=== PATIENT | female | born 1960 | race Caucasian/White ===

== ENCOUNTER 2017-08-18 11:56 | Emergency (ER) | payer SELFPAY ==
[2017-08-18] VITALS (7 sets, daily range): BP systolic 138–151; BP diastolic 72–95; PULSE 80–95; RESP 14–20; TEMP 36; O2SAT 85–95; BMI 22.7
--- NOTE | 2017-08-18 12:27 | RAD_ITS ---
STUDY: X-RAY CHEST REASON FOR EXAM: Female, 57 years old. Shortness of breath, cough. TECHNIQUE: PA and lateral views of the chest. COMPARISON: PA and lateral chest x-ray November 17, 2015. FINDINGS: There is hyperinflation of the lungs consistent with chronic obstructive lung disease (COPD). Focal transverse density in the left base on the frontal view consistent with scarring. No new consolidation There is no demonstrated pleural abnormality. Normal size heart. Normal mediastinum and gretel. Normal visualized pulmonary arteries. Normal visualized aortic arch and descending thoracic aorta. There are stable degenerative changes of the visualized thoracic spine. Normal visualized ribs, clavicles, and shoulders. There is no demonstrated abnormality of the visualized soft tissue structures of the upper abdomen. RAD/Chest PA and Lateral IMPRESSION: Hyperexpanded, consistent with COPD. There is a focus of scarring in the left base, but no acute infiltrate or CHF. Electronically Signed: Gonzalo Calixto MD at 13:08 EST , Service support ,
--- NOTE | 2017-08-18 12:27 | EKG12_ITS ---
Test Reason : COUGH Blood Pressure : / mmHG Vent. Rate : 078 BPM Atrial Rate : 078 BPM P-R Int : 150 ms QRS Dur : 092 ms QT Int : 374 ms P-R-T Axes : 082 064 069 degrees QTc Int : 426 ms Normal sinus rhythm Right atrial enlargement Nonspecific ST abnormality Abnormal ECG Confirmed by CHRISTI ROBIN, ERNESTINE ([id number]), photo editor LEODAN REGALADO ([id number]) on 08/21/2017 3:54:50 PM Referred By: DANIEL Confirmed By:ERNESTINE BARRAZA MD
[2017-08-18] MEDS: Ipratropium/Albuterol Sulfate 3 ML AMPUL.NEB INHALATION (12:35)
--- NOTE | 2017-08-18 13:12 | ED.DCSUM_ITS ---
- ER Visit Summary Date of Service: 08/18/17 Chief Complaint: Cough History of Present Illness: The patient is a 57 F who presents for a cough for at least 1 week. Patient is unsure of exact onset but states she has been having a nagging cough that is nonproductive. She tried cough medications without relief. She denies fever, chest pain or acute shortness of breath. She states she has a chronic shortness of breath due to smoking. Patient is a heavy smoker but states it has been difficult to smoke given her cough recently. She denies any history of COPD, asthma and provides history of sinus disease, stroke and hypertension. Patient states she has not seen a doctor for primary care in several years. Physical Examination: Vital signs: afebrile, hemodynamically stable, no hypoxia on room air General: well nourished, well developed, in no distress Skin: warm, dry, no rash, no pallor HEENT: normocephalic and atraumatic; PERRL, EOMI, moist mucous membranes, edentulous Cardiovascular: regular rate and rhythm without murmurs, no peripheral edema, 2 + pulses all distal extremities Respiratory: No increased work of breathing, lungs are clear but diffusely diminished bilaterally, no rales, rhonchi or wheezing Abdominal: Abdomen is soft, nontender with normoactive bowel sounds, no guarding or rebound, no masses MSK: Moves all extremities, no deformities, normal strength Neuro: Awake and alert, oriented ?4. No facial droop, sensation and motor function intact and symmetric Test Results: Abnormal Lab Results 08/18/17 08/18/17 12:45 12:45 WBC 14.7 H RBC 4.77 Hgb 15.0 Hct 44.2 MCV 92.7 MCH 31.4 MCHC 33.9 RDW 13.2 RDW Differential 44.4 H Plt Count 275 MPV 10.9 Immature Gran % (Auto) 0.400 Neut % (Auto) 70.3 H Lymph % (Auto) 20.0 [place] % (Auto) 8.9 Eos % (Auto) 0.1 Baso % (Auto) 0.3 Absolute Neuts (auto) 10.3 H Absolute Lymphs (auto) 2.94 Total Counted Not Reportable Sodium 133 L Potassium 3.3 L Chloride 93 L Carbon Dioxide 32.0 Anion Gap 8 BUN 7 Creatinine 0.66 Estim Creat Clear Calc 71.57 Est GFR (MDRD) Af Amer 118 Est GFR (MDRD) Non-Af 98 BUN/Creatinine Ratio 10.6 Glucose 115 H Calcium 9.7 Troponin I < 0.02 Emergency Department Course and Treatment: Patient examination and history is concerning for COPD exacerbation, although patient does not carry this diagnosis. She has not been evaluated by a physician in several years and likely has undiagnosed COPD. Her chest x-ray was consistent with COPD. EKG showed a sinus rhythm without ischemia or ectopy. Troponin negative. Labs unremarkable except for leukocytosis of 14.7. Patient was given an albuterol and DuoNeb treatments as well as oral dose of prednisone. On reevaluation she felt better and was able to ambulate maintaining an oxygen saturation no lower than 89%. Patient was instructed to follow-up with her doctor as soon as possible for further evaluation of her lung function, with concern for chronic lung disease. She was discharged with azithromycin, prednisone burst and albuterol inhaler. She will return if any concerning new symptoms or worsening of her condition. Treatment Plan: [] Disposition: [] Impression: COPD exacerbation This note was generated with [employer] dictation software. It may contain incorrect words, spelling, and punctuation that were not noted in review of the chart prior to signing ED Disposition - Plan for ED Patient: Disposition: Home or Assisted Living Chief Complaint: Cough Instructions: ED COPD Flare Prescriptions: Albuterol Inhaler [Ventolin Hfa] 1 - 2 puff INHALATION Q4H PRN PRN #1 inhaler PRN Reason: Wheezing Azithromycin [Zithromax Z-Nicholas] 250 mg PO UD #1 box Prednisone 40 mg PO DAILY #8 tab Referrals: NOT,DEFINED [NON-STAFF] - Doctor,Your [STAFF PHYSICIAN] - As soon as possible Additional Instructions: Your workup today was consistent with COPD, which is a lung disease likely related to your long-term smoking. Please follow-up with your doctor as soon as possible for further evaluation of your lungs. Please use the albuterol inhaler as needed for wheezing. Take the steroid daily for 4 additional days, starting tomorrow. If you have any worsening of your condition or any new concerning symptoms, please return immediately for another evaluation.
[2017-08-18 13:24] LABS: Absolute Lymphocyte Count 2.94 X10^3/ul (0.83-4.51); Absolute Neutrophil Count 10.3 X10^3/uL (2.0-7.7); Basophil# 0.04 X10^3/uL; Basophil% 0.3 % (0-1); Eosinophil# 0.01 X10^3/uL; Eosinophils% 0.1 % (0-5); Hematocrit 44.2 % (37-47); Lymphocyte # 2.94 X10^3/ul (4.0); Mean Corp Hgb Conc 33.9 g/gl (32-36); Mean Corpuscular Hgb 31.4 pg (27.0-32.0); Mean Corpuscular Volume 92.7 fL (81-99); Mean Platelet Vol. 10.9 fl (6.2-12.0); Monocyte% 8.9 % (0-10); Neutrophil # 10.33 X10^3/uL (2.7-7.7); Neutrophil % 70.3 % (47-70); Platelet Count 275 K/mm3 (150-450); RBC Distribution Width CV 13.2 % (11.6-14.6); RBC Distribution Width SD 44.4 fl (35.1-43.9); Red Blood Count 4.77 M/mm3 (4.2-5.4); White Blood Count 14.7 K/mm3 (4.4-11.0)
[2017-08-18 13:25] LABS: POSITIVE COUNT NO; POSITIVE DIFFERENTIAL NO; POSITIVE MORPHOLOGY NO
[2017-08-18 13:42] LABS: Anion Gap 8 (5-15); BUN 7 mg/dL (7-18); BUN/Creat Ratio 10.6 RATIO (10-20); Calcium,Total 9.7 mg/dL (8.5-10.1); Chloride 93 mmol/L (98-107); Creatinine, Serum 0.66 mg/dL (0.55-1.02); EST Glomerular Filtration Rate 98 mL/min (>60); Est Glom Filt Rate - Afr Amer 118 mL/min (>60); Estimated Creatinine Clearance 71.57 ml/min; Glucose 115 mg/dL (74-106); Potassium 3.3 mmol/L (3.5-5.1); Sodium Level 133 mmol/L (136-145)
[2017-08-18] MEDS: Albuterol 2.5 MG/3 ML VIAL.NEB. INHALATION (14:22)
--- NOTE | 2017-08-18 15:06 | ED.DEP ---
ED Disposition - Plan for ED Patient: Disposition: Home or Assisted Living Chief Complaint: Cough Instructions: ED COPD Flare Prescriptions: Albuterol Inhaler [Ventolin Hfa] 1 - 2 puff INHALATION Q4H PRN PRN #1 inhaler PRN Reason: Wheezing Azithromycin [Zithromax Z-Nicholas] 250 mg PO UD #1 box Prednisone 40 mg PO DAILY #8 tab Referrals: NOT,DEFINED [NON-STAFF] - Doctor,Your [STAFF PHYSICIAN] - As soon as possible Additional Instructions: Your workup today was consistent with COPD, which is a lung disease likely related to your long-term smoking. Please follow-up with your doctor as soon as possible for further evaluation of your lungs. Please use the albuterol inhaler as needed for wheezing. Take the steroid daily for 4 additional days, starting tomorrow. If you have any worsening of your condition or any new concerning symptoms, please return immediately for another evaluation.
--- NOTE | 2017-08-18 15:14 | ED.RN ---
REVIEWED D/C INSTRUCTIONS, FOLLOW UP CARE, PRESCRIPTIONS, AND S/S THAT WOULD WARRANT A RETURN TO THE ED WITH PT. PT VERBALIZED AN UNDERSTANDING AND DENIES FURTHER QUESTIONS FOR THIS RN. PT SKIN P/W/D, RESP EVEN AND UNLABORED, PT A&O X 3, NO DISTRESS NOTED. PT AMBULATED OUT OF ED, GAIT STEADY.
== END 2017-08-18 15:16 | disposition home or self-care (01) ==
PROVIDERS: Emergency Provider Emergency Medicine
DX: J44.1 Chronic obstructive pulmonary disease with (acute) exacerbation (principal); D72.829 Elevated white blood cell count, unspecified; I10 Essential (primary) hypertension; Z86.73 Personal history of transient ischemic attack (TIA), and cerebral infarction without residual deficits; F17.200 Nicotine dependence, unspecified, uncomplicated
CPT/HCPCS: 71046; 80048; 84484; 85025; 93005; 94640; 99285; A4216

== ENCOUNTER → 2017-12-17 11:33 | Outpatient (CLI) | payer MEDICARE, SELFPAY ==
--- NOTE | 2017-12-17 11:38 | RAD_ITS ---
STUDY: X-RAY - LEFT HAND REASON FOR EXAM: Fall, pain in thumb area. TECHNIQUE: 3 view(s) of the hand. COMPARISON: None. FINDINGS: Normal radiocarpal articulation. Normal distal radioulnar joint. There is a small ossicle at the ulnar styloid process. Normal visualized carpal bones. Normal carpal articulations Normal carpometacarpal articulation of the thumb. Normal second through fifth carpometacarpal joints. Normal metacarpi. There is radial subluxation of the metacarpophalangeal joint of the thumb, suggestive of ulnar collateral ligament injury. Normal interphalangeal joint of the thumb. Normal proximal and distal phalanges of the thumb. Normal metacarpophalangeal joints of the second through fifth fingers. Normal proximal and distal interphalangeal joints of the second through fifth fingers. Normal phalanges of the second through fifth fingers. The soft tissue structures are unremarkable. RAD/Hand Min 3 Views IMPRESSION: Radial subluxation of the first metacarpophalangeal joint. Electronically Signed: Aditya Huerta MD at 12:18 EDT Tel , Service support ,
== END ==
PROVIDERS: Family Provider Family Medicine; PCP Family Medicine; Visit Provider Family Medicine
DX: S69.92XA Unspecified injury of left wrist, hand and finger(s), initial encounter (principal); W19.XXXA Unspecified fall, initial encounter
CPT/HCPCS: 73130

== ENCOUNTER → 2018-04-18 15:33 | Outpatient (CLI) | payer MEDICARE, SELFPAY ==
[2018-04-18 17:44] LABS: Anion Gap 8 (5-15); BUN 11 mg/dL (7-18); BUN/Creat Ratio 15.6 RATIO (10-20); Calcium,Total 10.2 mg/dL (8.5-10.1); Chloride 101 mmol/L (98-107); Cholesterol 240 mg/dL (200); Creatinine, Serum 0.71 mg/dL (0.55-1.02); EST Glomerular Filtration Rate 90 mL/min (>60); Est Glom Filt Rate - Afr Amer 109 mL/min (>60); Glucose 89 mg/dL (74-106); High Density Lipoprotein 82 mg/dL; Potassium 4.5 mmol/L (3.5-5.1); Sodium Level 140 mmol/L (136-145); Triglycerides 103 mg/dL; Very Low Density Lipoprotein 21 mg/dL (5-40)
== END ==
PROVIDERS: Family Provider Family Medicine; PCP Family Medicine; Visit Provider Family Medicine
DX: I10 Essential (primary) hypertension (principal)
CPT/HCPCS: 36415; 80048; 80061

== ENCOUNTER 2020-11-04 12:30 | Outpatient (RCR) | payer MEDICARE, SELFPAY ==
--- NOTE | 2020-10-07 13:37 | HP.PTEVAL ---
Patient's Visit Information SHAHLA VARELA is a 60 year old F referred to Physical Therapy by Dr. Marc Rosales MD with a diagnosis of poor balance. Date of Evaluation: 09/06/20 Physical Therapist: Britney Nguyen DPT - Visit Plan Frequency: 2x /Week Duration: 4 Weeks Plan: increase balance, improve gait mechanics - Subjective Pt reports that her balance has been off for a couple years after she broke her elbow after a fall outside. Pt has only fallen once since over dog. Pain: denies pain , denies numbness and tingling. Pt reports her PCP sent her here. Can stand and sit. unable to squat. walking is a problem ,pt reports she is now unable to stand on her tiptoes. occupation: does not work outside of home. pt reports that she smokes weed. Pt is a drinker. homesetup: lives with and son, steps to get into house. Pt lives in a trailer, everything is on one floor. Pt does not have a cane or walker. Pt would like to work towards [employer] for exercise. 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 - Objective Posture: FH, RS. Gait: forward flexion, reaching for objects, wide ADA with posterior pelvic tilt. ROM: hip/knee/ankle: WFL. Strength: hip: R 4-/5 L 4/5 all planes, knee: R 4-/5, L 4/5, ankle: L 4-/5 r 4/5. HR/TR:able with BUE support. SLS: 5 second bilateral with BUE support. TU.05. 30 second sit to stand: 7 - Goals Goal 1:: Pt will be I with HEP and prorgession Goal Time Frame: 4-6 Weeks Goal 2:: Pt will perform TUG >10 seconds to decrease fall risk Goal 3:: Pt will perform 15 sit to stands to promote I functional mobility Goal Time Frame: 4-6 Weeks - Rehabilitation Potential Physical Therapy Diagnosis: Pt presents with poor balance secondary to hx of stroke impacting ability to perform I functional mobility. Rehabilitation Potential: Good - Anticipated Interventions Patient/Client Instruction: Educate patient on: Plan of Care For the Purpose of:: To improve muscle performance and motor function Therapeutic Exercise to Include: Strength training, Power training, Endurance training, Balance training, Coordination, Agility training, Body mechanics, Postural training, Flexibilty training, Gait and locomotor training For the Purpose of:: To improve muscle performance and motor function, To increase tolerance to activity/condition/position Thank you for the opportunity to evaluate your patient. For Medicare and Medicare HMO plans, please review the plan of care and approve it. It will need to be FAXED BACK to us at [phone] for Medicare purposes. For Medicare only, by signing this I certify the plan of care. Please let me know if there are questions or concerns regarding this plan of care. Physician Signature: Date:
--- NOTE | 2020-10-07 14:07 | HP.PTREVAL_ITS ---
Dr. Marc Rosales MD, It has been my pleasure to treat SHAHLA VARELA over the last 9 visits for poor balance. Please see the progress note below for an update on the physical therapy plan of care! Subjective: Patient reports that she does not feel that she is getting any better. Still has a significant fear of falling. No falls recently. Does not use an AD. She wants to be able to walk around better. She would like to continue therapy. Objective/Function: Posture: FH, RS - can correct with verbal cues but does not maintain. Gait: forward flexion, reaching for objects, wide ADA with posterior pelvic tilt. ROM: hip/knee/ankle: WFL. Strength: hip: R 4/5 L 4/5 all planes, knee: R 4/5, L 4/5, ankle: L 4-/5 r 4/5. HR/TR:able with BUE support. SLS: 8 second bilateral with BUE support. TU.15. 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 Functional mobility. increase balance, improve gait mechanics Goals Goal 1:: Pt will be I with HEP and prorgession Goal Time Frame: 4-6 Weeks Goal 2:: Pt will perform TUG >10 seconds to decrease fall risk Goal 3:: Pt will perform 15 sit to stands to promote I functional mobility Goal Time Frame: 4-6 Weeks Anticipated Interventions Patient/Client Instruction: Educate patient on: Plan of Care For the Purpose of:: To improve muscle performance and motor function Therapeutic Exercise to Include: Strength training, Power training, Endurance training, Balance training, Coordination, Agility training, Body mechanics, Postural training, Flexibilty training, Gait and locomotor training For the Purpose of:: To improve muscle performance and motor function, To increase tolerance to activity/condition/position Please do not hesitate to contact me at [phone] by phone or if you have questions or concerns regarding this new plan of care! Sincerely, Britney Nguyen DPT
--- NOTE | 2020-11-04 12:49 | HP.PTDCSUM ---
It has been my pleasure to treat SHAHLA VARELA referred by Dr. Marc Rosales MD, with the diagnosis of poor balance for a total of 16 visit(s). Discharge Date: Please see the following information for a summary of their discharge status. Subjective: Patient reports that she is now more stable and is able to get off the floor. There is nothing she can't do. % Improvement: 100 Objective/Function: Posture: FH, RS - can correct and maintain with verbal cues. Gait: slow spencer but no deviation noted. ROM: hip/knee/ankle: WFL. Strength: hip: R 4+/5 L 4+/5 all planes, knee:5/5, ankle: 4/5. HR/TR:able with BUE support. SLS: 20 second bilateral with BUE support. TU.5. 30 second sit to stand:15 Goal 1:: Pt will be I with HEP and prorgession Goal Progress: Goal Met Goal 2:: Pt will perform TUG >10 seconds to decrease fall risk Goal Progress: Progressing Goal 3:: Pt will perform 15 sit to stands to promote I functional mobility Goal Progress: Goal Met Plan: 11/04/2020: Discharge to I HEP. 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 Functional mobility. increase balance, improve gait mechanics If there are questions or concerns regarding this patient's physical therapy, please feel free to call me at [phone]. Thank you for the referral of this patient. Sincerely, Britney Nguyen DPT
== END 2020-11-04 19:00 | disposition home or self-care (01) ==
LOC: PT 12:30
PROVIDERS: PCP Family Medicine; Referring Provider Family Medicine; Visit Provider Family Medicine
DX: R26.89 Other abnormalities of gait and mobility (principal)
CPT/HCPCS: 97110; 97162; 97164; 97530

== ENCOUNTER 2022-03-30 10:39 | Inpatient (IN) | payer MEDICARE, SELFPAY ==
[2022-03-30] VITALS (12 sets, daily range): BP systolic 102–131; BP diastolic 56–92; PULSE 74–126; RESP 8–30; TEMP 35.5–37; O2SAT 80–100; BMI 28.3; BMI 32.7; BMI 32.1
--- NOTE | 2022-03-30 12:10 | EKG12_ITS ---
Test Reason : SOB Blood Pressure : / mmHG Vent. Rate : 087 BPM Atrial Rate : 087 BPM P-R Int : 154 ms QRS Dur : 096 ms QT Int : 378 ms P-R-T Axes : 079 100 -25 degrees QTc Int : 454 ms Sinus rhythm with occasional Premature ventricular complexes Rightward axis Incomplete right bundle branch block Septal infarct , age undetermined T wave abnormality, consider inferior ischemia Abnormal ECG Confirmed by MAHESH ROBIN, HENRY ([id number]), state editor ELIZABETH MENDOSA ([id number]) on 04/03/2022 9:47:13 A M Referred By: GRABIEL Confirmed By:JAX ARAGON MD
[2022-03-30] MEDS: Furosemide 40 MG/4 ML Vial IV ×2 (12:16→17:56)
[2022-03-30] MEDS: Morphine 4 MG/ML Syringe IV (12:16)
--- NOTE | 2022-03-30 12:27 | RAD_ITS ---
STUDY: X-RAY CHEST REASON FOR EXAM: Female, 61 years old. Shortness of breath and diffuse edema. TECHNIQUE: AP and lateral views of the chest. COMPARISON: Comparison is made with prior study dated 08/18/2017. FINDINGS: EKG electrodes are seen. There is evidence of mild degree of CHF with small effusions. Right basilar atelectasis. There is no demonstrated pleural abnormality. Normal size heart. Normal mediastinum and gertel. Normal visualized pulmonary arteries. Normal visualized aortic arch and descending thoracic aorta. Normal visualized thoracic spine. Normal visualized ribs, clavicles, and shoulders. There is no demonstrated abnormality of the visualized soft tissue structures of the upper abdomen. RAD/Chest PA and Lateral IMPRESSION: CHF with small bilateral effusions and right basilar atelectasis. Electronically Signed: Vince Olivia MD at 12:47 EDT ,
[2022-03-30 12:32] LABS: Absolute Neutrophil Count 7.2 X10^3/uL (2.0-7.7); Basophil# 0.03 X10^3/uL; Basophil% 0.3 % (0-1); Eosinophil# 0.02 X10^3/uL; Eosinophils% 0.2 % (0-5); Hemoglobin 18.2 g/dL (12.0-15.0); Lymphocyte % 7.8 % (19-41); Mean Corp Hgb Conc 31.6 g/dL (32-36); Mean Platelet Vol. 11.1 fl (6.2-12.0); Monocyte# 1.05 X10^3/uL; Monocyte% 11.6 % (0-10); NRBC Flagged by Analyzer 0 % (0-5); Neutrophil % 79.8 % (47-70); Platelet Count 141 K/mm3 (150-450); RBC Distribution Width CV 17.5 % (11.6-14.6); RBC Distribution Width SD 59.7 fl (35.1-43.9); Red Blood Count 5.88 M/mm3 (4.2-5.4)
[2022-03-30 12:49] LABS: BUN 33 mg/dL (7-18); Creatinine, Serum 1.45 mg/dL (0.55-1.02); EST Glomerular Filtration Rate 39 mL/min (>60); Estimated Creatinine Clearance 46.12 ml/min; Glucose 112 mg/dL (74-106); Hematocrit 57.6 % (37-47)
[2022-03-30 12:50] LABS: ALB/GLOB Ratio 0.9 RATIO (0.9-2.4); AST(SGOT) 25 U/L (15-37); Alanine Aminotransfer ALT/SGPT 40 U/L (13-56); Alkaline Phosphatase 84 U/L (45-117); Anion Gap 8 (5-15); BUN/Creat Ratio 22.8 RATIO (10-20); Calcium,Total 9.3 mg/dL (8.5-10.1); Chloride 94 mmol/L (98-107); Est Glom Filt Rate - Afr Amer 47 mL/min (>60); Globulin 3.5 g/dL (2.2-4.2); Potassium 3.6 mmol/L (3.5-5.1); Protein, Total 6.5 g/dL (6.4-8.2); Sodium Level 135 mmol/L (136-145); Troponin-I HS 47 pg/mL (3.0-54.0)
[2022-03-30 12:51] LABS: Pathologist Review May foll
--- NOTE | 2022-03-30 13:15 | EDS_ITS ---
HPI History of Present Illness Chief Complaint: Shortness of Breath Informant: patient and family Onset/Context/Timing Onset: Weeks Context: gradual Timing: Continuous Quality: Positive for Dyspnea on exertion and Orthopnea Worsened by: Exertion and Lying flat Relieved by: Oxygen Associated Symptoms Negative for cough, rhinorrhea, post nasal drip, fever, sore throat, chills or sweats Chest Pain: Positive for None Narrative Narrative: Patient presents with shortness of breath that has been getting progressively worse over the past week. Family states the patient has had a 40 pound weight gain in the past month. Family noted some increased swelling of her upper and lower extremities. Patient states her breathing is worse with any exertion and with laying flat. Patient states she is unable to walk a couple steps secondary to her breathing. Patient states that when she was put on oxygen she is starting to feel better. Patient denies any chest pain. Patient denies any fevers or chills. Patient does admit to some urinary incontinence. Patient states she feels weak all over. [facility] Medical History CVA (cerebral vascular accident) Elbow fracture Home Medications NK 03/30/22 [History Last Taken Unknown] Allergy/AdvReac Type Severity Reaction Status Date / Time acetaminophen [From Vicodin] AdvReac Vomiting Verified 03/30/22 10:43 codeine AdvReac Vomiting Verified 03/30/22 10:43 hydrocodone bitartrate AdvReac Vomiting Verified 03/30/22 10:43 [From Vicodin] oxycodone HCl [From Percocet] AdvReac Vomiting Verified 03/30/22 10:43 Social History Smoking Status: Current every day smoker tobacco type: cigarettes ROS ROS ED Constitutional Constitutional ED: Denies chills or fever(s) Eyes Eyes: Denies blurry vision or change in vision ENT ENT ED: Denies rhinorrhea or sore throat Cardiovascular Cardiovascular: Denies chest pain or palpitations Respiratory/Chest Respiratory/Chest: Reports dyspnea; Denies cough Gastrointestinal Gastrointestinal: Denies nausea or vomiting Genitourinary Genitourinary ED: Denies dysuria or hematuria Musculoskeletal Musculoskeletal: Denies back pain or neck pain Integumentary Denies abscess or rash Neurologic Neurologic: Denies headache(s) or weakness Allergic/Immunologic Allergic/Immunologic ED: Denies mouth swelling or urticaria EXAM Physical Exam Const Vital Signs: 03/30/22 10:44 03/30/22 10:54 03/30/22 10:55 Temperature 97 F L Temperature Source Temporal Pulse Rate 126 H 88 Respiratory Rate 30 H Respiratory Effort Blood Pressure 119/70 Blood Pressure Mean 86 Pulse Ox 80 100 100 Oxygen Delivery Method Room Air Nasal Cannula Nasal Cannula Oxygen Flow Rate (L/min) 4 3 03/30/22 11:01 03/30/22 12:01 03/30/22 12:15 Temperature Temperature Source Pulse Rate 86 Respiratory Rate Respiratory Effort Short of Breath Blood Pressure Blood Pressure Mean Pulse Ox 97 Oxygen Delivery Method Nasal Cannula Nasal Cannula Oxygen Flow Rate (L/min) 2 2 03/30/22 12:20 Temperature Temperature Source Pulse Rate 79 Respiratory Rate 12 Respiratory Effort Blood Pressure 102/56 L Blood Pressure Mean 71 Pulse Ox 99 Oxygen Delivery Method Nasal Cannula Oxygen Flow Rate (L/min) 2 Positive well nourished and well developed General Appearance ED: well developed and NAD Neck supple Resp normal respiratory effort Auscultation: rales bilateral 2/[address] up Cardio regular rate and regular rhythm GI non-tender and non-distended Palpation: soft Extremity General Extremety ED: Yes edema; Negative for tenderness General Extremity: edema Neuro oriented x3, CN's II-XII intact bilaterally and no sensory deficits noted Sensorium / Orientation: alert Motor Exam: strength 5/5 throughout Psych mental status grossly normal MDM MDM MDM Narrative Medical decision making narrative: EKG was obtained. On my interpretation, shows a sinus rhythm with a rate of 87 with occasional PVCs. SC interval was within normal limits. QRS interval was normal. QTc interval was essentially within normal limits. There is borderline right axis deviation at 100. There are nonspecific ST-T wave changes noted. There are no acute changes compared to previous EKG. PA and lateral chest x-ray was obtained. There are 2 views. On my interpretation, lung nevarez show congestive heart failure bilateral pleural effusions. There is normal cardiac silhouette. Bony thorax is normal. There is no acute process noted. Radiologist also interpreted the x-ray and agrees. CBC shows a hemoglobin of 18.2 and hematocrit of 57.6. Platelets were 141. Comprehensive metabolic profile showed a BUN of 33 and a creatinine of 1.45. These were slightly increased from previous results. Total bilirubin was slightly elevated at 1.4. High-sensitivity troponin was normal at 47. BNP was elevated at 1776. Patient was given a dose of Lasix here. Patient was given a dose of morphine. Case was discussed with the hospitalist. He will admit the patient to his service. Patient and family understood and were agreeable with the plan. All questions were answered. Lab Data Attestation: I reviewed the patient's lab results. Labs: Laboratory Results - last 24 hr 03/30/22 03/30/22 03/30/22 12:20 12:20 12:20 WBC 9.0 RBC 5.88 H Hgb 18.2 H* Hct 57.6 H MCV 98.0 MCH 31.0 MCHC 31.6 L RDW Std Deviation 59.7 H RDW Coeff of Dae 17.5 H Plt Count 141 L MPV 11.1 Immature Gran % (Auto) 0.300 Neut % (Auto) 79.8 H Lymph % (Auto) 7.8 L [place] % (Auto) 11.6 H Eos % (Auto) 0.2 Baso % (Auto) 0.3 Absolute Neuts (auto) 7.2 Absolute Lymphs (auto) 0.70 L Nucleated RBC % 0 Diff Path Review May foll PT Cancelled INR Cancelled APTT Cancelled Sodium 135 L Potassium 3.6 Chloride 94 L Carbon Dioxide 33.0 H Anion Gap 8 BUN 33 H Creatinine 1.45 H Estim Creat Clear Calc 46.12 Est GFR (MDRD) Af Amer 47 L Est GFR (MDRD) Non-Af 39 L BUN/Creatinine Ratio 22.8 H Glucose 112 H Calcium 9.3 Total Bilirubin 1.40 H AST 25 ALT 40 Alkaline Phosphatase 84 Troponin I High Sens 47 B-Natriuretic Peptide Total Protein 6.5 Albumin 3.0 L Globulin 3.5 Albumin/Globulin Ratio 0.9 03/30/22 03/30/22 12:20 13:10 WBC RBC Hgb Hct MCV MCH MCHC RDW Std Deviation RDW Coeff of Dae Plt Count MPV Immature Gran % (Auto) Neut % (Auto) Lymph % (Auto) [place] % (Auto) Eos % (Auto) Baso % (Auto) Absolute Neuts (auto) Absolute Lymphs (auto) Nucleated RBC % Diff Path Review PT 15.2 H INR 1.2 APTT 26.6 Sodium Potassium Chloride Carbon Dioxide Anion Gap BUN Creatinine Estim Creat Clear Calc Est GFR (MDRD) Af Amer Est GFR (MDRD) Non-Af BUN/Creatinine Ratio Glucose Calcium Total Bilirubin AST ALT Alkaline Phosphatase Troponin I High Sens B-Natriuretic Peptide 1776.0 H Total Protein Albumin Globulin Albumin/Globulin Ratio Radiography Diagnostic Testing: Clinical Impression(s) from Imaging Studies Chest X-Ray 03/30/22 12:27 IMPRESSION: CHF with small bilateral effusions and right basilar atelectasis. Electronically Signed: Vince Olivia MD at 12:47 EDT , EKG Initial EKG: Attestation: I personally reviewed and interpreted this EKG as follows: Interpretation: Sinus Rhythm (87), RBBB (Incomplete) and Non-Specific ST Changes Prior EKG tracings: available for review Prior: Unchanged (08/18/2017) Discharge Plan Triage Chief Complaint: Shortness of Breath ED Provider: Angel Gaitan Dx/Rx/DC Orders Clinical Impression: Congestive heart failure (CHF), HTN (hypertension), Anasarca Prescriptions: No Action NK Primary Care Provider: Marc Rosales Referrals: Marc Rosales MD [Primary Care Provider] - Disposition Disposition: Acute Care [facility]
[2022-03-30 13:35] LABS: International Normalized Ratio 1.2; Prothrombin Time (Protime)PT. 15.2 SECONDS (11.7-14.9)
[2022-03-30 13:36] LABS: Partial Thromboplast Time 26.6 Seconds (24.1-36.2)
--- NOTE | 2022-03-30 15:11 | HP.PCM.HOS_ITS ---
[facility] - General General Date of Admission: 03/30/22 Date of Service: 03/30/22 Chief Complaint: Weakness and shortness of breath HPI Narrative SHAHLA VARELA, is a 61 F who presents with progressive weakness, shortness of breath and debility. Patient had just received morphine and is a poor historian so much of history is obtained through the emergency room physician as well as her family who is at bedside. Over the past 4 weeks, patient has had increasing edema diffusely including her arms, she is weak and unable to adequately care for herself. At some point, patient was able to ambulate on her own but noticed to unsteady. Patient is not active in managing follow-up with physicians though was referred to a Dr. Kruger for vascular surgery which she was to see next week for lower extremities. Patient does have a history of stroke about 18 years ago but was functional afterwards but there is been concerned that the patient may be demented and but that has not been fully worked up. [facility] Medical History (Updated 03/30/22 @ 15:[address] Angel Hanson DO) Alcohol abuse Congestive heart failure (CHF) CVA (cerebral vascular accident) Elbow fracture HTN (hypertension) Mild dementia Peripheral arterial disease Polycythemia Tobacco abuse Home Medications NK 03/30/22 [History Last Taken Unknown] Allergy/AdvReac Type Severity Reaction Status Date / Time acetaminophen [From Vicodin] AdvReac Vomiting Verified 03/30/22 10:43 codeine AdvReac Vomiting Verified 03/30/22 10:43 hydrocodone bitartrate AdvReac Vomiting Verified 03/30/22 10:43 [From Vicodin] oxycodone HCl [From Percocet] AdvReac Vomiting Verified 03/30/22 10:43 unable to obtain (Patient is confused) Social History (Updated 03/30/22 @ 15:[address] Angel Hanson DO) Smoking Status: Heavy Smoker (>10/day) alcohol intake: current substance use type: does not use ROS ROS Narrative Trouble swallowing particularly large pills. ROS unable to be adequately obtained from the patient as she is groggy. Did receive morphine shortly before I saw the patient. Review of Systems ROS Unobtainable: due to encephalopathy Vital Signs Vital Signs Vital Signs: 03/30/22 10:44 03/30/22 10:54 03/30/22 10:55 Temperature 36.1 C L Temperature Source Temporal Pulse Rate 126 H 88 Respiratory Rate 30 H Respiratory Effort Blood Pressure 119/70 Blood Pressure Mean 86 Pulse Ox 80 100 100 Oxygen Delivery Method Room Air Nasal Cannula Nasal Cannula Oxygen Flow Rate (L/min) 4 3 03/30/22 11:01 03/30/22 12:01 03/30/22 12:15 Temperature Temperature Source Pulse Rate 86 Respiratory Rate Respiratory Effort Short of Breath Blood Pressure Blood Pressure Mean Pulse Ox 97 Oxygen Delivery Method Nasal Cannula Nasal Cannula Oxygen Flow Rate (L/min) 2 2 03/30/22 12:20 03/30/22 14:28 Temperature 37.0 C Temperature Source Temporal Pulse Rate 79 84 Respiratory Rate 12 16 Respiratory Effort Blood Pressure 102/56 L 131/82 H Blood Pressure Mean 71 98 Pulse Ox 99 95 Oxygen Delivery Method Nasal Cannula Nasal Cannula Oxygen Flow Rate (L/min) 2 2 Weight Weight: 73.573 kg Body Mass Index (BMI) 32.7 Physical Exam Const Constitutional Narrative: Awake, but groggy. Dozes off during encounter. Does not answer questions properly nor follow commands appropriately. Orientation / Consciousness: confused HEENT normocephalic Eyes Eyes Narrative: No icterus Neck Neck Narrative: Positive JVD. No thyromegaly. Resp Resp Narrative: Poor respiratory effort. Otherwise clear. Cardio regular rate, regular rhythm, S1 normal heart sound and S2 normal heart sound GI normal to inspection, nondistended, normoactive bowel sounds, soft to palpation, non-tender and non-distended Extremity Extremity Narrative: Bilateral Todt upper and lower extremity edema. Abdominal wall edema. Skin Skin Narrative: Cyanosis of the toes more prominent right than on the left. Diminished dorsalis pedal pulses bilaterally. Neuro moves all extremities and no focal motor deficits Results Lab / Micro Data Attestation: I reviewed the patient's lab results. Result Diagrams: 03/30/22 12:20 03/30/22 12:20 Labs: Laboratory Results - last 24 hr 03/30/22 12:20: WBC 9.0, RBC 5.88 H, Hgb 18.2 H*, Hct 57.6 H, MCV 98.0, MCH 31.0, MCHC 31.6 L, RDW Std Deviation 59.7 H, RDW Coeff of Dae 17.5 H, Plt Count 141 L, MPV 11.1, Immature Gran % (Auto) 0.300, Neut % (Auto) 79.8 H, Lymph % (Auto) 7.8 L, [place] % (Auto) 11.6 H, Eos % (Auto) 0.2, Baso % (Auto) 0.3, Absolute Neuts (auto) 7.2, Absolute Lymphs (auto) 0.70 L, Nucleated RBC % 0, Diff Path Review October03/30/22 12:20: PT Cancelled, INR Cancelled, APTT Cancelled 03/30/22 12:20: Sodium 135 L, Potassium 3.6, Chloride 94 L, Carbon Dioxide 33.0 H, Anion Gap 8, BUN 33 H, Creatinine 1.45 H, Estim Creat Clear Calc 46.12, Est GFR (MDRD) Af Amer 47 L, Est GFR (MDRD) Non-Af 39 L, BUN/Creatinine Ratio 22.8 H , Glucose 112 H, Calcium 9.3, Total Bilirubin 1.40 H, AST 25, ALT 40, Alkaline Phosphatase 84, Troponin I High Sens 47, Total Protein 6.5, Albumin 3.0 L, Globulin 3.5, Albumin/Globulin Ratio 0.9 03/30/22 12:20: B-Natriuretic Peptide 1776.0 H 03/30/22 13:10: PT 15.2 H, INR 1.2, APTT 26.6 Micro: Microbiology 03/30/22 12:21 Nasal Secretion SARS-CoV-2 & FLU Antigen (Rapid) - Final EKG Initial EKG: Attestation: I personally reviewed and interpreted this EKG as follows: Prior EKG tracings: available for review EKG Rhythm Intrepretation: Sinus Rhythm (PVC) Radiology Impression Chest X-Ray 03/30/22 12:27 IMPRESSION: CHF with small bilateral effusions and right basilar atelectasis. Electronically Signed: Vince Olivia MD at 12:47 EDT , Assessment & Plan Assessment/Plan (1) Congestive heart failure (CHF): PLAN: Unclear type. Concerned about the patient have pulmonary hypertension which may be due to untreated sleep apnea. Plan: * Continue with diuresis with furosemide 40 mg twice daily * Fluid restrict 1.5 L/day * Strict I's and O's * Check echocardiogram * Recommend outpatient follow-up for polysomnogram (2) Mild dementia: PLAN: Not been fully diagnosed Plan * Follow-up with geriatrics for formal assessment * Avoid potentiating medications, such as morphine * Check for reversible causes with TSH, B12 and folate (3) Acute respiratory failure with hypoxia: PLAN: Secondary to CHF Wean oxygen as able (4) Peripheral arterial disease: PLAN: Suspected Patient has cyanosis of her toes as well as weak peripheral pulses Plan: Check ankle-brachial indices (5) Polycythemia: PLAN: Likely due to smoking Plan: Monitor for now. Low suspicion for polycythemia vera. (6) Alcohol abuse: PLAN: Patient does not drink that much according to family currently about 1-2 beers of [place] per day. Had been a little bit heavier before but was not excessively heavy according to the family. Cannot rule out Warnicke's encephalopathy Check B12 and folate Start thiamine and folate I suspect patient is low risk for going through acute alcohol withdrawal (7) Tobacco abuse: PLAN: Patient will need to stop smoking as a concern patient does have PAD Hold off on nicotine patch for now PLAN: Plan VTE prophylaxis with low migraine heparin CODE STATUS: Addressed with family. They are unsure with the patient would want as she is sent mixed signals before. Therefore, at this time, she will remain full code. Disposition: To be determined. Anticipate the patient will require at least 2-3 more days of hospitalization. I am very concerned the patient may require s [facility] nursing facility did address this with the family. Ultimately that her situation may be a [place]'s box of medical diagnoses or potential medical diagnoses that would warrant further follow-up with other medical providers upon discharge. Charges/Coding Visit Charges Inpatient E&M: 69706 Init Hosp L3
--- NOTE | 2022-03-30 16:11 | ART_ITS ---
Reason For Study: Cyanosis of Toes Procedure A bilateral lower extremity continuous wave Doppler with analog waveform analysis and ankle brachial indexes. Left Segmental Pressures Left posterior tibial artery = 60mmHg. Unable to obtain DP. The left posterior tibial artery waveforms are monophasic. Right Segmental Pressures Right brachial= 131mmHg. Right posterior tibial artery = 78mmHg. Unable to obtain DP. The right posterior tibial artery waveforms are monophasic. Indices The right ankle brachial index by the posterior tibial artery is 0.60. The left ankle brachial index by the posterior tibial artery is 0.46. VL/Ankle Brachial Index Interpretation Summary Right FERNANDO 0.6, severe arterial insufficiency. Doppler/PVR waveforms severely di minished Left FERNANDO 0.46, severe arterial insufficiency. Doppler/PVR waveforms severely di minished Ordering Physician: Angel Hanson Referring Physician: Marc Rosales Performed By: VANESSA LEMUS [facility]
--- NOTE | 2022-03-30 16:11 | ECHOD_ITS ---
Reason For Study: CHF Procedure This was a 2D Doppler, Color Flow transthoracic echocardiogram. Exam performed portable in patient room. Left Ventricle Normal LV size. The estimated ejection fraction is 70 %. No evidence for diastolic dysfunction. No regional wall motion abnormalities noted. Right Ventricle Severely dilated right ventricle. Mild global right ventricular systolic dysfunction. Atria Normal left atrium. The right atrium is severely enlarged. No doppler evidence for ASD. Mitral Valve There is mild mitral annular calcification. There is no mitral valve stenosis. No mitral valve insufficiency. Tricuspid Valve There is no tricuspid stenosis. Mild tricuspid valve insufficiency. Unable to estimate RV systolic pressure due to insufficient tricuspid regurgitant envelope. Aortic Valve Aortic sclerosis, no stenosis. Trisinus/trileaflet aortic valve. There is no aortic stenosis. Mild (1+) aortic valve insufficiency. Pulmonic Valve There is no pulmonic valvular stenosis. No pulmonic valve insufficiency. Great Vessels Normal aortic root. Pericardium/Pleural No pericardial effusion. MMode/2D Measurements & Calculations LVIDd: 3.9 cm IVSd: 0.98 cm Ao root diam: 3.0 cm LVIDs: 2.1 cm LVPWd: 1.0 cm LA dimension: 3.0 cm RVDd: 4.3 cm FS: 47.0 % LAV(MOD-bp): 28.9 ml LA A4 area: 12.2 cm2 RA A4 area: 21.0 cm2 LAV(MOD-bp) Indexed: 17.3 ml/m2 LAV(MOD-sp2): 31.3 ml LAV(MOD-sp4): 24.9 ml Time Measurements MV dec time: 0.23 sec Doppler Measurements & Calculations MV E max jerod: 60.9 cm/sec Lat Peak E' Jerod: 10.2 cm/sec Med Peak E' Jerod: 7.0 cm/sec MV A max jerod: 90.9 cm/sec E/E' lat: 6.0 E/E' med: 8.7 MV E/A: 0.67 MV V2 max: 104.4 cm/sec MV P1/2t max jerod: 72.3 cm/sec Ao V2 max: 172.9 cm/sec MV max P.4 mmHg MV P1/2t: 72.2 msec Ao max P.0 mmHg MV V2 mean: 64.1 cm/sec MV dec slope: 293.3 cm/sec2 MV mean P.9 mmHg MVA(P1/2t): 3.0 cm2 MV V2 VTI: 24.9 cm LV V1 max: 89.0 cm/sec PA V2 max: 103.3 cm/sec TR max jerod: 227.8 cm/sec LV V1 max P.2 mmHg TR max P.1 mmHg ECHO/Echo Complete Interpretation Summary The estimated ejection fraction is 70 %. No evidence for diastolic dysfunction. Severely dilated right ventricle. Mild global right ventricular systolic dysfunction. The right atrium is severely enlarged. Mild (1+) aortic valve insufficiency. Ordering Physician: Angel Hanson Referring Physician: Marc Rosales Performed By: Manny Chaudhry RCS
[2022-03-30] MEDS: 0.9% Saline Lock 10 ML Syringe IV (17:56)
[2022-03-30 17:57] LABS: Troponin-I HS 14 pg/mL (3.0-54.0)
--- NOTE | 2022-03-30 18:32 | NURSING ---
Charting reviewed with Leslie Haley RN
[2022-03-30 19:54] LABS: Troponin-I HS 49 pg/mL (3.0-54.0)
[2022-03-31] VITALS (11 sets, daily range): BP systolic 110–136; BP diastolic 44–78; PULSE 68–94; RESP 10–20; TEMP 36.2–37.1; O2SAT 93–100
[2022-03-31 08:08] LABS: ALB/GLOB Ratio 0.9 RATIO (0.9-2.4); AST(SGOT) 23 U/L (15-37); Alanine Aminotransfer ALT/SGPT 37 U/L (13-56); Albumin, Serum 3.1 g/dL (3.2-5.0); Alkaline Phosphatase 76 U/L (45-117); Anion Gap 7 (5-15); BUN 31 mg/dL (7-18); BUN/Creat Ratio 23.8 RATIO (10-20); Calcium,Total 9.2 mg/dL (8.5-10.1); Chloride 95 mmol/L (98-107); Cholesterol 124 mg/dL (200); EST Glomerular Filtration Rate 44 mL/min (>60); Est Glom Filt Rate - Afr Amer 53 mL/min (>60); Estimated Creatinine Clearance 49.86 ml/min; Globulin 3.4 g/dL (2.2-4.2); Glucose 90 mg/dL (74-106); High Density Lipoprotein 35 mg/dL; Potassium 3.6 mmol/L (3.5-5.1); Protein, Total 6.5 g/dL (6.4-8.2); Sodium Level 135 mmol/L (136-145); Thyroid Stim Hormone (TSH) 2.91 uIU/mL (0.358-3.74); Triglycerides 102 mg/dL; Very Low Density Lipoprotein 20 mg/dL (5-40)
[2022-03-31] MEDS: Enoxaparin 40 MG/0.4 ML Syringe SC (09:26)
[2022-03-31] MEDS: 0.9% Saline Lock 10 ML Syringe IV (09:26)
[2022-03-31] MEDS: Furosemide 40 MG/4 ML Vial IV ×3 (09:26→21:27)
[2022-03-31 09:34] LABS: Vitamin B12 799 pg/mL (211-911)
[2022-03-31 10:26] LABS: Absolute Neutrophil Count 6.3 X10^3/uL (2.0-7.7); Basophil# 0.04 X10^3/uL; Basophil% 0.5 % (0-1); Eosinophils% 1.2 % (0-5); Lymphocyte % 11.6 % (19-41); Mean Corpuscular Hgb 30.8 pg (27.0-32.0); Mean Corpuscular Volume 99.3 fL (81-99); Mean Platelet Vol. 11.3 fl (6.2-12.0); Monocyte# 1.19 X10^3/uL; Monocyte% 13.8 % (0-10); NRBC Flagged by Analyzer 0 % (0-5); Neutrophil # 6.27 X10^3/uL (2.7-7.7); Neutrophil % 72.6 % (47-70); Platelet Count 118 K/mm3 (150-450); RBC Distribution Width CV 17.2 % (11.6-14.6); RBC Distribution Width SD 59.4 fl (35.1-43.9); Red Blood Count 5.85 M/mm3 (4.2-5.4); White Blood Count 8.6 K/mm3 (4.4-11.0)
[2022-03-31 10:27] LABS: Hematocrit 58.1 % (37-47)
[2022-03-31 10:28] LABS: Differential Indicated SCAN CRITERIA MET
--- NOTE | 2022-03-31 12:17 | PCM.PN.HOSP ---
Subjective Subjective Follow-up on acute CHF exacerbation/acute on chronic debility: Patient was seen and examined. She appears confused. She is on 4 L of oxygen. Unable to carry on meaningful discussion with her on account of her cognitive status. Objective Data Objective Data Vital Signs: Vital Signs Temp Pulse Resp BP Pulse Ox O2 Del Method O2 Flow Rate 97.3 F L 82 10 L 110/64 100 Nasal Cannula 4 03/31/22 09:30 03/31/22 09:30 03/31/22 09:30 03/31/22 09:30 03/31/22 09:30 03/31/22 09:54 03/31/22 09:54 Oxygen Flow Rate (L/min) 4 Oxygen Delivery Method Nasal Cannula Weight: 71.3 kg Body Mass Index (BMI) 32.1 Intake & Output: Intake and Output for Last 24 Hours 03/29/22 03/30/22 03/31/22 23:59 23:59 23:59 Intake Total 0 / 0 0 / 0 Balance 0 / 0 0 / 0 Lab / Micro Data Result Diagrams: 03/31/22 07:06 03/31/22 07:06 Labs: Laboratory Results - last 24 hr 03/30/22 12:20: WBC 9.0, RBC 5.88 H, Hgb 18.2 H*, Hct 57.6 H, MCV 98.0, MCH 31.0, MCHC 31.6 L, RDW Std Deviation 59.7 H, RDW Coeff of Dae 17.5 H, Plt Count 141 L, MPV 11.1, Immature Gran % (Auto) 0.300, Neut % (Auto) 79.8 H, Lymph % (Auto) 7.8 L, Stephenson % (Auto) 11.6 H, Eos % (Auto) 0.2, Baso % (Auto) 0.3, Absolute Neuts (auto) 7.2, Absolute Lymphs (auto) 0.70 L, Nucleated RBC % 0, Diff Path Review October03/30/22 12:20: PT Cancelled, INR Cancelled, APTT Cancelled 03/30/22 12:20: Sodium 135 L, Potassium 3.6, Chloride 94 L, Carbon Dioxide 33.0 H, Anion Gap 8, BUN 33 H, Creatinine 1.45 H, Estim Creat Clear Calc 46.12, Est GFR (MDRD) Af Amer 47 L, Est GFR (MDRD) Non-Af 39 L, BUN/Creatinine Ratio 22.8 H, Glucose 112 H, Calcium 9.3, Total Bilirubin 1.40 H, AST 25, ALT 40, Alkaline Phosphatase 84, Troponin I High Sens 47, Total Protein 6.5, Albumin 3.0 L, Globulin 3.5, Albumin/Globulin Ratio 0.9 03/30/22 12:20: B-Natriuretic Peptide 1776.0 H 03/30/22 13:10: PT 15.2 H, INR 1.2, APTT 26.6 03/30/22 16:55: Troponin I High Sens 14 03/30/22 18:35: Troponin I High Sens 49 03/31/22 06:10: Vitamin B12 Cancelled 03/31/22 06:10: Sodium Cancelled, Potassium Cancelled, Chloride Cancelled, Carbon Dioxide Cancelled, Anion Gap Cancelled, BUN Cancelled, Creatinine Cancelled, Estim Creat Clear Calc Cancelled, Est GFR (MDRD) Af Amer Cancelled, Est GFR (MDRD) Non-Af Cancelled, BUN/Creatinine Ratio Cancelled, Glucose Cancelled, Calcium Cancelled, Total Bilirubin Cancelled, AST Cancelled, ALT Cancelled, Alkaline Phosphatase Cancelled, Total Protein Cancelled, Albumin Cancelled, Globulin Cancelled, Albumin/Globulin Ratio Cancelled, Triglycerides Cancelled, Cholesterol Cancelled, LDL Cholesterol Cancelled, VLDL Cholesterol Cancelled, HDL Cholesterol Cancelled, Folate Cancelled, TSH Cancelled 03/31/22 06:10: WBC Cancelled, Corrected WBC Cancelled, RBC Cancelled, Hgb Cancelled, Hct Cancelled, MCV Cancelled, MCH Cancelled, MCHC Cancelled, RDW Std Deviation Cancelled, RDW Coeff of Dae Cancelled, Plt Count Cancelled, MPV Cancelled, Immature Gran % (Auto) Cancelled, Neut % (Auto) Cancelled, Lymph % (Auto) Cancelled, Stephenson % (Auto) Cancelled, Eos % (Auto) Cancelled, Baso % (Auto) Cancelled, Absolute Neuts (auto) Cancelled, Absolute Lymphs (auto) Cancelled, Total Counted Cancelled, Neutrophils % (Manual) Cancelled, Band Neutrophils % Cancelled, Lymphocytes % (Manual) Cancelled, Monocytes % (Manual) Cancelled, Eosinophils % (Manual) Cancelled, Basophils % (Manual) Cancelled, Metamyelocytes % Cancelled, Myelocytes % Cancelled, Promyelocytes % Cancelled, Blast Cells % Cancelled, Plasma Cell % (Manual) Cancelled, Other Cells % Cancelled, Nucleated RBC % Cancelled, Nucleated RBCs/100 WBC Cancelled, Differential Comment Cancelled, Diff Path Review Cancelled, Hypersegmented Neuts Cancelled, Atypical Lymphocytes Cancelled, Reactive Lymphocytes Cancelled, Smudge Cells Cancelled, Toxic Granulation Cancelled, Toxic Vacuolation Cancelled, Dohle Bodies Cancelled, Kimberly Rods Cancelled, Platelet Estimate Cancelled, Plt Morphology Comment Cancelled, RBC Morphology Cancelled, Polychromasia Cancelled, Hypochromasia Cancelled, Poikilocytosis Cancelled, Basophilic Stippling Cancelled, Anisocytosis Cancelled, Microcytosis Cancelled, Macrocytosis Cancelled, Spherocytes Cancelled, Sickle Cells Cancelled, Target Cells Cancelled, Tear Drop Cells Cancelled, Ovalocytes Cancelled, Stomatocytes Cancelled, Zimmerman[place] Bodies Cancelled, Clutier Cells Cancelled, Bite Cells Cancelled, Crenated Cell Cancelled, Acanthocytes (Spur) Cancelled, Rouleaux Cancelled, Schistocytes Cancelled 03/31/22 07:06: WBC 8.6, RBC 5.85 H, Hgb 18.0 H*, Hct 58.1 H, MCV 99.3 H, MCH 30.8, MCHC 31.0 L, RDW Std Deviation 59.4 H, RDW Coeff of Dae 17.2 H, Plt Count 118 L, MPV 11.3, Immature Gran % (Auto) 0.300, Neut % (Auto) 72.6 H, Lymph % (Auto) 11.6 L, Stephenson % (Auto) 13.8 H, Eos % (Auto) 1.2, Baso % (Auto) 0.5, Absolute Neuts (auto) 6.3, Absolute Lymphs (auto) 1.00, Nucleated RBC % 0, Differential Comment COMMENT, Diff Path Review October03/31/22 07:06: Sodium 135 L, Potassium 3.6, Chloride 95 L, Carbon Dioxide 33.0 H, Anion Gap 7, BUN 31 H, Creatinine 1.30 H, Estim Creat Clear Calc 49.86, Est GFR (MDRD) Af Amer 53 L, Est GFR (MDRD) Non-Af 44 L, BUN/Creatinine Ratio 23.8 H, Glucose 90, Calcium 9.2, Total Bilirubin 1.50 H, AST 23, ALT 37, Alkaline Phosphatase 76, Total Protein 6.5, Albumin 3.1 L, Globulin 3.4, Albumin/Globulin Ratio 0.9, Triglycerides 102, Cholesterol 124, LDL Cholesterol 69, VLDL Cholesterol 20, HDL Cholesterol 35 L, Folate 9.40, TSH 2.91 03/31/22 07:06: Vitamin B12 799 Micro: Microbiology 03/30/22 12:21 Nasal Secretion SARS-CoV-2 & FLU Antigen (Rapid) - Final Radiography Diagnostic Testing: Radiology Impression Chest X-Ray 03/30/22 12:27 IMPRESSION: CHF with small bilateral effusions and right basilar atelectasis. Electronically Signed: Vince Olivia MD at 12:47 EDT Reading Location ID and State: [facility] / [place] , Service support , Physical Exam Narrative Physical exam: General: Alert, oriented to self, confused,cooperative, morbid obesity, HEENT: Atraumatic Oral: Moist Mucosa Neck: Supple Lungs: Diminished to auscultation, crackles at the lung bases ++ Cardiovascular: HS I+II, regular, no murmurs Abdomen: Bowel Sounds Present, Soft, Non Tender Extremities: Bilateral leg edema +3?4 Skin: No rashes, No breakdown Neurological: Grossly intact Psych/Mental Status: Appropriate Assessment & Plan Assessment/Plan (1) Polycythemia: (2) Anasarca: (3) Congestive heart failure (CHF): PLAN: Plan 1. Acute hypoxic respiratory failure secondary to acute on chronic diastolic CHF Patient is on 4 L of oxygen, Continue to wean off for SPO2 more than 92% 2. Acute exacerbation of heart failure preserved EF, EF 70%, not much improvement Admitting BNP Was 1776 2D echo shows severely dilated right ventricle with mild global right ventricular systolic dysfunction Discussed with cardiology, that is concerning for possible severe pulmonary hypertension or PE CTA of the chest is pending Patient appears to have anasarca Will check UA, urine protein to creatinine ratio 3. Severe right ventricular dysfunction, concerning for possible PE CTA of the chest is pending Continue on therapeutic Lovenox 4. Cognitive impairment, unclear of patient's previous baseline Patient has a remote history of CVA Vitamin B12 is 799, TSH is 2.91, folate is 9.40 We will continue to monitor We will have a low threshold to get CT of the brain Continue with oral thiamine 5. Polycythemia, unclear etiology, will need to follow-up with oncology in the outpatient Patient is a chronic smoker Repeat blood work in a.m. 6. CKD stage IIIa, creatinine slightly improved, currently 1.30 from 1.45 We will continue to trend 7. Hyponatremia, hypovolemic secondary to CHF We will continue to trend with CHF treatment 8. PAD, ankle-brachial index on the right is 0.60, left 0.46 Patient will follow-up in the outpatient with vascular surgery 9. Dysphagia, severe oropharyngeal phase, kept n.p.o. Further work-up pending by speech therapy 10. DVT prophylaxis?on therapeutic Lovenox Charges/Coding Visit Charges Inpatient E&M: 70526 Subs Hosp L3
[2022-03-31 12:55] LABS: Pathologist Review Reviewed
--- NOTE | 2022-03-31 13:32 | CT_ITS ---
There is a large amount of the subcutaneous edema which may represent anasarca. Electronically Signed: Salvatore Shrestha MD at 17:15 EDT , CT/CTA Chest W/WO Contrast IMPRESSION: undefined
--- NOTE | 2022-03-31 14:53 | CASEMGMT ---
SW was going to complete an assessment with patient, however physician indicated patient is not alert and oriented. SW called patient's , Caesar. Introduced self and role at [facility]. Caesar seemed willing to answer questions, however he sounded a bit irritated with all of the questions. SW did confirm they live in a trailer with entry steps. Caesar is not sure if patient's PCP is Bobby as the last time she went to the doctor she went to [facility]. Patient does not have any specialists. Patient uses [facility] in [place] as her pharmacy. Patient does have a walker and cane. Per Caesar she does not use them. Caesar helps patient with bathing. Caesar and their son do all of the desk assistant. Patient has done outpatient therapy before. SW asked Caesar if he thinks patient will need to go to a senior care facility short term for rehab. Caesar said he thinks she might. SW let him know patient will be here through the weekend so SW can follow up with him on Sunday. Plan: Undetermined. However, at this time it looks like patient will need SNF placement. SW to follow up Sunday. Makenzie Mendoza CREDIT ASSESSMENT ANALYST NIC
[2022-03-31] MEDS: Menthol/Lanolin/Calamine/Znox 113 GM Tube 1 APPLIC TOPICAL ×2 (16:09→21:27)
[2022-03-31 18:25] LABS: Mucous, Urine 0 SEEN /hpf (<or=2+); Red Blood Cells-Urine 0 SEEN /hpf (0-5); White Blood Cells 0 SEEN /hpf (0-5)
[2022-03-31 18:29] LABS: Color, Urine Straw (Yellow); Glucose, Dipstick Normal (Normal); Ketone-Dipstick Negative (Negative); Leukocyte Esterase-Dipstick Negative /ul (Negative); Nitrite-Dipstick Negative (Negative); Occult Blood-Urine Negative /ul (Negative); Protein-Dipstick Negative (Negative); Urine Bilirubin Dipstick Negative (Negative); Urine Clarity Clear (Clear); Urine Urobilinogen Normal (Normal)
--- NOTE | 2022-03-31 18:34 | NURSING ---
Charting reviewed with Leslie Haley RN
[2022-03-31 18:49] LABS: Bacteria RARE /hpf (None Seen); Squamous Epithelial Cells - UA 0-5 SEEN /hpf (5-10)
[2022-03-31] MEDS: Enoxaparin 80 MG/0.8 ML Syringe 70 MG SC (21:26)
[2022-04-01] VITALS (10 sets, daily range): BP systolic 118–146; BP diastolic 57–99; PULSE 77–85; RESP 16–20; TEMP 36.1–36.6; O2SAT 94–100
[2022-04-01] MEDS: Menthol/Lanolin/Calamine/Znox 113 GM Tube 1 APPLIC TOPICAL ×3 (06:26→21:01)
[2022-04-01] MEDS: 0.9% Saline Lock 10 ML Syringe IV ×2 (06:27→20:56)
[2022-04-01] MEDS: Furosemide 40 MG/4 ML Vial IV ×3 (06:29→20:56)
[2022-04-01 09:16] LABS: Absolute Lymphocyte Count 0.91 X10^3/uL (0.83-4.51); Absolute Neutrophil Count 5.8 X10^3/uL (2.0-7.7); Basophil# 0.04 X10^3/uL; Basophil% 0.5 % (0-1); Eosinophil# 0.06 X10^3/uL; Eosinophils% 0.8 % (0-5); Lymphocyte # 0.91 X10^3/ul (0.83-4.51); Lymphocyte % 11.5 % (19-41); Mean Corp Hgb Conc 30.7 g/dL (32-36); Mean Corpuscular Hgb 30.8 pg (27.0-32.0); Mean Corpuscular Volume 100.3 fL (81-99); Mean Platelet Vol. 10.7 fl (6.2-12.0); Monocyte% 13.9 % (0-10); NRBC Flagged by Analyzer 0 % (0-5); Neutrophil # 5.79 X10^3/uL (2.7-7.7); Neutrophil % 72.9 % (47-70); Platelet Count 110 K/mm3 (150-450); RBC Distribution Width CV 16.7 % (11.6-14.6); RBC Distribution Width SD 59.2 fl (35.1-43.9); Red Blood Count 5.88 M/mm3 (4.2-5.4); White Blood Count 7.9 K/mm3 (4.4-11.0)
[2022-04-01 09:19] LABS: Hemoglobin 18.1 g/dL (12.0-15.0)
[2022-04-01 09:22] LABS: ALB/GLOB Ratio 0.8 RATIO (0.9-2.4); AST(SGOT) 22 U/L (15-37); Alanine Aminotransfer ALT/SGPT 32 U/L (13-56); Alkaline Phosphatase 72 U/L (45-117); Anion Gap 6 (5-15); BUN 26 mg/dL (7-18); BUN/Creat Ratio 24.3 RATIO (10-20); Calcium,Total 9.3 mg/dL (8.5-10.1); Chloride 92 mmol/L (98-107); Creatinine, Serum 1.07 mg/dL (0.55-1.02); EST Glomerular Filtration Rate 55 mL/min (>60); Est Glom Filt Rate - Afr Amer 67 mL/min (>60); Estimated Creatinine Clearance 60.49 ml/min; Globulin 3.6 g/dL (2.2-4.2); Glucose 80 mg/dL (74-106); Potassium 3.5 mmol/L (3.5-5.1); Protein, Total 6.6 g/dL (6.4-8.2); Sodium Level 140 mmol/L (136-145)
[2022-04-01] MEDS: Enoxaparin 80 MG/0.8 ML Syringe 70 MG SC ×2 (10:48→21:00)
--- NOTE | 2022-04-01 11:31 | PCM.PN.HOSP ---
Subjective Subjective Follow-up on acute CHF exacerbation/acute on chronic debility: Patient was seen and examined.? She still appears confused. She is more alert today. On 3 L of oxygen. Objective Data Objective Data Vital Signs: Vital Signs Temp Pulse Resp BP Pulse Ox O2 Del Method O2 Flow Rate 97.0 F L 82 16 138/77 H 98 Nasal Cannula 3 04/01/22 10:30 04/01/22 10:30 04/01/22 10:30 04/01/22 10:30 04/01/22 10:30 04/01/22 10:55 04/01/22 10:55 Oxygen Flow Rate (L/min) 3 Oxygen Delivery Method Nasal Cannula Weight: 67.2 kg Body Mass Index (BMI) 32.1 Intake & Output: Intake and Output for Last 24 Hours 03/30/22 03/31/22 04/01/22 23:59 23:59 23:59 Intake Total 0 / 0 0 / 0 0 / 0 Output Total 1750 / 1750 900 / 900 Balance 0 / 0 -1750 / -1750 -900 / -900 Lab / Micro Data Result Diagrams: 04/01/22 08:35 04/01/22 08:35 Labs: Laboratory Results - last 24 hr 03/31/22 07:06: Diff Path Review Reviewed 03/31/22 18:18: Urine Color Straw, Urine Clarity Clear, Urine pH 6.0, Ur Specific [place] 1.010, Urine Protein Negative, Urine Glucose (UA) Normal, Urine Ketones Negative, Urine Occult Blood Negative, Urine Nitrite Negative, Urine Bilirubin Negative, Urine Urobilinogen Normal, Ur Leukocyte Esterase Negative, Urine RBC 0 SEEN, Urine WBC 0 SEEN, Ur Squamous Epith Cells 0-5 SEEN, Urine Bacteria RARE, Urine Mucus 0 SEEN 04/01/22 08:35: WBC 7.9, RBC 5.88 H, Hgb 18.1 H*, Hct 59.0 H, MCV 100.3 H, MCH 30.8, MCHC 30.7 L, RDW Std Deviation 59.2 H, RDW Coeff of Dae 16.7 H, Plt Count 110 L, MPV 10.7, Immature Gran % (Auto) 0.400, Neut % (Auto) 72.9 H, Lymph % (Auto) 11.5 L, [place] % (Auto) 13.9 H, Eos % (Auto) 0.8, Baso % (Auto) 0.5, Absolute Neuts (auto) 5.8, Absolute Lymphs (auto) 0.91, Nucleated RBC % 0, Diff Path Review October04/01/22 08:35: Sodium 140, Potassium 3.5, Chloride 92 L, Carbon Dioxide 42.0 H, Anion Gap 6, BUN 26 H, Creatinine 1.07 H, Estim Creat Clear Calc 60.49, Est GFR (MDRD) Af Amer 67, Est GFR (MDRD) Non-Af 55 L, BUN/Creatinine Ratio 24.3 H, Glucose 80, Calcium 9.3, Total Bilirubin 1.80 H, AST 22, ALT 32, Alkaline Phosphatase 72, Total Protein 6.6, Albumin 3.0 L, Globulin 3.6, Albumin/Globulin Ratio 0.8 L Micro: Microbiology 03/30/22 12:21 Nasal Secretion SARS-CoV-2 & FLU Antigen (Rapid) - Final Radiography Diagnostic Testing: Radiology Impression Echocardiogram 03/30/22 16:11 Interpretation Summary The estimated ejection fraction is 70 %. No evidence for diastolic dysfunction. Severely dilated right ventricle. Mild global right ventricular systolic dysfunction. The right atrium is severely enlarged. Mild (1+) aortic valve insufficiency. Ordering Physician: Angel Hanson Referring Physician: Marc Rosales Performed By: Manny Chaudhry RCS Chest CTA 03/31/22 13:32 IMPRESSION: undefined Physical Exam Narrative Physical exam: General: Alert, oriented to self, confused,cooperative, morbid obesity, on 3 L of oxygen HEENT: Atraumatic Oral: Moist Mucosa Neck: Supple Lungs: Diminished to auscultation Cardiovascular: HS I+II, regular, no murmurs Abdomen: Bowel Sounds Present, Soft, Non Tender Extremities: Bilateral leg edema +2, improving Skin: No rashes, No breakdown Neurological: Grossly intact Psych/Mental Status: Appropriate Assessment & Plan Assessment/Plan (1) Polycythemia: (2) Anasarca: (3) Congestive heart failure (CHF): PLAN: Plan 1. Acute hypoxic respiratory failure secondary to acute on chronic diastolic CHF Patient is on 3 L of oxygen, Continue to wean off for SPO2 more than 92% 2. Acute exacerbation of heart failure preserved EF, EF 70%, not much improvement Admitting BNP Was 1776 2D echo shows severely dilated right ventricle with mild global right ventricular systolic dysfunction Discussed with cardiology, that is concerning for possible severe pulmonary hypertension or PE CTA of the chest is pending Patient appears to have anasarca; UA does not show proteinuria 3. Severe right ventricular dysfunction, concerning for possible PE CTA of the chest showed anasarca Continue on therapeutic Lovenox 4. Cognitive impairment, unclear of patient's previous baseline Patient has a remote history of CVA Vitamin B12 is 799, TSH is 2.91, folate is 9.[address] of the brain today Continue with oral thiamine 5. Polycythemia, unclear etiology, will need to follow-up with oncology in the outpatient Patient is a chronic smoker Repeat blood work in a.m. 6. CKD stage IIIa, creatinine slightly improved, currently 1.30 from 1.45 We will continue to trend 7. Hyponatremia, hypovolemic secondary to CHF We will continue to trend with CHF treatment 8. PAD, ankle-brachial index on the right is 0.60, left 0.46 Patient will follow-up in the outpatient with vascular surgery 9. Dysphagia, severe oropharyngeal phase, kept n.p.o. Speech therapy following 10. DVT prophylaxis?on therapeutic Lovenox Charges/Coding Visit Charges Inpatient E&M: 65494 Subs Hosp L2
--- NOTE | 2022-04-01 11:44 | CT_ITS ---
STUDY: CT BRAIN WITHOUT CONTRAST REASON FOR EXAM: Female, 61 years old. Altered mental status TECHNIQUE: Transaxial CT imaging of the brain was performed without administration of intravenous contrast material. Individualized dose optimization techniques were used for this CT. COMPARISON: 11/05/2015 FINDINGS: There is a craniotomy/craniectomy. Normal soft tissues. There is an old infarct of the bilateral frontoparietal lobes. There is moderate cerebral atrophy with widening of the extra-axial spaces and ventricular dilatation. There are areas of decreased attenuation within the white matter tracts of the supratentorial brain, consistent with microvascular disease changes. Normal basal ganglia and thalami. Normal brainstem. Normal cerebellum. There is no intracranial hemorrhage. There are no findings of an acute ischemic infarction. Normal visualized paranasal sinuses. ASPECTS 10 CT/Brain/Head without Contrast IMPRESSION: There are no acute intracranial findings. Electronically Signed: Rayshawn Peters MD at 17:19 EDT ,
--- NOTE | 2022-04-01 18:36 | NURSING ---
Reviewed charting with Lexy Rico RN
[2022-04-02] VITALS (13 sets, daily range): BP systolic 119–138; BP diastolic 56–75; PULSE 87–97; RESP 12–18; TEMP 36.2–36.5; O2SAT 82–99
[2022-04-02 05:27] LABS: Absolute Lymphocyte Count 0.81 X10^3/uL (0.83-4.51); Basophil# 0.02 X10^3/uL; Basophil% 0.3 % (0-1); Eosinophil# 0.07 X10^3/uL; Eosinophils% 0.9 % (0-5); Lymphocyte # 0.81 X10^3/ul (0.83-4.51); Lymphocyte % 10.3 % (19-41); Mean Corp Hgb Conc 32.1 g/dL (32-36); Mean Corpuscular Hgb 31.5 pg (27.0-32.0); Mean Corpuscular Volume 98.1 fL (81-99); Mean Platelet Vol. 10.9 fl (6.2-12.0); Monocyte# 0.89 X10^3/uL; Monocyte% 11.4 % (0-10); NRBC Flagged by Analyzer 0 % (0-5); Neutrophil # 6.02 X10^3/uL (2.7-7.7); Neutrophil % 76.7 % (47-70); Platelet Count 117 K/mm3 (150-450); RBC Distribution Width CV 16.5 % (11.6-14.6); RBC Distribution Width SD 58.3 fl (35.1-43.9); Red Blood Count 5.94 M/mm3 (4.2-5.4); White Blood Count 7.8 K/mm3 (4.4-11.0)
[2022-04-02 05:50] LABS: Hematocrit 58.3 % (37-47)
[2022-04-02 05:51] LABS: Differential Indicated SCAN CRITERIA MET; Hemoglobin 18.7 g/dL (12.0-15.0)
[2022-04-02] MEDS: 0.9% Saline Lock 10 ML Syringe IV (06:00)
[2022-04-02] MEDS: Furosemide 40 MG/4 ML Vial IV (06:00)
[2022-04-02] MEDS: Menthol/Lanolin/Calamine/Znox 113 GM Tube 1 APPLIC TOPICAL ×3 (06:01→21:22)
[2022-04-02 06:15] LABS: ALB/GLOB Ratio 0.8 RATIO (0.9-2.4); AST(SGOT) 18 U/L (15-37); Alanine Aminotransfer ALT/SGPT 26 U/L (13-56); Albumin, Serum 2.8 g/dL (3.2-5.0); Alkaline Phosphatase 66 U/L (45-117); BUN 19 mg/dL (7-18); BUN/Creat Ratio 26.9 RATIO (10-20); Calcium,Total 8.8 mg/dL (8.5-10.1); Carbon Dioxide > 45.0 mmol/L (21.0-32.0); Chloride 86 mmol/L (98-107); Creatinine, Serum 0.71 mg/dL (0.55-1.02); EST Glomerular Filtration Rate 89 mL/min (>60); Est Glom Filt Rate - Afr Amer 107 mL/min (>60); Estimated Creatinine Clearance 86.04 ml/min; Globulin 3.5 g/dL (2.2-4.2); Glucose 83 mg/dL (74-106); Protein, Total 6.3 g/dL (6.4-8.2); Sodium Level 139 mmol/L (136-145)
[2022-04-02] MEDS: Enoxaparin 80 MG/0.8 ML Syringe 70 MG SC (10:31)
--- NOTE | 2022-04-02 11:12 | PCM.PN.HOSP ---
Subjective Subjective Follow-up on acute CHF exacerbation/acute on chronic debility: Patient was seen and examined. Patient is much more awake. She is oriented to self. On 3 L of oxygen. No acute events overnight. She is -7 L from I's and O's in this hospital stay. Objective Data Objective Data Vital Signs: Vital Signs Temp Pulse Resp BP Pulse Ox O2 Del Method O2 Flow Rate 97.5 F L 96 12 119/61 95 Nasal Cannula 4 04/02/22 08:26 04/02/22 08:26 04/02/22 08:26 04/02/22 08:26 04/02/22 09:56 04/02/22 08:26 04/02/22 09:56 Oxygen Flow Rate (L/min) 4 Oxygen Delivery Method Nasal Cannula Weight: 64.552 kg Body Mass Index (BMI) 32.1 Intake & Output: Intake and Output for Last 24 Hours 03/31/22 04/01/22 04/02/22 23:59 23:59 23:59 Intake Total 0 / 0 0 / 0 Output Total 1750 / 1750 4500 / 4500 800 / 800 Balance -1750 / -1750 -4500 / -4500 -800 / -800 Lab / Micro Data Result Diagrams: 04/02/22 05:00 04/02/22 05:00 Labs: Laboratory Results - last 24 hr 04/02/22 05:00: WBC 7.8, RBC 5.94 H, Hgb 18.7 H*, Hct 58.3 H, MCV 98.1, MCH 31.5, MCHC 32.1, RDW Std Deviation 58.3 H, RDW Coeff of Dae 16.5 H, Plt Count 117 L, MPV 10.9, Immature Gran % (Auto) 0.400, Neut % (Auto) 76.7 H, Lymph % (Auto) 10.3 L, [place] % (Auto) 11.4 H, Eos % (Auto) 0.9, Baso % (Auto) 0.3, Absolute Neuts (auto) 6.0, Absolute Lymphs (auto) 0.81 L, Nucleated RBC % 0 04/02/22 05:00: Sodium 139, Potassium 3.0 L, Chloride 86 L, Carbon Dioxide > 45.0 H*, Anion Gap TNP, BUN 19 H, Creatinine 0.71, Estim Creat Clear Calc 86.04, Est GFR (MDRD) Af Amer 107, Est GFR (MDRD) Non-Af 89, BUN/Creatinine Ratio 26.9 H, Glucose 83, Calcium 8.8, Total Bilirubin 2.00 H, AST 18, ALT 26, Alkaline Phosphatase 66, Total Protein 6.3 L, Albumin 2.8 L, Globulin 3.5, Albumin/Globulin Ratio 0.8 L Micro: Microbiology 03/30/22 12:21 Nasal Secretion SARS-CoV-2 & FLU Antigen (Rapid) - Final Radiography Diagnostic Testing: Radiology Impression Brain CT 04/01/22 11:44 IMPRESSION: There are no acute intracranial findings. Electronically Signed: Rayshawn Peters MD at 17:19 EDT , Physical Exam Narrative Physical exam: General: Alert, oriented to self, confused,cooperative, morbid obesity, on 3 L of oxygen HEENT: Atraumatic Oral: Moist Mucosa Neck: Supple Lungs: Diminished to auscultation Cardiovascular: HS I+II, regular, no murmurs Abdomen: Bowel Sounds Present, Soft, Non Tender Extremities: Bilateral leg edema +2, improving Skin: No rashes, No breakdown Neurological: Grossly intact Psych/Mental Status: Appropriate Assessment & Plan Assessment/Plan (1) Polycythemia: (2) Anasarca: (3) Congestive heart failure (CHF): PLAN: Plan 1. Acute hypoxic respiratory failure secondary to acute on chronic diastolic CHF Remains on 3 L of oxygen, Continue to wean off for SPO2 more than 92% 2. Acute exacerbation of heart failure preserved EF, EF 70%, slowly improving Admitting BNP Was 1776 2D echo shows severely dilated right ventricle with mild global right ventricular systolic dysfunction Discussed with cardiology, that is concerning for possible severe pulmonary hypertension or PE CTA of the chest was positive for anasarca. Patient appears to have anasarca; UA does not show proteinuria 3. Severe right ventricular dysfunction, concerning for possible PE CTA of the chest showed anasarca Continue on therapeutic Lovenox 4. Hypokalemia, potassium 3.0, replace, recheck in a.m. 5. Cognitive impairment, unclear of patient's previous baseline Patient has a remote history of CVA Vitamin B12 is 799, TSH is 2.91, folate is 9.40 CT of the brain was unremarkable Continue with oral thiamine 6. Polycythemia, unclear etiology, probably from secondary polycythemia Consult hematology Patient is a chronic smoker Repeat blood work in a.m. 7. Acute metabolic alkalosis, likely contraction alkalosis from diuresis Bicarb is more than 45, will decrease Lasix to 40 mg p.o. twice daily Repeat blood work in a.m. 8. CKD stage IIIa, creatinine slightly improved, currently 1.30 from 1.45 We will continue to trend 9. Hyponatremia, hypovolemic secondary to CHF We will continue to trend with CHF treatment 10. PAD, ankle-brachial index on the right is 0.60, left 0.46 Patient will follow-up in the outpatient with vascular surgery 11. Dysphagia, severe oropharyngeal phase, started on nectar thick, pur?ed textures Speech therapy following, 12. DVT prophylaxis?on therapeutic Lovenox Charges/Coding Visit Charges Inpatient E&M: 96831 Subs Hosp L2
[2022-04-02 15:14] LABS: Differential Comment SCANNED
[2022-04-02] MEDS: Furosemide 20 MG/2 ML VIAL IV (17:00)
[2022-04-02] MEDS: Potassium Chloride 10mEq/100mL 10 MEQ/100 ML IV.SOLN. 100 MEQ IV BOLUS ×4 (17:00→21:19)
--- NOTE | 2022-04-02 19:06 | NURSING ---
Charting reviewed with Leslie Haley RN
[2022-04-03] VITALS (14 sets, daily range): BP systolic 112–142; BP diastolic 61–88; PULSE 80–109; RESP 12–18; TEMP 36.3–36.9; O2SAT 91–100
[2022-04-03 05:04] LABS: Absolute Lymphocyte Count 0.91 X10^3/uL (0.83-4.51); Absolute Neutrophil Count 7.2 X10^3/uL (2.0-7.7); Basophil# 0.01 X10^3/uL; Basophil% 0.1 % (0-1); Eosinophil# 0.09 X10^3/uL; Hemoglobin 17.3 g/dL (12.0-15.0); Lymphocyte # 0.91 X10^3/ul (0.83-4.51); Lymphocyte % 9.7 % (19-41); Mean Corp Hgb Conc 31.5 g/dL (32-36); Mean Corpuscular Volume 98.6 fL (81-99); Monocyte# 1.16 X10^3/uL; Monocyte% 12.4 % (0-10); NRBC Flagged by Analyzer 0 % (0-5); Neutrophil # 7.16 X10^3/uL (2.7-7.7); Neutrophil % 76.3 % (47-70); Platelet Count 125 K/mm3 (150-450); RBC Distribution Width CV 16.3 % (11.6-14.6); RBC Distribution Width SD 58.5 fl (35.1-43.9); Red Blood Count 5.58 M/mm3 (4.2-5.4); White Blood Count 9.4 K/mm3 (4.4-11.0)
[2022-04-03 05:43] LABS: Phosphorus 1.4 mg/dL (2.5-4.9)
[2022-04-03] MEDS: Menthol/Lanolin/Calamine/Znox 113 GM Tube 1 APPLIC TOPICAL ×3 (06:08→21:50)
[2022-04-03 06:15] LABS: ALB/GLOB Ratio 0.9 RATIO (0.9-2.4); AST(SGOT) 19 U/L (15-37); Alanine Aminotransfer ALT/SGPT 22 U/L (13-56); Albumin, Serum 2.6 g/dL (3.2-5.0); Alkaline Phosphatase 54 U/L (45-117); BUN 13 mg/dL (7-18); BUN/Creat Ratio 21.4 RATIO (10-20); Calcium,Total 8.2 mg/dL (8.5-10.1); Carbon Dioxide > 45.0 mmol/L (21.0-32.0); Chloride 82 mmol/L (98-107); Creatinine, Serum 0.61 mg/dL (0.55-1.02); EST Glomerular Filtration Rate 105 mL/min (>60); Est Glom Filt Rate - Afr Amer 128 mL/min (>60); Estimated Creatinine Clearance 92.99 ml/min; Glucose 123 mg/dL (74-106); Magnesium 0.7 mg/dL (1.6-2.6); Potassium 2.8 mmol/L (3.5-5.1); Protein, Total 5.6 g/dL (6.4-8.2); Sodium Level 139 mmol/L (136-145)
[2022-04-03] MEDS: Potassium Chloride Oral Tablet 20 MEQ 40 MEQ PO (06:39)
[2022-04-03] MEDS: Magnesium Sulfate 4gm/100mL 4 GM/100 ML IV.SOLN. IV (06:46)
--- NOTE | 2022-04-03 08:02 | PN.HOSP_ITS ---
Subjective Subjective Patient is a 61-year-old lady who presented with progressive shortness of breath with generalized edema Objective Data Objective Data Vital Signs: Vital Signs Temp Pulse Resp BP Pulse Ox O2 Del Method O2 Flow Rate 98.4 F 109 H 18 141/88 H 92 Nasal Cannula 3 04/03/22 05:39 04/03/22 07:00 04/03/22 05:39 04/03/22 05:39 04/03/22 05:39 04/03/22 05:39 04/03/22 05:39 Oxygen Flow Rate (L/min) 3 Oxygen Delivery Method Nasal Cannula Weight: 62.4 kg Body Mass Index (BMI) 32.1 Intake & Output: Intake and Output for Last 24 Hours 04/01/22 04/02/22 04/03/22 23:59 23:59 23:59 Intake Total 0 / 0 980 / 980 Output Total 4500 / 4500 1300 / 1300 Balance -4500 / -4500 -320 / -320 Lab / Micro Data Result Diagrams: 04/03/22 04:29 04/03/22 04:29 Labs: Laboratory Results - last 24 hr 04/02/22 05:00: Differential Comment SCANNED, Diff Path Review October04/03/22 04:29: Sodium 139, Potassium 2.8 L, Chloride 82 L, Carbon Dioxide > 45.0 H*, Anion Gap TNP, BUN 13, Creatinine 0.61, Estim Creat Clear Calc 92.99, Est GFR (MDRD) Af Amer 128, Est GFR (MDRD) Non-Af 105, BUN/Creatinine Ratio 21.4 H, Glucose 123 H, Calcium 8.2 L, Magnesium 0.7 L*, Total Bilirubin 2.20 H, AST 19, ALT 22, Alkaline Phosphatase 54, Total Protein 5.6 L, Albumin 2.6 L, Globulin 3.0, Albumin/Globulin Ratio 0.9 04/03/22 04:29: WBC 9.4, RBC 5.58 H, Hgb 17.3 H, Hct 55.0 H, MCV 98.6, MCH 31.0, MCHC 31.5 L, RDW Std Deviation 58.5 H, RDW Coeff of Dae 16.3 H, Plt Count 125 L, MPV 11.0, Immature Gran % (Auto) 0.500, Neut % (Auto) 76.3 H, Lymph % (Auto) 9.7 L, [place] % (Auto) 12.4 H, Eos % (Auto) 1.0, Baso % (Auto) 0.1, Absolute Neuts (auto) 7.2, Absolute Lymphs (auto) 0.91, Nucleated RBC % 0 04/03/22 04:29: Phosphorus 1.4 L Micro: Microbiology 03/30/22 12:21 Nasal Secretion SARS-CoV-2 & FLU Antigen (Rapid) - Final Radiography Diagnostic Testing: Radiology Impression Chest CTA 03/31/22 13:32 IMPRESSION: undefined ADDENDUM: 04/02/22 1609 IMPRESSION: undefined Physical Exam Narrative GENERAL: Patient in no apparent distress HEENT: Atraumatic; normocephalic EYES; Anicteric, Normal Conjunctiva NECK; supple, normal thyroid, RESPIRATORY: Diminished to auscultation CARDIOVASCULAR: Regular S1 S2, GI: soft, normoactive bowel sounds, : No Renal angle tenderness; EXTREMITIES: Bipedal edema with cyanosis of the digits MUSCULOSKELETAL: no muscle wasting NEURO: Awake; no lateralizing signs. SKIN: No Rash PSYCH; Flat affect Const Constitutional Narrative: Awake, but groggy. Dozes off during encounter. Does not answer questions properly nor follow commands appropriately. Orientation / Consciousness: confused HEENT normocephalic Eyes Eyes Narrative: No icterus Neck Neck Narrative: Positive JVD. No thyromegaly. Resp Resp Narrative: Poor respiratory effort. Otherwise clear. Cardio regular rate, regular rhythm, S1 normal heart sound and S2 normal heart sound GI normal to inspection, nondistended, normoactive bowel sounds, soft to palpation, non-tender and non-distended Extremity Extremity Narrative: Bilateral [place] upper and lower extremity edema. Abdominal wall edema. Skin Skin Narrative: Cyanosis of the toes more prominent right than on the left. Diminished dorsalis pedal pulses bilaterally. Neuro moves all extremities and no focal motor deficits Assessment & Plan Assessment/Plan (1) Polycythemia: (2) Anasarca: (3) Congestive heart failure (CHF): PLAN: Plan Patient is a 61-year-old lady who presented with progressive shortness of breath with generalized edema 1. Acute on chronic diastolic congestive heart failure ? Admitted to a monitored bed placed on strict input and output, daily weight, IV Lasix. Echo demonstrated EF of 70% 2. Severe right ventricular dysfunction ? Concerning for PE CT of the chest demonstrated anasarca patient is currently on therapeutic Lovenox 3. Hypokalemia ? Corrected for protocol repeat labs ordered for monitoring 5. Cognitive impairment ? Supportive care 6. Polycythemia ? Suspected to be secondary to chronic hypoxia thought consult was placed to oncology. Case discussed with Dr Carvalho ordered carboxyhemoglobin as well as EPO levels 7. CKD stage IIIa ? Monitoring with daily electrolyte 8. Hyponatremia ? Secondary to hypervolemic state from CHF 9. PAD - ankle-brachial index on the right is 0.60, left 0.46. Patient will follow-up in the outpatient with vascular surgery 11. Dysphagia, severe oropharyngeal phase, -started on nectar thick, pur?ed textures Speech therapy following, plan is for patient to undergo modified barium swallow 12. DVT prophylaxis?on therapeutic Lovenox Charges/Coding Visit Charges Inpatient E&M: 79979 Subs Hosp L2
[2022-04-03] MEDS: Furosemide 20 MG/2 ML VIAL IV ×2 (08:59→17:35)
[2022-04-03] MEDS: Folic Acid 1 MG Tablet PO (08:59)
[2022-04-03] MEDS: Thiamine Hydrochloride 100 MG Tablet PO (08:59)
[2022-04-03] MEDS: Enoxaparin 40 MG/0.4 ML Syringe SC (08:59)
--- NOTE | 2022-04-03 09:54 | CASEMGMT ---
During d/c planning rounds physician indicated patient is ready for discharge. Patient is confused so SW will contact patient's . KENDY called patient's Caesar. KENDY asked Caesar about which SNF and he was not sure. Caesar would like a list of SNF's. Caesar will be at [facility] between 1 and 2p today. KENDY told Caesar SW will provide him with a list of SNF's. Plan: SNF pending patient choice and acceptance. Makenzie LUCERO
[2022-04-03 11:16] LABS: Pathologist Review Reviewed
[2022-04-03 11:18] LABS: Pathologist Review Reviewed
[2022-04-03 11:26] LABS: Carboxyhemoglobin Frac (CO) 4.8 % (0.0-1.5)
--- NOTE | 2022-04-03 12:59 | CASEMGMT ---
Patient does not have a Healthcare Power of Coat Operator or Healthcare Living Will. Patient is not interested in documents. Makenzie LUCERO
--- NOTE | 2022-04-03 13:14 | CON.PCM.ON_ITS ---
Assessment & Plan Assessment/Plan (1) Polycythemia: Status: Acute Code(s): D75.1 - Secondary polycythemia Plan: To manage as Respiratory failure. Obtain Carboxyhemoglobin and Erythropoietin level. Will not follow further on this admission. Call if new problems arise HPI Consult Data Date of Service:: 04/03/22 PCP / Referring Provider: Dr. Marc Rosales MD Attending: Dr. Cristhian Dent MD Chief Complaint Chief Complaint: Asked to see Pt for Polycythemia History of Present Illness History of Present Illness: 61y.o.woman with Chronic CHF was admitted with SOB and general weakness. Found to have Polycythemia and hence the consultation. Advanced Directives Power of Reactor Kettle Operator: No Living Will: No [facility] Medical History (Updated 03/30/22 @ 15:[address] Angel Hanson DO) Alcohol abuse Congestive heart failure (CHF) CVA (cerebral vascular accident) Elbow fracture HTN (hypertension) Mild dementia Peripheral arterial disease Polycythemia Tobacco abuse Home Medications NK 03/30/22 [History Last Taken Unknown] Allergy/AdvReac Type Severity Reaction Status Date / Time acetaminophen [From Vicodin] AdvReac Vomiting Verified 03/30/22 10:43 codeine AdvReac Vomiting Verified 03/30/22 10:43 hydrocodone bitartrate AdvReac Vomiting Verified 03/30/22 10:43 [From Vicodin] oxycodone HCl [From Percocet] AdvReac Vomiting Verified 03/30/22 10:43 Family History unable to obtain Social History (Updated 03/30/22 @ 15:[address] Angel Hanson DO) Smoking Status: Heavy Smoker (>10/day) alcohol intake: current substance use type: does not use ROS Constitutional Constitutional: Reports fatigue ENT HEENT: Denies dysphagia Cardiovascular Cardiovascular: Denies chest pain or clubbing Respiratory/Chest Respiratory/Chest: Reports dyspnea on exertion Gastrointestinal Gastrointestinal: Denies abdominal pain Genitourinary Genitourinary: Reports change in urinary stream Integumentary Integumentary: Reports nail changes Neurologic Neurologic: Reports behavior changes Physical Exam Narrative Elderly woman, Const General Appearance: lethargic HEENT normocephalic Neck no lymphadenopathy Lymph Lymphatic: no lymphadenopathy noted Resp Resp Narrative: diminished BS bilateral Cardio S1 normal heart sound and S2 normal heart sound Vital Signs Temperature 98.4 F 04/03/22 08:45 Temperature Source Temporal 04/03/22 08:45 Pulse Rate 98 04/03/22 08:45 Pulse Strength Normal (2+) 04/03/22 10:00 Respiratory Rate 12 04/03/22 08:45 Respiratory Effort Non-Labored 04/03/22 08:00 Respiratory Depth Normal 04/03/22 08:00 Respiratory Pattern Normal 04/03/22 08:00 Blood Pressure 112/61 04/03/22 08:45 Blood Pressure Mean 78 04/03/22 08:45 Blood Pressure Source Monitor 04/03/22 08:45 Blood Pressure Position Sitting 04/03/22 08:45 Blood Pressure Location Left Arm 04/03/22 08:45 Pulse Ox 95 04/03/22 08:45 Oxygen Delivery Method Nasal Cannula 04/03/22 08:45 Oxygen Flow Rate (L/min) 3 04/03/22 08:45 Laboratory Results - last 24 hr 04/01/22 08:35: Diff Path Review Reviewed 04/02/22 05:00: Differential Comment SCANNED, Diff Path Review Reviewed 04/03/22 04:29: Sodium 139, Potassium 2.8 L, Chloride 82 L, Carbon Dioxide > 45.0 H*, Anion Gap TNP, BUN 13, Creatinine 0.61, Estim Creat Clear Calc 92.99, Est GFR (MDRD) Af Amer 128, Est GFR (MDRD) Non-Af 105, BUN/Creatinine Ratio 21.4 H, Glucose 123 H, Calcium 8.2 L, Magnesium 0.7 L*, Total Bilirubin 2.20 H, AST 19, ALT 22, Alkaline Phosphatase 54, Total Protein 5.6 L, Albumin 2.6 L, Globul in 3.0, Albumin/Globulin Ratio 0.9 04/03/22 04:29: WBC 9.4, RBC 5.58 H, Hgb 17.3 H, Hct 55.0 H, MCV 98.6, MCH 31.0, MCHC 31.5 L, RDW Std Deviation 58.5 H, RDW Coeff of Dae 16.3 H, Plt Count 125 L, MPV 11.0, Immature Gran % (Auto) 0.500, Neut % (Auto) 76.3 H, Lymph % (Auto) 9.7 L, [place] % (Auto) 12.4 H, Eos % (Auto) 1.0, Baso % (Auto) 0.1, Absolute Neuts (auto) 7.2, Absolute Lymphs (auto) 0.91, Nucleated RBC % 0 04/03/22 04:29: Phosphorus 1.4 L Diagnostic Data Chest X-Ray 03/30/22 12:27 IMPRESSION: CHF with small bilateral effusions and right basilar atelectasis. Electronically Signed: Vince Olivia MD at 12:47 EDT , Echocardiogram 03/30/22 16:11 Interpretation Summary The estimated ejection fraction is 70 %. No evidence for diastolic dysfunction. Severely dilated right ventricle. Mild global right ventricular systolic dysfunction. The right atrium is severely enlarged. Mild (1+) aortic valve insufficiency. Ordering Physician: Angel Hanson Referring Physician: Marc Rosales Performed By: Manny Chaudhry RCS Chest CTA 03/31/22 13:32 IMPRESSION: undefined ADDENDUM: 04/02/22 1609 IMPRESSION: undefined Brain CT 04/01/22 11:44 IMPRESSION: There are no acute intracranial findings. Electronically Signed: Rayshawn Peters MD at 17:19 EDT , Charges/Coding Visit Charges Office Visits / Consults: [id number] IP Consult L3
--- NOTE | 2022-04-03 13:18 | CASEMGMT ---
SW met with patient, her , and son. SW introduced self and role at [facility]. SW had a list of SNF providers including quality and resource use data and consistent with patient?s preferred geographic region, medical needs, and insurance network were provided from the [employer] Guide. However, patient's said they are going to try taking her home. SW let them know patient is a max-dependent assist of 2 people to move. Patient's said, I know. We've been doing it. Patient's did ask about home health. SW provided them with a list of Home Health providers including quality and resource use data and consistent with patient?s preferred geographic region, medical needs, and insurance network were provided from the [employer] Guide. SW explained they will just need to pick 3 or so options and SW janitor supervisor CM will check with the agencies. SW let them know SW janitor supervisor CM will stop back by in a little bit to see their choices. Plan: Patient's and son now want to take patient home with home health. Therapy is working with patient right now. Both patient's and son are present. Makenzie Mendoza TELEGRAPH REPEATER TECHNICIAN NIC
--- NOTE | 2022-04-03 13:38 | ST.MBS ---
Modified Barium Swallow - Patient Information Study Date: 04/03/22 Study Time: 13:30 Direct Billable Minutes: 180 Total Minutes procedure & reportin Diagnosis: D75.1, I50.9 Referring Physician: Cristhian Dent Reason for Referral: Objectively assess swallow function, risk for aspiration, and determine recommendations for least restrictive diet textures and compensatory strategies to improve safety of swallow. Medical History: Fadia Boothe is a 61-year-old female with PMH including alcohol abuse, CHF, CVA (~18 years ago), elbow fracture, HTN, mild dementia, PAD, Polycythemia, and tobacco abuse who presented to [facility] ED 03/30/2022 with progressive weakness, shortness of breath, and debility. Pt was a poor historian in ED, but family was at bedside. They reported over the past 4 weeks, the patient has had increasing edema diffusely, increased weakness, and inability to adequately care for herself. She was admitted for management of CHF exacerbation amongst other comorbidities. She was made NPO and recommended for ST consult prior to diet advancement due to concerns for swallowing difficulty. Current Diet Ordered: PUREE TEXTURES / NTL Dentition: Missing Teeth Mental Status: Impaired Respiratory Status: Oxygenating on 3L/M nasal cannula - Penetration-Aspiration Scale Penetration-Aspiration Scale: OBJECTIVE ASSESSMENT OF SWALLOW FUNCTION (QUANTITATIVE ? PER TRIAL): PENETRATION / ASPIRATION SCALE (SPENCER): 1 = does not enter airway 2 = enters airway/above vocal folds/ejected 3 = enters airway/above vocal folds/not ejected 4 = enters airway/contacts vocal folds/ejected 5 = enters airway/contacts vocal folds/not ejected 6 = enters airway/below vocal folds/ejected 7 = enters airway/below vocal folds/not ejected despite effort 8 = enters airway/below vocal folds/no effort VIDEOFLOROSCOPIC SCALE SCORE (SPENCER): Grade I = aspiration of material that has penetrated into the laryngeal vestibule, intact cough reflex Grade II = aspiration < 10 % of the bolus, intact cough reflex Grade III = aspiration of < 10 % of the bolus, reduced cough reflex or aspiration of > 10 % of the bolus, intact cough reflex Grade IV = aspiration of > 10 % of the bolus, reduced cough reflex - Penetration-Aspiration Scale Score Thin Liquid via teaspoon Result: 1= does not enter airway Thin Liquid via teaspoon Trial 2 Result: 1= does not enter airway Thin Liquid via single sip from straw Result: 2= enter airway/above vocal folds/ejected Thin Liquid via small single sip from cup Result: 1= does not enter airway [place] Thick Liquid via small single sip from cup Result: 1= does not enter airway Honey Thick Liquid via small single sip from cup Result: 1= does not enter airway Pudding Result: 1= does not enter airway Cookie Result: 1= does not enter airway - Oral Phase Labial Seal: Interlabial escape, no progression to anterior lip Tongue Control During Bolus Hold: Posterior escape of greater than half of bolus Bolus Preparation/Mastication: Disorganized chewing/mashing with solid pieces of bolus unchewed Bolus Transport/Lingual Motion: Delayed initiation of tongue motion Oral Residue: Residue collection on oral structures - Pharyngeal Phase Initiation of Pharyngeal Swallow: Bolus head in pyriforms Soft Palate Elevation: No bolus between soft palate and pharyngeal wall Laryngeal Elevation: Partial superior movement thyroid cart/partial apprx aryt-epig petiole Anterior Hyoid Excursion: Partial anterior movement Epiglottic Movement: Complete inversion Laryngeal Vestibule Closure at Height of Swallow: Complete; no air/contrast in laryngeal vestibule Pharyngeal Stripping Wave: Present - complete Pharyngoesophageal Segment Opening: Complete distension and complete duration; no obstruction of flow Tongue Base Retraction: No contrast between tongue base and posterior pharyngeal wall Pharyngeal Residue: Trace residue within or on pharyngeal structures - Esophageal Phase Esophageal Clearance: Esophageal retention - Diagnosis/Impression Diagnosis: mild oropharyngeal dysphagia R13.11 Impression: Oral phase primarily marked by... - impaired labial seal w/ noted anterior spillage during thin liquid via tsp in 2/2 trials - moderate mastication insufficiency w/ piecemeal deglutition observed - swallow onset delay resulting in premature bolus loss to the pyriforms Pharyngeal phase primarily marked by... - no aspiration appreciated throughout consistencies trialed w/ slight penetration observed during thin liquid via straw with results within normal limitations - prominent cricopharyngeal bar located at C-4 level w/ no effect on pharyngoesophageal motility Esophageal phase primarily marked by... - minimal retention observed in the upper esophagus - Recommendations Diet: Puree Textures, Thin Liquids Comment: Patient appropriate to trial minced and moist textures w/ ST at bedside to assess appropriateness for texture advancement Compensatory Strategies: Small Bites, Small Sips, No Straws, Slow Rate, Feed only when alert, Alternate bites/solids and sips/liquids, Sitting upright, Remain sitting upright for 30 minutes after PO intake, Minimize/decrease distractions, Assist with verbal cues to use recommended strategies Supervision: 1:1 Close Supervision Recommend Repeat Modified Barium Swallow: TBD Need for Skilled Speech Therapy Services: Yes Comment: Will recommend the patient for dysphagia therapy to address deficits in oropharyngeal swallow function. Would consider the patient for oropharyngeal strengthening exercise program. The patient would benefit from thorough education regarding diet recommendations and recommended compensatory strategies to improve swallow function and decrease risk of aspiration w/ PO intake at current and next level of care. Education Completed: 1. Described result of evaluation., 2. Pt understands evaluation & agrees with goals and treatment plan. - Status Active ST Patient: Active - Contact Information [facility] Speech Therapy:: Angelica Milner M.A. CCC-FELT FINISHER Speech-Language Pathologist [facility] [address] [place] [address] [email or web address] [phone] 04/03/22 15:11
--- NOTE | 2022-04-03 14:53 | CASEMGMT ---
SW went back to patient's room. SW gave them a private duty list. Patient's said that physician told him that patient won't be ready for another 2-3 days. SW expressed understanding, but SW has to plan ahead as it takes time to find home health or SNFs. They verbalized understanding and will discuss a plan. SW did give them Medicare benefits for SNF and home health. Plan: undetermined at this time Makenzie LUCERO
--- NOTE | 2022-04-03 14:55 | CHAPLAIN ---
Type of Pastoral Visit _x__ Initial Visit ___ Follow-up Visit ___ On-call Visit ___ General Patient Visit ___ Spiritual Assessment ___ Family Conference ___ Bereavement ___ Rapid Response ___ Code Blue ___ Other (describe below) Pastoral Care Referral From ___ Patient _x__ Family ___ Nurse ___ Physician ___ Printing Bindery Assistant ___ Engraver Seals ___ Other (describe below) Sacrament/Intervention _x__ Active listening ___ Anointing ___ Yarsanism ___ Bereavement ___ Communion ___ Sharmin exploration ___ ___ Life review _x__ Prayer ___ Reconciliation ___ Sacrament of Sick _x__ Supportive presence ___ Wedding ___ Other (describe below) Pastoral Comments intitially the patient was out of the room and conversation took place with spouse and son; they offered that pt might benefit from visit of shell coremaker; pt returned to room and was asked about her situation, coping, support, and desire for spiritual care and prayer; pt is very slow to answer questions and does not use full sentences; pt speech is incomplete at times or limited to one word answer; pt does say it is okay to say a prayer; pt indicates that she needs a lot but gives no specifics; offer of ongoing support as desired; spouse says that pt was raised a Taoism but does not go to gnosticist at all and not now for a very long time
[2022-04-03 15:53] LABS: Magnesium 1.6 mg/dL (1.6-2.6)
[2022-04-03] MEDS: Potassium Chloride Oral Tablet 20 MEQ PO (17:35)
--- NOTE | 2022-04-03 19:54 | NURSING ---
Charting reviewed with Leslie Haley RN
[2022-04-03] MEDS: Magnesium Chloride 64 MG Delay Rel.Tablet 128 MG PO (21:48)
[2022-04-04] VITALS (14 sets, daily range): BP systolic 118–144; BP diastolic 67–79; PULSE 74–90; RESP 16–20; TEMP 36.5–37.1; O2SAT 85–100
[2022-04-04 05:31] LABS: Absolute Lymphocyte Count 1.05 X10^3/uL (0.83-4.51); Absolute Neutrophil Count 6.1 X10^3/uL (2.0-7.7); Basophil# 0.03 X10^3/uL; Basophil% 0.4 % (0-1); Eosinophil# 0.24 X10^3/uL; Eosinophils% 2.8 % (0-5); Hemoglobin 17.9 g/dL (12.0-15.0); Lymphocyte # 1.05 X10^3/ul (0.83-4.51); Lymphocyte % 12.4 % (19-41); Mean Corp Hgb Conc 31.6 g/dL (32-36); Mean Corpuscular Hgb 30.9 pg (27.0-32.0); Mean Corpuscular Volume 97.8 fL (81-99); Mean Platelet Vol. 10.9 fl (6.2-12.0); Monocyte# 1.09 X10^3/uL; Monocyte% 12.8 % (0-10); NRBC Flagged by Analyzer 0 % (0-5); Neutrophil # 6.05 X10^3/uL (2.7-7.7); Neutrophil % 71.1 % (47-70); Platelet Count 119 K/mm3 (150-450); RBC Distribution Width CV 16.9 % (11.6-14.6); RBC Distribution Width SD 58.3 fl (35.1-43.9); Red Blood Count 5.79 M/mm3 (4.2-5.4); White Blood Count 8.5 K/mm3 (4.4-11.0)
[2022-04-04 05:40] LABS: Hematocrit 56.6 % (37-47)
[2022-04-04 05:52] LABS: BUN 12 mg/dL (7-18); BUN/Creat Ratio 21.1 RATIO (10-20); Calcium,Total 7.7 mg/dL (8.5-10.1); Chloride 81 mmol/L (98-107); Creatinine, Serum 0.57 mg/dL (0.55-1.02); EST Glomerular Filtration Rate 114 mL/min (>60); Est Glom Filt Rate - Afr Amer 138 mL/min (>60); Estimated Creatinine Clearance 99.83 ml/min; Glucose 115 mg/dL (74-106); Potassium 2.9 mmol/L (3.5-5.1); Sodium Level 137 mmol/L (136-145)
[2022-04-04 05:54] LABS: Carbon Dioxide > 45.0 mmol/L (21.0-32.0)
--- NOTE | 2022-04-04 06:32 | NURSING ---
patient weaned to 1L of oxygen, current pulse ox is 94%
[2022-04-04] MEDS: Menthol/Lanolin/Calamine/Znox 113 GM Tube 1 APPLIC TOPICAL ×3 (06:33→21:55)
[2022-04-04] MEDS: Potassium Chloride Oral Tablet 20 MEQ 40 MEQ PO (06:53)
--- NOTE | 2022-04-04 07:23 | EX.PCM.CONCC ---
Assessment & Plan Assessment/Plan (1) Polycythemia: (2) Congestive heart failure (CHF): PLAN: Plan RECOMMENDATIONS: 1. Continue to wean supplemental oxygen as tolerated. 2. Continue diuresis as tolerated by hemodynamics and renal function. 3. Encourage incentive spirometer use and mobilize patient as tolerated. 4. Recommend outpatient pulmonary follow-up within 2 weeks of discharge. 5. Recommend outpatient PFTs and sleep apnea work-up. IMPRESSIONS: 1. RV dysfunction with associated hypoxia The patient presented in a state of decompensated heart failure with what appears to be longstanding polycythemia, likely secondary to chronic hypoxemia related to presumptive obstructive lung disease. The patient has an extensive tobacco abuse history. She has been volume optimized and is stable from a respiratory perspective on minimal supplemental O2. At this time, I would recommend that the patient follow-up in the pulmonary medicine clinic after discharge. She will require baseline pulmonary function studies along with a sleep apnea evaluation. I strongly suspect that she has underlying pulmonary hypertension as well. Therefore, a secondary work-up for PH would be reasonable as well. In the interim, the plan is to continue diuretic therapy as tolerated by hemodynamics and renal function. Continue to wean supplemental oxygen as tolerated. Perform walking oximetry study prior to consideration for discharge home. 2. Acute decompensated heart failure Continue current medical management including diuresis as tolerated by hemodynamics and renal function. 3. Polycythemia I do suspect that this is likely secondary to chronic, prolonged hypoxemia in the setting of suspected obstructive lung disease. As noted above, recommend outpatient pulmonary follow-up and PFTs. 4. Baseline cognitive impairment/chronic kidney disease/peripheral artery disease/chronic tobacco dependency Complicates care, management, recovery and prognosis. Continue home medications as indicated. I personally spent 3 minutes discussing the deleterious effects of continued tobacco use with the patient, including modalities which could be utilized to achieve a smoke-free lifestyle. Continue nicotine replacement therapy while admitted to the hospital. The patient would be a candidate for yearly low-dose CT, which can be completed on an outpatient basis. This note was generated with [employer] software. It may contain incorrect words, spelling, and punctuation that were not noted in checking the note before signing. HPI Consult Data Date of Consult: 04/04/22 HPI Narrative Reason for Consultation: RV dysfunction HPI Narrative: The patient is a 61-year-old female, with a history as outlined below, who presented to the emergency department on March 30 with progressive dyspnea. The patient has been admitted to the hospital since that time with medical management addressed at acute decompensated heart failure with IV diuretic therapy and supplemental oxygen. The patient's respiratory status has improved. The patient was also noted to be polycythemic with a hemoglobin of 18.2 g/dL on presentation. The patient has an extensive tobacco abuse history, but has never been formally evaluated by a store grocery merchandiser, nor has she ever completed pulmonary function studies. She denies having utilize supplemental oxygen at her baseline. She denies a history of venous thromboembolic disease. Surface echocardiogram from March 31 demonstrated normal LV size with an ejection fraction of 70% along with a severely dilated RV and mild global RV systolic dysfunction. Pulmonary artery systolic pressure was unable to be estimated. The patient remained stable from a respiratory perspective on 1 L/min of supplemental oxygen. She denies any resting dyspnea. [facility] Medical History (Updated 03/30/22 @ 15:[address] Angel Hanson DO) Alcohol abuse Congestive heart failure (CHF) CVA (cerebral vascular accident) Elbow fracture HTN (hypertension) Mild dementia Peripheral arterial disease Polycythemia Tobacco abuse Home Medications NK 03/30/22 [History Last Taken Unknown] Allergy/AdvReac Type Severity Reaction Status Date / Time acetaminophen [From Vicodin] AdvReac Vomiting Verified 03/30/22 10:43 codeine AdvReac Vomiting Verified 03/30/22 10:43 hydrocodone bitartrate AdvReac Vomiting Verified 03/30/22 10:43 [From Vicodin] oxycodone HCl [From Percocet] AdvReac Vomiting Verified 03/30/22 10:43 Family History unable to obtain Social History (Updated 03/30/22 @ 15:[address] Angel Hanson DO) Smoking Status: Heavy Smoker (>10/day) alcohol intake: current substance use type: does not use ROS ROS Narrative 10 systems were reviewed with pertinent positives as noted in the HPI above. Physical Exam Const alert and no apparent distress Constitutional Narrative: Appears to have baseline neurocognitive impairment. HEENT normocephalic and head/scalp atraumatic Eyes PERRL and EOMs intact bilaterally Neck supple General: trachea midline Chest inspection of chest normal Resp normal respiratory effort Auscultation: diminished lung sounds Cardio regular rate and regular rhythm GI normal to inspection, nondistended, normoactive bowel sounds Extremity General Extremity: edema Skin no rashes or lesions noted Neuro no focal motor deficits Psych Mood & Affect: flat affect Lab / Micro Data Result Diagrams: 04/04/22 04:58 04/04/22 04:58 Labs: Laboratory Results - last 24 hr 04/01/22 08:35: Diff Path Review Reviewed 04/02/22 05:00: Diff Path Review Reviewed 04/03/22 15:08: Magnesium 1.6 04/04/22 04:58: WBC 8.5, RBC 5.79 H, Hgb 17.9 H, Hct 56.6 H, MCV 97.8, MCH 30.9, MCHC 31.6 L, RDW Std Deviation 58.3 H, RDW Coeff of Dae 16.9 H, Plt Count 119 L, MPV 10.9, Immature Gran % (Auto) 0.500, Neut % (Auto) 71.1 H, Lymph % (Auto) 12.4 L, [place] % (Auto) 12.8 H, Eos % (Auto) 2.8, Baso % (Auto) 0.4, Absolute Neuts (auto) 6.1, Absolute Lymphs (auto) 1.05, Nucleated RBC % 0 04/04/22 04:58: Sodium 137, Potassium 2.9 L, Chloride 81 L, Carbon Dioxide > 45.0 H*, Anion Gap TNP, BUN 12, Creatinine 0.57, Estim Creat Clear Calc 99.83, Est GFR (MDRD) Af Amer 138, Est GFR (MDRD) Non-Af 114, BUN/Creatinine Ratio 21.1 H, Glucose 115 H, Calcium 7.7 L ABG Data ABG results: ABG 04/03/22 11:00 VBG Carboxyhemoglobin 4.8 H Radiology Impression Ankle Brachial Index 03/30/22 16:11 Interpretation Summary Right FERNANDO 0.6, severe arterial insufficiency. Doppler/PVR waveforms severely diminished Left FERNANDO 0.46, severe arterial insufficiency. Doppler/PVR waveforms severely diminished Ordering Physician: Angel Hanson Referring Physician: Marc Rosales Performed By: VANESSA LEMUS RVT Charges/Coding Visit Charges Inpatient E&M: 91403 Init Hosp L3 Behavior Interventions Behavior Intervention: 19640 Smoking Cessation 3-10 min
--- NOTE | 2022-04-04 08:00 | PN.HOSP_ITS ---
Subjective Subjective Patient seen still remains encephalopathic Objective Data Objective Data Vital Signs: Vital Signs Temp Pulse Resp BP Pulse Ox O2 Del Method O2 Flow Rate 97.9 F 88 18 129/70 H 93 Nasal Cannula 1 04/04/22 06:00 04/04/22 07:34 04/04/22 06:00 04/04/22 06:00 04/04/22 06:31 04/04/22 06:31 04/04/22 06:31 Oxygen Flow Rate (L/min) 1 Oxygen Delivery Method Nasal Cannula Weight: 62.6 kg Body Mass Index (BMI) 32.1 Intake & Output: Intake and Output for Last 24 Hours 04/02/22 04/03/22 04/04/22 23:59 23:59 23:59 Intake Total 980 / 980 700 / 700 Output Total 1300 / 1300 0 / 0 400 / 400 Balance -320 / -320 700 / 700 -400 / -400 Lab / Micro Data Result Diagrams: 04/04/22 04:58 04/04/22 04:58 Labs: Laboratory Results - last 24 hr 04/01/22 08:35: Diff Path Review Reviewed 04/02/22 05:00: Diff Path Review Reviewed 04/03/22 15:08: Magnesium 1.6 04/04/22 04:58: WBC 8.5, RBC 5.79 H, Hgb 17.9 H, Hct 56.6 H, MCV 97.8, MCH 30.9, MCHC 31.6 L, RDW Std Deviation 58.3 H, RDW Coeff of Dae 16.9 H, Plt Count 119 L, MPV 10.9, Immature Gran % (Auto) 0.500, Neut % (Auto) 71.1 H, Lymph % (Auto) 12.4 L, [place] % (Auto) 12.8 H, Eos % (Auto) 2.8, Baso % (Auto) 0.4, Absolute Neuts (auto) 6.1, Absolute Lymphs (auto) 1.05, Nucleated RBC % 0 04/04/22 04:58: Sodium 137, Potassium 2.9 L, Chloride 81 L, Carbon Dioxide > 45.0 H*, Anion Gap TNP, BUN 12, Creatinine 0.57, Estim Creat Clear Calc 99.83, Est GFR (MDRD) Af Amer 138, Est GFR (MDRD) Non-Af 114, BUN/Creatinine Ratio 21.1 H, Glucose 115 H, Calcium 7.7 L Micro: Microbiology 03/30/22 12:21 Nasal Secretion SARS-CoV-2 & FLU Antigen (Rapid) - Final ABG Data ABG results: ABG 04/03/22 11:00 VBG Carboxyhemoglobin 4.8 H Radiography Diagnostic Testing: Radiology Impression Ankle Brachial Index 03/30/22 16:11 Interpretation Summary Right FERNANDO 0.6, severe arterial insufficiency. Doppler/PVR waveforms severely diminished Left FERNANDO 0.46, severe arterial insufficiency. Doppler/PVR waveforms severely diminished Ordering Physician: Angel Hanson Referring Physician: Marc Rosales Performed By: VANESSA LEMUS [facility] [place] Physical Exam Narrative GENERAL: Patient in no apparent distress HEENT: Atraumatic; normocephalic EYES; Anicteric, Normal Conjunctiva NECK; supple, normal thyroid, RESPIRATORY: Diminished to auscultation CARDIOVASCULAR: Regular S1 S2, GI: soft, normoactive bowel sounds, : No Renal angle tenderness; EXTREMITIES: Bipedal edema with cyanosis of the digits MUSCULOSKELETAL: no muscle wasting NEURO: Awake; no lateralizing signs. SKIN: No Rash PSYCH; Flat affect Assessment & Plan Assessment/Plan (1) Polycythemia: (2) Anasarca: (3) Congestive heart failure (CHF): PLAN: Plan Patient is a 61-year-old lady who presented with progressive shortness of breath with generalized edema 1. Acute on chronic diastolic congestive heart failure ? Admitted to a monitored bed placed on strict input and output, daily weight, IV Lasix. Echo demonstrated EF of 70% ? 04/04/2022 patient negative fluid balance 2. Severe right ventricular dysfunction ? Concerning for PE CT of the chest demonstrated anasarca patient is currently on therapeutic Lovenox ? 04/04/2022 7 do suspect this to be secondary to patient chronic lung disease consult was placed to Dr. Almonte with pulmonary medicine 3. Hypokalemia ? Corrected for protocol repeat labs ordered for monitoring 5. Cognitive impairment ? Supportive care 6. Polycythemia ? Suspected to be secondary to chronic hypoxia thought consult was placed to oncology. Case discussed with Dr Carvalho ordered carboxyhemoglobin as well as EPO levels ? 04/04/2022; hemoglobin remains elevated 7. CKD stage IIIa ? Monitoring with daily electrolyte 8. Hyponatremia ? Secondary to hypervolemic state from CHF 9. PAD - ankle-brachial index on the right is 0.60, left 0.46. Patient will follow-up in the outpatient with vascular surgery 11. Dysphagia, severe oropharyngeal phase, -started on nectar thick, pur?ed textures Speech therapy following, plan is for patient to undergo modified barium swallow 12. DVT prophylaxis?on therapeutic Lovenox 13. Acute kidney injury ? Resolved. Creatinine currently at 0.57 was as high as 1.45 on on 03/30/2022 Charges/Coding Visit Charges Inpatient E&M: 50190 Subs Hosp L2
[2022-04-04] MEDS: Magnesium Chloride 64 MG Delay Rel.Tablet 128 MG PO ×2 (09:05→21:56)
[2022-04-04] MEDS: Thiamine Hydrochloride 100 MG Tablet PO (09:06)
[2022-04-04] MEDS: Folic Acid 1 MG Tablet PO (09:06)
[2022-04-04] MEDS: Enoxaparin 40 MG/0.4 ML Syringe SC (09:06)
[2022-04-04] MEDS: Furosemide 20 MG/2 ML VIAL IV ×2 (09:06→16:08)
[2022-04-04] MEDS: Potassium Chloride Oral Tablet 20 MEQ PO ×2 (09:06→16:15)
--- NOTE | 2022-04-04 13:30 | CASEMGMT ---
KENDY called patient's , Caesar. KENDY did not get an answer so KENDY left a message requesting a return call about d/c plan. Makenzie LUCERO
--- NOTE | 2022-04-04 14:00 | CASEMGMT ---
SW met with patient, patient's and son. They have decided they will take patient home with home health. SW asked if they chose a home health agency and they have not. SW asked them to please look at the list and choose at least 3 agencies they would like. Plan: Home with home health. Makenzie LUCERO
[2022-04-04] MEDS: Acetaminophen 325 MG Tablet 650 MG PO (16:06)
[2022-04-05] VITALS (7 sets, daily range): BP systolic 124–135; BP diastolic 67–76; PULSE 83–96; RESP 18; TEMP 36.6–36.7; O2SAT 83–98
[2022-04-05] MEDS: Menthol/Lanolin/Calamine/Znox 113 GM Tube 1 APPLIC TOPICAL (06:25)
[2022-04-05 06:58] LABS: Absolute Lymphocyte Count 1.41 X10^3/uL (0.83-4.51); Absolute Neutrophil Count 4.9 X10^3/uL (2.0-7.7); Basophil# 0.02 X10^3/uL; Basophil% 0.3 % (0-1); Eosinophil# 0.36 X10^3/uL; Eosinophils% 4.7 % (0-5); Hemoglobin 17.9 g/dL (12.0-15.0); Lymphocyte # 1.41 X10^3/ul (0.83-4.51); Lymphocyte % 18.3 % (19-41); Mean Corp Hgb Conc 32.1 g/dL (32-36); Mean Corpuscular Hgb 30.9 pg (27.0-32.0); Mean Corpuscular Volume 96.2 fL (81-99); Mean Platelet Vol. 11.2 fl (6.2-12.0); Monocyte# 0.96 X10^3/uL; Monocyte% 12.5 % (0-10); NRBC Flagged by Analyzer 0 % (0-5); Neutrophil # 4.91 X10^3/uL (2.7-7.7); Neutrophil % 63.7 % (47-70); Platelet Count 112 K/mm3 (150-450); RBC Distribution Width CV 16.3 % (11.6-14.6); RBC Distribution Width SD 56.7 fl (35.1-43.9); Red Blood Count 5.79 M/mm3 (4.2-5.4); White Blood Count 7.7 K/mm3 (4.4-11.0)
[2022-04-05 07:00] LABS: Hematocrit 55.7 % (37-47)
[2022-04-05 07:37] LABS: BUN 14 mg/dL (7-18); BUN/Creat Ratio 23.4 RATIO (10-20); Calcium,Total 7.6 mg/dL (8.5-10.1); Carbon Dioxide > 45.0 mmol/L (21.0-32.0); Chloride 84 mmol/L (98-107); EST Glomerular Filtration Rate 107 mL/min (>60); Est Glom Filt Rate - Afr Amer 130 mL/min (>60); Estimated Creatinine Clearance 88.18 ml/min; Glucose 89 mg/dL (74-106); Potassium 3.6 mmol/L (3.5-5.1); Sodium Level 134 mmol/L (136-145)
[2022-04-05] MEDS: Folic Acid 1 MG Tablet PO (08:31)
[2022-04-05] MEDS: Potassium Chloride Oral Tablet 20 MEQ PO (08:32)
[2022-04-05] MEDS: Enoxaparin 40 MG/0.4 ML Syringe SC (08:32)
[2022-04-05] MEDS: Magnesium Chloride 64 MG Delay Rel.Tablet 128 MG PO (08:32)
[2022-04-05] MEDS: Thiamine Hydrochloride 100 MG Tablet PO (08:32)
[2022-04-05] MEDS: 0.9% Saline Lock 10 ML Syringe IV (08:33)
[2022-04-05] MEDS: Furosemide 20 MG/2 ML VIAL IV (08:33)
--- NOTE | 2022-04-05 08:52 | PN.CC_ITS ---
Assessment & Plan Assessment/Plan (1) Polycythemia: (2) Congestive heart failure (CHF): PLAN: Plan RECOMMENDATIONS: 1. Continue to wean supplemental oxygen as tolerated. 2. Continue diuresis as tolerated by hemodynamics and renal function. 3. Encourage incentive spirometer use and mobilize patient as tolerated. 4. Recommend outpatient pulmonary follow-up within 2 weeks of discharge. 5. Recommend outpatient PFTs and sleep apnea work-up. IMPRESSIONS: 1. RV dysfunction with associated hypoxia The patient presented in a state of decompensated heart failure with what appears to be longstanding polycythemia, likely secondary to chronic hypoxemia related to presumptive obstructive lung disease. The patient has an extensive tobacco abuse history. She has been volume optimized and is stable from a respiratory perspective on minimal supplemental O2. At this time, I would recommend that the patient follow-up in the pulmonary medicine clinic after discharge. She will require baseline pulmonary function studies along with a sleep apnea evaluation. I strongly suspect that she has underlying pulmonary hypertension as well. Therefore, a secondary work-up for PH would be reasonable as well. In the interim, the plan is to continue diuretic therapy as tolerated by hemodynamics and renal function. Continue to wean supplemental oxygen as tolerated. Perform walking oximetry study prior to consideration for discharge home. 2. Acute decompensated heart failure Continue current medical management including diuresis as tolerated by hemodynamics and renal function. 3. Polycythemia I do suspect that this is likely secondary to chronic, prolonged hypoxemia in t he setting of suspected obstructive lung disease. As noted above, recommend outpatient pulmonary follow-up and PFTs. 4. Baseline cognitive impairment/chronic kidney disease/peripheral artery disease/chronic tobacco dependency Complicates care, management, recovery and prognosis. Continue home medications as indicated. Tobacco cessation counseling was provided. Continue nicotine replacement therapy while admitted to the hospital. The patient would be a candidate for yearly low-dose CT, which can be completed on an outpatient basis. This note was generated with [employer] dictation software. It may contain incorrect words, spelling, and punctuation that were not noted in checking the note before signing. Subjective Subjective The patient was seen and examined at the bedside this morning. Events from the last 24 hours have been reviewed. The patient is currently afebrile, hemodynami demar stable and maintaining appropriate oxygen saturations on 2 L/min via nasal cannula. Objective Data Objective Data The patient's most recent lab work, culture data and imaging studies have all been personally reviewed. Surface echocardiogram demonstrated an ejection fraction of 70% with a severely dilated RV with mild global RV systolic dysfunction. Vital Signs: Vital Signs Temp Pulse Resp BP Pulse Ox O2 Del Method O2 Flow Rate 97.8 F 83 18 135/76 H 94 Nasal Cannula 2 04/05/22 06:00 04/05/22 06:49 04/05/22 06:00 04/05/22 06:00 04/05/22 07:42 04/05/22 07:42 04/05/22 07:42 Oxygen Flow Rate (L/min) 2 Oxygen Delivery Method Nasal Cannula Weight: 128 lb 4.944 oz Body Mass Index (BMI) 32.1 Intake & Output: Intake and Output for Last 24 Hours 04/03/22 04/04/22 04/05/22 23:59 23:59 23:59 Intake Total 700 / 700 Output Total 0 / 0 400 / 400 Balance 700 / 700 -400 / -400 Lab / Micro Data Attestation: I reviewed the patient's lab results. Result Diagrams: 04/05/22 05:45 04/05/22 05:45 Labs: Laboratory Results - last 24 hr 04/05/22 05:45: WBC 7.7, RBC 5.79 H, Hgb 17.9 H, Hct 55.7 H, MCV 96.2, MCH 30.9, MCHC 32.1, RDW Std Deviation 56.7 H, RDW Coeff of Dae 16.3 H, Plt Count 112 L, MPV 11.2, Immature Gran % (Auto) 0.500, Neut % (Auto) 63.7, Lymph % (Auto) 18.3 L, [place] % (Auto) 12.5 H, Eos % (Auto) 4.7, Baso % (Auto) 0.3, Absolute Neuts (auto) 4.9, Absolute Lymphs (auto) 1.41, Nucleated RBC % 0 04/05/22 05:45: Sodium 134 L, Potassium 3.6, Chloride 84 L, Carbon Dioxide > 45.0 H*, Anion Gap TNP, BUN 14, Creatinine 0.60, Estim Creat Clear Calc 88.18, Est GFR (MDRD) Af Amer 130, Est GFR (MDRD) Non-Af 107, BUN/Creatinine Ratio 23.4 H, Glucose 89, Calcium 7.6 L Micro: Microbiology 03/30/22 12:21 Nasal Secretion SARS-CoV-2 & FLU Antigen (Rapid) - Final Physical Exam Const alert and no apparent distress Constitutional Narrative: Appears to have baseline neurocognitive impairment. HEENT normocephalic and head/scalp atraumatic Eyes PERRL and EOMs intact bilaterally Neck supple General: trachea midline Chest inspection of chest normal Resp normal respiratory effort Auscultation: diminished lung sounds Cardio regular rate and regular rhythm GI normal to inspection, nondistended, normoactive bowel sounds Extremity General Extremity: edema Skin no rashes or lesions noted Neuro no focal motor deficits Psych Mood & Affect: flat affect Charges/Coding Visit Charges Inpatient E&M: 10602 Subs Hosp L2
[2022-04-05 09:05] LABS: Erythropoietin 8.4 mIU/mL (2.6-18.5)
--- NOTE | 2022-04-05 10:05 | CASEMGMT ---
Addendum entered by Makenzie Mendoza 04/05/22 10:33: Catherine left a message for SW and they can take patient. They will see patient on Sunday. SW will notify patient's when he comes to [facility]. Makenzie LUCERO Original Note: SW went to patient's room to see if patient's family had chosen a home health agency. The list was in the room with no markings. KENDY then called patient's Caesar. SW let him know patient may be discharged today and did he have a home health choice. Caesar said likely [facility]. SW let him know SW will make the referral and get back to him if there are any problems. KENDY called Catherine at [facility] and made referral. Await response. Makenzie LUCERO
--- NOTE | 2022-04-05 11:00 | CASEMGMT ---
Patient's PCP is not Bobby. Patient's said it is a doctor at [facility]. SW called [facility] and patient sees Dr Huston. She had an appt with the Nurse Practitioner Astrid Older january. Patient has an appt May 05. KENDY notified Catherine at [facility]. Makenzie Mendoza BILLING MACHINE OPERATORJun LUCERO
--- NOTE | 2022-04-05 11:34 | CASEMGMT ---
Per Lilian IBRAHIM, pt qualifies for home oxygen 2L continuous. Call to pt's to see what DME company he would like to use to for home oxygen. Per pt's , he has concentrator and portable tank for pt at home that was her sister's who a month ago. states pt is normally home bound. This RN CM advised that we normally set up thru DME company to make sure pt has all the equipment that they need. declines order to be sent to DME at this time and states 'We will just use what we have as it works just fine.' is aware that home oxygen would be covered by insurance but still declines. states pt has pulse ox at home and this RN CM advised him that pt needs to wear 2 liters nc continuously to keep oxygen level 89% or greater, voices understanding and is aware that this will be on d/c instructions. aware to bring portable tank for d/c and declines any further questions/concerns/needs. Lilian IBRAHIM updated on all, voices understanding. Papa IBRAHIM CM
--- NOTE | 2022-04-05 11:37 | CASEMGMT ---
Plan: discharge home with [facility], PT, OT, and aide. Makenzie Mendoza MORTGAGE PROTECTION SPECIALIST NIC
--- NOTE | 2022-04-05 11:40 | DS.PCM_ITS ---
Providers Date of Admission: 03/30/22 Date of Discharge: 04/05/22 Primary Care Physician: Dr. Marc Rosales MD Consultations 04/02/22 15:26 Consult: Oncology/Hematology Routine Consulting Provider: Barron Carvalho Reason for Consult: Polycythemia EMERGENT Consult: Yes MD Notified: Yes Date Notified: 04/02/22 Time Notified: 15:27 Method of Notification: Verbal 04/03/22 13:21 Consult: Bellman Driver / Pulmonary Medicine Routine Consulting Provider: [facility] Reason for Consult: Chronic lung disease EMERGENT Consult: No MD Notified: Yes Date Notified: 04/03/22 Time Notified: 13:21 Method of Notification: Text Reason For Visit: CHF, HYPOXIA Diagnosis Discharge Diagnosis (1) Polycythemia: Status: Acute Code(s): D75.1 - Secondary polycythemia (2) Congestive heart failure (CHF): Status: Acute Code(s): I50.9 - Heart failure, unspecified Medications at Discharge Home Medications furosemide 20 mg tablet (Lasix) 20 mg PO DAILY #60 tabs 04/05/22 potassium chloride 20 mEq tablet,extended release 20 meq PO DAILY #30 tabs 04/05/22 Hospital Course Operations None Procedures 2-D Echocardiogram and - (Modified barium swallow/CTA of the chest/ABIs) Summary of Care Provided Minutes Spent on Discharge: 39 Hospital Course: Mrs. Doll is a 61-year-old white female who presented to the emergency department at [facility] on 03/30/2022 with weakness and shortness of breath. It was reported that she had progressively worsening weakness and shortness of breath with debility. Evidently, for 4 weeks prior to presentation she had increasing edema diffusely in her arms and was so weak she was unable to adequately care for herself. She had been able to ambulate on her own previously but was very unsteady. She does have a history of stroke about 18 years ago but was functional following that but family was concerned that there may be some dementia present as well. On presentation the emergency department she was afebrile with a temperature of 36.1 ?C, heart rate was 126, respiratory rate was 30, blood pressure is 119/70 and pulse ox was 80% on room air. She was placed on 4 L nasal cannula at which time her oxygen saturation proved to 100%. Her CBC showed a markedly elevated hemoglobin at 18.2 and mild thrombocytopenia with a count of 141,000. Her BMP showed elevated bicarbonate level at 33.1 and serum creatinine 1.45 which was up from her baseline. Initial troponin was 47 and her BNP was 1776. She was admitted to the PCU for acute hypoxic respiratory failure secondary to acute congestive heart failure with type unclear at that time. An echocardiogram was ordered and she was placed on diuretics as well as fluid restricted and daily I's and O's were assessed. Her echocardiogram showed an EF of 70% and no diastolic dysfunction but did show severely dilated RV with global RV dysfunction and a severely enlarged right atrium. Patient is a chronic smoker. Given her erythrocytosis oncology was consulted and was felt that this was secondary polycythemia related to her respiratory disease at baseline. A carboxyhemoglobin was obtained which of course was elevated giving her tobacco history and erythropoietin level was orde red and pending on discharge. Patient does not need outpatient follow-up with oncology and outpatient pulmonary follow-up with recommended. She was maintained on IV diuresis at 20 mg IV push twice daily and had concomitant hypokalemia related to her ongoing diuresis. Her potassium was replaced. She was evaluated by pulmonary medicine. We suspect that her longstanding polycythemia is real likely related to chronic hypoxia. She has presumptive obstructive pulmonary disease and will need outpatient pulmonary function test after discharge. Home O2 evaluation was done on the day of discharge and she was found to need 2 L with rest and exertion. She was seen by physical and Occupational Therapy during her hospital course it was recommended she go to skilled facility for ongoing physical and occupational rehab however family wanted to take her home with home health care instead. Home health care was arranged and she was discharged in stable condition on 04/05/2022. There is high anticipation that she will have recurrent hospitalizations related to debility and that placement will need to be pursued in the future. It was thought the patient had CKD however renal function had normalized with a estimated GFR of 107 on the day of discharge and therefore she does not meet criteria for CKD. She was discharged home on Lasix 20 mg p.o. twice daily as well as potassium supplementation 20 mill equivalents daily. I have advised her to get a basic metabolic profile ordered by her primary care physician within the next week to follow-up on her renal function and potassium with ongoing diuresis and potassium supplementation. Prescriptions for 1 month supply were sent but she will need to follow-up for further scripts. Patient is to follow- up with her primary care provider within 1 week and pulmonology within the next month. She is also to follow-up with vascular surgery as previously recommended. Discharge diagnoses: Chronic hypoxic and hypercapnic respiratory failure Severe RV dysfunction Suspected COPD Chronic polycythemia Hypokalemia-resolved Cognitive impairment PAD Dysphagia MATILDA-resolved Hyponatremia-resolved Tobacco abuse Physical Exam Const alert and no apparent distress Constitutional Narrative: Upper middle-aged white female sitting up in bed, watching television, appears much older than stated age, nursing at bedside, patient with some confusion but per reports this is baseline General Appearance: comfortable and well developed Orientation / Consciousness: awake Exam Limitations: other limitations HEENT normocephalic, head/scalp atraumatic, hearing grossly normal bilaterally and moist oral mucous membranes HEENT Narrative: Dentition is fair, Mallampati is 2, no thrush Eyes PERRL, EOMs intact bilaterally and conjunctivae normal Eyes Narrative: No scleral icterus Neck no lymphadenopathy, supple and no JVD Neck Narrative: Trachea midline, no thyroid enlargement Resp normal respiratory effort, no retractions and no use of accessory muscles Resp Narrative: Diffusely diminished but clear, currently on 2 L nasal cannula Auscultation: Negative for crackles, rales, rhonchi or wheezes Cardio regular rate, regular rhythm, S1 normal heart sound, S2 normal heart sound, no murmurs, no rub, no gallops and no clicks GI normal to inspection, nondistended, normoactive bowel sounds, soft to palpation and non-tender Extremity Extremity Narrative: Trace to 1+ bilateral lower extremity pitting edema, no cyanosis, clubbing present Skin no rashes or lesions noted, no wounds, skin turgor normal and no jaundice Skin Narrative: Mild erythema bilateral lower extremities consistent with venous stasis, no signs of infection Neuro CN's II-XII intact bilaterally, moves all extremities and no focal motor d eficits Speech: speech normal Psych Psych Narrative: Affect is mildly flat Weight / BMI Weight Weight: 58.2 kg Body Mass Index (BMI) 32.1 ABG / Lab / Microbiology Data Result Diagrams: 04/05/22 05:45 04/05/22 05:45 Laboratory: Laboratory Results - last 24 hr 04/03/22 11:00: Erythropoietin 8.4 04/05/22 05:45: WBC 7.7, RBC 5.79 H, Hgb 17.9 H, Hct 55.7 H, MCV 96.2, MCH 30.9, MCHC 32.1, RDW Std Deviation 56.7 H, RDW Coeff of Dae 16.3 H, Plt Count 112 L, MPV 11.2, Immature Gran % (Auto) 0.500, Neut % (Auto) 63.7, Lymph % (Auto) 18.3 L, [place] % (Auto) 12.5 H, Eos % (Auto) 4.7, Baso % (Auto) 0.3, Absolute Neuts (auto) 4.9, Absolute Lymphs (auto) 1.41, Nucleated RBC % 0 04/05/22 05:45: Sodium 134 L, Potassium 3.6, Chloride 84 L, Carbon Dioxide > 45.0 H*, Anion Gap TNP, BUN 14, Creatinine 0.60, Estim Creat Clear Calc 88.18, Est GFR (MDRD) Af Amer 130, Est GFR (MDRD) Non-Af 107, BUN/Creatinine Ratio 23.4 H, Glucose 89, Calcium 7.6 L Microbiology: Microbiology 03/30/22 12:21 Nasal Secretion SARS-CoV-2 & FLU Antigen (Rapid) - Final D/C Instructions Discharge Diet: Low fat / Low cholesterol (Minced and moist food consistency with thin liquids), 8 Cup Fluid Restriction and 4000 mg Sodium Diet Discharge Activity: Return to Normal Activity Meaningful Use Info Meaningful Use Diagnoses (Choose all that apply): None applicable Discharge Plan Admission Admit Date/Time: 03/30/22 15:05 Primary Reason for Your Visit: Weakness/shortness of breath Attending Provider: Rosa Maria Sherwood Primary Care Provider: Marc Rosales Consulting Providers: Angel Hanson ; Barron Carvalho ; Maira Kent ; Humberto Harris ; Alonso Almonte ; Presley Purdy ; Yonathan Ledbetter ; Tegan Lim NP ; Cristhian Dent Instructions Additional Instructions / Restrictions: Please call primary care physician to obtain an order for a basic metabolic profile to be drawn within the next week Please call for appointment for soon as possible to get scheduled for pulmonary medicine and your primary care physician No straws with fluid consumption Patient will need one-on-one assist for all meals after discharge Please use 2 L of oxygen at all times both at rest and with exertion -Do not smoke while utilizing supplemental oxygen Discharge Orders/Prescriptions Prescriptions: New furosemide [Lasix] 20 mg tablet 20 mg PO DAILY Qty: 60 0RF potassium chloride 20 mEq tablet extended release 20 meq PO DAILY Qty: 30 0RF Referrals / Follow Up: Marc Rosales MD [Primary Care Provider] - 04/12/22 11:40 am Tegan Lim NP, [employer] [Med Staff - Adv Practice Prof] - 04/27/22 8:45 am Disposition Disposition (needs filled in before D/C Order can be placed): Home Health Service
== END 2022-04-05 13:44 | disposition home health service (06) | DRG 291 ==
LOC: ED 14:29 → PCU 14:57
PROVIDERS: Family Medicine; Internal Medicine; Emergency Provider Emergency Medicine; PCP Family Medicine; Visit Provider Internal Medicine
DX: I13.0 Hypertensive heart and chronic kidney disease with heart failure and stage 1 through stage 4 chronic kidney disease, or unspecified chronic kidney disease (principal); J96.21 Acute and chronic respiratory failure with hypoxia; J96.22 Acute and chronic respiratory failure with hypercapnia; I50.33 Acute on chronic diastolic (congestive) heart failure; E87.3 Alkalosis; N17.9 Acute kidney failure, unspecified; E87.1 Hypo-osmolality and hyponatremia; I27.20 Pulmonary hypertension, unspecified; I73.9 Peripheral vascular disease, unspecified; N18.31 Chronic kidney disease, stage 3a; J44.9 Chronic obstructive pulmonary disease, unspecified; F10.10 Alcohol abuse, uncomplicated; F17.210 Nicotine dependence, cigarettes, uncomplicated; D75.1 Secondary polycythemia; E87.6 Hypokalemia; R13.12 Dysphagia, oropharyngeal phase; F03.A0 Unspecified dementia, mild, without behavioral disturbance, psychotic disturbance, mood disturbance, and anxiety; R53.81 Other malaise; Z71.6 Tobacco abuse counseling; Z20.822 Contact with and (suspected) exposure to COVID-19; Z86.73 Personal history of transient ischemic attack (TIA), and cerebral infarction without residual deficits
CPT/HCPCS: 36415; 70450; 71046; 71275; 74230; 80048; 80053; 80061; 81001; 82375; 82607; 82668; 82746; 83735; 83880; 84100; 84443; 84484; 85025; 85610; 85730; 87428; 87493; 92507; 92526; 92610; 92611; 93005; 93306; 93922; 97110; 97116; 97163; 97166; 97530; 97535; 97803; 99285; Q9957; Q9967; A4216; J1940

== ENCOUNTER 2022-04-07 23:48 | Inpatient (IN) | payer MEDICARE, SELFPAY ==
[2022-04-07 23:50] VITALS: BP 163/98; PULSE 112; RESP 20; TEMP 36.4; O2SAT 92; BMI 27.1
[2022-04-08] VITALS (56 sets, daily range): BP systolic 67–162; BP diastolic 50–102; PULSE 60–97; RESP 9–20; TEMP 36.2–37.8; O2SAT 58–100; BMI 27.0
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
--- NOTE | 2022-04-08 00:33 | EKG12_ITS ---
Test Reason : SOB Blood Pressure : / mmHG Vent. Rate : 109 BPM Atrial Rate : 109 BPM P-R Int : 140 ms QRS Dur : 092 ms QT Int : 350 ms P-R-T Axes : 086 099 009 degrees QTc Int : 471 ms Sinus tachycardia with occasional Premature ventricular complexes Right atrial enlargement Rightward axis Possible Pulmonary disease pattern Incomplete right bundle branch block Nonspecific ST and T wave abnormality Abnormal ECG Confirmed by ROBSON ROBIN, ALBERTO ([id number]), editor dictionary ELIZABETH MENDOSA ([id number]) on 04/11/2022 9:43:24 AM Referred By: NIDA Confirmed By:ALBERTO CHANCE MD
--- NOTE | 2022-04-08 00:33 | RAD_ITS ---
INDICATION: Cough EXAMINATION/TECHNIQUE: X-RAY - XR Chest 2 Views COMPARISON: Chest x-ray from 03/30/2022 FINDINGS: LINES/DEVICES: None. LUNGS: Hyperexpanded lungs noted. No overt pulmonary edema or focal airspace consolidation. Slightly crowded basilar lung markings. Small residual right pleural effusion. No pneumothorax detected. MEDIASTINUM AND CARDIOVASCULAR STRUCTURES: Slightly enlarged heart again noted. Mediastinal contours unremarkable. BONES AND SOFT TISSUES: No acute findings. RAD/Chest PA and Lateral IMPRESSION: Mild COPD and basilar atelectatic changes with small right pleural effusion. Mild cardiomegaly. Electronically Signed: Raul Calixto MD at 2:00 EDT ,
[2022-04-08] MEDS: Ondansetron 4 MG/2 ML Vial IV (00:55)
[2022-04-08] MEDS: Morphine 4 MG/ML Syringe IV (00:56)
[2022-04-08 01:08] LABS: Absolute Lymphocyte Count 1.57 X10^3/uL (0.83-4.51); Absolute Neutrophil Count 11.2 X10^3/uL (2.0-7.7); Basophil# 0.05 X10^3/uL; Basophil% 0.4 % (0-1); Eosinophil# 0.16 X10^3/uL; Eosinophils% 1.1 % (0-5); Lymphocyte # 1.57 X10^3/ul (0.83-4.51); Lymphocyte % 11.1 % (19-41); Mean Corp Hgb Conc 31.1 g/dL (32-36); Mean Corpuscular Hgb 30.9 pg (27.0-32.0); Mean Corpuscular Volume 99.3 fL (81-99); Mean Platelet Vol. 11.7 fl (6.2-12.0); Monocyte# 1.15 X10^3/uL; Monocyte% 8.1 % (0-10); NRBC Flagged by Analyzer 0 % (0-5); Neutrophil # 11.17 X10^3/uL (2.7-7.7); Neutrophil % 78.7 % (47-70); Platelet Count 160 K/mm3 (150-450); RBC Distribution Width CV 17.4 % (11.6-14.6); RBC Distribution Width SD 60.8 fl (35.1-43.9); Red Blood Count 5.99 M/mm3 (4.2-5.4); White Blood Count 14.2 K/mm3 (4.4-11.0)
[2022-04-08 01:11] LABS: Hematocrit 59.5 % (37-47)
[2022-04-08 01:12] LABS: Differential Indicated SCAN CRITERIA MET; Hemoglobin 18.5 g/dL (12.0-15.0)
[2022-04-08 01:43] LABS: ALB/GLOB Ratio 0.9 RATIO (0.9-2.4); AST(SGOT) 46 U/L (15-37); Alanine Aminotransfer ALT/SGPT 49 U/L (13-56); Albumin, Serum 3.6 g/dL (3.2-5.0); Alkaline Phosphatase 84 U/L (45-117); Anion Gap 10 (5-15); BUN 16 mg/dL (7-18); BUN/Creat Ratio 19.1 RATIO (10-20); Calcium,Total 8.5 mg/dL (8.5-10.1); Chloride 84 mmol/L (98-107); Creatinine, Serum 0.84 mg/dL (0.55-1.02); EST Glomerular Filtration Rate 73 mL/min (>60); Est Glom Filt Rate - Afr Amer 88 mL/min (>60); Globulin 4.2 g/dL (2.2-4.2); Glucose 167 mg/dL (74-106); Potassium 3.6 mmol/L (3.5-5.1); Protein, Total 7.8 g/dL (6.4-8.2); Sodium Level 130 mmol/L (136-145)
[2022-04-08] MEDS: Diphth,Pertuss(Acell),Tet Vac 0.5 ML Vial IM (02:26)
[2022-04-08 06:06] LABS: Allen Test Positive; Base Excess 17 mmol/L (-2 to +2); Bicarbonate 45.2 mmol/L (22-26); Blood Gas Specimen Type ART; O2 Delivery Device Cannula; PO2 70 mmHG (75-100); SITE R Radial; SO2 88 % (95-99); Total Carbon Dioxide 49 mmol/L; pCO2 111.2 mmHg (35-45); pH 7.22 (7.35-7.45)
--- NOTE | 2022-04-08 06:37 | RAD_ITS ---
INDICATION: Dyspnea EXAMINATION/TECHNIQUE: X-RAY - XR Chest 1 View COMPARISON: 2 view chest x-ray from 5 hours prior FINDINGS: LINES/DEVICES: None. LUNGS: Hyperexpanded lungs with mild right basilar atelectatic changes. No pulmonary edema. No sizable pleural effusion. No pneumothorax detected. MEDIASTINUM AND CARDIOVASCULAR STRUCTURES: Slightly enlarged heart again noted. Mediastinal contours unremarkable. BONES AND SOFT TISSUES: No acute findings. RAD/Chest 1 View (Portable) IMPRESSION: COPD and mild cardiomegaly with right basilar atelectatic changes. Electronically Signed: Raul Calixto MD at 7:41 EDT ,
--- NOTE | 2022-04-08 06:38 | CPS ---
Added non-stick gauze between bipap mask and patient
[2022-04-08 07:10] LABS: BNP,B-Type NATRIURETIC PEPTIDE 1350.2 pg/mL (0-100)
[2022-04-08 07:11] LABS: Lactic Acid 0.7 mmol/L (0.4-1.9)
--- NOTE | 2022-04-08 07:34 | ED.RN ---
PT MOVED TO ROOM TWO, PREPPED FOR RSI. FAMILY MOVED TO WAITING ROOM.
--- NOTE | 2022-04-08 07:38 | ED.RN ---
DR. VILLAREAL AT HEAD OF BED. RESPIRATORY PREPPED TUBS AND GLIDESCOPE FOR RSI. ETOMIDATE 18MG GIVEN BY Chrystal LAZO THROUGH RIGHT AC IV AT 0740, AND ROCURONUIM 36MG GIVEN PER BY Chrystal LAZO IVP THROUGH RIGHT AC AT 0740. PT REMOVED FROM BIPAP, AND INTUBATED AT 0741, POSITIVE COLOR CHANGE WITH CO2 DETECTOR. EQUAL BREATHS SOUNDS. 7.5 TUBE MEASURING 21CM AT THE LIP.
[2022-04-08] MEDS: Rocuronium Bromide 50 MG/5 ML Vial 36 MG IV (07:40)
[2022-04-08] MEDS: Etomidate 20 MG/10 ML Vial 18 MG IV (07:40)
--- NOTE | 2022-04-08 07:53 | NURSING ---
DR LACHO VILLAREAL
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
--- NOTE | 2022-04-08 08:08 | NURSING ---
ICU 4
--- NOTE | 2022-04-08 08:13 | RAD_ITS ---
STUDY: X-RAY CHEST REASON FOR EXAM: Female, 61 years old. Respiratory failure TECHNIQUE: Single AP portable view of the chest. COMPARISON: Earlier today FINDINGS: Since the previous study, patient has been intubated, tip of the ET tube is 4 cm above the anthony, NG tube is in the proximal stomach and could be advanced. EKG leads overlie the chest The lungs are mildly hyperexpanded with chronic interstitial changes, no significant interval change since the previous study. There is no demonstrated pleural abnormality. Normal size heart. Normal mediastinum and gretel. Normal visualized pulmonary arteries. Normal visualized aortic arch and descending thoracic aorta. There are diffuse degenerative changes of the visualized thoracic spine. Normal visualized ribs, clavicles, and shoulders. There is no demonstrated abnormality of the visualized soft tissue structures of the upper abdomen. RAD/Chest 1 View (Portable) IMPRESSION: ET tube tip is 4 cm above the anthony, NG tube tip in the proximal stomach, and could be advanced Lung nevarez show no interval change since the previous study Electronically Signed: Gonzalo Renteria MD at 8:31 EDT ,
--- NOTE | 2022-04-08 08:14 | ED.RN ---
PT MOVING ARMS WHEN STIMULATED. PLACED IN SOFT BILATERAL WRIST RESTRAINTS FOR TUBE PROTECTION. SEDATION ORDERED.
[2022-04-08] MEDS: Propofol 10MG/Ml 1,000 MG/100 ML Bottle 3.6 MG CONT INF (08:18)
[2022-04-08] MEDS: Midazolam 2 MG/2 ML Syringe IV (08:32)
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
[2022-04-08 09:51] LABS: Allen Test Positive; Base Excess 11 mmol/L (-2 to +2); Bicarbonate 34.1 mmol/L (22-26); Blood Gas Specimen Type ART; FI02 40; Mode AC; O2 Delivery Device Adult Vent; PEEP 5; PO2 93 mmHG (75-100); RR 18; SITE R Radial; SO2 98 % (95-99); Total Carbon Dioxide 35 mmol/L; Vt 450; pCO2 42.3 mmHg (35-45); pH 7.51 (7.35-7.45)
[2022-04-08] MEDS: Ipratropium/Albuterol Sulfate 3 ML AMPUL.NEB INHALATION ×4 (10:00→23:05)
[2022-04-08] MEDS: Enoxaparin 40 MG/0.4 ML Syringe SC (11:24)
[2022-04-08] MEDS: Chlorhexidine 15 ML PO ×2 (11:24→22:22)
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
[2022-04-08] MEDS: BACITRACIN 15 GM Tube 1 APPLIC TOPICAL ×2 (13:59→22:19)
[2022-04-08] MEDS: Dexmedetomidine 1,000 mcg in 0.9% NS 240 mL 22.8 MCG CONT INF (13:59)
[2022-04-08] MEDS: 0.9% Saline Lock 10 ML Syringe IV (22:20)
[2022-04-09] VITALS (42 sets, daily range): BP systolic 89–147; BP diastolic 45–70; PULSE 65–99; RESP 9–17; TEMP 36–37; O2SAT 16–99
[2022-04-09] MEDS: Dexmedetomidine 1,000 mcg in 0.9% NS 240 mL 22.8 MCG CONT INF (01:00)
[2022-04-09] MEDS: Ipratropium/Albuterol Sulfate 3 ML AMPUL.NEB INHALATION ×6 (02:14→22:35)
[2022-04-09 05:05] LABS: Absolute Lymphocyte Count 0.59 X10^3/uL (0.83-4.51); Basophil# 0.04 X10^3/uL; Basophil% 0.3 % (0-1); Eosinophil# 0.85 X10^3/uL; Eosinophils% 6.9 % (0-5); Hemoglobin 17.3 g/dL (12.0-15.0); Lymphocyte # 0.59 X10^3/ul (0.83-4.51); Lymphocyte % 4.8 % (19-41); Mean Corpuscular Hgb 30.2 pg (27.0-32.0); Mean Corpuscular Volume 94.4 fL (81-99); Mean Platelet Vol. 11.4 fl (6.2-12.0); Monocyte# 0.63 X10^3/uL; Monocyte% 5.1 % (0-10); NRBC Flagged by Analyzer 0 % (0-5); Neutrophil # 10.04 X10^3/uL (2.7-7.7); Neutrophil % 82.2 % (47-70); POSITIVE DIFFERENTIAL YES; POSITIVE MORPHOLOGY YES; Platelet Count 172 K/mm3 (150-450); RBC Distribution Width SD 55.5 fl (35.1-43.9); Red Blood Count 5.72 M/mm3 (4.2-5.4); White Blood Count 12.2 K/mm3 (4.4-11.0)
[2022-04-09 05:07] LABS: Differential Indicated SCAN CRITERIA MET
[2022-04-09 05:17] LABS: Anisocytosis 1+
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
[2022-04-09 05:56] LABS: ALB/GLOB Ratio 0.7 RATIO (0.9-2.4); AST(SGOT) 15 U/L (15-37); Alanine Aminotransfer ALT/SGPT 29 U/L (13-56); Albumin, Serum 2.4 g/dL (3.2-5.0); Alkaline Phosphatase 63 U/L (45-117); Anion Gap 9 (5-15); BUN 19 mg/dL (7-18); BUN/Creat Ratio 21.4 RATIO (10-20); Chloride 89 mmol/L (98-107); Creatinine, Serum 0.89 mg/dL (0.55-1.02); EST Glomerular Filtration Rate 68 mL/min (>60); Est Glom Filt Rate - Afr Amer 83 mL/min (>60); Globulin 3.4 g/dL (2.2-4.2); Glucose 192 mg/dL (74-106); Magnesium 0.8 mg/dL (1.6-2.6); Phosphorus 2.3 mg/dL (2.5-4.9); Potassium 3.2 mmol/L (3.5-5.1); Protein, Total 5.8 g/dL (6.4-8.2); Sodium Level 133 mmol/L (136-145)
--- NOTE | 2022-04-09 06:29 | RAD_ITS ---
STUDY: X-RAY CHEST REASON FOR EXAM: Female, 61 years old. Follow-up respiratory failure. TECHNIQUE: AP COMPARISON: 04/08/2022 at 8:13 AM FINDINGS: LINES AND TUBES: Interval placement right PICC, tip distal SVC. Endotracheal and partially visible enteric tubes remain in place. LUNGS: No evidence of pneumonia, pulmonary edema, pneumothorax or pleural effusion. MEDIASTINUM, YAZAN: Cardiac silhouette, hilar and mediastinal contours with no acute findings. Heart size normal. Atherosclerosis of the thoracic aorta. BONES: Degenerative osseous changes with no acute osseous abnormality. UPPER ABDOMEN: Not well evaluated on this view. RAD/Chest 1 View (Portable) IMPRESSION: Interval placement right PICC, tip distal SVC. Electronically Signed: Artur Damon MD at 7:05 EDT Reading Location ID and State: [facility] / [place] Tel , Service support ,
[2022-04-09] MEDS: 0.9% Saline Lock 10 ML Syringe IV ×2 (06:33→17:56)
[2022-04-09 07:01] LABS: Allen Test Positive; Base Excess 10 mmol/L (-2 to +2); Bicarbonate 33.9 mmol/L (22-26); Blood Gas Specimen Type ART; FI02 45; Mode AC; O2 Delivery Device Adult Vent; PEEP 5; PO2 57 mmHG (75-100); RR 16; SITE L Radial; SO2 90 % (95-99); Total Carbon Dioxide 35 mmol/L; Vt 400; pH 7.45 (7.35-7.45)
[2022-04-09] MEDS: Magnesium Sulfate 4gm/100mL 4 GM/100 ML IV.SOLN. IV (08:31)
[2022-04-09] MEDS: Potassium Chloride 10mEq/100mL 10 MEQ/100 ML IV.SOLN. 100 MEQ IV BOLUS ×4 (08:31→12:31)
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
[2022-04-09] MEDS: BACITRACIN 15 GM Tube 1 APPLIC TOPICAL ×2 (11:35→21:29)
[2022-04-09] MEDS: Vital AF 1.2 Cal Liquid 1,000 ML 20 ML GT (11:36)
[2022-04-09] MEDS: Chlorhexidine 15 ML PO ×2 (11:40→22:41)
[2022-04-09] MEDS: Enoxaparin 40 MG/0.4 ML Syringe SC (11:40)
[2022-04-09] MEDS: CHLORHEXIDINE GLUC 2% CLOTH 1 EACH TOWELETTE TOPICAL (11:44)
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
[2022-04-09] MEDS: Furosemide 40 MG/4 ML Vial IV ×2 (13:41→17:56)
[2022-04-09] MEDS: Dexmedetomidine 1,000 mcg in 0.9% NS 240 mL 15.2 MCG CONT INF (17:00)
[2022-04-09] MEDS: Insulin Lispro 100 UNIT/ML INSULN.PEN SC (17:56)
[2022-04-09 18:20] LABS: Bedside Glucose 181 mg/dL (74-106)
[2022-04-10] VITALS (36 sets, daily range): BP systolic 90–149; BP diastolic 51–86; PULSE 77–102; RESP 13–18; TEMP 36.6–37.1; O2SAT 87–99
[2022-04-10] MEDS: Insulin Lispro 100 UNIT/ML INSULN.PEN SC ×2 (00:02→05:59)
[2022-04-10 02:01] LABS: Hematocrit 50.5 % (37-47); Mean Corp Hgb Conc 33.7 g/dL (32-36); Mean Corpuscular Hgb 30.6 pg (27.0-32.0); Mean Platelet Vol. 11.5 fl (6.2-12.0); POSITIVE DIFFERENTIAL YES; POSITIVE MORPHOLOGY YES; Platelet Count 207 K/mm3 (150-450); RBC Distribution Width CV 15.8 % (11.6-14.6); RBC Distribution Width SD 51.6 fl (35.1-43.9); Red Blood Count 5.55 M/mm3 (4.2-5.4)
[2022-04-10 02:15] LABS: Anion Gap 8 (5-15); BUN 21 mg/dL (7-18); BUN/Creat Ratio 32.7 RATIO (10-20); Calcium,Total 8.4 mg/dL (8.5-10.1); Chloride 91 mmol/L (98-107); Creatinine, Serum 0.64 mg/dL (0.55-1.02); EST Glomerular Filtration Rate 99 mL/min (>60); Est Glom Filt Rate - Afr Amer 120 mL/min (>60); Estimated Creatinine Clearance 86.64 ml/min; Glucose 166 mg/dL (74-106); Magnesium 1.6 mg/dL (1.6-2.6); Phosphorus 2.8 mg/dL (2.5-4.9); Potassium 3.3 mmol/L (3.5-5.1); Sodium Level 133 mmol/L (136-145)
[2022-04-10] MEDS: CHLORHEXIDINE GLUC 2% CLOTH 1 EACH TOWELETTE TOPICAL (02:20)
[2022-04-10 02:46] LABS: Bedside Glucose 181 mg/dL (74-106)
[2022-04-10 02:53] LABS: Differential Indicated MANUAL DIFF
[2022-04-10 02:58] LABS: Lymphocyte 4 % (19-41); Metamyelocyte 1 % (0-1); Monocyte 6 % (0-10); Neutrophil-Band 4 % (0-5); Neutrophil-Segmented 85 % (47-70); Total Cells Counted 100 (MANUAL DIFF)
[2022-04-10 02:59] LABS: Platelet Estimate ADEQUATE (ADEQ); Red Cell Morphology NORM C+C NORMAL (NORM C&C)
[2022-04-10 03:02] LABS: Absolute Lymphocyte Count 0.52 X10^3/uL (0.83-4.51); Absolute Neutrophil Count 11.7 X10^3/uL (2.0-7.7); Lymphocyte # 0.52 X10^3/ul (0.83-4.51); Neutrophil # 11.73 X10^3/uL (2.7-7.7)
[2022-04-10] MEDS: Ipratropium/Albuterol Sulfate 3 ML AMPUL.NEB INHALATION ×6 (03:08→23:13)
[2022-04-10] MEDS: 0.9% Saline Lock 10 ML Syringe IV (05:56)
[2022-04-10 06:26] LABS: Bedside Glucose 190 mg/dL (74-106)
[2022-04-10] MEDS: Potassium Chloride Oral Soln 20 MEQ/15 ML UDC 40 MEQ PO (06:56)
[2022-04-10] MEDS: Furosemide 40 MG/4 ML Vial IV ×2 (08:12→17:12)
[2022-04-10] MEDS: BACITRACIN 15 GM Tube 1 APPLIC TOPICAL ×2 (08:12→22:21)
[2022-04-10] MEDS: Enoxaparin 40 MG/0.4 ML Syringe SC (08:13)
[2022-04-10 08:50] LABS: Hemoglobin A1c 6.1 % (3.8-5.6)
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
--- NOTE | 2022-04-10 11:24 | VDUE_ITS ---
Reason For Study: SWELLING Right Proximal Left Proximal Right jugular vein is spontaneous, widely Left jugular vein is spontaneous, widely patent, phasic, with no intraluminal patent, phasic, with no intraluminal echogenicity noted. echogenicity noted. Right subclavian vein is spontaneous, widely Left subclavian vein is spontaneous, widely patent, phasic, with no intraluminal patent, phasic, with no intraluminal echogenicity noted. echogenicity noted. IV line noted. Left Arm Right Lower Arm Left axillary vein is spontaneous, patent, Right radial vein is compressible. phasic, competent, compressible and Right ulnar vein is compressible. demonstrates augmentation. Right Arm Left brachial vein is compressible. Right axillary vein is spontaneous, patent, Left cephalic vein is compressible. phasic, competent, compressible and Left basilic vein is compressible. demonstrates augmentation. Left Lower Arm IV line noted. Left radial vein is compressible. Right brachial vein is compressible. Left ulnar vein is compressible. Right cephalic vein is compressible. Right basilic vein is compressible. IV line noted. VL/Venous Duplex US - Dax Extrem Interpretation Summary Deep veins of the bilateral upper extremities are patent and compressible segme ntally. There is no evidence of deep vein thrombosis. Superficial veins of the bilateral upper extremities are patent and compressibl e segmentally. There is no evidence of superficial vein thrombosis. Ordering Physician: Rosa Maria Sherwood Referring Physician: Marc Rosales Performed By: Gilles Suggs, RVShlomo ???
[2022-04-10 11:44] LABS: Pathologist Review Reviewed
[2022-04-10 12:17] LABS: Pathologist Review Reviewed
--- NOTE | 2022-04-10 13:23 | WOUNDNOTE ---
wound photo: face
--- NOTE | 2022-04-10 13:24 | WOUNDNOTE ---
wound photo: right lateral heel
[2022-04-10 13:50] LABS: Bedside Glucose 125 mg/dL (74-106)
[2022-04-10 17:35] LABS: Bedside Glucose 115 mg/dL (74-106)
--- NOTE | 2022-04-10 22:19 | NURSING ---
While administering HS meds, discussed w/pt smoking cessation and safe oxygen use at home; her reply was I'm probably not going to use it anymore. Clarified if the pt was referring to not using nicotine and marijuana, or not using the oxygen; pt replied, Not using the oxygen. Educated pt on benefits of quitting nicotine and her body's requirement of oxygen for heart and brain health, pt replies Do you know how much nicotine patches are? Pt reminded of the dangers of smoking with her oxygen on and restated that she really doesn't want to quit. Pt then asked if this RN could Call Caesar and ask him to bring my watch, glasses and cellphone. Contact number called for Caesar and message left for requested items to be brought in.
[2022-04-11] VITALS (23 sets, daily range): BP systolic 118–133; BP diastolic 54–96; PULSE 80–142; RESP 15–20; TEMP 36.5–37.2; O2SAT 88–99
[2022-04-11 00:40] LABS: Bedside Glucose 116 mg/dL (74-106)
[2022-04-11] MEDS: Ipratropium/Albuterol Sulfate 3 ML AMPUL.NEB INHALATION ×5 (03:30→23:31)
[2022-04-11 03:34] LABS: Absolute Lymphocyte Count 0.62 X10^3/uL (0.83-4.51); Absolute Neutrophil Count 11.9 X10^3/uL (2.0-7.7); Basophil# 0.02 X10^3/uL; Basophil% 0.1 % (0-1); Hematocrit 48.2 % (37-47); Lymphocyte # 0.62 X10^3/ul (0.83-4.51); Lymphocyte % 4.6 % (19-41); Mean Corp Hgb Conc 33.2 g/dL (32-36); Mean Corpuscular Hgb 30.7 pg (27.0-32.0); Mean Corpuscular Volume 92.3 fL (81-99); Mean Platelet Vol. 10.9 fl (6.2-12.0); Monocyte# 0.92 X10^3/uL; Monocyte% 6.8 % (0-10); NRBC Flagged by Analyzer 0 % (0-5); Neutrophil # 11.92 X10^3/uL (2.7-7.7); Neutrophil % 88.2 % (47-70); Platelet Count 240 K/mm3 (150-450); RBC Distribution Width CV 15.8 % (11.6-14.6); RBC Distribution Width SD 52.9 fl (35.1-43.9); Red Blood Count 5.22 M/mm3 (4.2-5.4); White Blood Count 13.5 K/mm3 (4.4-11.0)
[2022-04-11 03:52] LABS: Anion Gap 6 (5-15); BUN 20 mg/dL (7-18); Calcium,Total 8.8 mg/dL (8.5-10.1); Chloride 91 mmol/L (98-107); Creatinine, Serum 0.61 mg/dL (0.55-1.02); EST Glomerular Filtration Rate 106 mL/min (>60); Est Glom Filt Rate - Afr Amer 128 mL/min (>60); Estimated Creatinine Clearance 90.75 ml/min; Glucose 115 mg/dL (74-106); Magnesium 1.1 mg/dL (1.6-2.6); Potassium 3.5 mmol/L (3.5-5.1); Sodium Level 135 mmol/L (136-145)
[2022-04-11] MEDS: 0.9% Saline Lock 10 ML Syringe IV ×3 (05:33→21:55)
[2022-04-11] MEDS: Magnesium Sulfate 4gm/100mL 4 GM/100 ML IV.SOLN. IV (06:18)
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
[2022-04-11] MEDS: Potassium Chloride 20mEq/100mL 20 MEQ/100 ML IV.SOLN. 100 MEQ IV BOLUS ×2 (08:14→11:00)
[2022-04-11] MEDS: Enoxaparin 40 MG/0.4 ML Syringe SC (10:21)
[2022-04-11] MEDS: BACITRACIN 15 GM Tube 1 APPLIC TOPICAL ×2 (10:21→21:55)
[2022-04-11] MEDS: Furosemide 40 MG/4 ML Vial IV ×2 (10:21→17:54)
[2022-04-11 12:25] LABS: Bedside Glucose 94 mg/dL (74-106)
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
--- NOTE | 2022-04-11 14:32 | CASEMGMT ---
SW met with patient's and son. SW is familiar with them from patient's recent visit. SW asked if they would like a care home list for patient. Both said they have the list from before. Patient's and son said patient is stubborn just like her 2 sisters were. They felt like things were going fine until this happened. SW asked them if the plan is care home or home with home health. They said home with home health. SW notified physician. Plan: d/c home with resumption of [facility]. Makenzie Mendoza BIOLOG[employer] FACULTY MEMBERJun LUCERO
--- NOTE | 2022-04-11 14:46 | CASEMGMT ---
Per Nawaf LARRY, plan is for pt to go home with [facility]. [facility] order placed and [facility] aware. CM to follow. Papa IBRAHIM CM
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
[2022-04-11] MEDS: Juven (unflavored) Packet 1 PACKET PO (17:54)
[2022-04-11] MEDS: Insulin Lispro 100 UNIT/ML INSULN.PEN SC (17:54)
[2022-04-11 18:21] LABS: Bedside Glucose 161 mg/dL (74-106)
[2022-04-11] MEDS: Magnesium Chloride 64 MG Delay Rel.Tablet 128 MG PO (21:54)
[2022-04-11] MEDS: Ibuprofen 400 MG Tablet PO (22:21)
[2022-04-11 23:15] LABS: Bedside Glucose 132 mg/dL (74-106)
[2022-04-12] VITALS (8 sets, daily range): BP systolic 122–132; BP diastolic 57–65; PULSE 73–89; RESP 16–18; TEMP 36.8–37; O2SAT 95–99
[2022-04-12 06:50] LABS: Bedside Glucose 90 mg/dL (74-106)
[2022-04-12 07:02] LABS: Absolute Lymphocyte Count 1.42 X10^3/uL (0.83-4.51); Absolute Neutrophil Count 10.4 X10^3/uL (2.0-7.7); Basophil# 0.02 X10^3/uL; Basophil% 0.2 % (0-1); Eosinophil# 0.01 X10^3/uL; Eosinophils% 0.1 % (0-5); Hematocrit 49.8 % (37-47); Hemoglobin 16.3 g/dL (12.0-15.0); Lymphocyte # 1.42 X10^3/ul (0.83-4.51); Lymphocyte % 10.7 % (19-41); Mean Corp Hgb Conc 32.7 g/dL (32-36); Mean Corpuscular Hgb 30.5 pg (27.0-32.0); Mean Corpuscular Volume 93.3 fL (81-99); Mean Platelet Vol. 10.8 fl (6.2-12.0); Monocyte# 1.27 X10^3/uL; Monocyte% 9.6 % (0-10); NRBC Flagged by Analyzer 0 % (0-5); Neutrophil # 10.42 X10^3/uL (2.7-7.7); Neutrophil % 78.8 % (47-70); Platelet Count 254 K/mm3 (150-450); RBC Distribution Width CV 15.9 % (11.6-14.6); Red Blood Count 5.34 M/mm3 (4.2-5.4); White Blood Count 13.2 K/mm3 (4.4-11.0)
[2022-04-12] MEDS: Ipratropium/Albuterol Sulfate 3 ML AMPUL.NEB INHALATION (07:17)
[2022-04-12 07:21] LABS: Anion Gap 5 (5-15); BUN 21 mg/dL (7-18); BUN/Creat Ratio 36.1 RATIO (10-20); Calcium,Total 9.3 mg/dL (8.5-10.1); Chloride 94 mmol/L (98-107); Creatinine, Serum 0.58 mg/dL (0.55-1.02); EST Glomerular Filtration Rate 111 mL/min (>60); Est Glom Filt Rate - Afr Amer 134 mL/min (>60); Estimated Creatinine Clearance 94.04 ml/min; Glucose 93 mg/dL (74-106); Potassium 3.2 mmol/L (3.5-5.1); Sodium Level 137 mmol/L (136-145)
[2022-04-12] MEDS: predniSONE 20 MG Tablet 40 MG PO (08:18)
[2022-04-12] MEDS: Juven (unflavored) Packet 1 PACKET PO (08:18)
[2022-04-12] MEDS: BACITRACIN 15 GM Tube 1 APPLIC TOPICAL (08:18)
[2022-04-12] MEDS: Potassium Chloride Oral Soln 20 MEQ/15 ML UDC 40 MEQ PO (08:18)
[2022-04-12] MEDS: Magnesium Chloride 64 MG Delay Rel.Tablet 128 MG PO (08:19)
[2022-04-12] MEDS: Enoxaparin 40 MG/0.4 ML Syringe SC (08:19)
[2022-04-12] MEDS: Furosemide 40 MG/4 ML Vial IV (08:19)
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
--- NOTE | 2022-04-12 10:55 | CASEMGMT ---
Physician let SW know patient agreed to consider going to a penitentiary. SW met with patient. Introduced self and role at [facility]. Patient confirmed she would consider a penitentiary. SW provided patient with A list of?providers including quality and resource use data and consistent with patient?s preferred geographic region, medical needs, and insurance network were provided from the [employer] Guide. SW went over the nursing homes that allow smoking with patient. Patient's preference was [facility] as that is the closest facility. Patient said SW could see if they would take her, but she may not go. SW told patient SW will work on referral and go from there. SW asked Lucina d/c production planning manager to please make a referral to [facility]. Makenzie LUCERO
--- NOTE | 2022-04-12 11:07 | CASEMGMT ---
Discharge Navigation Teacher This marketing writer sent a referral to [facility]. Will follow up. Ranulfo CHEATHAM Assembler Trim
--- NOTE | 2022-04-12 11:26 | CASEMGMT ---
Discharge Steel Plate Caulker [facility] reached out. Patient has been accepted at [facility]. Patient can go to [facility] when medically ready. KENDY Banegas notified. Ranulfo CHEATHAM Group Care Worker
--- NOTE | 2022-04-12 11:48 | CASEMGMT ---
SW spoke with patient and let her know that [facility] is able to accept her. SW asked patient if she would like SW to call her to discuss this and patient said yes. Patient asked that SW have her call her. SW called patient's , Caesar. KENDY let Caesar know that physician spoke with patient about going to a [facility] and she agreed to think about. SW let Caesar know that patient agreed to [facility] and [facility] can accept patient. Caesar was in agreement if this is what patient wants. Caesar said he and his son will be at [facility] in the next hour or so. SW let patient know about this conversation. SW will check back when family arrives. Plan: d/c to [facility] as long as patient's family and patient continue to agree. Makenzie LUCERO
--- NOTE | 2022-04-12 11:59 | WOUNDNOTE ---
Reyna to face remain stable. no sign of infection noted. recommend continuing with Bacitracin.
[2022-04-12 12:06] LABS: Bedside Glucose 147 mg/dL (74-106)
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
--- NOTE | 2022-04-12 13:30 | CASEMGMT ---
SW spoke with patient, patient's , and son. They all agree on trying [facility] senior care for rehab. They asked if SW will arrange transport. KENDY told them SW will set this up and let them know a time. KENDY sent orders via [facility]. KENDY completed 7000 on HENS. Plan: d/c to [facility] under skilled level of care on a 7000. Makenzie LUCERO
--- NOTE | 2022-04-12 14:24 | CASEMGMT ---
Discharge Biological Photographer This underwriter solicitation director called and set up transportation with [facility] via wheel chair. aviation support equipment repairer time is 4:00pm and nursing staff made aware. Ranul[facility]
--- NOTE | 2022-04-12 14:35 | CHAPLAIN ---
Type of Pastoral Visit _x__ Initial Visit ___ Follow-up Visit ___ On-call Visit ___ General Patient Visit ___ Spiritual Assessment ___ Family Conference ___ Bereavement ___ Rapid Response ___ Code Blue ___ Other (describe below) Pastoral Care Referral From ___ Patient _x__ Family ___ Nurse ___ Physician ___ Training Specialist ___ Cracking Unit Operator ___ Other (describe below) Sacrament/Intervention ___ Active listening ___ Anointing ___ Gnosticism ___ Bereavement ___ Communion ___ Sharmin exploration ___ ___ Life review ___ Prayer ___ Reconciliation ___ Sacrament of Sick _x__ Supportive presence ___ Wedding ___ Other (describe below) Pastoral Comments patient was seen recently in a previous admission; several conversations have been had over previous and this admission with family members; pt herself does not interact with this emergency medical services coordinator but to answer a couple questions with one word answers; pt rather continues to look through the newspaper and ignore conversation with family; pt states she does not need anything when asked directly; family members say we'll just see and she's stubborn
[2022-04-12] MEDS: Ibuprofen 400 MG Tablet PO (14:37)
--- NOTE | 2022-04-12 14:46 | CASEMGMT ---
Addendum entered by Makenzie Mendoza 04/12/22 15:06: KENDY notified patient, her son, and of pickling solution maker time. Makenzie LUCERO Original Note: Lucina d/c logistics planning engineer set up transport for 4p. KENDY notified [facility] via [facility]. Plan: d/c to [facility] under skilled level of care on a 7000. [facility] transported via wc van. Makenzie LUCERO
--- NOTE | 2022-04-12 15:22 | NURSING ---
Report given to Zhanna at [facility].
--- NOTE | 2022-04-12 15:55 | NURSING ---
report given to EMS.
--- NOTE | 2022-04-14 14:05 | CASEMGMT ---
KENDY received a voice mail from patient's , Caesar yesterday. KENDY called Caesar back and he said they took patient out of the [facility] already. They were not doing anything for her. KENDY let him know if they want home health Dr Huston from [facility] is the one that okayed it last time. Caesar said patient is going to see Dr Rosales on Sunday. KENDY let him know Dr Rosales can order HH if they would like it again. Patient is doing well and starting to walk better. She has not been smoking while wearing her oxygen. Makenzie Mendoza RAW STOCK MACHINE FEEDER NIC
--- NOTE | 2022-04-17 13:13 | ED.RN ---
THIS RN SPOKE WITH NARCOTICS AGENT STATE SIM MATOS REGARDING THE PATIENT AND SUSPICIOUS GALLOWAY. HE STATES HE ATTEMPTED TO REACH OUT TO PATIENT TO CHECK ON HER HEALTH AND WELFARE AND PATIENTS SAID HE COULD NOT SPEAK TO HER. OUT OF CONCERN FOR HER WELFARE HE ASKED IF ANYONE FROM OUR FACILITY HAD REACHED OUT TO HER. THIS RN SPOKE WITH SOFIA FROM KENDY. SHE WENT THROUGH PATIENTS CHART AND READ THROUGH A NOTE PLACED BY KENDY ON 04/14 OF PATIENT CONDITION SHOWING IMPROVEMENT
== END 2022-04-12 15:58 | disposition skilled nursing facility (03) | DRG 208 ==
LOC: ED 04-08 08:02 → ICU 04-08 08:30 → PCU 04-11 09:38
PROVIDERS: Internal Medicine Critical Care Medicine; Admitting Provider Internal Medicine; Emergency Provider Emergency Medicine; PCP Family Medicine; Visit Provider Internal Medicine
DX: J96.21 Acute and chronic respiratory failure with hypoxia (principal); J15.8 Pneumonia due to other specified bacteria; J44.0 Chronic obstructive pulmonary disease with (acute) lower respiratory infection; E87.1 Hypo-osmolality and hyponatremia; E83.39 Other disorders of phosphorus metabolism; I50.813 Acute on chronic right heart failure; I11.0 Hypertensive heart disease with heart failure; E11.51 Type 2 diabetes mellitus with diabetic peripheral angiopathy without gangrene; I50.9 Heart failure, unspecified; J44.9 Chronic obstructive pulmonary disease, unspecified; J96.22 Acute and chronic respiratory failure with hypercapnia; I73.9 Peripheral vascular disease, unspecified; Z79.4 Long term (current) use of insulin; E11.65 Type 2 diabetes mellitus with hyperglycemia; T20.27XA Burn of second degree of neck, initial encounter; D75.1 Secondary polycythemia; T20.16XA Burn of first degree of forehead and cheek, initial encounter; I45.10 Unspecified right bundle-branch block; F17.210 Nicotine dependence, cigarettes, uncomplicated; E83.42 Hypomagnesemia; E87.6 Hypokalemia; F12.90 Cannabis use, unspecified, uncomplicated; G31.84 Mild cognitive impairment of uncertain or unknown etiology; I49.3 Ventricular premature depolarization; R13.10 Dysphagia, unspecified
CPT/HCPCS: 31500; 31720; 36569; 36600; 51702; 71045; 71046; 74230; 80048; 80053; 82803; 82962; 83036; 83605; 83735; 83880; 84100; 85025; 87070; 87077; 87205; 87426; 90715; 92526; 92610; 92611; 93005; 93970; 94002; 94003; 94640; 94660; 97110; 97116; 97162; 97166; 97530; 97535; 97802; 97803; 99251; 99284; J7030; J7040; J7050; A4216; G0463; J0295; J1940; J2405; J3010

== ENCOUNTER → 2022-04-17 | Outpatient (CLI) | payer MEDICARE, SELFPAY ==
[2022-04-17 19:17] LABS: Anion Gap 5 (5-15); BUN 8 mg/dL (7-18); BUN/Creat Ratio 14.4 RATIO (10-20); Calcium,Total 8.7 mg/dL (8.5-10.1); Chloride 96 mmol/L (98-107); Creatinine, Serum 0.56 mg/dL (0.55-1.02); EST Glomerular Filtration Rate 117 mL/min (>60); Est Glom Filt Rate - Afr Amer 142 mL/min (>60); Glucose 80 mg/dL (74-106); Sodium Level 135 mmol/L (136-145)
[2022-04-17 19:28] LABS: BNP,B-Type NATRIURETIC PEPTIDE 1134.1 pg/mL (0-100)
== END | disposition home or self-care (01) ==
LOC: MFPLAB 15:18
PROVIDERS: PCP Family Medicine; Visit Provider Family Medicine
DX: I50.9 Heart failure, unspecified (principal)
CPT/HCPCS: 36415; 80048; 83880

== ENCOUNTER 2022-05-02 12:37 | Emergency (ER) | payer MEDICARE, SELFPAY ==
[2022-05-02] VITALS (9 sets, daily range): BP systolic 121–140; BP diastolic 58–90; PULSE 71–91; RESP 15–21; TEMP 36.6–36.8; O2SAT 94–99; BMI 27.1
--- NOTE | 2022-05-02 13:21 | EKG12_ITS ---
Test Reason : SOB Blood Pressure : / mmHG Vent. Rate : 084 BPM Atrial Rate : 084 BPM P-R Int : 158 ms QRS Dur : 096 ms QT Int : 374 ms P-R-T Axes : 083 093 -06 degrees QTc Int : 441 ms Sinus rhythm with occasional Premature ventricular complexes Right atrial enlargement Pulmonary disease pattern Right ventricular hypertrophy Septal infarct , age undetermined Abnormal ECG Confirmed by ERNESTINE BARRAZA MD ([id number]), associate entertainment editor MOSES LUNA ([id number]) on 05/03/2022 2:39:31 PM Referred By: JEFF Confirmed By:ERNESTINE BARRAZA MD
--- NOTE | 2022-05-02 13:23 | RAD_ITS ---
STUDY: X-RAY CHEST REASON FOR EXAM: Female, 61 years old. Dyspnea. TECHNIQUE: Single AP portable view of the chest. COMPARISON: Comparison is made with prior study dated 04/09/2022. FINDINGS: EKG electrodes are seen. Mild degree of increased markings in the posterior medial segment of the right lower lobe. This may represent an early infiltrate. There is no demonstrated pleural abnormality. Normal size heart. Normal mediastinum and gretel. Normal visualized pulmonary arteries. Normal visualized aortic arch and descending thoracic aorta. Normal visualized thoracic spine. Normal visualized ribs, clavicles, and shoulders. There is no demonstrated abnormality of the visualized soft tissue structures of the upper abdomen. RAD/Chest 1 View (Portable) IMPRESSION: Increased markings are seen in the posterior medial segment of the right lower lobe. Early infiltrate should be ruled out. Electronically Signed: Vince Olivia MD at 14:28 EST ,
[2022-05-02] MEDS: Ipratropium/Albuterol Sulfate 3 ML AMPUL.NEB INHALATION (13:40)
[2022-05-02 13:43] LABS: Absolute Lymphocyte Count 1.65 X10^3/uL (0.83-4.51); Absolute Neutrophil Count 6.4 X10^3/uL (2.0-7.7); Basophil# 0.03 X10^3/uL; Basophil% 0.3 % (0-1); Eosinophil# 0.06 X10^3/uL; Eosinophils% 0.7 % (0-5); Lymphocyte # 1.65 X10^3/ul (0.83-4.51); Lymphocyte % 18.2 % (19-41); Mean Corp Hgb Conc 31.5 g/dL (32-36); Mean Corpuscular Hgb 30.6 pg (27.0-32.0); Mean Corpuscular Volume 97.2 fL (81-99); Monocyte# 0.93 X10^3/uL; Monocyte% 10.2 % (0-10); NRBC Flagged by Analyzer 0 % (0-5); Neutrophil # 6.38 X10^3/uL (2.7-7.7); Neutrophil % 70.2 % (47-70); Platelet Count 203 K/mm3 (150-450); RBC Distribution Width CV 16.2 % (11.6-14.6); RBC Distribution Width SD 55.7 fl (35.1-43.9); Red Blood Count 6.04 M/mm3 (4.2-5.4); White Blood Count 9.1 K/mm3 (4.4-11.0)
[2022-05-02] MEDS: MethylPREDNISolone 125 MG/2 ML Vial IV (13:55)
[2022-05-02 13:57] LABS: Hematocrit 58.7 % (37-47)
[2022-05-02 13:59] LABS: Differential Indicated SCAN CRITERIA MET; Hemoglobin 18.5 g/dL (12.0-15.0)
[2022-05-02 14:02] LABS: Anion Gap 5 (5-15); BUN 12 mg/dL (7-18); BUN/Creat Ratio 14.5 RATIO (10-20); Calcium,Total 10.2 mg/dL (8.5-10.1); Chloride 90 mmol/L (98-107); Creatinine, Serum 0.83 mg/dL (0.55-1.02); EST Glomerular Filtration Rate 74 mL/min (>60); Est Glom Filt Rate - Afr Amer 89 mL/min (>60); Estimated Creatinine Clearance 64.58 ml/min; Glucose 177 mg/dL (74-106); Sodium Level 137 mmol/L (136-145); Troponin-I HS 64 pg/mL (3.0-54.0)
--- NOTE | 2022-05-02 15:24 | EDS_ITS ---
HPI History of Present Illness Chief Complaint: Shortness of Breath Informant: patient and family Narrative Narrative: 61-year-old female with a history of COPD and chronic respiratory failure presenting to the emergency department with low oxygen saturations. Reportedly her oxygen levels were in the 80s at home. However when she got here her oxygen levels were fine. Family wonders if there is a problem with the concentrator or hosing at home. Patient currently has no complaints. She denies any change in her cough. No fevers. PFSH [facility] Medical History Alcohol abuse Congestive heart failure (CHF) CVA (cerebral vascular accident) Elbow fracture HTN (hypertension) Mild dementia Peripheral arterial disease Polycythemia Tobacco abuse Home Medications potassium chloride 20 mEq tablet,extended release 20 meq PO DAILY #30 tabs 04/05/22 [Rx Last Taken Unknown] albuterol sulfate 2.5 mg/3 mL (0.083 %) solution for nebulization 2.5 mg (3 mL) inhalation Q2H PRN PRN SOB/Wheezing #0 mL 04/12/22 [Rx Last Taken Unknown] amoxicillin 875 mg-potassium clavulanate 125 mg tablet 1 tab PO BID #10 tabs 04/12/22 [Rx Last Taken Unknown] arginine 7 gram-glutam 7 gram-CaHMB 1.5 [id number] oral pwd pkt (Jv (with collagen)) 1 packet PO BIDCM #0 ea 04/12/22 [Rx Last Taken Unknown] bacitracin zinc 500 unit/gram topical ointment 1 applic topical BID #0 grams 04/12/22 [Rx Last Taken Unknown] enoxaparin 40 mg/0.4 mL subcutaneous syringe 40 mg (0.4 mL) subcut DAILY #0 mL 04/12/22 [Rx Last Taken Unknown] furosemide 40 mg tablet (Lasix) 40 mg PO DAILY #30 tabs 04/12/22 [Rx Last Taken Unknown] ibuprofen 400 mg tablet 400 mg PO Q6H PRN PRN Pain 1-10 Or Fever #0 tabs 04/12/22 [Rx Last Taken Unknown] ipratropium 0.5 mg-albuterol 3 mg (2.5 mg base)/3 mL nebulization soln 3 ml inhalation Q4H.RT #0 mL 04/12/22 [Rx Last Taken Unknown] magnesium chloride 64 mg (magnesium chloride) tablet,delayed release (Mag 64) 128 mg PO BID #0 tabs 04/12/22 [Rx Last Taken Unknown] prednisone 20 mg tablet 40 mg PO BREAKFAST #0 tabs 04/12/22 [Rx Last Taken Unknown] sennosides 8.6 mg-docusate sodium 50 mg tablet (Stool Softener-Stimulant Laxative) 2 tab PO BID PRN PRN Constipation #0 tabs 04/12/22 [Rx Last Taken Unknown] sodium chloride 0.65 % nasal spray aerosol (Deep Sea Nasal) 2 spray NASAL TID PRN PRN NASAL DRYNESS #0 mL 04/12/22 [Rx Last Taken Unknown] Allergy/AdvReac Type Severity Reaction Status Date / Time acetaminophen [From Vicodin] AdvReac Vomiting Verified 04/07/22 23:54 codeine AdvReac Vomiting Verified 04/07/22 23:54 hydrocodone bitartrate AdvReac Vomiting Verified 04/07/22 23:54 [From Vicodin] oxycodone HCl [From Percocet] AdvReac Vomiting Verified 04/07/22 23:54 Social History household members: spouse housing: house Smoking Status: Heavy Smoker (>10/day) alcohol intake: current alcohol intake frequency: a few times a week substance use type: marijuana ROS ROS ED Constitutional Constitutional ED: Denies chills or weight loss Eyes Eyes: Denies change in vision or diplopia ENT ENT ED: Denies ear pain, rhinorrhea or sore throat Cardiovascular Cardiovascular: Denies chest pain, orthopnea, palpitations or racing heartbeat Respiratory/Chest Respiratory/Chest: Denies cough, dyspnea or orthopnea Gastrointestinal Gastrointestinal: Denies abdominal pain, diarrhea, nausea or vomiting Genitourinary Genitourinary ED: Denies dysuria, hematuria or urinary frequency Musculoskeletal Musculoskeletal: Denies arthralgias or myalgias Integumentary Denies abscess or rash Neurologic Neurologic: Denies headache(s) or weakness Psychiatric Psychiatric: Denies anxiety, depression, suicidal ideation or suicidal thoughts Endocrine Endocrinology: Denies polydipsia, polyphagia or polyuria Allergic/Immunologic Allergic/Immunologic ED: Denies mouth swelling, tongue swelling or urticaria EXAM Physical Exam Const Vital Signs: 05/02/22 12:39 05/02/22 12:52 05/02/22 12:53 Temperature 97.8 F Temperature Source Temporal Pulse Rate 91 83 Respiratory Rate 15 21 H Respiratory Effort Short of Breath Labored Respiratory Depth Normal Respiratory Pattern Normal Blood Pressure 138/90 H 139/70 H Blood Pressure Mean 106 93 Pulse Ox 95 95 Oxygen Delivery Method Nasal Cannula Nasal Cannula Nasal Cannula Oxygen Flow Rate (L/min) 3 3 05/02/22 12:41 05/02/22 13:41 05/02/22 13:41 Temperature 97.8 F Temperature Source Temporal Pulse Rate 83 79 Respiratory Rate 21 H 21 H Respiratory Effort Respiratory Depth Respiratory Pattern Blood Pressure 139/70 H Blood Pressure Mean 93 Pulse Ox 95 99 Oxygen Delivery Method Nasal Cannula Nasal Cannula Oxygen Flow Rate (L/min) 3 2.5 05/02/22 13:41 05/02/22 14:53 05/02/22 15:02 Temperature 98.2 F Temperature Source Temporal Pulse Rate 79 71 74 Respiratory Rate 20 H 21 H 16 Respiratory Effort Respiratory Depth Respiratory Pattern Blood Pressure 121/70 H 121/63 H 121/63 H Blood Pressure Mean 87 82 82 Pulse Ox 99 98 98 Oxygen Delivery Method Nasal Cannula Nasal Cannula Nasal Cannula Oxygen Flow Rate (L/min) 4 3 3 Positive well nourished and well developed General Appearance ED: well developed HEENT Reports normocephalic, head/scalp atraumatic and moist mucous membranes Eyes PERRL and EOMs intact bilaterally Neck no lymphadenopathy, supple and no JVD Resp normal respiratory effort and clear to auscultation bilaterally Cardio regular rate, regular rhythm and no murmurs GI normal to inspection, nondistended, normoactive bowel sounds and non-tender Palpation: soft Back/Spine no CVA tenderness and normal ROM Extremity normal to inspection General Extremety ED: Negative for edema General Extremity: Negative for edema Neuro oriented x3 and CN's II-XII intact bilaterally Sensorium / Orientation: alert Motor Exam: strength 5/5 throughout Psych mental status grossly normal Mood & Affect: Negative for depressed or tearful Skin no rashes or lesions noted and no wounds MDM MDM MDM Narrative Medical decision making narrative: Basic blood work was obtained. Her troponin is 64's most likely related to her hypoxemia. She is not having any chest pain. My interpretation of the chest x- ray is no acute process. Patient received Solu-Medrol and a DuoNeb. She has been resting comfortably. I have asked family to go check the concentrator at home to make sure that it is working and if it is then the patient can be discharged home. Lab Data Attestation: I reviewed the patient's lab results. Labs: Laboratory Results - last 24 hr 05/02/22 05/02/22 12:55 12:55 WBC 9.1 RBC 6.04 H Hgb 18.5 H* Hct 58.7 H MCV 97.2 MCH 30.6 MCHC 31.5 L RDW Std Deviation 55.7 H RDW Coeff of Dae 16.2 H Plt Count 203 MPV 11.0 Immature Gran % (Auto) 0.400 Neut % (Auto) 70.2 H Lymph % (Auto) 18.2 L [place] % (Auto) 10.2 H Eos % (Auto) 0.7 Baso % (Auto) 0.3 Absolute Neuts (auto) 6.4 Absolute Lymphs (auto) 1.65 Nucleated RBC % 0 Differential Comment COMMENT Diff Path Review May foll Sodium 137 Potassium 4.0 Chloride 90 L Carbon Dioxide 42.0 H Anion Gap 5 BUN 12 Creatinine 0.83 Estim Creat Clear Calc 64.58 Est GFR (MDRD) Af Amer 89 Est GFR (MDRD) Non-Af 74 BUN/Creatinine Ratio 14.5 Glucose 177 H Calcium 10.2 H Troponin I High Sens 64 H Radiography Diagnostic Testing: Clinical Impression(s) from Imaging Studies Chest X-Ray 05/02/22 13:23 IMPRESSION: Increased markings are seen in the posterior medial segment of the right lower lobe. Early infiltrate should be ruled out. Electronically Signed: Vince Olivia MD at 14:28 EST , Discharge Plan Triage Chief Complaint: Shortness of Breath ED Provider: Kolton Urrutia Dx/Rx/DC Orders Clinical Impression: COPD (chronic obstructive pulmonary disease), Acute on chronic respiratory failure with hypoxia and hypercapnia Instructions: Discharge Instructions: COPD Prescriptions: No Action potassium chloride 20 mEq tablet extended release 20 meq PO DAILY Qty: 30 0RF ipratropium-albuterol 0.5 mg-3 mg(2.5 mg base)/3 mL Solution For Nebulization 3 ml inhalation Q4H.RT Qty: 0 0RF albuterol sulfate 2.5 mg /3 mL (0.083 %) Solution For Nebulization 2.5 mg inhalation Q2H PRN PRN (Reason: SOB/Wheezing) Qty: 0 0RF prednisone 20 mg Tablet 40 mg PO BREAKFAST Qty: 0 0RF Rx Instructions: 5-day burst of 40 mg then stop sennosides-docusate sodium [Stool Softener-Stimulant Laxat] 8.6-50 mg Tablet 2 tab PO BID PRN PRN (Reason: Constipation) Qty: 0 0RF bacitracin zinc 500 unit/gram Ointment 1 applic topical BID Qty: 0 0RF Protocol: *Topical Application Instructions APPLICATION INSTRUCTIONS: Apply to burn areas as above ibuprofen 400 mg Tablet 400 mg PO Q6H PRN PRN (Reason: Pain 1-10 Or Fever) Qty: 0 0RF enoxaparin 40 mg/0.4 mL Syringe 40 mg subcut DAILY Qty: 0 0RF Deep Sea Nasal 0.65 % Aerosol,[place] 2 spray NASAL TID PRN PRN (Reason: NASAL DRYNESS) Qty: 0 0RF Mag 64 64 mg Tablet,Delayed Release (Dr/Ec) 128 mg PO BID Qty: 0 0RF Jv (with collagen) 7-7-1.5 gram Powder In Packet 1 packet PO BIDCM Qty: 0 0RF furosemide [Lasix] 40 mg tablet 40 mg PO DAILY Qty: 30 0RF amoxicillin-pot clavulanate 875-125 mg tablet 1 tab PO BID Qty: 10 0RF Rx Instructions: 5 more days Primary Care Provider: Marc Rosales Referrals: Marc Rosales MD [Primary Care Provider] - As Needed Disposition Disposition: Home, Self Care
[2022-05-03 11:13] LABS: Pathologist Review Reviewed
== END 2022-05-02 17:14 | disposition home or self-care (01) ==
PROVIDERS: Emergency Provider Emergency Medicine; PCP Family Medicine; Visit Provider Emergency Medicine
DX: J96.22 Acute and chronic respiratory failure with hypercapnia (principal); J44.9 Chronic obstructive pulmonary disease, unspecified; I50.9 Heart failure, unspecified; I11.0 Hypertensive heart disease with heart failure; J96.21 Acute and chronic respiratory failure with hypoxia; F17.200 Nicotine dependence, unspecified, uncomplicated
CPT/HCPCS: 71045; 80048; 84484; 85025; 93005; 94640; 96374; 99284; A4216

== ENCOUNTER 2022-06-15 11:30 | Outpatient (RCR) | payer MEDICARE, SELFPAY ==
[2022-05-18 10:42] VITALS: BP 105/67; PULSE 73; RESP 22; TEMP 36.1; O2SAT 89
--- NOTE | 2022-05-18 13:29 | PCM.WC.HP ---
History of Present Illness Date of Service: 05/18/22 Chief Complaint: Bilateral heel wounds History of Wound: Patient is a 61-year-old female with history of severe COPD and respiratory distress on 3 L O2, stroke, uncontrolled hypertension, tobacco and marijuana use, CHF, and alcoholism. Patient also has history of facial samson secondary to smoking with her oxygen nasal canula in place. Her son states that she developed bilateral heel ulcerations on the outside of her foot. Son states that she sits in a recliner with the heels resting on the foot rest rolled outward. He states his mother will not quit smoking. Son states the wounds that she had developed have been present for the last month and have not improved. He states that his mother had seen her family physician Dr. Rosales who was concerned with ulcerations and reddened?purple discoloration of her toes and sent her to the wound care center. [facility] Medical History (Updated 05/18/22 @ 23:[address] Saeed Carroll, DPMarcelo) Alcohol abuse Congestive heart failure (CHF) CVA (cerebral vascular accident) Elbow fracture HTN (hypertension) Mild dementia Peripheral arterial disease Polycythemia Tobacco abuse Home Medications potassium chloride 20 mEq tablet,extended release 20 meq PO DAILY #30 tabs 04/05/22 [Rx Last Taken Unknown] albuterol sulfate 2.5 mg/3 mL (0.083 %) solution for nebulization 2.5 mg (3 mL) inhalation Q2H PRN PRN SOB/Wheezing #0 mL 04/12/22 [Rx Last Taken Unknown] amoxicillin 875 mg-potassium clavulanate 125 mg tablet 1 tab PO BID #10 tabs 04/12/22 [Rx Last Taken Unknown] arginine 7 gram-glutam 7 gram-CaHMB 1.5 xvoh-qohyn-ne-min oral pwd pkt (Jv (with collagen)) 1 packet PO BIDCM #0 ea 04/12/22 [Rx Last Taken Unknown] bacitracin zinc 500 unit/gram topical ointment 1 applic topical BID #0 grams 04/12/22 [Rx Last Taken Unknown] enoxaparin 40 mg/0.4 mL subcutaneous syringe 40 mg (0.4 mL) subcut DAILY #0 mL 04/12/22 [Rx Last Taken Unknown] furosemide 40 mg tablet (Lasix) 40 mg PO DAILY #30 tabs 04/12/22 [Rx Last Taken Unknown] ibuprofen 400 mg tablet 400 mg PO Q6H PRN PRN Pain 1-10 Or Fever #0 tabs 04/12/22 [Rx Last Taken Unknown] ipratropium 0.5 mg-albuterol 3 mg (2.5 mg base)/3 mL nebulization soln 3 ml inhalation Q4H.RT #0 mL 04/12/22 [Rx Last Taken Unknown] magnesium chloride 64 mg (magnesium chloride) tablet,delayed release (Mag 64) 128 mg PO BID #0 tabs 04/12/22 [Rx Last Taken Unknown] prednisone 20 mg tablet 40 mg PO BREAKFAST #0 tabs 04/12/22 [Rx Last Taken Unknown] sennosides 8.6 mg-docusate sodium 50 mg tablet (Stool Softener-Stimulant Laxative) 2 tab PO BID PRN PRN Constipation #0 tabs 04/12/22 [Rx Last Taken Unknown] sodium chloride 0.65 % nasal spray aerosol (Deep Sea Nasal) 2 spray NASAL TID PRN PRN NASAL DRYNESS #0 mL 04/12/22 [Rx Last Taken Unknown] Allergy/AdvReac Type Severity Reaction Status Date / Time acetaminophen [From Vicodin] AdvReac Vomiting Verified 04/07/22 23:54 codeine AdvReac Vomiting Verified 04/07/22 23:54 hydrocodone bitartrate AdvReac Vomiting Verified 04/07/22 23:54 [From Vicodin] oxycodone HCl [From Percocet] AdvReac Vomiting Verified 04/07/22 23:54 Social History household members: spouse housing: house Smoking Status: Heavy Smoker (>10/day) alcohol intake: current alcohol intake frequency: a few times a week substance use type: marijuana ROS Constitutional Constitutional: Denies chills, fever(s) or night sweats Eyes Eyes: Denies change in vision or dry eyes ENT HEENT: Denies dysphagia, nasal congestion or sore throat Cardiovascular Cardiovascular: Denies claudication or dyspnea Respiratory/Chest Respiratory/Chest: Denies cough, productive cough or wheezing Gastrointestinal Gastrointestinal: Denies abdominal pain, constipation, diarrhea, nausea or vomiting Genitourinary Genitourinary: Denies dysuria, urinary frequency, urinary hesitancy, urinary incontinence or urinary urgency Musculoskeletal Musculoskeletal: Denies extremity pain, joint pain, joint stiffness or joint swelling Integumentary Integumentary: Denies jaundice, pruritus or rash Neurologic Neurologic: Denies dizziness, numbness or seizures Endocrine Endocrinology: Denies cold intolerance or heat intolerance Vital Signs Vital Signs Vital Signs: 05/18/22 10:42 Temperature 97 F L Temperature Source Temporal Pulse Rate 73 Respiratory Rate 22 H Blood Pressure 105/67 Blood Pressure Mean 79 Blood Pressure Source Monitor Blood Pressure Position Semi-Fowlers Blood Pressure Location Left Arm Pulse Ox 89 Oxygen Delivery Method Nasal Cannula Oxygen Flow Rate (L/min) 3 Physical Exam Const alert, oriented x3 and no apparent distress General Appearance: cooperative HEENT normocephalic Eyes General Eye: normal appearance of both eyes Neck General: normal visual inspection Lymph Lymphatic: no lymphadenopathy noted and no lymphedema noted Resp Resp Narrative: Normal respiratory effort on 4 L O2 Cardio regular rate and regular rhythm Extremity no joint enlargement and no calf tenderness Extremity Narrative: Vascular: DP and PT pulses nonpalpable bilateral. Capillary fill time is delayed to the digits of the foot bilateral. There is a red and purplish discoloration of the digits of the right foot. Dermatologic: Skin is mildly xerotic bilateral. Skin no rashes or lesions noted, skin turgor normal and no jaundice Wound Narrative: Left lower extremity: Lateral calcaneal ulceration inferior to the lateral malleolus and just posterior to it. Ulceration demonstrates thickened, yellow fibrotic tissue. No purulent drainage, no malodor, no erythema, no palpable fluctuance/bogginess, no visible abscess formation. Right lower extremity: Lateral calcaneal ulceration inferior to the lateral malleolus and just posterior to it. Ulceration demonstrates dry, stable eschar. No drainage, no malodor, no erythema, no palpable fluctuance/bogginess, no visible abscess formation. Neuro moves all extremities Neuro Narrative: Reduced Light sensation to the foot bilateral Gross sensation intact Motor function intact Debridement Note Debridement Note No debridement was completed: No debridement was completed today Post-Debridement Measurements and Additional Note: Post-Debridement Measurements/Treatment SARAH - Nurse 1 - General Ulcer Assessment Start: 05/18/22 10:42 Freq: Status: Active Protocol: RUSSELL Activity Type Activity Date Activity User E-sign Co-sign Detail Recorded Client Recorded Date Recorded By Document 05/18/22 10:42 [place] [id number] 05/18/22 11:08 IL 05/18/22 10:42 - Today's Visit Information Type of service Initial Visit Arrival Mode Wheelchair Accompanied by son and Patient Identification Verified (Name & Yes ) Safety Precautions Fall Prevention Vital Signs Temperature (97.8 F-99.1 F) 97 F L Temperature Source Temporal Pulse Rate (60-100) 73 Pulse Location Monitor Respiratory Rate (12-18) 22 H Respiratory rate source Observation Pulse Oximetry 89 Oxygen Delivery Method Nasal Cannula O2 L/MIN 3 Blood Pressure (90/60-120/80) 105/67 Blood Pressure Mean 79 Source Monitor Position Semi-Fowlers Blood Pressure Location Left Arm Comment son turned o2 up to 4L from 3L now spo2 is 92 History Since Last Visit- (Skip if this is Patient's initial visit) Have you been in the hospital since your Yes last visit? Has dressing in place as prescribed Yes Has compression in place as prescribed Yes Has offloadiing in place as prescribed Yes Experienced any changes in pain level or Yes management Left Footwear Regular Shoe Right Footwear Regular Shoe Pain Scale: 0-10 Numeric Is Patient Pain Free? Yes #1 R Ant Heel -Description Dull,Aching -Intensity 5 -Alleviating Factors/Interventions Medicate when due,Inactivity/ Resting Pain Scale: Adult NonVerbal Is Patient Pain Free? No Pain Scale: [place]/Loving Faces Is Patient Pain Free? No - Nurse 1 - General Ulcer Measurement Start: 05/18/22 10:42 Freq: Status: Active Protocol: Activity Type Activity Date Activity User E-sign Co-sign Detail Recorded Client Recorded Date Recorded By Document 05/18/22 10:42 [place] [id number] 05/18/22 11:08 [place] 05/18/22 10:42 Wound Center Nurse 1 #2 Left Ant Heel -Current Size (cm) - Length 3 -Current Size (cm) - Width 3 -Current Size (cm) - Depth 0.1 -Total Square Cm 9 -Exudate Amt Small -Exudate Type Serosanguineous -Wound Margin Flat & Intact -Granulation Amt Medium (34-66%) -Granulation Quality Pale,[place] -Necrosis Amt Medium (34-66%) -Necrotic Tissue Type Adherent Slough -Texture ([place]-wound Skin Appearance) Assessed -Moisture ([place]-wound Skin Appearance) Assessed -Color ([place]-wound Skin Appearance) Assessed -Temperature ([place]-wound Skin No Abnormality Appearance) (Pt Warm) -Tenderness on Palpation ([place]-wound No Skin Appearance) -Ulcer Cleansing Soap and Water -Foul Odor after Cleansing No -Anesthetic Used 4% Lidocaine Solution #1 R Ant Heel -Current Size (cm) - Length 3 -Current Size (cm) - Width 2 -Current Size (cm) - Depth 0.1 -Total Square Cm 6 -Exudate Amt Small -Exudate Type Serosanguineous -Wound Margin Flat & Intact -Granulation Amt Medium (34-66%) -Granulation Quality Pale,[place] -Necrosis Amt Medium (34-66%) -Necrotic Tissue Type Eschar -Texture ([place]-wound Skin Appearance) Assessed -Moisture ([place]-wound Skin Appearance) Assessed -Color ([place]-wound Skin Appearance) Assessed -Temperature ([place]-wound Skin No Abnormality Appearance) (Pt Warm) -Tenderness on Palpation ([place]-wound No Skin Appearance) -Ulcer Cleansing Rinsed/ Irrigated with Saline -Foul Odor after Cleansing No -Anesthetic Used 4% Lidocaine Solution Right Calf (cm) 34 Right Ankle (cm) 23 Left Calf (cm) 36.5 Left Ankle (cm) 24 WC - Nurse 2 - General Ulcer CM Notes Start: 05/18/22 10:42 Freq: Status: Active Protocol: Activity Type Activity Date Activity User E-sign Co-sign Detail Recorded Client Recorded Date Recorded By Document 05/18/22 12:41 PL [id number] 05/18/22 12:43 PL 05/18/22 12:41 Wound Center Nurse 2 #2 Left Ant Heel -Procedure Performed No -Post Debridement (cm) - Length 1.1 -Post Debridement (cm) - Width 0.6 -Post Debridement (cm) - Depth 0.1 -Total Square (Post) (cm) 0.66 -Wound/Ulcer Outcome Not Healed #1 R Ant Heel -Time 11:27 -Procedure Performed No -Post Debridement (cm) - Length 2.0 -Post Debridement (cm) - Width 2.8 -Post Debridement (cm) - Depth 0.1 -Total Square (Post) (cm) 5.60 Pain Scale: 0-10 Numeric Is Patient Pain Free? Yes WC - Nurse 3 - General Ulcer D/C NN Start: 05/18/22 10:42 Freq: Status: Active Protocol: Activity Type Activity Date Activity User E-sign Co-sign Detail Recorded Client Recorded Date Recorded By Document 05/18/22 12:24 JULI [id number] 05/18/22 12:24 JULI 05/18/22 12:24 Wound Care Nurse 3 #2 Left Ant Heel -Ulcer Cleansing Rinsed/ Irrigated with Saline -Other Dressing betadine -Primary Dressing Covered/Secured with Dry Gauze, Secured with Tape #1 R Ant Heel -Other Dressing betadine -Primary Dressing Covered/Secured with Dry Gauze,Dry Gauze & Roll Gauze,Secured with Tape Pain Scale: 0-10 Numeric Is Patient Pain Free? Yes WC - Visit Discharge Discharge Condition Stable Ambulatory Status Wheelchair Transportation Private Auto Accompanied by son Assessment/Plan Assessment/Plan (1) COPD (chronic obstructive pulmonary disease): CODE(S): J44.9 - Chronic obstructive pulmonary disease, unspecified (2) Acute on chronic respiratory failure with hypoxia and hypercapnia: CODE(S): J96.21 - Acute and chronic respiratory failure with hypoxia; J96.22 - Acute and chronic respiratory failure with hypercapnia (3) Tobacco abuse: CODE(S): Z72.0 - Tobacco use (4) Peripheral arterial disease: CODE(S): I73.9 - Peripheral vascular disease, unspecified (5) Congestive heart failure (CHF): CODE(S): I50.9 - Heart failure, unspecified (6) HTN (hypertension): CODE(S): I10 - Essential (primary) hypertension (7) Decubitus ulcer of left heel, stage 1: CODE(S): L89.621 - Pressure ulcer of left heel, stage 1 (8) Decubitus ulcer of right heel, stage 2: CODE(S): L89.612 - Pressure ulcer of right heel, stage 2 PLAN: Plan Patient seen and evaluated I reviewed the patient's case and discussed the case with her today. She demonstrates stable eschar secondary to decubitus ulceration of the right lateral calcaneus. Ulceration measures 2.0 cm x 2.8 cm x 0.1 cm. No signs of infection. Digits of the right foot are purplish?reddish in coloration consistent with peripheral vascular disease. Nonpalpable DP and PT pulses with delayed capillary fill time noted to right foot. Left lower extremity demonstrates decubitus ulceration of the left lateral calcaneus with thickened yellow fibrotic tissue in the wound bed. Ulceration measures 1.1 cm x 0.6 cm x 0.1 cm. No signs of infection. Nonpalpable DP and PT pulses with delayed capillary fill time noted to the overall left foot demonstrates no discoloration to the digits. Patient had LEAS performed on 03/31/2022 demonstrating absent DP pulses on Doppler bilateral with bilateral PT monophasic pulses. Right lower extremity 0.6: Left lower extremity 0.46. Findings consistent with moderate to severe peripheral arterial disease. These findings were discussed with the patient and patient's son today recommended repeat arterial studies secondary to new onset of pressure ulcerations and her continued history of smoking. I discussed referral to vascular surgeon Dr. Leo for repeat vascular studies as well as any recommendations for vascular intervention prior to debridement of ulcerative sites. Ulcerative sites were painted with Betadine and dressed with dry sterile dressing today. Recommended changing dressings daily. Discussed offloading of both lower extremity ulcerative sites with Prevalon waffle boot when sleeping. Discussed that she is also to ensure heels are elevated utilizing a pillow while in a recliner or on the couch. I discussed with the patient her history of chronic smoking/tobacco abuse today. 10 minutes of time was spent to educate patient on inherent risks of tobacco smoking in relation to wound healing, decreasing blood flow to the lower extremity and vital organs and how this related to worsening of her peripheral arterial disease of the bilateral lower extremities, infection risk in relation to her current disease state was also discussed and how amputation may be required at a level the best achieves healing outcome. I stressed the importance that cessation greatly impacts her health overall and given her history of COPD with acute on chronic exacerbation including multiple visits to the ED for treatment of COPD that it would be in her best interest to immediately stop smoking. Fire risk was also discussed given her history of smoking with the nasal cannula in place and her facial samson secondary to this, this was highly discouraged. I discussed various methods to aid her in smoking cessation and she may discuss further with her primary care or vascular surgeon to find the best route to help her achieve this goal. The patient and son verbalized the understanding and importance of this conversation today. I discussed with patient and son that at this point in time with wound stable and no signs of infection it is best to wait for vascular intervention prior to performing any wound debridements to best achieve healing potential. She is to return to the wound care center in 1 to 2 weeks. She is to call or return sooner for any questions or concerns Note: [employer] speech recognition restaurant floor manager software was used to create portions of this document. Sound-alike and misspelled words, as well as other restaurant floor manager errors may be contained in the documentation. The problems addressed require a low medical decision making level which includes two or more minor problems, a stable chronic illness, or an acute uncomplicated illness or injury. The medical decision making level is low. There is noted low risk of morbidity after considering this treatment plan and diagnostic data.
--- NOTE | 2022-05-25 11:06 | PCM.WC.PN ---
History of Present Illness Date of Service: 05/25/22 Chief Complaint: Bilateral heel wounds History of Wound: Patient is a 61-year-old female with history of severe COPD and respiratory distress on 3 L O2, stroke, uncontrolled hypertension, tobacco and marijuana use, CHF, and alcoholism. Patient also has history of facial samson secondary to smoking with her oxygen nasal canula in place. Her son states that she developed bilateral heel ulcerations on the outside of her foot. Son states that she sits in a recliner with the heels resting on the foot rest rolled outward. He states his mother will not quit smoking. Son states the wounds that she had developed have been present for the last month and have not improved. He states that his mother had seen her family physician Dr. Rosales who was concerned with ulcerations and reddened?purple discoloration of her toes and sent her to the wound care center. Subjective Subjective This is a 61-year-old female who follows up today to the wound care center for a nonhealing pressure ulceration to the lateral aspect of the right heel and left heel. The son states that he is aiding his mother and dressing both sites. He informs me they still have not gotten the offloading boots for sleeping. The son states that they have an appointment to see the vascular specialist on 06/06/2022. She denies any constitutional symptoms today. She has no further complaints today. Objective Data Objective Data Vital Signs: Vital Signs Temp Pulse Resp BP Pulse Ox O2 Del Method O2 Flow Rate 97 F L 73 22 H 105/67 89 Nasal Cannula 3 05/18/22 10:42 05/18/22 10:42 05/18/22 10:42 05/18/22 10:42 05/18/22 10:42 05/18/22 10:42 05/18/22 10:42 Oxygen Flow Rate (L/min) 3 Oxygen Delivery Method Nasal Cannula Physical Exam Const alert, oriented x3 and no apparent distress General Appearance: cooperative HEENT normocephalic Eyes General Eye: normal appearance of both eyes Neck General: normal visual inspection Lymph Lymphatic: no lymphadenopathy noted and no lymphedema noted Resp Resp Narrative: Normal respiratory effort on 4 L O2 Cardio regular rate and regular rhythm Extremity no joint enlargement and no calf tenderness Extremity Narrative: Vascular: DP and PT pulses nonpalpable bilateral. Capillary fill time is delayed to the digits of the foot bilateral. There is a red and purplish discoloration of the digits of the right foot. Dermatologic: Skin is mildly xerotic bilateral. Skin no rashes or lesions noted, skin turgor normal and no jaundice Wound Narrative: Left lower extremity: Lateral calcaneal ulceration inferior to the lateral malleolus and just posterior to it. Ulceration demonstrates granular tissue superficial in nature. No purulent drainage, no malodor, no erythema, no palpable fluctuance/bogginess, no visible abscess formation. Right lower extremity: Lateral calcaneal ulceration inferior to the lateral malleolus and just posterior to it. Ulceration demonstrates dry, stable eschar. No drainage, no malodor, no erythema, no palpable fluctuance/bogginess, no visible abscess formation. Neuro moves all extremities Neuro Narrative: Reduced Light sensation to the foot bilateral Gross sensation intact Motor function intact Debridement Note Debridement Note No debridement was completed: No debridement was completed today Post-Debridement Measurements and Additional Note: Post-Debridement Measurements/Treatment - Nurse 1 - General Ulcer Assessment Start: 05/18/22 10:42 Freq: Status: Active Protocol: RUSSELL Activity Type Activity Date Activity User E-sign Co-sign Detail Recorded Client Recorded Date Recorded By Document 05/18/22 10:42 OH [id number] 05/18/22 11:08 OH 05/18/22 10:42 - Today's Visit Information Type of service Initial Visit Arrival Mode Wheelchair Accompanied by son and Patient Identification Verified (Name & Yes ) Safety Precautions Fall Prevention Vital Signs Temperature (97.8 F-99.1 F) 97 F L Temperature Source Temporal Pulse Rate (60-100) 73 Pulse Location Monitor Respiratory Rate (12-18) 22 H Respiratory rate source Observation Pulse Oximetry 89 Oxygen Delivery Method Nasal Cannula O2 L/MIN (L/min) 3 Blood Pressure (90/60-120/80) 105/67 Blood Pressure Mean (mm Hg) 79 Source Monitor Position Semi-Fowlers Blood Pressure Location Left Arm Comment son turned o2 up to 4L from 3L now spo2 is 92 History Since Last Visit- (Skip if this is Patient's initial visit) Have you been in the hospital since your Yes last visit? Has dressing in place as prescribed Yes Has compression in place as prescribed Yes Has offloadiing in place as prescribed Yes Experienced any changes in pain level or Yes management Left Footwear Regular Shoe Right Footwear Regular Shoe Pain Scale: 0-10 Numeric Is Patient Pain Free? Yes #1 R Ant Heel -Description Dull,Aching -Intensity 5 -Alleviating Factors/Interventions Medicate when due,Inactivity/ Resting Pain Scale: Adult NonVerbal Is Patient Pain Free? No Pain Scale: [place]/Loving Faces Is Patient Pain Free? No WC - Nurse 1 - General Ulcer Measurement Start: 05/18/22 10:42 Freq: Status: Active Protocol: Activity Type Activity Date Activity User E-sign Co-sign Detail Recorded Client Recorded Date Recorded By Document 05/18/22 10:42 OH [id number] 05/18/22 11:08 OH 05/18/22 10:42 Wound Center Nurse 1 #2 Left Ant Heel -Current Size (cm) - Length 3 -Current Size (cm) - Width 3 -Current Size (cm) - Depth 0.1 -Total Square Cm 9 -Exudate Amt Small -Exudate Type Serosanguineous -Wound Margin Flat & Intact -Granulation Amt Medium (34-66%) -Granulation Quality Pale,[place] -Necrosis Amt Medium (34-66%) -Necrotic Tissue Type Adherent Slough -Texture ([place]-wound Skin Appearance) Assessed -Moisture ([place]-wound Skin Appearance) Assessed -Color ([place]-wound Skin Appearance) Assessed -Temperature ([place]-wound Skin No Abnormality Appearance) (Pt Warm) -Tenderness on Palpation ([place]-wound No Skin Appearance) -Ulcer Cleansing Soap and Water -Foul Odor after Cleansing No -Anesthetic Used 4% Lidocaine Solution #1 R Ant Heel -Current Size (cm) - Length 3 -Current Size (cm) - Width 2 -Current Size (cm) - Depth 0.1 -Total Square Cm 6 -Exudate Amt Small -Exudate Type Serosanguineous -Wound Margin Flat & Intact -Granulation Amt Medium (34-66%) -Granulation Quality Pale,[place] -Necrosis Amt Medium (34-66%) -Necrotic Tissue Type Eschar -Texture ([place]-wound Skin Appearance) Assessed -Moisture ([place]-wound Skin Appearance) Assessed -Color ([place]-wound Skin Appearance) Assessed -Temperature ([place]-wound Skin No Abnormality Appearance) (Pt Warm) -Tenderness on Palpation ([place]-wound No Skin Appearance) -Ulcer Cleansing Rinsed/ Irrigated with Saline -Foul Odor after Cleansing No -Anesthetic Used 4% Lidocaine Solution Right Calf (cm) 34 Right Ankle (cm) 23 Left Calf (cm) 36.5 Left Ankle (cm) 24 WC - Nurse 2 - General Ulcer CM Notes Start: 05/18/22 10:42 Freq: Status: Active Protocol: Activity Type Activity Date Activity User E-sign Co-sign Detail Recorded Client Recorded Date Recorded By Document 05/18/22 12:41 PL [id number] 05/18/22 12:43 PL 05/18/22 12:41 Wound Center Nurse 2 #2 Left Ant Heel -Procedure Performed No -Post Debridement (cm) - Length 1.1 -Post Debridement (cm) - Width 0.6 -Post Debridement (cm) - Depth 0.1 -Total Square (Post) (cm) 0.66 -Wound/Ulcer Outcome Not Healed #1 R Ant Heel -Time 11:27 -Procedure Performed No -Post Debridement (cm) - Length 2.0 -Post Debridement (cm) - Width 2.8 -Post Debridement (cm) - Depth 0.1 -Total Square (Post) (cm) 5.60 Pain Scale: 0-10 Numeric Is Patient Pain Free? Yes - Nurse 3 - General Ulcer D/C NN Start: 05/18/22 10:42 Freq: Status: Active Protocol: Activity Type Activity Date Activity User E-sign Co-sign Detail Recorded Client Recorded Date Recorded By Document 05/18/22 12:24 KR [id number] 05/18/22 12:24 KR 05/18/22 12:24 Wound Care Nurse 3 #2 Left Ant Heel -Ulcer Cleansing Rinsed/ Irrigated with Saline -Other Dressing betadine -Primary Dressing Covered/Secured with Dry Gauze, Secured with Tape #1 R Ant Heel -Other Dressing betadine -Primary Dressing Covered/Secured with Dry Gauze,Dry Gauze & Roll Gauze,Secured with Tape Pain Scale: 0-10 Numeric Is Patient Pain Free? Yes - Visit Discharge Discharge Condition Stable Ambulatory Status Wheelchair Transportation Private Auto Accompanied by son Assessment/Plan Assessment/Plan (1) COPD (chronic obstructive pulmonary disease): CODE(S): J44.9 - Chronic obstructive pulmonary disease, unspecified (2) Acute on chronic respiratory failure with hypoxia and hypercapnia: CODE(S): J96.21 - Acute and chronic respiratory failure with hypoxia; J96.22 - Acute and chronic respiratory failure with hypercapnia (3) Tobacco abuse: CODE(S): Z72.0 - Tobacco use (4) Peripheral arterial disease: CODE(S): I73.9 - Peripheral vascular disease, unspecified (5) Congestive heart failure (CHF): CODE(S): I50.9 - Heart failure, unspecified (6) HTN (hypertension): CODE(S): I10 - Essential (primary) hypertension (7) Decubitus ulcer of left heel, stage 1: CODE(S): L89.621 - Pressure ulcer of left heel, stage 1 (8) Decubitus ulcer of right heel, stage 2: CODE(S): L89.612 - Pressure ulcer of right heel, stage 2 PLAN: Plan Patient seen and evaluated I reviewed the patient's case and discussed the case with her today. She demonstrates stable eschar secondary to decubitus ulceration of the right lateral calcaneus. Ulceration measures 2.0 cm x 2.8 cm x 0.1 cm. No signs of infection. Digits of the right foot are purplish?reddish in coloration consistent with peripheral vascular disease. Nonpalpable DP and PT pulses with delayed capillary fill time noted to right foot. Left lower extremity demonstrates decubitus ulceration of the left lateral calcaneus with thickened yellow fibrotic tissue in the wound bed. Ulceration measures 1.1 cm x 0.6 cm x 0.1 cm. No signs of infection. Nonpalpable DP and PT pulses with delayed capillary fill time noted to the overall left foot demonstrates no discoloration to the digits. This ulceration site does demonstrate improvement in appearance with granular tissue and less fibrotic tissue versus prior visit. Patient had LEAS performed on 03/31/2022 demonstrating absent DP pulses on Doppler bilateral with bilateral PT monophasic pulses. Right lower extremity 0.6: Left lower extremity 0.46. Findings consistent with moderate to severe peripheral arterial disease. These findings were discussed with the patient and patient's son today recommended repeat arterial studies secondary to new onset of pressure ulcerations and her continued history of smoking. She has an appointment on 06/06/[address]22 to see vascular surgeon Dr. Leo for recommendations for vascular intervention prior to debridement of ulcerative sites. She also demonstrates +7 pitting edema to bilateral lower extremities. Will recommend compression dressing, Tubigrip post vascular intervention to control her edema. Ulcerative sites were painted with Betadine and dressed with dry sterile dressing today. Recommended changing dressings daily. Discussed offloading of both lower extremity ulcerative sites with Prevalon waffle boot when sleeping. Discussed that she is also to ensure heels are elevated utilizing a pillow while in a recliner or on the couch. Discussion of smoking cessation from 05/18/22: I discussed with the patient her history of chronic smoking/tobacco abuse. 10 minutes of time was spent to educate patient on inherent risks of tobacco smoking in relation to wound healing, decreasing blood flow to the lower extremity and vital organs and how this related to worsening of her peripheral arterial disease of the bilateral lower extremities, infection risk in relation to her current disease state was also discussed and how amputation may be required at a level the best achieves healing outcome. I stressed the importance that cessation greatly impacts her health overall and given her history of COPD with acute on chronic exacerbation including multiple visits to the ED for treatment of COPD that it would be in her best interest to immediately stop smoking. Fire risk was also discussed given her history of smoking with the nasal cannula in place and her facial samson secondary to this, this was highly discouraged. I discussed various methods to aid her in smoking cessation and she may discuss further with her primary care or vascular surgeon to find the best route to help her achieve this goal. The patient and son verbalized the understanding and importance of this conversation today. I discussed with patient and son that at this point in time with wound stable and no signs of infection it is best to wait for vascular intervention prior to performing any wound debridements to best achieve healing potential. They voiced understanding of this. She is to return to the wound care center in 2 weeks. She is to call or return sooner for any questions or concerns Note: [employer] speech recognition extrusion press supervisor software was used to create portions of this document. Sound-alike and misspelled words, as well as other extrusion press supervisor errors may be contained in the documentation. The problems addressed require a low medical decision making level which includes two or more minor problems, a stable chronic illness, or an acute uncomplicated illness or injury. The medical decision making level is low. There is noted low risk of morbidity after considering this treatment plan and diagnostic data.
[2022-05-25 11:13] VITALS: BP 147/65; PULSE 82; RESP 18; TEMP 35.9
--- NOTE | 2022-06-15 11:35 | PCM.WC.PN ---
History of Present Illness Date of Service: 06/15/22 Chief Complaint: Bilateral heel wounds History of Wound: Patient is a 61-year-old female with history of severe COPD and respiratory distress on 3 L O2, stroke, uncontrolled hypertension, tobacco and marijuana use, CHF, and alcoholism. Patient also has history of facial samson secondary to smoking with her oxygen nasal canula in place. Her son states that she developed bilateral heel ulcerations on the outside of her foot. Son states that she sits in a recliner with the heels resting on the foot rest rolled outward. He states his mother will not quit smoking. Son states the wounds that she had developed have been present for the last month and have not improved. He states that his mother had seen her family physician Dr. Rosales who was concerned with ulcerations and reddened?purple discoloration of her toes and sent her to the wound care center. Subjective Subjective This is a 61-year-old female who follows up today to the wound care center for a nonhealing pressure ulceration to the lateral aspect of the right heel and left heel.?The son states that he is aiding his mother and dressing both sites daily.? He informs me they did get the offloading boots for sleeping and wearing in the recliner.?The son states that they have seen the vascular specialist, Dr. Leo who is obtaining a vascular study for further intervention next Sunday. She denies any constitutional symptoms today.? She has no further complaints today. Objective Data Objective Data Vital Signs: Vital Signs Temp Pulse Resp BP Pulse Ox O2 Del Method O2 Flow Rate 96.6 F L 82 18 147/65 H 89 Nasal Cannula 3 05/25/22 11:13 05/25/22 11:13 05/25/22 11:13 05/25/22 11:13 05/18/22 10:42 05/25/22 11:13 05/25/22 11:13 Oxygen Flow Rate (L/min) 3 Oxygen Delivery Method Nasal Cannula Physical Exam Const alert, oriented x3 and no apparent distress General Appearance: cooperative HEENT normocephalic Eyes General Eye: normal appearance of both eyes Neck General: normal visual inspection Lymph Lymphatic: no lymphadenopathy noted and no lymphedema noted Resp Resp Narrative: Normal respiratory effort on 4 L O2 Cardio regular rate and regular rhythm Extremity no joint enlargement and no calf tenderness Extremity Narrative: Vascular: DP and PT pulses nonpalpable bilateral. Capillary fill time is delayed to the digits of the foot bilateral. There is a red and purplish discoloration of the digits of the right foot. Dermatologic: Skin is mildly xerotic bilateral. Skin no rashes or lesions noted, skin turgor normal and no jaundice Wound Narrative: Left lower extremity: Lateral calcaneal ulceration inferior to the lateral malleolus and just posterior to it. Ulceration demonstrates granular tissue superficial in nature. No purulent drainage, no malodor, no erythema, no palpable fluctuance/bogginess, no visible abscess formation. Right lower extremity: Lateral calcaneal ulceration inferior to the lateral malleolus and just posterior to it. Ulceration demonstrates dry, stable eschar. No drainage, no malodor, no erythema, no palpable fluctuance/bogginess, no visible abscess formation. Neuro moves all extremities Neuro Narrative: Reduced Light sensation to the foot bilateral Gross sensation intact Motor function intact Debridement Note Debridement Note No debridement was completed: No debridement was completed today Post-Debridement Measurements and Additional Note: Post-Debridement Measurements/Treatment - Nurse 1 - General Ulcer Assessment Start: 05/18/22 10:42 Freq: Status: Active Protocol: [email or web address] Activity Type Activity Date Activity User E-sign Co-sign Detail Recorded Client Recorded Date Recorded By Document 05/18/22 10:42 CT [id number] 05/18/22 11:08 CT Document 05/25/22 11:13 [facility] [id number] 05/25/22 11:18 [facility] 05/18/22 05/25/22 10:42 11:13 - Today's Visit Information Type of service Initial Visit Follow-up Visit (Physician/[employer] INSPECTOR ) Arrival Mode Wheelchair Wheelchair Transfer Assistance Other Transfer Assist (Other) 3 ASSIST Accompanied by son and , SON Patient Identification Verified (Name & Yes Yes ) Patient Requires Transmission-Based No Precautions Safety Precautions Fall Prevention Vital Signs Temperature (97.8 F-99.1 F) 97 F L 96.6 F L Temperature Source Temporal Temporal Pulse Rate (60-100) 73 82 Pulse Location Monitor Monitor Respiratory Rate (12-18) 22 H 18 Respiratory rate source Observation Observation Pulse Oximetry 89 Oxygen Delivery Method Nasal Cannula Nasal Cannula O2 L/MIN (L/min) 3 3 Blood Pressure (90/60-120/80) 105/67 147/65 H Blood Pressure Mean (mm Hg) 79 92 Source Monitor Monitor Position Semi-Fowlers Sitting Blood Pressure Location Left Arm Left Forearm Comment son turned o2 up to 4L from 3L now spo2 is 92 History Since Last Visit- (Skip if this is Patient's initial visit) Have you changed medications since your No last visit? Any new allergies or adverse reactions No Had a fall/change in ADL's that may No increase risk of falls Signs or symptoms of abuse and/or No neglect since last visit Have you been in the hospital since your Yes No last visit? Has dressing in place as prescribed Yes Yes Has compression in place as prescribed Yes N/A Has offloadiing in place as prescribed Yes N/A Experienced any changes in pain level or Yes No management Left Footwear Regular Shoe Right Footwear Regular Shoe Other Footwear NON SKID SOCKS Pain Scale: 0-10 Numeric Is Patient Pain Free? Yes Yes #1 R Ant Heel -Description Dull,Aching -Intensity 5 -Alleviating Factors/Interventions Medicate when due,Inactivity/ Resting Pain Scale: Adult NonVerbal Is Patient Pain Free? No Pain Scale: [place]/Loving Faces Is Patient Pain Free? No WC - Nurse 1 - General Ulcer Measurement Start: 05/18/22 10:42 Freq: Status: Active Protocol: Activity Type Activity Date Activity User E-sign Co-sign Detail Recorded Client Recorded Date Recorded By Document 05/18/22 10:42 CT [id number] 05/18/22 11:08 CT Document 05/25/22 11:13 [facility] [id number] 05/25/22 11:18 [facility] 05/18/22 05/25/22 10:42 11:13 Wound Center Nurse 1 #2 Left Ant Heel -Combined with other wound No -Current Size (cm) - Length 3 1.8 -Current Size (cm) - Width 3 2.5 -Current Size (cm) - Depth 0.1 0.1 -Total Square Cm 9 4.50 -Date of Last Picture (Recall this 05/25/22 field) -Photo Taken Yes -Epithelialization None Present -Tunneling No -Undermining/Tunneling No -Circular Undermining No -Exudate Amt Small Small -Exudate Type Serosanguineous Serosanguineous -Wound Margin Flat & Intact Distinct, Outline Attached -Granulation Amt Medium (34-66%) Large (67-100%) -Granulation Quality Pale,[place] -Slough/Fibrin Yes -Necrosis Amt Medium (34-66%) Small (1-33%) -Necrotic Tissue Type Adherent Slough Adherent Slough -Texture ([place]-wound Skin Appearance) Assessed Assessed, Localized Edema ,Scarring -Moisture ([place]-wound Skin Appearance) Assessed Assessed,Dry/ Scaly -Color ([place]-wound Skin Appearance) Assessed Assessed -Temperature ([place]-wound Skin No Abnormality No Abnormality Appearance) (Pt Warm) (Pt Warm) -Tenderness on Palpation ([place]-wound No No Skin Appearance) -Ulcer Cleansing Soap and Water Soap and Water -Foul Odor after Cleansing No No -Anesthetic Used 4% Lidocaine Solution #1 R Ant Heel -Combined with other wound No -Current Size (cm) - Length 3 3.2 -Current Size (cm) - Width 2 2 -Current Size (cm) - Depth 0.1 0.1 -Total Square Cm 6 6.4 -Date of Last Picture (Recall this 05/25/22 field) -Photo Taken Yes -Epithelialization None Present -Tunneling No -Undermining/Tunneling No -Circular Undermining No -Exudate Amt Small None Present -Exudate Type Serosanguineous -Wound Margin Flat & Intact Distinct, Outline Attached -Granulation Amt Medium (34-66%) None Present (0 %) -Granulation Quality Pale,[place] -Slough/Fibrin Yes -Necrosis Amt Medium (34-66%) Large (67-100%) -Necrotic Tissue Type Eschar Eschar -Texture ([place]-wound Skin Appearance) Assessed Assessed, Scarring -Moisture ([place]-wound Skin Appearance) Assessed Assessed -Color ([place]-wound Skin Appearance) Assessed Assessed -Temperature ([place]-wound Skin No Abnormality No Abnormality Appearance) (Pt Warm) (Pt Warm) -Tenderness on Palpation ([place]-wound No No Skin Appearance) -Ulcer Cleansing Rinsed/ Rinsed/ Irrigated with Irrigated with Saline Saline -Foul Odor after Cleansing No No -Anesthetic Used 4% Lidocaine Solution Right Calf (cm) 34 Right Ankle (cm) 23 Left Calf (cm) 36.5 Left Ankle (cm) 24 WC - Nurse 2 - General Ulcer CM Notes Start: 05/18/22 10:42 Freq: Status: Active Protocol: Activity Type Activity Date Activity User E-sign Co-sign Detail Recorded Client Recorded Date Recorded By Document 05/18/22 12:41 PL [id number] 05/18/22 12:43 PL 05/18/22 12:41 Wound Center Nurse 2 #2 Left Ant Heel -Procedure Performed No -Post Debridement (cm) - Length 1.1 -Post Debridement (cm) - Width 0.6 -Post Debridement (cm) - Depth 0.1 -Total Square (Post) (cm) 0.66 -Wound/Ulcer Outcome Not Healed #1 R Ant Heel -Time 11:27 -Procedure Performed No -Post Debridement (cm) - Length 2.0 -Post Debridement (cm) - Width 2.8 -Post Debridement (cm) - Depth 0.1 -Total Square (Post) (cm) 5.60 Pain Scale: 0-10 Numeric Is Patient Pain Free? Yes - Nurse 3 - General Ulcer D/C NN Start: 05/18/22 10:42 Freq: Status: Active Protocol: Activity Type Activity Date Activity User E-sign Co-sign Detail Recorded Client Recorded Date Recorded By Document 05/18/22 12:24 KR [id number] 05/18/22 12:24 KR 05/18/22 12:24 Wound Care Nurse 3 #2 Left Ant Heel -Ulcer Cleansing Rinsed/ Irrigated with Saline -Other Dressing betadine -Primary Dressing Covered/Secured with Dry Gauze, Secured with Tape #1 R Ant Heel -Other Dressing betadine -Primary Dressing Covered/Secured with Dry Gauze,Dry Gauze & Roll Gauze,Secured with Tape Pain Scale: 0-10 Numeric Is Patient Pain Free? Yes WC - Visit Discharge Discharge Condition Stable Ambulatory Status Wheelchair Transportation Private Auto Accompanied by son Assessment/Plan Assessment/Plan (1) COPD (chronic obstructive pulmonary disease): CODE(S): J44.9 - Chronic obstructive pulmonary disease, unspecified (2) Acute on chronic respiratory failure with hypoxia and hypercapnia: CODE(S): J96.21 - Acute and chronic respiratory failure with hypoxia; J96.22 - Acute and chronic respiratory failure with hypercapnia (3) Tobacco abuse: CODE(S): Z72.0 - Tobacco use (4) Peripheral arterial disease: CODE(S): I73.9 - Peripheral vascular disease, unspecified (5) Congestive heart failure (CHF): CODE(S): I50.9 - Heart failure, unspecified (6) HTN (hypertension): CODE(S): I10 - Essential (primary) hypertension (7) Decubitus ulcer of left heel, stage 1: CODE(S): L89.621 - Pressure ulcer of left heel, stage 1 (8) Decubitus ulcer of right heel, stage 2: CODE(S): L89.612 - Pressure ulcer of right heel, stage 2 PLAN: Plan Patient seen and evaluated I reviewed the patient's case and discussed the case with her today. She demonstrates stable eschar secondary to decubitus ulceration of the right lateral calcaneus. Ulceration measures 1.5 cm x 2.4 cm x 0.1 cm. No signs of infection. Digits of the right foot are purplish?reddish in coloration consistent with peripheral vascular disease. Nonpalpable DP and PT pulses with delayed capillary fill time noted to right foot. Left lower extremity demonstrates decubitus ulceration of the left lateral calcaneus with thickened yellow fibrotic tissue in the wound bed. Ulceration measures 2.0 cm x 1.0 cm x 0.1 cm. No signs of infection. Nonpalpable DP and PT pulses with delayed capillary fill time noted to the overall left foot demonstrates no discoloration to the digits. Patient had LEAS performed on 03/31/2022 demonstrating absent DP pulses on Doppler bilateral with bilateral PT monophasic pulses. Right lower extremity 0.6: Left lower extremity 0.46. Findings consistent with severe peripheral arterial disease. These findings were discussed with the patient and patient's son. She has seen vascular surgeon Dr. Leo, who has ordered a CTA with runoff for for further evaluation for anticipated vascular intervention. I will hold performing any debridements prior to vascular intervention. She also demonstrates +7 pitting edema to bilateral lower extremities. Will recommend compression dressing, Tubigrip post vascular intervention to control her edema. She has met will meet with Cardiology and Pulmonology. Already on Lasix 20 mg likely to increase dosage. Ulcerative sites were painted with Betadine and dressed with dry sterile dressing today. Recommended changing dressings daily. Discussed offloading of both lower extremity ulcerative sites with Prevalon waffle boot when sleeping. Discussed that she is also to ensure heels are elevated utilizing a pillow while in a recliner or on the couch. Discussion of smoking cessation from 05/18/22: I discussed with the patient her history of chronic smoking/tobacco abuse. 10 minutes of time was spent to educate patient on inherent risks of tobacco smoking in relation to wound healing, decreasing blood flow to the lower extremity and vital organs and how this related to worsening of her peripheral arterial disease of the bilateral lower extremities, infection risk in relation to her current disease state was also discussed and how amputation may be required at a level the best achieves healing outcome. I stressed the importance that cessation greatly impacts her health overall and given her history of COPD with acute on chronic exacerbation including multiple visits to the ED for treatment of COPD that it would be in her best interest to immediately stop smoking. Fire risk was also discussed given her history of smoking with the nasal cannula in place and her facial samson secondary to this, this was highly discouraged. I discussed various methods to aid her in smoking cessation and she may discuss further with her primary care or vascular surgeon to find the best route to help her achieve this goal. The patient and son verbalized the understanding and importance of this conversation today. I discussed with patient and son that at this point in time with wound stable and no signs of infection it is best to wait for vascular intervention prior to performing any wound debridements to best achieve healing potential. They voiced understanding of this. She is to return to the wound care center in 2 weeks. She is to call or return sooner for any questions or concerns Note: [employer] speech recognition utility locator software was used to create portions of this document. Sound-alike and misspelled words, as well as other utility locator errors may be contained in the documentation. The problems addressed require a low medical decision making level which includes two or more minor problems, a stable chronic illness, or an acute uncomplicated illness or injury. The medical decision making level is low. There is noted low risk of morbidity after considering this treatment plan and diagnostic data.
[2022-06-15 12:19] VITALS: BP 144/76; PULSE 79; TEMP 35.5
== END 2022-06-17 23:59 | disposition home or self-care (01) ==
LOC: WC 11:30
PROVIDERS: PCP Family Medicine; Visit Provider Student in an Organized Health Care Education/Training Program
DX: L89.612 Pressure ulcer of right heel, stage 2 (principal); J44.9 Chronic obstructive pulmonary disease, unspecified; I11.0 Hypertensive heart disease with heart failure; I50.9 Heart failure, unspecified; I73.9 Peripheral vascular disease, unspecified; J96.21 Acute and chronic respiratory failure with hypoxia; J96.22 Acute and chronic respiratory failure with hypercapnia; Z72.0 Tobacco use; Z79.2 Long term (current) use of antibiotics; Z79.01 Long term (current) use of anticoagulants; L89.621 Pressure ulcer of left heel, stage 1
CPT/HCPCS: 99213; G0463

== ENCOUNTER → 2022-06-23 | Outpatient (CLI) | payer MEDICARE, SELFPAY ==
--- NOTE | 2022-06-23 12:49 | CT_ITS ---
STUDY: CTA OF THE ABDOMINAL AORTA AND BILATERAL LOWER EXTREMITIES REASON FOR EXAM: Female, 61 years old. Severe PAD. Heavy smoker. RADIATION DOSAGE (If Supplied By Facility): CTDIvol = ( 9.69 ) mGy, DLP = ( 982.33 ) mGycm TECHNIQUE: Axial CT angiography multi-detector data acquisition was obtained from the dome of the liver to the level of the ankles following intravenous administration of IV 100mL Isovue-370. Axial images and MIP images were reconstructed from the axial data set. Post-processing of the angiographic images was performed, with multiplanar reformation and 3D reconstruction. Individualized dose optimization techniques were used for this CT. TECHNICAL QUALITY: Good COMPARISON: None. Descriptors of Narrowing: None (0%) Mild (< 50%) Moderate (50-70%) Severe (70-90%) Subtotal/Total Occlusion (90-100%) Non-Evaluable (technically non-diagnostic FINDINGS: Tiny bilateral pleural effusions with bibasilar atelectasis. Diffuse fatty infiltration of the liver. The gallbladder is contracted. Minimal pericholecystic fluid. Increased markings are seen in the region of the right hemicolon. Inflammatory changes should be ruled out. Diffuse subcutaneous edema. Moderate-sized left inguinal hernia containing fat. Abdominal aorta: Atherosclerotic plaque. No evidence of aneurysm. Celiac and superior mesenteric arteries: No demonstrated narrowing. Inferior mesenteric artery: No demonstrated narrowing. Right renal artery(arteries): No demonstrated narrowing. Left renal artery(arteries): No demonstrated narrowing. Right common iliac artery: Mildly stenotic calcific plaques. Right external iliac artery: Mildly stenotic calcific plaques. Right internal iliac artery: No demonstrated narrowing. Left common iliac artery: No demonstrated narrowing. Left external iliac artery: No demonstrated narrowing. Left internal iliac artery: No demonstrated narrowing. RIGHT LOWER EXTREMITY Right common femoral artery: No demonstrated narrowing. Right profundus femoris: No demonstrated narrowing. Right superficial femoral: Occlusion of the superficial femoral artery at its origin. Reconstitution of the superficial femoral artery distally. Right popliteal artery: No demonstrated narrowing. Right tibioperoneal trunk: No demonstrated narrowing. Right anterior tibial artery: No demonstrated narrowing. Right posterior tibial artery: No demonstrated narrowing. Right peroneal artery: No demonstrated narrowing. LEFT LOWER EXTREMITY Left common femoral artery: No demonstrated narrowing. Left profundus femoris: No demonstrated narrowing. Left superficial femoral: Occlusion of the superficial femoral artery at its origin. Reconstitution in its distal portion. Left popliteal artery: No demonstrated narrowing. Left tibioperoneal trunk: No demonstrated narrowing. Left anterior tibial artery: No demonstrated narrowing. Left posterior tibial artery: No demonstrated narrowing. Left peroneal artery: No demonstrated narrowing. Diffuse subcutaneous edema of the lower extremities. 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 Electronically Signed: Vince Olivia MD at 15:18 EST ,
[2022-06-23] MEDS: 0.9 % NaCl (Sterile) Posiflush 10 mL IV ×2 (13:25→13:30)
[2022-06-23 13:36] LABS: CREATININE FINGERSTICK < 0.9 mg/dL (0.55-1.02); EGFR FINGERSTICK > 60.0000 mL/min (>60)
== END | disposition home or self-care (01) ==
LOC: CT 12:48
PROVIDERS: PCP Family Medicine; Referring Provider Surgery Trauma Surgery; Visit Provider Surgery Trauma Surgery
DX: I70.25 Atherosclerosis of native arteries of other extremities with ulceration (principal); L97.509 Non-pressure chronic ulcer of other part of unspecified foot with unspecified severity
CPT/HCPCS: 75635; Q9967; A4216

== ENCOUNTER 2022-06-27 13:28 | Emergency (ER) | payer MEDICARE, SELFPAY ==
[2022-06-27 13:28] VITALS: BP 127/68; PULSE 89; RESP 14; TEMP 36.6; O2SAT 95; BMI 26.2
--- NOTE | 2022-06-27 14:21 | EX.ED.DYSGE1 ---
HPI History of Present Illness Chief Complaint: General Illness Narrative Narrative: 61-year-old female presents with her family. They states they were referred to the emergency room because the nurse heard water on her lungs. They states that she has a history of CHF and is on Lasix 20 daily. They state that their primary care physician is Dr. Rosales and that he was considering increasing her Lasix to 40 daily. This has not been done. Patient's family also states that she has gained about 12 pounds. She has chronic lower extremity edema which they state comes and goes. She also has left upper extremity edema which comes and goes. The patient has had no complaints. She does not appear to be more short of breath than usual. She is on her baseline 3 L of oxygen at home and has not required an increase. They do report they are not doing daily weights because she is hard to get up and move around due to her age and her comorbidities. She has not had a fever. She has a chronic cough from history of COPD but nothing is changed. They state that she is always a little bit wheezy. No fever. She is not reporting any chest pain. [facility] Medical History Alcohol abuse Congestive heart failure (CHF) CVA (cerebral vascular accident) Elbow fracture HTN (hypertension) Mild dementia Peripheral arterial disease Polycythemia Tobacco abuse Home Medications potassium chloride 20 mEq tablet,extended release 20 meq PO DAILY #30 tabs 04/05/22 [Rx Last Taken Unknown] arginine 7 gram-glutam 7 gram-CaHMB 1.5 [id number]-[id number] oral pwd pkt (Jv (with collagen)) 1 packet PO BIDCM #0 ea 04/12/22 [Rx Last Taken Unknown] furosemide 40 mg tablet (Lasix) 40 mg PO DAILY #30 tabs 04/12/22 [Rx Last Taken Unknown] ibuprofen 400 mg tablet 400 mg PO Q6H PRN PRN Pain 1-10 Or Fever #0 tabs 04/12/22 [Rx Last Taken Unknown] magnesium chloride 64 mg (magnesium chloride) tablet,delayed release (Mag 64) 128 mg PO BID #0 tabs 04/12/22 [Rx Last Taken Unknown] aspirin 81 mg tablet,delayed release 81 mg PO DAILY 06/13/22 [History Last Taken Unknown] furosemide 40 mg tablet (Lasix) 40 mg PO DAILY #30 tabs 06/27/22 [Rx Last Taken Unknown] Allergy/AdvReac Type Severity Reaction Status Date / Time codeine AdvReac Vomiting Verified 06/27/22 13:31 hydrocodone bitartrate AdvReac Vomiting Verified 06/27/22 13:31 [From Vicodin] oxycodone HCl [From Percocet] AdvReac Vomiting Verified 06/27/22 13:31 Social History household members: spouse housing: house Smoking Status: Heavy Smoker (>10/day) alcohol intake: current alcohol intake frequency: a few times a week substance use type: marijuana ROS ROS ED Constitutional Constitutional ED: Denies chills or fever(s) Eyes Eyes: Denies blurry vision or change in vision ENT ENT ED: Denies ear pain or sore throat Cardiovascular Cardiovascular: Denies chest pain, palpitations or racing heartbeat Respiratory/Chest Respiratory/Chest: Denies cough, dyspnea or sputum Gastrointestinal Gastrointestinal: Denies abdominal pain, constipation, diarrhea, nausea or vomiting Genitourinary Genitourinary ED: Denies dysuria, hematuria or urinary frequency Musculoskeletal Musculoskeletal: Denies arthralgias, myalgias or neck pain Integumentary Denies abscess, Abrasions or rash Neurologic Neurologic: Denies headache(s), paresthesias or weakness Psychiatric Psychiatric: Denies anxiety, depression, suicidal ideation or suicidal thoughts Endocrine Endocrinology: Denies polydipsia or polyuria EXAM Physical Exam Const Vital Signs: 06/27/22 13:28 06/27/22 14:37 06/27/22 14:56 Temperature 97.8 F Temperature Source Temporal Pulse Rate 89 90 74 Respiratory Rate 14 17 Respiratory Effort Respiratory Pattern Normal Blood Pressure 127/68 H Blood Pressure Mean 87 Pulse Ox 95 Oxygen Delivery Method Nasal Cannula Oxygen Flow Rate (L/min) 3 06/27/22 14:56 06/27/22 14:59 Temperature Temperature Source Pulse Rate Respiratory Rate Respiratory Effort Short of Breath Labored Respiratory Pattern Blood Pressure Blood Pressure Mean Pulse Ox Oxygen Delivery Method Nasal Cannula Oxygen Flow Rate (L/min) Positive obese General Appearance ED: NAD; Negative for pallor Nutritional Appearance: obese HEENT Reports moist mucous membranes Negative for trauma Eyes PERRL and EOMs intact bilaterally Chest Wall inspection of chest normal and palpation of chest normal Resp normal respiratory effort Auscultation: wheezes scattered wheezes GI normal to inspection, nondistended, normoactive bowel sounds Extremity Extremity Narrative: Left upper extremity pitting edema as well as lower extremity pitting edema. 2+ General Extremety ED: Yes edema General Extremity: edema Neuro oriented x3 and CN's II-XII intact bilaterally Sensorium / Orientation: alert Skin General Skin Exam: Negative for jaundice or pallor MDM MDM MDM Narrative Medical decision making narrative: Patient presenting from home with water on her lungs. This was heard by the nurse. She is not reported increase in her oxygen at home and she is at 3 L baseline. She was transported to the ER without oxygen was hypoxic when she arrived that she is currently on her baseline and she is not in any distress. On examination she does have some scattered wheezing and she is given a breathing treatment and some Solu-Medrol. We will obtain a chest x-ray to assess for CHF versus pneumonia. BNP and cardiac enzymes also ordered. EKG will be obtained to assess for dysrhythmia. CBC to assess white blood cell count, hemoglobin and differential, BMP to assess electrolytes and renal function. CBC does not show an elevated white blood count count. Hemoglobin is concentrated at 17.1 is actually lower than previous. Hematocrit is also appropriately concentrated at 55.8. Renal function electrolytes are normal high-sensitivity troponin is 66 which is where it was at on her previous admission. She is not complaining of any chest pain and I do not believe this is ACS. BNP is elevated at 1242.8 which is lower than previous although she does have lower extremity edema and her chest x-ray on my interpretation shows mild CHF. The radiologist interprets this is agrees. Patient stable on her baseline oxygen. I spoke with Dr. Guillaume who is on-call for Dr. Rosales who recommended increasing her Lasix to 40 daily which was what she was on previously when discharged to the hospital. Patient will also be given a prednisone burst as she is wheezing. She is to use her albuterol at home. Family instructed to try to get as many daily weights as possible prior to the visit. They are to make a follow-up appointment. She is stable for discharge. Impression: 1. CHF exacerbation 2. COPD exacerbation Lab Data Attestation: I reviewed the patient's lab results. Labs: Laboratory Results - last 24 hr 06/27/22 06/27/22 06/27/22 14:05 14:05 14:05 WBC 7.2 RBC 5.22 Hgb 17.1 H Hct 55.8 H MCV 106.9 H MCH 32.8 H MCHC 30.6 L RDW Std Deviation 66.0 H RDW Coeff of Dae 16.4 H Plt Count TNP MPV 10.8 Immature Gran % (Auto) 0.300 Neut % (Auto) 66.7 Lymph % (Auto) 18.2 L Rush % (Auto) 12.3 H Eos % (Auto) 2.1 Baso % (Auto) 0.4 Absolute Neuts (auto) 4.8 Absolute Lymphs (auto) 1.31 Nucleated RBC % 0 Anisocytosis 1+ Macrocytosis 1+ Sodium 136 Potassium 4.7 Chloride 93 L Carbon Dioxide 40.0 H Anion Gap 3 L BUN 9 Creatinine 0.55 Estim Creat Clear Calc 97.46 Est GFR (MDRD) Af Amer 143 Est GFR (MDRD) Non-Af 118 BUN/Creatinine Ratio 16.3 Glucose 105 Calcium 9.7 Troponin I High Sens 66 H B-Natriuretic Peptide 1242.8 H Radiography Diagnostic Testing: Clinical Impression(s) from Imaging Studies Chest X-Ray 06/27/22 14:45 IMPRESSION: Prominence of the central pulmonary arteries. No acute abnormality seen. Electronically Signed: Vince Olivia MD at 15:06 EST Reading Location ID and State: [address] [place] [address] , Service support , Discharge Plan Triage Chief Complaint: General Illness ED Provider: Blake Proctor Dx/Rx/DC Orders Instructions: ED Heart Failure, Congestive (CHF) Prescriptions: New furosemide [Lasix] 40 mg tablet 40 mg PO DAILY Qty: 30 0RF No Action potassium chloride 20 mEq tablet extended release 20 meq PO DAILY Qty: 30 0RF ibuprofen 400 mg Tablet 400 mg PO Q6H PRN PRN (Reason: Pain 1-10 Or Fever) Qty: 0 0RF Mag 64 64 mg Tablet,Delayed Release (Dr/Ec) 128 mg PO BID Qty: 0 0RF Jv (with collagen) 7-7-1.5 gram Powder In Packet 1 packet PO BIDCM Qty: 0 0RF furosemide [Lasix] 40 mg tablet 40 mg PO DAILY Qty: 30 0RF Primary Care Provider: Marc Rosales Referrals: Marc Rosales MD [Primary Care Provider] - Disposition Disposition: Home, Self Care
[2022-06-27] MEDS: Ipratropium/Albuterol Sulfate 3 ML AMPUL.NEB INHALATION (14:30)
[2022-06-27 14:37] VITALS: PULSE 90; RESP 17
[2022-06-27 14:43] LABS: Absolute Lymphocyte Count 1.31 X10^3/uL (0.83-4.51); Absolute Neutrophil Count 4.8 X10^3/uL (2.0-7.7); Basophil# 0.03 X10^3/uL; Basophil% 0.4 % (0-1); Eosinophil# 0.15 X10^3/uL; Eosinophils% 2.1 % (0-5); Hemoglobin 17.1 g/dL (12.0-15.0); Lymphocyte # 1.31 X10^3/ul (0.83-4.51); Lymphocyte % 18.2 % (19-41); Mean Corp Hgb Conc 30.6 g/dL (32-36); Mean Corpuscular Hgb 32.8 pg (27.0-32.0); Mean Corpuscular Volume 106.9 fL (81-99); Mean Platelet Vol. 10.8 fl (6.2-12.0); Monocyte# 0.89 X10^3/uL; Monocyte% 12.3 % (0-10); NRBC Flagged by Analyzer 0 % (0-5); Neutrophil # 4.81 X10^3/uL (2.7-7.7); Neutrophil % 66.7 % (47-70); POSITIVE COUNT YES; POSITIVE MORPHOLOGY YES; RBC Distribution Width CV 16.4 % (11.6-14.6); Red Blood Count 5.22 M/mm3 (4.2-5.4); White Blood Count 7.2 K/mm3 (4.4-11.0)
--- NOTE | 2022-06-27 14:45 | RAD_ITS ---
STUDY: X-RAY CHEST REASON FOR EXAM: Female, 61 years old. Chest pain TECHNIQUE: Single AP portable view of the chest. COMPARISON: Comparison is made with prior study dated 05/02/2022. FINDINGS: The lungs are clear and expanded. Scattered calcified granulomas. There is no demonstrated pleural abnormality. Normal size heart. Normal mediastinum and gretel. There is prominence of the pulmonary hilar arteries without peripheral pulmonary vascular congestion, suggesting pulmonary hypertension. Normal visualized aortic arch and descending thoracic aorta. Normal visualized thoracic spine. Normal visualized ribs, clavicles, and shoulders. There is no demonstrated abnormality of the visualized soft tissue structures of the upper abdomen. RAD/Chest 1 View (Portable) IMPRESSION: Prominence of the central pulmonary arteries. No acute abnormality seen. Electronically Signed: Vince Olivia MD at 15:06 EST ,
[2022-06-27] MEDS: MethylPREDNISolone 125 MG/2 ML Vial IV (14:53)
[2022-06-27 14:55] LABS: Anion Gap 3 (5-15); BUN 9 mg/dL (7-18); BUN/Creat Ratio 16.3 RATIO (10-20); Calcium,Total 9.7 mg/dL (8.5-10.1); Chloride 93 mmol/L (98-107); Creatinine, Serum 0.55 mg/dL (0.55-1.02); EST Glomerular Filtration Rate 118 mL/min (>60); Est Glom Filt Rate - Afr Amer 143 mL/min (>60); Estimated Creatinine Clearance 97.46 ml/min; Glucose 105 mg/dL (74-106); Potassium 4.7 mmol/L (3.5-5.1); Sodium Level 136 mmol/L (136-145); Troponin-I HS 66 pg/mL (3.0-54.0)
[2022-06-27 14:56] VITALS: PULSE 74
[2022-06-27 15:19] LABS: Differential Indicated SCAN CRITERIA MET; Hematocrit 55.8 % (37-47)
[2022-06-27 15:20] LABS: Anisocytosis 1+
[2022-06-27 15:21] LABS: Macrocytosis 1+
[2022-06-27] MEDS: Furosemide 40 MG/4 ML Vial IV (16:07)
[2022-06-27 16:08] VITALS: BP 120/66; PULSE 67; RESP 16; O2SAT 95
== END 2022-06-27 16:09 | disposition home or self-care (01) ==
PROVIDERS: Emergency Provider Student in an Organized Health Care Education/Training Program; PCP Family Medicine; Visit Provider Student in an Organized Health Care Education/Training Program
DX: J44.1 Chronic obstructive pulmonary disease with (acute) exacerbation (principal); I11.0 Hypertensive heart disease with heart failure; I50.9 Heart failure, unspecified; F17.200 Nicotine dependence, unspecified, uncomplicated
CPT/HCPCS: 71045; 80048; 83880; 84484; 85025; 93005; 94640; 96374; 96375; 99282; A4216; J1940

== ENCOUNTER 2022-08-01 10:19 | Day surgery (SDC) | payer MEDICARE, SELFPAY ==
[2022-07-31 16:57] VITALS: BMI 26.2
[2022-08-01 10:39] LABS: Hematocrit 54.3 % (37-47); Hemoglobin 16.3 g/dL (12.0-15.0); Mean Corpuscular Hgb 31.9 pg (27.0-32.0); Mean Corpuscular Volume 106.3 fL (81-99); Mean Platelet Vol. 9.7 fl (6.2-12.0); Platelet Count 233 K/mm3 (150-450); RBC Distribution Width CV 13.5 % (11.6-14.6); RBC Distribution Width SD 54.1 fl (35.1-43.9); Red Blood Count 5.11 M/mm3 (4.2-5.4); White Blood Count 7.6 K/mm3 (4.4-11.0)
[2022-08-01 10:52] LABS: Anion Gap 3 (5-15); BUN 7 mg/dL (7-18); BUN/Creat Ratio 14.8 RATIO (10-20); Calcium,Total 10.7 mg/dL (8.5-10.1); Chloride 92 mmol/L (98-107); Creatinine, Serum 0.47 mg/dL (0.55-1.02); EST Glomerular Filtration Rate 140 mL/min (>60); Est Glom Filt Rate - Afr Amer 170 mL/min (>60); Estimated Creatinine Clearance 112.57 ml/min; Glucose 111 mg/dL (74-106); Potassium 4.5 mmol/L (3.5-5.1); Sodium Level 138 mmol/L (136-145)
--- NOTE | 2022-08-01 13:07 | PCM.OPRPT ---
Report of Operation Date of Procedure: 08/01/22 Pre-Operative Diagnosis: atherosclerosis with ulceration, left lower extremity Post-Operative Diagnosis: same Surgery/Procedure Performed:: aortogram, left lower extremity runoff Description of Surgical Findings:: sfa occlusion with above knee popliteal reconstitution Surgeon: Angel Leo Type of Anesthesia: Local and Sedation,Conscious Description of Procedure: HPI: Patient is a 62-year-old female with significant medical comorbidities and recent debility, with wounds on bilateral lower extremities. She had noninvasive vascular studies which revealed arterial insufficiency bilaterally which would not provide adequate predictor of healing. She had CT angiography which revealed bilateral SFA total occlusions what appeared to be popliteal reconstitution's. She is taken off angiography with potential intervention of the left superficial femoral artery occlusion. Description of procedure: Upon obtaining informed consent and verification correct patient procedure site the patient was taken to the [facility] where she was positioned prepped and draped in usual sterile fashion. Timeout was performed and conscious sedation was administered with Versed and fentanyl. Skin over the right common femoral artery was anesthetized 1% lidocaine and the vessel accessed under ultrasound guidance with a micropuncture needle and wire. This was then exchanged for micropuncture sheath through which injection femoral angiogram revealed satisfactory position with no extravasation or dissection. Through the micro sheath Bentson wire was advanced in the abdominal aorta and the micropuncture sheath exchanged for a short 5 Malagasy sheath. Omni Flush catheter was advanced abdominal aorta and digital traction aortogram pelvic angiogram was performed. We then navigated to the contralateral iliac system advancing catheter in the distal external iliac artery. From this position injection subtraction angiography left lower extremities performed which confirmed diffuse disease of the superficial femoral artery with mid SFA occlusion, reconstitution of the above-knee popliteal artery. She had preserved popliteal and tibial runoff with no significant atherosclerotic burden aside from her SFA. It was felt that this was a potentially treatable lesion with endovascular techniques so the Bentson wire was advanced and the 5 Malagasy sheath and Omni Flush catheter exchanged out for 6 Malagasy destination sheath. This advanced in the position within the left common femoral artery and from this position hand-injection angiography performed confirming anatomy of the occlusive lesion. Using a command 18 wire and quick cross catheter we engaged the proximal portion of the lesion which felt very dense and calcified with feedback to the wire. Ultimately we are able to engage the top cap however our wire fairly quickly entered into a subintimal plane. We were able to traverse the lesion and had what appeared to be favorable wire position that suggested either reentry into the true lumen whether we had been within the true lumen throughout. I then advanced the catheter performed hand-injection angiography which was unfortunately confirmed that we are within a branch within the true lumen of a geniculate vessel. We pulled our wire catheter back and redirected making multiple efforts to follow the SFA. Ultimately despite multiple efforts with different wires and catheters were unable to maintain position within true lumen or even stay within the dissection plane along the primary vessel beyond the occlusion, with each effort ending within a sidebranch. Since we are unable to maintain position within the some intimal plane beyond the occlusion we are unable to use any reentry devices. After exhausting all reasonable efforts decided that no further attempts would be of any utility and would increase the risk of complication. At this point Watch-Sites wire is readvanced and the 6 Malagasy sheath exchanged for short 6 Malagasy sheath. Minx closure device and then deployed followed by 2 minutes of manual pressure after which the patient was taken to the recovery room with dissipated discharge home. Radiograph interpretation: Abdominal aorta patent, normal caliber with mild calcified atherosclerosis. Right common iliac artery widely patent with no significant atherosclerosis or stenosis. Right internal and external iliac arteries widely patent with no significant atherosclerosis or stenosis. Right common femoral artery widely patent no atherosclerosis or stenosis Left common iliac artery widely patent with no significant atherosclerosis or stenosis widely patent atherosclerosis or stenosis. Left common femoral artery widely patent with no atherosclerosis or stenosis left profundofemoral artery large caliber vessel with no significant atherosclerosis. Left superficial femoral artery severe stenosis long segment lesion in the proximal segment, with mid segment total occlusion and reconstitution of the SFA distally in a highly diseased vessel. The above-knee popliteal was normal in caliber with no significant atherosclerosis or stenosis. The remainder of the popliteal arteries patent with no significant atherosclerosis. Two-vessel runoff via the peroneal and anterior tibial arteries to the foot, with a moderately diseased but patent posterior tibial artery with delayed filling.
[2022-08-01 16:41] LABS: ACT Activated Clotting Time 275 sec (74-137)
== END 2022-08-01 16:15 | disposition home or self-care (01) ==
PROVIDERS: PCP Family Medicine; Referring Provider Surgery Trauma Surgery; Visit Provider Surgery Trauma Surgery
DX: I70.245 Atherosclerosis of native arteries of left leg with ulceration of other part of foot (principal); L97.529 Non-pressure chronic ulcer of other part of left foot with unspecified severity; I11.0 Hypertensive heart disease with heart failure; I50.9 Heart failure, unspecified; F17.200 Nicotine dependence, unspecified, uncomplicated; Z79.82 Long term (current) use of aspirin; Z79.899 Other long term (current) drug therapy; Z86.73 Personal history of transient ischemic attack (TIA), and cerebral infarction without residual deficits
CPT/HCPCS: 36200; 36245; 36415; 75625; 75710; 76937; 80048; 85027; 85347; 99152; 99153; C1760; C1769; J7040; Q9967; C1887; C1894

== ENCOUNTER 2022-08-04 13:04 | Outpatient (CLI) | payer MEDICARE, SELFPAY ==
--- NOTE | 2022-08-04 13:06 | VDLE_ITS ---
Reason For Study: Surgical planning RIGHT LEFT GSV junction, 0.35 x 0.37 cm. GSV junction, 0.40 x 0.42 cm. GSV prox thigh, 0.34 x 0.34 cm. GSV prox thigh, 0.34 x 0.34 cm. GSV mid thigh, 0.29 x 0.31 cm. GSV mid thigh, 0.39 x 0.38 cm. GSV distal thigh, 0.25 x 0.28 cm. GSV distal thigh, 0.32 x 0.32 cm. GSV knee, 0.32 x 0.31 cm. GSV knee, 0.31 x 0.31 cm. GSV prox calf, 0.34 x 0.34 cm. GSV prox calf, 0.32 x 0.33 cm. GSV mid calf, 0.33 x 0.34 cm. GSV mid calf, 0.26 x 0.25 cm. GSV distal calf, 0.32 x 0.31 cm. GSV distal calf, 0.22 x 0.22 cm. SSV prox, 0.36 x 0.41 cm. ASV from junction, 0.28 x 0.28 cm. SSV mid, 0.40 x 0.42 cm. ASV prox thigh, 0.32 x 0.32 cm. SSV distal, 0.33 x 0.37 cm. ASV mid thigh, 0.22 x 0.22 cm. ASV distal thigh, 0.16 x 0.17 cm. GSV and SSV are compressible. SSV prox, 0.22 x 0.22 cm. Procedure SSV mid, 0.27 x 0.28 cm. This is a venous duplex using B-mode, color SSV distal, 0.29 x 0.30 cm. flow and spectral Doppler. Exam performed in department. GSV, ASV from junction and SSV are compressible. VL/Saphenous Vein Mapping, Bilat Interpretation Summary Right greater and small saphenous veins patent with measurements above. Left greater, small, and accessory saphenous veins patent with measurements abo ve. Ordering Physician: Emmy Guadalupe Referring Physician: Marc Rosales Performed By: Miriam Oropeza RVT
== END 2022-08-04 23:59 | disposition home or self-care (01) ==
LOC: CVS 13:05
PROVIDERS: PCP Family Medicine; Visit Provider Physician Assistant
DX: Z01.818 Encounter for other preprocedural examination (principal); I70.25 Atherosclerosis of native arteries of other extremities with ulceration; L97.509 Non-pressure chronic ulcer of other part of unspecified foot with unspecified severity; M79.89 Other specified soft tissue disorders
CPT/HCPCS: 93970

== ENCOUNTER → 2022-08-18 | Outpatient (CLI) | payer MEDICARE, SELFPAY ==
--- NOTE | 2022-08-18 13:00 | ART_ITS ---
Reason For Study: ULCER Procedure A bilateral lower extremity continuous wave Doppler with analog waveform analysis,segmental pressures,and ankle brachial indexes without exercise. Left Segmental Pressures Left brachial= 167mmHg. Left thigh = 133mmHg. Left calf = 83mmHg. Left posterior tibial artery = 90mmHg. Left dorsalis pedis artery = 45mmHg. The left posterior tibial artery waveforms are monophasic. The left dorsalis pedis waveforms are monophasic. Right Segmental Pressures Right brachial= 166mmHg. Right thigh = 121mmHg. Right calf = 91mmHg. Right posterior tibial artery = 72mmHg. Right dorsalis pedis artery = 78mmHg. The right posterior tibial artery waveforms are monophasic. The right dorsalis pedis waveforms are monophasic. Indices The right resting ankle brachial index is 0.47. The right ankle brachial index by the posterior tibial artery is 0.43. The right ankle brachial index by the dorsalis pedis is 0.47. The left resting ankle brachial index is 0.54. The left ankle brachial index by the posterior tibial artery is 0.54. The left ankle brachial index by the dorsalis pedis is 0.27. VL/Lower Ext Art Exam w/o Exercis Interpretation Summary Right FERNANDO 0.47, severe arterial insufficiency. Doppler/PVR waveforms and segmen vesta pressures reveal [id number]-[id number]-yfgzonts femoral, distal SFA/popliteal disease. Left FERNANDO 0.54, severe arterial insufficiency. Doppler/PVR waveforms and segment al pressures reveal [id number]-inuigqvs femoral, distal SFA/popliteal disease. Ordering Physician: Emmy Guadalupe Referring Physician: ALBERTO BRADFORD MD Performed By: Yazmin Barajas RVT, RDCS
== END | disposition home or self-care (01) ==
PROVIDERS: PCP Family Medicine; Referring Provider Physician Assistant; Visit Provider Physician Assistant
DX: I73.9 Peripheral vascular disease, unspecified (principal)
CPT/HCPCS: 93923

== ENCOUNTER 2022-10-09 10:48 | Day surgery (SDC) | payer MEDICARE, SELFPAY ==
[2022-08-31 15:06] LABS: Hematocrit 49.7 % (37-47); Hemoglobin 15.1 g/dL (12.0-15.0); Mean Corp Hgb Conc 30.4 g/dL (32-36); Mean Corpuscular Hgb 31.1 pg (27.0-32.0); Mean Corpuscular Volume 102.3 fL (81-99); Mean Platelet Vol. 10.6 fl (6.2-12.0); Platelet Count 232 K/mm3 (150-450); RBC Distribution Width CV 13.1 % (11.6-14.6); RBC Distribution Width SD 49.1 fl (35.1-43.9); Red Blood Count 4.86 M/mm3 (4.2-5.4); White Blood Count 9.5 K/mm3 (4.4-11.0)
[2022-08-31 15:43] LABS: Anion Gap 4 (5-15); BUN 10 mg/dL (7-18); BUN/Creat Ratio 19.2 RATIO (10-20); Calcium,Total 10.9 mg/dL (8.5-10.1); Chloride 94 mmol/L (98-107); Creatinine, Serum 0.52 mg/dL (0.55-1.02); EST Glomerular Filtration Rate 126 mL/min (>60); Est Glom Filt Rate - Afr Amer 152 mL/min (>60); Glucose 110 mg/dL (74-106); Potassium 4.2 mmol/L (3.5-5.1); Sodium Level 136 mmol/L (136-145)
[2022-10-09] VITALS (8 sets, daily range): BP systolic 143–197; BP diastolic 54–84; PULSE 73–88; RESP 14–18; TEMP 36.2–37; O2SAT 95–100; BMI 22.2
[2022-10-09] MEDS: Lactated Ringers 1,000 ML 15 ML IV (11:41)
--- NOTE | 2022-10-09 14:15 | HP.PCM_ITS ---
History and Physical Allergies codeine Adverse Reaction (Verified 10/05/22 10:10) Vomitinghydrocodone bitartrate [From Vicodin] Adverse Reaction (Verified 10/05/22 10:10) Vomitingoxycodone HCl [From Percocet] Adverse Reaction (Verified 10/05/22 10:10) Vomiting Medications aspirin 81 mg tablet,delayed release 81 mg PO DAILY 06/13/22 [History Confirmed 10/05/22] furosemide 40 mg tablet (Lasix) 40 mg PO DAILY #30 tabs 06/27/22 [Rx Confirmed 10/05/22] carvedilol 3.125 mg tablet (Coreg) 3.125 mg PO BID 07/25/22 [History Confirmed 10/05/22] spironolactone 50 mg tablet 50 mg PO DAILY #90 tabs 08/09/22 [Rx Confirmed 10/05/22] Supplies for nebulizer machine #1 ea 08/24/22 [Rx Confirmed 10/05/22] ipratropium 0.5 mg-albuterol 3 mg (2.5 mg base)/3 mL nebulization soln 3 ml inhalation Q8H PRN shortness of breath or wheezing #180 mL 08/24/22 [Rx Confirmed 10/05/22] nebulizer and compressor #1 ea 08/24/22 [Rx Confirmed 10/05/22] PFSH Medical History? Alcohol abuse Alcohol use Cardiology follow-up encounter Chest pain Congestive heart failure (CHF) CVA (cerebral vascular accident) Elbow fracture Emphysema, unspecified High cholesterol History of CHF (congestive heart failure) History of echocardiogram History of edema History of pain when walking HTN (hypertension) Mild dementia On home oxygen therapy Open wound Peripheral arterial disease Polycythemia Post-menopausal Smoker Tobacco abuse Uses wheelchair Wears dentures Wears glasses Surgical History? History of brain surgery History of History of open reduction and internal fixation (ORIF) procedure History of vascular surgery Family History? Mother CancerGrandfather CVA (cerebral vascular accident) Social History? household members:? spouse housing:? house Smoking Status:? Heavy Smoker (>10/day) alcohol intake:? current alcohol intake frequency: 0-2 drinks per day substance use type:? marijuana caffeine:? Yes Type: coffee Number of servings: 2 HPI HPI HPI: SHAHLA VARELA, is a 62 F who presents to the office today for follow-up of R heel ulcer. Family reports the wound is stable, not larger. No recent concerns for infection. No N/V, F/C, increased pain or drainage. [facility] continues to assist with dressing changes at home. Surgical debridement of the wound is planned for Monday 10/09. ROS General General: Yes weight change; No appetite, fatigue, colon cancer, breast cancer or weakness HEENT HEENT: No difficulty swallowing, eye injury, eye surgery, swollen glands or hoarseness Endo Endocrine: No thyroid disease, diabetes mellitus, thyroid cancer, Hair loss, heat intolerance or cold intolerance Skin Skin: Yes rash; No changing moles Musc Musculoskeletal: No back problems, arthritis, rheumatoid arthritis, gout or joint pain Cardio Cardiovascular: No murmur, pacemaker, heart disease, atrial fibrillation, high blood pressure, heart attack, heart stent, palpitations, shortness of breat with exertion or chest pain Psych Psychiatric: No depression or anxiety Resp Respiratory: Yes shortness of breath, No sleep apnea, Yes cough, Yes COPD, No asthma, No emphysema and No wheezing Gastro Gastrointestinal: No abdominal pain, No nausea or vomiting, No diarrhea, No constipation, No blood in stool, No acid reflux, No hemorrhoids, No ulcers, No gallbladder problem and No black,tarry stools Joey Hematologic: Yes blood thinners, No blood disorders, No bleeding, No anemia and No blood clots Neuro Neurologic: Yes system reviewed and no additional complaints, except as documented and No weakness Exam Const General: cooperative, healthy appearing, comfortable, no acute distress and well developed Nutritional Appearance: well nourished Orientation: alert, awake, oriented to person, oriented to place and other (dementia) [facility] Head: normocephalic and atraumatic Ears: hearing grossly normal bilaterally Nose: external nose normal Eyes General: appearance normal, both eyes and all related structures EOM: EOM intact bilaterally Neck Neck: normal visual inspection, full ROM and trachea midline Resp Effort & Inspection: normal respiratory effort, symmetric chest movement, no audible wheezes, not labored, no stridor and no use of accessory muscles Auscultation: diminished lung sounds and wheezes Cardio Rate: regular rate Rhythm: regular rhythm Skin General: no rashes or lesions noted and no erythema Wounds: wounds noted Other: Right heel wound with moderate amount of slough, but pink granulation tissue in wound bed. Size appears overall stable from prior visit. No necrotic tissue, erythema or focal swelling, drainage, foul odor Neuro Cranial Nerves: CN's II-XI intact bilaterally and EOM intact bilaterally Speech: speech normal Extremities Pulses: Absent: Right Dorsalis Pedis Pulse (monophasic), Left Dorsalis Pedis Pulse (monophasic), Right Posterior Tibial Pulse (monophasic) and Left Posterior Tibial Pulse (monophasic) Lower Extremity Edema: +1: Bilateral Psych Appearance: grossly normal and well kempt Mental Status: mental status grossly normal Mood: congruent mood Speech and Movement: speech and movement normal Thought Content: normal Judgment: judgment good Coding Level of Care Code Off vis,est,level 2 Diagnoses Decubitus ulcer of right heel, stage 2? L89.612 Atherosclerosis of [place] artery of leg with ulceration of foot? 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
--- NOTE | 2022-10-09 15:03 | DCINST_ITS ---
Discharge Instructions Activity May shower in (days): 2 Additional Activity Instructions:: do not allow dressing to get wet with shower; cover with plastic or keep out Dressing / Incision Call your doctor if your incision/area has: Foul Smelling Discharge Call your doctor if you observe: Fever of 101 or Higher Remove Dressing in: 1 week (will remove in office; can remove gauze wrap if saturated, keep Adaptic in place) Follow Up Care Test Results: Test results from this visit will be discussed in further detail at your follow- up appointment, if applicable. Discharge Plan Admission Attending Provider: Angel Leo Primary Care Provider: Marc Rosales Discharge Orders/Prescriptions Prescriptions: Continued aspirin 81 mg tablet,delayed release (DR/EC) 81 mg PO DAILY spironolactone 50 mg tablet 50 mg PO DAILY Qty: 90 3RF carvedilol [Coreg] 3.125 mg tablet 3.125 mg PO BID Rx Instructions: must administer with a meal/food (DME) nebulizer and compressor Device See Rx Instructions .Route Qty: 1 0RF Rx Instructions: As directed (DME) Supplies for nebulizer machine See Rx Instructions .ROUTE .MEDSUPPLY Qty: 1 0RF Rx Instructions: Tubing, plastic nebulizer cups, renewable every 30-90 days per insurance. Use every 4-6 hours with liquid respiratory medication as directed. ipratropium-albuterol 0.5 mg-3 mg(2.5 mg base)/3 mL solution for nebulization 3 ml inhalation Q8H MDD 3 PRN (Reason: shortness of breath or wheezing) Qty: 180 3RF Rx Instructions: Use with nebulizer machine. furosemide [Lasix] 40 mg tablet 40 mg PO DAILY Qty: 30 0RF Referrals / Follow Up: Marc Rosales MD [Primary Care Provider] - Disposition Disposition (needs filled in before D/C Order can be placed): Home, Self Care
--- NOTE | 2022-10-09 15:06 | PCM.OPRPT ---
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 She is felt to have satisfactory perfusion for wound healing on the whole visit with debridement and application of placental stem cell tissue axiofil that she will finally heal. She presents now for debridement. Description of procedure: Upon obtaining form consent and verification correct patient procedure site patient taken the operating where she was positioned prepped and draped in usual sterile fashion. Conscious sedation administered by anesthesia time was performed. The wound was sharply debrided with curette down to viable bleeding granulation tissue with no significant necrosis noted. The debridement included skin and subcutaneous tissue with a total surface area of 4 cm?. There was some adherent fibrotic tissue as well as fairly dense exudate in the deeper aspect of the wound which was ultimately cleared with the curette and forceps. The wound was then copiously irrigated with saline and axiofil placental growth factor/stem cell tissue was then applied followed by Adaptic dry gauze and Curlex. The patient was then awake from anesthetic and taken the recovery room with anticipated discharged home.
== END 2022-10-09 18:52 | disposition home or self-care (01) ==
LOC: SDC 10:52 → AC 10:52
PROVIDERS: PCP Family Medicine; Referring Provider Surgery Trauma Surgery; Visit Provider Surgery Trauma Surgery
DX: L89.612 Pressure ulcer of right heel, stage 2 (principal); I70.25 Atherosclerosis of native arteries of other extremities with ulceration; L97.509 Non-pressure chronic ulcer of other part of unspecified foot with unspecified severity; J43.9 Emphysema, unspecified; I11.0 Hypertensive heart disease with heart failure; I50.9 Heart failure, unspecified; E78.00 Pure hypercholesterolemia, unspecified; F17.200 Nicotine dependence, unspecified, uncomplicated; Z79.82 Long term (current) use of aspirin; Z99.81 Dependence on supplemental oxygen; Z79.899 Other long term (current) drug therapy; Z86.73 Personal history of transient ischemic attack (TIA), and cerebral infarction without residual deficits
CPT/HCPCS: 00400; 36415; 80048; 85027; J7120; J2405

== ENCOUNTER → 2023-08-15 | Outpatient (CLI) | payer MEDICARE, SELFPAY ==
[2023-08-15 11:49] LABS: Absolute Lymphocyte Count 2.28 X10^3/uL (0.83-4.51); Absolute Neutrophil Count 3.9 X10^3/uL (2.0-7.7); Basophil# 0.03 X10^3/uL; Basophil% 0.4 % (0-1); Eosinophil# 0.66 X10^3/uL; Eosinophils% 8.8 % (0-5); Hematocrit 43.7 % (37-47); Hemoglobin 13.3 g/dL (12.0-15.0); Lymphocyte # 2.28 X10^3/ul (0.83-4.51); Lymphocyte % 30.4 % (19-41); Mean Corp Hgb Conc 30.4 g/dL (32-36); Mean Corpuscular Hgb 29.1 pg (27.0-32.0); Mean Corpuscular Volume 95.6 fL (81-99); Mean Platelet Vol. 10.9 fl (6.2-12.0); NRBC Flagged by Analyzer 0 % (0-5); Neutrophil # 3.91 X10^3/uL (2.7-7.7); Neutrophil % 52.1 % (47-70); Platelet Count 223 K/mm3 (150-450); RBC Distribution Width CV 13.2 % (11.6-14.6); RBC Distribution Width SD 46.6 fl (35.1-43.9); Red Blood Count 4.57 M/mm3 (4.2-5.4); White Blood Count 7.5 K/mm3 (4.4-11.0)
[2023-08-15 12:18] LABS: Vitamin D,25 Hydroxy 8.4 ng/mL
[2023-08-15 12:48] LABS: ALB/GLOB Ratio 1.1 RATIO (0.9-2.4); AST(SGOT) 29 U/L (15-37); Alanine Aminotransfer ALT/SGPT 48 U/L (13-56); Albumin, Serum 3.8 g/dL (3.2-5.0); Alkaline Phosphatase 110 U/L (45-117); Anion Gap 2 (5-15); BUN 12 mg/dL (7-18); BUN/Creat Ratio 19.2 RATIO (10-20); Calcium,Total 10.6 mg/dL (8.5-10.1); Chloride 105 mmol/L (98-107); Cholesterol 127 mg/dL (200); Creatinine, Serum 0.62 mg/dL (0.55-1.02); EST Glomerular Filtration Rate 102 mL/min (>60); Est Glom Filt Rate - Afr Amer 123 mL/min (>60); Globulin 3.5 g/dL (2.2-4.2); Glucose 97 mg/dL (74-106); High Density Lipoprotein 69 mg/dL; Potassium 4.2 mmol/L (3.5-5.1); Protein, Total 7.3 g/dL (6.4-8.2); Sodium Level 141 mmol/L (136-145); Thyroid Stim Hormone (TSH) 1.32 uIU/mL (0.358-3.74); Triglycerides 95 mg/dL; Very Low Density Lipoprotein 19 mg/dL (5-40)
--- OUTSIDE RECORDS SUMMARY | 2023-08-15 18:22 | XMS RPT_ITS | CCD ---
Author Name Unknown Address [address] [place] [address] Organization [facility] Care Team Providers Care Insurance Broker Name Role Phone Unavailable Primary Care Provider Unavailbrenden Juarez MD, Nik Mendoza Primary Care Provider [phone] Robel ROBIN, Nik Mendoza Primary Care Provider [phone] Marc Rosales MD Primary Care Provider MANISH KING Referring Unavailable ASTRID ARCHIBALD Attending Unavailable NIK JUAREZ Primary Care Unavailable DRAGAN ASTRID Referring Unavailable NIK JUAREZ Attending Unavailable NIK JUAREZ Primary Care Unavailable Allergies Allergy Classification Reported Allergen(s) Allergy Type Date of Onset Reaction(s) Facility (8 sources) Acetaminophen / oxyCODONE; Translations: [OXYCODONE-ACETAMI NOPHEN] Drug Allergy 01-20-2022 GI Upset [facility] (8 sources) Codeine; Translations: [CODEINE] Drug Allergy 09-07-2003 [facility] Work Phone: Medications Completed/Discontinued Medications Medication Drug Class(es) Dates Sig (Normalized) Sig (Original) aspirin 81 mg oral tablet (6 sources) Platelet Aggregation Inhibitor, Nonsteroidal Anti-inflammatory Drug Start: 01-15-2007 End: 02-02-2022 take 1 tablet by mouth once daily Aspirin 81 mg ORAL Tab Take one(1) tablet daily. 0 01/15/2007 02/02/2022 Discontinued (Discontinued by Patient) Problems Active Problems Problem Classification Problem Date Documented Date Episodic/Chronic Acute cerebrovascular disease (7 sources) Cerebral thrombosis; Translations: [Occlusion and stenosis of unspecified cerebral artery] Onset: 09-07-2003 10-12-2003 Chronic Anxiety disorders (7 sources) Anxiety; Translations: [Anxiety disorder, unspecified] Onset: 07-16-2012 07-16-2012 Chronic Chronic obstructive pulmonary disease and bronchiectasis (8 sources) Chronic bronchitis; Translations: [Unspecified chronic bronchitis] Onset: 07-16-2012 07-16-2012 Chronic Delirium, dementia, and amnestic and other cognitive disorders (8 sources) Multi-infarct dementia; 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 without behavioral disturbance] Onset: 03-15-2009 03-15-2009 Chronic Disorders of lipid metabolism (1 source) Hyperlipidemia; Translations: [Hyperlipidemia, unspecified] Onset: 02-01-2009 02-01-2009 Chronic Essential hypertension (2 sources) Benign essential hypertension; Translations: [Essential (primary) hypertension] Onset: 02-01-2009 02-01-2009 Chronic Other and ill-defined cerebrovascular disease (8 sources) Cerebrovascular disease; Translations: [Other cerebrovascular disease] Onset: 10-17-2006 10-17-2006 Chronic Other connective tissue disease (1 source) Pain in bilateral legs; Translations: [Pain in right leg] Episodic Other screening for suspected conditions (not mental disorders or infectious disease) (1 source) Patient encounter status; Translations: [Encounter for screening for lipoid disorders] Episodic Peripheral and visceral atherosclerosis (1 source) Peripheral vascular disease, unspecified; Translations: [Peripheral vascular disease, unspecified] Chronic Residual codes; unclassified (1 source) Peripheral edema; Translations: [Edema, unspecified] Episodic Residual codes; unclassified (1 source) Bilateral lower limb edema; Translations: [Localized edema] Episodic Spondylosis; intervertebral disc disorders; other back problems (2 sources) Acute low back pain; Translations: [Acute midline low back pain without sciatica] Episodic Substance-related disorders (15 sources) Tobacco user; Translations: [Nicotine dependence, unspecified, uncomplicated] Onset: 11-30-2008 11-30-2008 Chronic Unclassified (1 source) Acute midline low back pain without sciatica; Translations: [Acute midline low back pain without sciatica] Onset: 01-20-2022 Past or Other Problems Problem Classification Problem Date Documented Date Episodic/Chronic Other circulatory disease (2 sources) Other specified symptoms and signs involving the circulatory and respiratory systems; Translations: [Other symptoms involving cardiovascular system] Onset: 02-07-2022 Episodic Other connective tissue disease (1 source) Pain in right leg; Translations: [Bilateral lower extremity pain] Onset: 02-07-2022 Episodic Other connective tissue disease (1 source) Pain in left leg; Translations: [Bilateral lower extremity pain] Onset: 02-07-2022 Episodic Other hematologic conditions (8 sources) Secondary polycythemia; Translations: [Secondary polycythemia] Onset: 08-29-2012 06-13-2021 Episodic Results Test Name Value Interpretation Reference Range Facil ity Vital Signs Date Time Vital Sign Value Performing Clinician Susanne oneil 02-02-2022 09:19-0400 Body weight 56.7 kg Astrid Older 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 Work Phone: [facility] 02-02-2022 09:19-0400 Diastolic blood pressure 76 mm[Hg] Astrid Older 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 Work Phone: [facility] 02-02-2022 09:19-0400 Heart rate 93 /min Astrid Older 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 Work Phone: [facility] 02-02-2022 09:19-0400 Respiratory rate 14 /min Astrid Older 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 Work Phone: [facility] 02-02-2022 09:19-0400 SaO2% (BldA) [Mass fraction] 95 % Astrid Older 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 Work Phone: [facility] 02-02-2022 09:19-0400 Systolic blood pressure 128 mm[Hg] Astrid Older 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 Work Phone: [facility] 01-20-2022 14:00-0400 Body temperature 98.4 [degF] Manish Athy PA-C Work Phone: [facility] 01-20-2022 14:00-0400 Body weight 55.43 kg Manish Athy PA-C Work Phone: [facility] 01-20-2022 14:00-0400 Diastolic blood pressure 78 mm[Hg] Manish Athy PA-C Work Phone: [facility] 01-20-2022 14:00-0400 Heart rate 102 /min Manish Athy PA-C Work Phone: [facility] 01-20-2022 14:00-0400 Respiratory rate 16 /min Manish King PA-C Work Phone: [facility] 01-20-2022 14:00-0400 SaO2% (BldA) [Mass fraction] 97 % Manish King PA-C Work Phone: [facility] 01-20-2022 14:00-0400 Systolic blood pressure 130 mm[Hg] Manish King PA-C Work Phone: [facility] Encounters Encounter Date Encounter Type Care Provider Facility Start: 05-05-2022 ambulatory NIK JUAREZ Facantony lity:[facility] Start: 04-07-2022 Telephone encounter Nik thurman MD Work Phone: [facility] Procedures Date Procedure Procedure Detail Performing Clinician Start: 02-01-2009 Mammography Manish King PA-C Work Phone: Plan of Treatment Date Care Activity Detail Author Start: 02-02-2023 COLORECTAL CANCER SCREENING COLORECTAL CANCER SCREENING [facility] Payers Date Payer Category Payer Medicare MEDICARE MEDICAR E A AND B [id number] 1998-Present [phone] [address] [place] [address] Medicare [id number] 1998 Medicare MEDICARE MEDICAR E A AND B [id number] 1998-Present [phone] [place] [id number] Medicare [id number] 1998 Medicare [id number] Social History Date Type Detail Facility Start: 02-02-2022 Tobacco smoking stat us UTIS Smokes tobacco daily [facility] History of tobacco use Cigarette Smoker [facility] Work Phone: Start: 01-20-2022 End: 03-24-2022 Alcohol intake Current drinker of alcohol (finding) [facility] Start: 01-20-2022 End: 03-24-2022 Alcohol intake [facility] Start: 1960 Sex Assigned At Not on file [facility] Start: 01-10-2022 End: 01-20-2022 Exposure to SARS-CoV-2 (event) Not sure [facility] Start: 02-02-2022 Tobacco use and exposure Smokeless tobacco non-user [facility] Work Phone: Clinical Notes 10-17-2006 to 05-14-2022 Telephone Encounter - Greg Britt Ma - 04/10/2022 9:46 AM EDTTelephone Encounter - Nik Juarez MD - 04/07/2022 11:44 PM EDTTelephone Encounter - Amanda Lezama LPN - 04/07/2022 3:24 PM EDT Note Date & Type Note Facility 05-14-2022 Note HNO ID: [id number] Author: Nik Juarez MD Service: ? Author Type: Physician Type: Progress Notes Filed: 05/14/2022 3:48 PM Note Text: Cancelled appointment. PCP Marc Rosales MD, MD. [facility] 04-10-2022 Miscellaneous Notes Ramin notified - FYI per Ramin - pt is in the hospital again as of today. Okay POC. Ramin from [facility] Home Health calling with PT plan of care, 2 visits weekly for 3 weeks working on functional mobility training. documented in this encounter [facility] 04-06-2022 History of Presen t illness Narrative TRANSITION CARE MANAGEMENT (TCM) INITIAL CONTACT Analytical Tech Outreach Provider Action/FYI: Initial contact with patient post discharge, spoke to . Patient identified by name and . TRANSITION CARE MANAGEMENT INITIAL OUTREACH DOCUMENTATION: Date of Outreach: 04/06/2022 04/06/2022 Outreach Attempt 1: Contact Not Made - Date of Discharge 04/05/2022 04/05/2022 Some recent data might be hidden SUMMARY: -Pt discharged from on 04/05/22. -Admitted for: Do you have a hospital follow up appointment with your PCP? Appointment on with . MEDICATIONS: Many patients have questions or concerns about their medications once they are home. Were you prescribed any new medications? Were you told to hold any medications? Were any of your medications discontinued? Do you have any questions about getting or taking your medications? Your discharge instructions/After visit Summary (AVS) are important in guiding you through the recovery process. Is there anything I might help you understand? Do you have all the necessary equipment and supplies at home? Medical records from recent hospitalization: documented in this encounter [facility] 04-06-2022 Miscellaneous Notes Called and left a detailed voicemail notifying Rupal [facility] of providers message. Hospital phone number was left in case she had any questions. Shelley Driver RN Okay. I'll follow. Schedule TCM. Rupal [facility] called in and reports Pt will be discharged from the hospital today. They are asking if the provider would follow the home health care orders for PT/OT/Assisted. They plan on going out to see the Pt tomorrow for start of care. Phone number is a confidential line, and voice mail can be left. documented in this encounter [facility] 04-06-2022 Note Patient Outreach (IN TMWS) AVERYFADIA ([id number]) 1960 F Date Time Provider Department 04/06/22 NIK JUAREZ During your visit today, we recorded the following information about you: Shelley Drievr RN 05/08/2022 3:00 AM Signed TRANSITION CARE MANAGEMENT (TCM) INITIAL CONTACT Analytical Tech Outreach Provider Action/FYI: Initial contact with patient post discharge, spoke to . Patient identified by name and . TRANSITION CARE MANAGEMENT INITIAL OUTREACH DOCUMENTATION: Date of Outreach: 04/06/2022 04/06/2022 Outreach Attempt 1: Contact Not Made - Date of Discharge 04/05/2022 04/05/2022 Some recent data might be hidden SUMMARY: -Pt discharged from on 04/05/22. -Admitted for: Do you have a hospital follow up appointment with your PCP? Appointment on with . MEDICATIONS: Many patients have questions or concerns about their medications once they are home. Were you prescribed any new medications? Were you told to hold any medications? Were any of your medications discontinued? Do you have any questions about getting or taking your medications? Your discharge instructions/After visit Summary (AVS) are important in guiding you through the recovery process. Is there anything I might help you understand? Do you have all the necessary equipment and supplies at home? Medical records from recent hospitalization: Allergies As of Date: 04/06/2022 Noted Allergy Reaction CODEINE 09/07/2003 Comments: GI upset PERCOCET (OXYCODONE-ACETAMINOPHEN) 022 8 - GI Upset Date Reviewed: 02/02/2022 Reviewed by: Astrid Archibald APRN.AIRCRAFT ORDNANCE SYSTEMS MECHANIC - Fully Assessed Prescriptions as of 05/08/2022 - aspirin, enteric coated (ASPIRIN, ENTERIC COATED) 81 mg EC tablet Take 81 mg by mouth once daily. - meloxicam (MOBIC) 15 mg tablet Take 15 mg by mouth once daily. - multivitamin tablet Take 1 tablet by mouth once daily. - pravastatin (PRAVACHOL) 40 mg tablet Take 40 mg by mouth once daily. - lisinopril-hydroCHLOROthiazide (ZESTORETIC) 20-12.5 mg per tablet Take 1 tablet by mouth once daily. - naproxen sodium (ALEVE) 220 mg tablet Take 1 tablet by mouth twice daily with meals. TAKE WITH FOOD Problem List As Of Date 04/06/2022 Noted Resolved CEREBRAL THROMB NO MENTN INFARCT [I66.9] 09/07/2003 ASA CLASS III [1003] 11/12/2003 07/16/2012 Other abnormal Papanicolaou smear of cervix and*05/22/2005 07/17/2012 CVA [I67.89] 10/17/2006 Mild cognitive impairment, so stated [G31.84] 10/17/2006 07/16/2012 Allergic rhinitis, cause unspecified [J30.9] 10/17/2006 07/17/2012 TOBACCO USE DISORDER [F17.200] 11/30/2008 Essential hypertension, benign [I10] 02/01/2009 02/02/2022 Other and unspecified hyperlipidemia [E78.5] 02/01/2009 02/02/2022 Multi-Infarct Dementia [F01.50] 03/15/2009 Chronic bronchitis [J42] 07/16/2012 Anxiety [F41.9] 07/16/2012 Marijuana abuse [F12.10] 08/16/2012 Polycythemia, secondary [D75.1] 08/29/2012 Encounter Status:Closed by ESTHER POSADASUSEOmar on 05/08/22 [facility] 02-10-2022 Miscellaneous Notes Patient returned call and went over notes from Astrid Archibald Apparatus Engineering Technologist with understanding. assisted with transfer to steamer blocker to get appt set up. Called and left a voicemail for the Patient to call back and ask for a nurse to receive the providers message. Shelley Driver RN This is not something that can be treated in primary care. If left untreated and worsens she runs the risk of infection, ulcers and potentially amputations. Astrid Archibald APRN.CNP Patient returned call and given provider's message below. Patient declines to see specialist, states she only wants to see her primary doctor or Apparatus Engineering Technologist for this. States she is not interested in seeing a specialist. VM has not been set up, will try again later. Thelma Silva LPN Unable to reach - no option to LM. Will try again later. Please let the patient know the results of the testing on her legs showed peripheral arterial disease which is likely causing her leg pain and swelling. She will need to see a vascular specialist to discuss treatment options Astrid Archibald APRN.CNP documented in this encounter [facility] 02-02-2022 Note HNO ID: [id number] Author: Astrid Archibald APRN.CNP Service: ? Author Type: Nurse Practitioner Type: Progress Notes Filed: 02/02/2022 10:24 AM Note Text: CC: Patient presents with: [facility] Fadia Boothe is a 61 year old female who presents today for above. Previous PCP Dr. Marc Hanson. Has not seen in a while. Her main concern today is swelling BLE. This has been present for over one year. She does not keep legs elevated, limit salt intake or wear compression socks. Has tried OTC diuretic with minimal improvement. Reports leg pain bilaterally, mostly at night when she is laying in bed. Occasionally with ambulation. Chronic purple discoloration of both feet, always feel cold. Denies numbness, tingling, chest pain, SOB, palpitations, PND, orthopnea, weight gain. She was seen in urgent care a couple weeks ago for low back pain that began when she slipped in the bathroom and landed on her butt. X-ray showed possible fracture of the sacrococcygeal junction of indeterminate age. Patient reports pain has improved since then. Still taking Naproxen 1-2 times a day. Denies any new or worsening symptoms. No bowel/bladder dysfunction, leg weakness, saddle anesthesia. History of cerebral infarction secondary to carotid artery stenosis in 2003. She denies any residual symptoms however multi infarct dementia is listed in her medical history. She was prescribed pravastatin and daily ASA but hasn't taken in a long time. History of hypertension. Patient disagrees with this diagnosis, states it was made when she was experiencing a lot of pain from a broken elbow. She does not take any BP medications or monitor BP at home. She smokes about 1/2 PPD for the past 40 or so years. Has no desire to quit, I will get fat. She was smoking marijuana daily but quit because she couldn't afford it. Admits to frequent cough that is non-productive and wheezing. No SOB or hemoptysis. History of chronic bronchitis, patient is not aware of this diagnosis. History of alcohol abuse. At one point was drinking up to 24 cans of beer a day. She now only drinks 24 oz of beer daily. REVIEW OF SYSTEMS General: no fevers, no chills, no night sweats, no change in energy, and no significant changes in weight Respiratory: See HPI Cardiovascular: See HPI GI: Negative for abdominal discomfort, blood in stools or black stools, change in bowel habit, heart burn, nausea, vomiting : Negative for dysuria, frequency, incontinence, hematuria, hesitancy, and nocturia >1 RADIO TELEVISION TECHNICAL DIRECTOR: Negative for abnormal vaginal bleeding, abnormal vaginal discharge. Has not had pelvic or PAP in years. Psych: Negative for sleep disturbance, mood disorder and recent psychosocial stressors PAST MEDICAL HISTORY Diagnosis Date ABNORMAL PAP SMEAR OF CERVIX NEC AND HPV 05/22/2005 Acute, but ill-defined, cerebrovascular disease ; 05/20 ALLERGIC RHINITIS NOS 10/17/2006 CEREBRAL THROMB NO MENTN INFARCT 09/07/2003 Chronic bronchitis (HCC) 07/16/2012 Coronary atherosclerosis 2004 Essential hypertension, benign 02/01/2009 Multi-infarct dementia (HCC) 03/15/2009 Occlusion and stenosis of carotid artery with cerebral infarction 2002 ASO-Carotid W/O Infarction Other and unspecified hyperlipidemia 02/01/2009 Polycythemia, secondary 08/29/2012 Smoking. Tobacco use disorder 11/30/2008 PAST SURGICAL HISTORY Procedure Laterality Date DELIVERY ONLY , low cervical x2 EXPLORE CRANIOTOMY 11/17/03 Right temporal craniotomy EDAS EXPLORE CRANIOTOMY 12/25/03 Left temporal craniotomy EDAS PAST SURGICAL HISTORY OF foot surgery x2 ALLERGIES Codeine and Percocet [Oxycodone-Acetaminophen] MEDICATIONS naproxen sodium (ALEVE) 220 mg tablet Take 1 tablet by mouth twice daily with meals. TAKE WITH FOOD FAMILY HISTORY Problem Relation Age of Onset Breast Cancer Mother Breast Cancer Other cousin Social History Tobacco Use Smoking status: Every Day Packs/day: 0.50 Years: 40.00 Pack years: 20.00 Types: Cigarettes Smokeless tobacco: Never Vaping Use Vaping Use: Never used Substance Use Topics Alcohol use: Yes Alcohol/week: 35.0 standard drinks Types: 14 Cans of Beer (12oz) per week Drug use: Not Currently Types: Marijuana PHYSICAL EXAM BP 128/76 Pulse 93 Resp 14 Wt 56.7 kg (125 lb) SpO2 95% BMI 25.68 kg/m? Appearance: disheveled appearance and pleasant Behavior: tense Speech: slow responses to questions Mood: laughing inappropriately, bizarre comments Affect: labile Eyes: conjunctiva pink and moist, no icterus, sclera white, non-injected Neck: Thyroid normal size and symmetric without palpable nodules, Neck supple, No adenopathy Lymph nodes: No supraclavicular lymphadenopathy Lungs: Lung sounds diminished, wheezing throughout. No rhonchi or rales. Frequent, harsh cough during visit Heart: RRR without murmur, gallop, or rubs. No ectopy Lower Extremities: 1-2+ pitting edema. P (more content not included)... [facility] 02-02-2022 History of Presen t illness Narrative CC: Patient presents with: Establish Care HPI Fadia Boothe is a 61 year old female who presents today for above. Previous PCP Dr. Marc Hanson. Has not seen in a while. Her main concern today is swelling BLE. This has been present for over one year. She does not keep legs elevated, limit salt intake or wear compression socks. Has tried OTC diuretic with minimal improvement. Reports leg pain bilaterally, mostly at night when she is laying in bed. Occasionally with ambulation. Chronic purple discoloration of both feet, always feel cold. Denies numbness, tingling, chest pain, SOB, palpitations, PND, orthopnea, weight gain. She was seen in urgent care a couple weeks ago for low back pain that began when she slipped in the bathroom and landed on her butt. X-ray showed possible fracture of the sacrococcygeal junction of indeterminate age. Patient reports pain has improved since then. Still taking Naproxen 1-2 times a day. Denies any new or worsening symptoms. No bowel/bladder dysfunction, leg weakness, saddle anesthesia. History of cerebral infarction secondary to carotid artery stenosis in 2003. She denies any residual symptoms however multi infarct dementia is listed in her medical history. She was prescribed pravastatin and daily ASA but hasn't taken in a long time. History of hypertension. Patient disagrees with this diagnosis, states it was made when she was experiencing a lot of pain from a broken elbow. She does not take any BP medications or monitor BP at home. She smokes about 1/2 PPD for the past 40 or so years. Has no desire to quit, I will get fat. She was smoking marijuana daily but quit because she couldn't afford it. Admits to frequent cough that is non-productive and wheezing. No SOB or hemoptysis. History of chronic bronchitis, patient is not aware of this diagnosis. History of alcohol abuse. At one point was drinking up to 24 cans of beer a day. She now only drinks 24 oz of beer daily. REVIEW OF SYSTEMS General: no fevers, no chills, no night sweats, no change in energy, and no significant changes in weight Respiratory: See HPI Cardiovascular: See HPI GI: Negative for abdominal discomfort, blood in stools or black stools, change in bowel habit, heart burn, nausea, vomiting : Negative for dysuria, frequency, incontinence, hematuria, hesitancy, and nocturia >1 RADIO TELEVISION TECHNICAL DIRECTOR: Negative for abnormal vaginal bleeding, abnormal vaginal discharge. Has not had pelvic or PAP in years. Psych: Negative for sleep disturbance, mood disorder and recent psychosocial stressors PAST MEDICAL HISTORY Diagnosis Date ABNORMAL PAP SMEAR OF CERVIX NEC AND HPV 05/22/2005 Acute, but ill-defined, cerebrovascular disease ; 05/20 ALLERGIC RHINITIS NOS 10/17/2006 CEREBRAL THROMB NO MENTN INFARCT 09/07/2003 Chronic bronchitis (HCC) 07/16/2012 Coronary atherosclerosis 2004 Essential hypertension, benign 02/01/2009 Multi-infarct dementia (HCC) 03/15/2009 Occlusion and stenosis of carotid artery with cerebral infarction 2002 ASO-Carotid W/O Infarction Other and unspecified hyperlipidemia 02/01/2009 Polycythemia, secondary 08/29/2012 Smoking. Tobacco use disorder 11/30/2008 PAST SURGICAL HISTORY Procedure Laterality Date DELIVERY ONLY , low cervical x2 EXPLORE CRANIOTOMY 11/17/03 Right temporal craniotomy EDAS EXPLORE CRANIOTOMY 12/25/03 Left temporal craniotomy EDAS PAST SURGICAL HISTORY OF foot surgery x2 ALLERGIES Codeine and Percocet [Oxycodone-Acetaminophen] MEDICATIONS naproxen sodium (ALEVE) 220 mg tablet Take 1 tablet by mouth twice daily with meals. TAKE WITH FOOD FAMILY HISTORY Problem Relation Age of Onset Breast Cancer Mother Breast Cancer Other cousin Social History Tobacco Use Smoking status: Every Day Packs/day: 0.50 Years: 40.00 Pack years: 20.00 Types: Cigarettes Smokeless tobacco: Never Vaping Use Vaping Use: Never used Substance Use Topics Alcohol use: Yes Alcohol/week: 35.0 standard drinks Types: 14 Cans of Beer (12oz) per week Drug use: Not Currently Types: Marijuana PHYSICAL EXAM BP 128/76 Pulse 93 Resp 14 Wt 56.7 kg (125 lb) SpO2 95% BMI 25.68 kg/m Appearance: disheveled appearance and pleasant Behavior: tense Speech: slow responses to questions Mood: laughing inappropriately, bizarre comments Affect: labile Eyes: conjunctiva pink and moist, no icterus, sclera white, non-injected Neck: Thyroid normal size and symmetric without palpable nodules, Neck supple, No adenopathy Lymph nodes: No supraclavicular lymphadenopathy Lungs: Lung sounds diminished, wheezing throughout. No rhonchi or rales. Frequent, harsh cough during visit Heart: RRR without murmur, gallop, or rubs. No ectopy Lower Extremities: 1-2+ pitting edema. Purplish discoloration from mid calf to down, worse in the feet and toes. Feet are cold to the touch. Pedal pulses faint, fleeting. Cap refill 3 seconds. No calf tenderness or cording. Health maintenance reviewed with patient: PNEUMOCOCCAL(1 - PCV) Never done ANNUAL PCP TEAM CHRONIC DISEASE VISIT Never done HEPATITIS C SCREENING Never done HIV SCREENING Never done BP CONTROLLED (<130/80) Never done DTAP,TDAP,TD(1 - Tdap) Never done COLORECTAL CANCER SCREENING Never done SHINGRIX VACCINE(1 of 2) Never done MAMMOGRAM due on 02/01/2010 DIABETES SCREEN due on 08/29/2015 PAP TESTING due on 08/16/2017 HPV TESTING due on 08/16/2017 LIPID SCREEN due on 08/28/2017 COVID-19 VACCINE(1) due on 02/02/2023 INFLUENZA(1) due on 02/16/2022 ASSESSMENT/PLAN: 1. Bilateral lower extremity edema - ICD9: 782.3, ICD10: R60.0 (primary diagnosis) Suspect venous insufficiency. Needs further evaluation, see plan below. 2. Other specified symptoms and signs involving the circulatory and respiratory systems - ICD9: 785.9, 786.9, ICD10: R09.89 Suspect PAD - [facility] 3. Bilateral lower extremity pain - ICD9: 729.5, ICD10: M79.604, M79.605 As above - [facility] 4. Essential hypertension, benign - ICD9: 401.1, ICD10: I10 - BP at goal, patient no longer on antihypertensives - LIPID PANEL BASIC - COMP METABOLIC PANEL - CBC 5. 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 Recommend patient resume ASA and statin, she declined. 6. Encounter for medical examination to establish care - ICD9: V70.9, ICD10: Z00.00 Patient historically non-compliant. Reviewed age appropriate screenings, patient laughing and making jokes about screenings. I don't believe in these. Declined all. - Counseled on healthy diet and regular exercise - Colorectal cancer screening recommended - screening declined - Mammogram ordered - screening declined at this time - Lung cancer screening recommended, patient declined - Counseled patient on limiting alcohol intake to 1 drink per day - Patient was counseled [id number]-[id number] by myself (the billing provider) for the following immunizations and vaccine components, including side effects: COVID-19, Pneumococcal , and Shingrix. Patient declined all 7. Tobacco use disorder - ICD9: 305.1, ICD10: F17.200 - Cessation encouraged. - Physiologic and physical aspects of tobacco addiction as well as strategies for quitting were discussed. - Counseling was given focusing on the harmful effects of this addiction especially given the patient's medical condition(s) which will be worsened because of the chemicals in tobacco. - no desire to quit 8. Screening for lipid disorders - ICD9: V77.91, ICD10: Z13.220 - LIPID PANEL BASIC 9. Polycythemia, secondary - ICD9: 289.0, ICD10: D75.1 Recheck 10. Chronic bronchitis, unspecified chronic bronchitis type (HCC) - ICD9: 491.9, ICD10: J42 Chronic cough and wheezing. Patient denies SOB or need for inhalers. 11. Acute, but ill-defined, cerebrovascular disease - ICD9: 436, ICD10: I67.89 See #5 Prescription instructions reviewed with patient as applicable. Potential red flag symptoms discussed with the patient. Reviewed appropriate action plan to take if red flag symptoms occur. Patient agreeable to treatment plan. Astrid Archibald APRN.CNP documented in this encounter [facility] 01-20-2022 Note HNO ID: [id number] Author: Manish King PA-C Service: ? Author Type: Physician Food Technology Teacher Type: Progress Notes Filed: 01/20/2022 5:00 PM Note Text: This note was created using [employer]. Subjective Fadia Boothe is a 61 year old female. HPI Patient presents with low back pain over the past month. States she slipped in the bathroom landing on her butt. She states since then its been painful. She denies numbness or weakness in her legs. She has had pain off and on radiate to her legs. Denies any head injury or neck pain. She has tried advil for pain as needed. She avoids alcohol as she drinks 2-3 beers every day. Patient has had leg swelling she thinks for over a year as well. Its not any worse or better today. She was trying to elevate them at home and took an jnmx-mao-qkzvffo diuretic and she thinks when she elevated her legs that made her back hurt worse the past 2 days. No chest pain or shortness of breath. She also is noncompliant with all of her medications. She states she has a doctor that she sees but states she would like to switch. Review of Systems Constitutional: Negative. HENT: Negative. Respiratory: Negative. Cardiovascular: Positive for leg swelling. Negative for chest pain and palpitations. Gastrointestinal: Negative. Genitourinary: Negative. Musculoskeletal: Positive for back pain. All other systems reviewed and are negative. PAST MEDICAL HISTORY Diagnosis Date - ABNORMAL PAP SMEAR OF CERVIX NEC AND HPV 05/22/2005 - Acute, but ill-defined, cerebrovascular disease ; 05/20 - ALLERGIC RHINITIS NOS 10/17/2006 - CEREBRAL THROMB NO MENTN INFARCT 09/07/2003 - Chronic bronchitis (HCC) 07/16/2012 - Coronary atherosclerosis 2003 - Essential hypertension, benign 02/01/2009 - Multi-infarct dementia (HCC) 03/15/2009 - Occlusion and stenosis of carotid artery with cerebral infarction 2002 ASO-Carotid W/O Infarction - Other and unspecified hyperlipidemia 02/01/2009 - Polycythemia, secondary 08/29/2012 Smoking. - Tobacco use disorder 11/30/2008 Current Outpatient Medications Medication Sig Dispense Refill - sonya/corn/geneva/couch gras/hydrg (DIURETIC ORAL) Take by mouth. - Multivitamins Chew Take 1 tablet by mouth once daily. 0 - meloxicam 15 mg tablet Take 1 tablet by mouth daily with food. With food. (Patient not taking: Reported on 01/20/2022 ) 14 tablet 0 - lisinopril-hydrochlorothiazide 20-12.5 mg per tablet Take 1 tablet by mouth every morning. (Patient not taking: Reported on 01/20/2022 ) 30 tablet 3 - pravastatin 40 mg tablet Take 1 tablet by mouth daily at bedtime. For cholesterol. (Patient not taking: Reported on 01/20/2022 ) 30 tablet 3 - Aspirin 81 mg ORAL Tab Take one(1) tablet daily. (Patient not taking: ) 0 No current facility-administered medications for this visit. PAST SURGICAL HISTORY Procedure Laterality Date - DELIVERY ONLY , low cervical x2 - EXPLORE CRANIOTOMY 11/17/03 Right temporal craniotomy EDAS - EXPLORE CRANIOTOMY 12/25/03 Left temporal craniotomy EDAS - PAST SURGICAL HISTORY OF foot surgery x2 FAMILY HISTORY Problem Relation Age of Onset - Breast Cancer Mother - Breast Cancer Other cousin Social History Tobacco Use - Smoking status: Current Every Day Smoker Packs/day: 0.50 Years: 35.00 Pack years: 17.50 Types: Cigarettes - Smokeless tobacco: Never Used Substance Use Topics - Alcohol use: Yes Alcohol/week: 35.0 standard drinks Types: 14 Cans of Beer (12oz) per week - Drug use: Yes Types: Marijuana Comment: daily Objective BP 130/78 Pulse 102 Temp 36.9 ?C (98.4 ?F) Resp 16 Wt 55.4 kg (122 lb 3.2 oz) SpO2 97% BMI 25.11 kg/m? Physical Exam Vitals reviewed. Constitutional: Appearance: Normal appearance. HENT: Head: Normocephalic and atraumatic. Cardiovascular: Rate and Rhythm: Normal rate and regular rhythm. Heart sounds: Normal heart sounds. Pulmonary: Effort: Pulmonary effort is normal. Breath sounds: Normal breath sounds. Musculoskeletal: Cervical back: Neck supple. Right lower leg: Edema present. Left lower leg: Edema present. Comments: 1+ edema in lower legs bilaterally. No redness. No calf pain on palpation. Negative homans sign. Skin: General: Skin is warm and dry. Neurological: Mental Status: She is alert. Assessment and Plan ASSESSMENT/PLAN: 1. Acute midline low back pain without sciatica - ICD9: 724.2, ICD10: M54.50 (primary diagnosis) X-rays of the lumbar spine and sacrum and coccyx show an irregularity at the sacrococcygeal joint suggesting possible fracture there. This is subacute having happened a month ago. Recommended continue use of the donut she is sitting on. She can continue Advil or Tylenol. I did make her an establishing appointment in internal medicine in 2 weeks as well. - XR LUMBAR GENERAL 3V AP/LAT/L5-S1 - XR SACRUM/COCCYX 3V AP/LAT 2. Sacral back pain - ICD9: 724.6, ICD10: M53.3 3. Periphe (more content not included)... [facility] 01-20-2022 History of Presen t illness Narrative This note was created using [employer]. Subjective Fadia Boothe is a 61 year old female. HPI Patient presents with low back pain over the past month. States she slipped in the bathroom landing on her butt. She states since then its been painful. She denies numbness or weakness in her legs. She has had pain off and on radiate to her legs. Denies any head injury or neck pain. She has tried advil for pain as needed. She avoids alcohol as she drinks 2-3 beers every day. Patient has had leg swelling she thinks for over a year as well. Its not any worse or better today. She was trying to elevate them at home and took an dcmi-swb-csznlia diuretic and she thinks when she elevated her legs that made her back hurt worse the past 2 days. No chest pain or shortness of breath. She also is noncompliant with all of her medications. She states she has a doctor that she sees but states she would like to switch. Review of Systems Constitutional: Negative. HENT: Negative. Respiratory: Negative. Cardiovascular: Positive for leg swelling. Negative for chest pain and palpitations. Gastrointestinal: Negative. Genitourinary: Negative. Musculoskeletal: Positive for back pain. All other systems reviewed and are negative. PAST MEDICAL HISTORY Diagnosis Date ABNORMAL PAP SMEAR OF CERVIX NEC AND HPV 05/22/2005 Acute, but ill-defined, cerebrovascular disease ; 05/20 ALLERGIC RHINITIS NOS 10/17/2006 CEREBRAL THROMB NO MENTN INFARCT 09/07/2003 Chronic bronchitis (HCC) 07/16/2012 Coronary atherosclerosis 2004 Essential hypertension, benign 02/01/2009 Multi-infarct dementia (HCC) 03/15/2009 Occlusion and stenosis of carotid artery with cerebral infarction 2003 ASO-Carotid W/O Infarction Other and unspecified hyperlipidemia 02/01/2009 Polycythemia, secondary 08/29/2012 Smoking. Tobacco use disorder 11/30/2008 Current Outpatient Medications Medication Sig Dispense Refill sonya/corn/geneva/couch gras/hydrg (DIURETIC ORAL) Take by mouth. Multivitamins Chew Take 1 tablet by mouth once daily. 0 meloxicam 15 mg tablet Take 1 tablet by mouth daily with food. With food. (Patient not taking: Reported on 01/20/2022 ) 14 tablet 0 lisinopril-hydrochlorothiazide 20-12.5 mg per tablet Take 1 tablet by mouth every morning. (Patient not taking: Reported on 01/20/2022 ) 30 tablet 3 pravastatin 40 mg tablet Take 1 tablet by mouth daily at bedtime. For cholesterol. (Patient not taking: Reported on 01/20/2022 ) 30 tablet 3 Aspirin 81 mg ORAL Tab Take one(1) tablet daily. (Patient not taking: ) 0 No current facility-administered medications for this visit. PAST SURGICAL HISTORY Procedure Laterality Date DELIVERY ONLY , low cervical x2 EXPLORE CRANIOTOMY 11/17/03 Right temporal craniotomy EDAS EXPLORE CRANIOTOMY 12/25/03 Left temporal craniotomy EDAS PAST SURGICAL HISTORY OF foot surgery x2 FAMILY HISTORY Problem Relation Age of Onset Breast Cancer Mother Breast Cancer Other cousin Social History Tobacco Use Smoking status: Current Every Day Smoker Packs/day: 0.50 Years: 35.00 Pack years: 17.50 Types: Cigarettes Smokeless tobacco: Never Used Substance Use Topics Alcohol use: Yes Alcohol/week: 35.0 standard drinks Types: 14 Cans of Beer (12oz) per week Drug use: Yes Types: Marijuana Comment: daily Objective BP 130/78 Pulse 102 Temp 36.9 C (98.4 F) Resp 16 Wt 55.4 kg (122 lb 3.2 oz) SpO2 97% BMI 25.11 kg/m Physical Exam Vitals reviewed. Constitutional: Appearance: Normal appearance. HENT: Head: Normocephalic and atraumatic. Cardiovascular: Rate and Rhythm: Normal rate and regular rhythm. Heart sounds: Normal heart sounds. Pulmonary: Effort: Pulmonary effort is normal. Breath sounds: Normal breath sounds. Musculoskeletal: Cervical back: Neck supple. Right lower leg: Edema present. Left lower leg: Edema present. Comments: 1+ edema in lower legs bilaterally. No redness. No calf pain on palpation. Negative homans sign. Skin: General: Skin is warm and dry. Neurological: Mental Status: She is alert. Assessment and Plan ASSESSMENT/PLAN: 1. Acute midline low back pain without sciatica - ICD9: 724.2, ICD10: M54.50 (primary diagnosis) X-rays of the lumbar spine and sacrum and coccyx show an irregularity at the sacrococcygeal joint suggesting possible fracture there. This is subacute having happened a month ago. Recommended continue use of the donut she is sitting on. She can continue Advil or Tylenol. I did make her an establishing appointment in internal medicine in 2 weeks as well. - XR LUMBAR GENERAL 3V AP/LAT/L5-S1 - XR SACRUM/COCCYX 3V AP/LAT 2. Sacral back pain - ICD9: 724.6, ICD10: M53.3 3. Peripheral edema - ICD9: 782.3, ICD10: R60.9 This is chronic for the patient. Has not changed recently. Vital signs are stable. Lungs are clear. She is not having any chest pain or shortness of breath. Recommended elevation of the legs, salt restriction. She could try compression stockings. She will follow-up for the swelling with her PCP at establishing appointment. Red flags for ER care discussed. Manish King PA-C documented in this encounter [facility] 01-20-2022 Note HNO ID: [id number] Author: RT Yeni(R) Service: Radiology Author Type: Technologist Type: Progress Notes Filed: 01/20/2022 2:32 PM Note Text: Radiology Service Progress Note PATIENT NAME: Fadia Boothe DATE OF SERVICE: January 20, 2022 TIME: 2:20 PM PATIENT IDENTITY VERIFICATION COMPLETED USING TWO (2) IDENTIFIERS: Name and Date of confirmed by patient verbally. FALL SCREENING: Has the patient had 2 falls in the last year or 1 fall with injury or currently using an Ambulatory Assistive Device (Walker, Cane, Wheelchair, Crutches, etc.)? No PATIENT GENDER DATA: Female. status: : No status: NO. PATIENT RELEVANT IMPLANT DATA REVIEWED: Yes RADIOLOGY DEPARTMENT: General X-ray: Exam(s) Completed: Spine X-Ray(s): Lumbar AP / LAT / L5-S1 and Sacrum/Coccyx PERIPHERAL IV DATA: Not applicable SIGNED BY: RT Yeni(R) January 20, 2022 2:[address] [facility] documented as of this encounter (statuses as of 02/02/2022) [place] [id number] History of Past illness Narrative* Problem Noted Date Resolved Date Essential hypertension, benign 02/01/2009 0 02/02/2022 Other and unspecified hyperlipidemia 02/01/2009 02/02/2022 Mild cognitive impairment, so stated 10/17/2006 07/16/2012 Allergic rhinitis, cause unspecified 10/17/2006 07/17/2012 Other abnormal Papanicolaou smear of cervix and cervical HPV(795.09) 05/22/2005 07/17/2012 ASA CLASS III 11/12/2003 07/16/2012 documented as of this encounter (statuses as of 02/10/2022) [facility] History of Past illness Narrative* Problem Noted Date Resolved Date Essential hypertension, benign 02/01/2009 0 02/02/2022 Other and unspecified hyperlipidemia 02/01/2009 02/02/2022 Mild cognitive impairment, so stated 10/17/2006 07/16/2012 Allergic rhinitis, cause unspecified 10/17/2006 07/17/2012 Other abnormal Papanicolaou smear of cervix and cervical HPV(795.09) 05/22/2005 07/17/2012 ASA CLASS III 11/12/2003 07/16/2012 documented as of this encounter (statuses as of 03/24/2022) [facility] History of Past illness Narrative* Problem Noted Date Resolved Date Essential hypertension, benign 02/01/2009 0 02/02/2022 Other and unspecified hyperlipidemia 02/01/2009 02/02/2022 Mild cognitive impairment, so stated 10/17/2006 07/16/2012 Allergic rhinitis, cause unspecified 10/17/2006 07/17/2012 Other abnormal Papanicolaou smear of cervix and cervical HPV(795.09) 05/22/2005 07/17/2012 ASA CLASS III 11/12/2003 07/16/2012 documented as of this encounter (statuses as of 04/06/2022) [address]17-2009 History of Past illness Narrative* Problem Noted Date Resolved Date Essential hypertension, benign 02/01/2009 0 02/02/2022 Other and unspecified hyperlipidemia 02/01/2009 02/02/2022 Mild cognitive impairment, so stated 10/17/2006 07/16/2012 Allergic rhinitis, cause unspecified 10/17/2006 07/17/2012 Other abnormal Papanicolaou smear of cervix and cervical HPV(795.09) 05/22/2005 07/17/2012 ASA CLASS III 11/12/2003 07/16/2012 documented as of this encounter (statuses as of 05/02/2022) [facility] History of Past illness Narrative* Problem Noted Date Resolved Date Essential hypertension, benign 02/01/2009 0 02/02/2022 Other and unspecified hyperlipidemia 02/01/2009 02/02/2022 Mild cognitive impairment, so stated 10/17/2006 07/16/2012 Allergic rhinitis, cause unspecified 10/17/2006 07/17/2012 Other abnormal Papanicolaou smear of cervix and cervical HPV(795.09) 05/22/2005 07/17/2012 ASA CLASS III 11/12/2003 07/16/2012 documented as of this encounter (statuses as of 05/08/2022) [facility] History of Past illness Narrative* Problem Noted Date Resolved Date Mild cognitive impairment, so stated 10/17/2006 07/16/2012 Allergic rhinitis, cause unspecified 10/17/2006 07/17/2012 Other abnormal Papanicolaou smear of cervix and cervical HPV(795.09) 05/22/2005 07/17/2012 ASA CLASS III 11/12/2003 07/16/2012 documented as of this encounter (statuses as of 01/20/2022) [facility] Diagnosis Acute midline low back pain without sciatica- Primary Sacral back pain Disorders of sacrum Peripheral edema Edema [facility] Diagnosis Bilateral lower extremity edema- Primary Edema Other specified symptoms and signs involving the circulatory and respiratory systems Bilateral lower extremity pain Pain in limb Essential hypertension, benign 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) Encounter for medical examination to establish care Tobacco use disorder Screening for lipid disorders Polycythemia, secondary Chronic bronchitis, unspecified chronic bronchitis type (HCC) Acute, but ill-defined, cerebrovascular disease documented [facility] Diagnosis Peripheral arterial disease (HCC)- Primary Peripheral vascular disease, unspecified documented in this encounter [facility] for referral (narrative)* Diagnostic Procedure Only (Urgent) - Closed Specialty Diagnoses / Procedures Referred By Contac t Referred To Contact XR IMAGING Diagnoses Acute midline low back pain without sciatica Procedures XR SACRUM/COCCYX 3V AP/LAT RADEX SACRUM & COCCYX MINIMUM 2 VIEWS Manish King PA-C [address] [place] [address] Xr Imaging Referral ID Status Reason Start Date Expiration Date V isits Requested Visits Authorized [id number] Closed Auto-Generate d Referral 01/20/2022 02/19/2023 1 1 * Diagnostic Procedure Only (Urgent) - Closed Specialty Diagnoses / Procedures Referred By Contac t Referred To Contact XR IMAGING Diagnoses Acute midline low back pain without sciatica Procedures XR LUMBAR GENERAL 3V AP/LAT/L5-S1 RADEX SPINE LUMBOSACRAL 2/3 VIEWS Manish King PA-C [address] [place] [address] Xr Imaging Referral ID Status Reason Start Date Expiration Date V isits Requested Visits Authorized [id number] Closed Auto-Generate d Referral 01/20/2022 02/19/2023 1 1 [facility] Outpatient Procedure (Routine) - Authorized Specialty Diagnoses / Procedures Referred By Contac t Referred To Contact [facility] Diagnoses Bilateral lower extremity pain Other specified symptoms and signs involving the circulatory and respiratory systems Procedures [facility] NON-INVASIVE PHYSIOLOGIC STUDY EXTREMITY 3 Astrid Gregory APRN.CNP [address] [place] [address] [facility] [address] [place] [address] Referral ID Status Reason Start Date Expiration Date Visits Requested Visits Authorized [id number] Authorized Auto-Generat ed Referral 02/02/2022 02/02/2023 1 1 [facility] Reason for Referral Specialty Diagnoses / Procedures Referred By Contac t Referred To Contact Vascular Surgery Diagnoses Peripheral arterial disease (HCC) Procedures CONSULT TO VASCULAR SURGERY OFFICE/OUTPATIENT NEW HIGH MDM 60-74 MINUTES Older, Astrid, 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 [address] [place] [address] Referral ID Status Reason Start Date Expiration Date Visits Requested Visits Authorized [id number] Authorized PCP Requested Referral 02/08/2022 02/08/2023 1 1 Summary Purpose Family History No Family History Records Found Advance Directives No Advanced Directives Records Found Additional Source Comments Source Comments (unrecognize d section and content) In the event this informatio n is protected by the Federal Confidentiality of Alcohol and Drug Abuse Patient Records regulations: The Federal rules restrict any use of the information to criminally investigate or prosecute any alcohol or drug abuse patient.[facility] the event this information is protected by the Federal Confidentiality of Alcohol and Drug Abuse Patient Records regulations: The Federal rules restrict any use of the information to criminally investigate or prosecute any alcohol or drug abuse patient.[facility] the event this information is protected by the Federal Confidentiality of Alcohol and Drug Abuse Patient Records regulations: The Federal rules restrict any use of the information to criminally investigate or prosecute any alcohol or drug abuse patient.[facility] the event this information is protected by the Federal Confidentiality of Alcohol and Drug Abuse Patient Records regulations: The Federal rules restrict any use of the information to criminally investigate or prosecute any alcohol or drug abuse patient.[facility] the event this information is protected by the Federal Confidentiality of Alcohol and Drug Abuse Patient Records regulations: The Federal rules restrict any use of the information to criminally investigate or prosecute any alcohol or drug abuse patient.[facility] the event this information is protected by the Federal Confidentiality of Alcohol and Drug Abuse Patient Records regulations: The Federal rules restrict any use of the information to criminally investigate or prosecute any alcohol or drug abuse patient.[facility] the event this information is protected by the Federal Confidentiality of Alcohol and Drug Abuse Patient Records regulations: The Federal rules restrict any use of the information to criminally investigate or prosecute any alcohol or drug abuse patient.[facility] Reason for Visit (unrecogniz ed section and content) Reason Comments Establish Care Reason Comments Results Reason Comments Orders Reason Comments PT plan of care Care Teams (unrecognized sec tion and content) Insurance Broker Relationship Specialty Start Date End Date Nik Juarez MD [address] [facility], [place] [phone] PCP - General Internal Medicine 02/02/22 Insurance Broker Relationship Specialty Start Date End Date Nik Juarez MD [address] [facility], [place] [id number] PCP - General Internal Medicine 02/02/22 Insurance Broker Relationship Specialty Start Date End Date Nik Juarez MD [address] [facility], [place] [phone] PCP - General Internal Medicine 02/02/22 Insurance Broker Relationship Specialty Start Date End Date Nik Juarez MD [address] [facility], [place] [phone] PCP - General Internal Medicine 02/02/22 05/03/22 Marc Rosales MD [address] [facility] [address] [place], [place] [id number] PCP - General Family Medicine 05/05/22 INFORMATION SOURCE (unrecogn ized section and content) FOR RECORDS PERTAINING TO PATIENTS WHO ARE OR HAVE BEEN ENROLLED IN A CHEMICAL DEPENDENCY/SUBSTANCEABUSE PROGRAM, SOME INFORMATION MAY BE OMITTED. This clinical summary was aggregated from multiple sources. Caution should be exercised in using it in the provision of clinical care. This summary normalizes information from multiple sources, and as a consequence, information in this document may materially change the coding, format and clinical context of patient data. In addition, data may be omitted in some cases. CLINICAL DECISIONS SHOULD BE BASED ON THE PRIMARY CLINICAL RECORDS. [employer] [facility]. provides no warranty or guarantee of the accuracy or completeness of information in this document.
== END | disposition home or self-care (01) ==
LOC: MFPLAB 09:54
PROVIDERS: PCP Family Medicine; Visit Provider Family Medicine
DX: I50.9 Heart failure, unspecified (principal)
CPT/HCPCS: 36415; 80053; 80061; 82306; 84443; 85025

== ENCOUNTER 2023-11-05 14:30 | Outpatient (RCR) | payer MEDICARE, SELFPAY ==
--- NOTE | 2023-09-04 13:55 | HP.PTEVAL_ITS ---
Patient's Visit Information Visit Information Visit Information: SHAHLA VARELA is a 63 year old F referred to Physical Therapy by Dr. Marc Rosales MD with a diagnosis of debility. Date of Evaluation: 09/04/23 Physical Therapist: THERESE Moe Visit Plan Frequency: 2x /Week Duration: 2 Months Plan: 2X/ week for 8 weeks for LE strength, posture, gait training, endurance, balance with HEP May time to see how long takes to walk a lap around dept Subjective Subjective: Pt lives with her . She is on 3 L of O2 as needed especially when moving around. Walking back with rollator was a long walk for her. She has 5 feet to computer and 25 feet to bathroom at home. She uses the rollator all the time unless in a wheelchair at night after drinking. She saw Dr Hanson for a regular check up cause she told her Dr she could not walk. PT really helped her last time. She has no trouble out of chairs. She sleeps in her recliner. She feels that her legs are weak. She has help with bathing and showering. She sleeps good. She has no pain. She has steps going outside and hangs onto railing and does them. Objective Objective: Gait: walks with rollator with flexed posture and small steppage gait. reports that when she first gets ups he shuffles and has to help her. Her swing leg does not pass stance leg Sit to stand: needs US to help get up but able to stand up on first attempt.. Reaches and grabs for walker or other chair to get up and get around Posture: very rounded thoracic and flexed and fw head.....explained how posture does not help breathing LE MMT: R hip flex 9.5 and L 9.2 R knee ext 11.6 and L 12.8 R knee flex 5.7 and L 4.8 Supine R hip abd 7.8 and 6.3 bridge: 1/2 normal ROM Struggles to roll side to side and afraid of falling off the side Tinetti 12 Balance/Special Test Scores Tinetti Balance Score: 8 Tinetti Gait Score: 4 Tinetti Balance & Gait Score: 12 Lower Extremity Functional Score: 19 Goals Goal 1:: I HEP Goal Time Frame: 6-8 Weeks Goal 2:: Be able to walk around dept 2 laps with more upright posture and longer stride length Goal Time Frame: 6-8 Weeks Goal 3:: Increase balance (tinetti was 12 at eval) Goal Time Frame: 6-8 Weeks Goal 4:: Be able to correct her sitting posture on command Goal Time Frame: 6-8 Weeks Rehabilitation Potential Rehabilitation Potential: Good Anticipated Interventions Patient/Client Instruction: Educate patient on: Condition and Plan of Care For the Purpose of:: To decrease pain, To increase ROM, To improve nutrient delivery to tissue, To improve muscle performance and motor function, To improve ability to perform ADL's, To increase tolerance to activity/condition/position, To improve performance and independence with ADL's, To improve ability of physical actions for home/community/work/leisure, To improve gait and locomotor functions, To improve health of tissue, To decrease soft tissue restriction, To increase flexibility/ROM, To improve endurance, To improve balance and To improve safety with gait Therapeutic Exercise to Include: Strength training, Endurance training, Balance training, Postural training, Gait and locomotor training, Neuromotor development, Active ROM, Dynamic Lumbar Stabilization and Scapular Strength/Stabilization For the Purpose of:: To increase ROM, To improve nutrient delivery to tissue, To improve muscle performance and motor function, To improve ability to perform ADL's, To increase tolerance to activity/condition/position, To improve performance and independence with ADL's, To decrease level of supervision to perform tasks, To improve ability of physical actions for home/community/work/leisure, To improve gait and locomotor functions, To improve health of tissue, To decrease soft tissue restriction, To increase flexibility/R OM, To improve endurance, To improve balance and To improve safety with gait Functional Training to Include: Gait training For the Purpose of:: To improve gait and locomotor functions, To improve balance and To improve safety with gait Text: Thank you for the opportunity to evaluate your patient. For Medicare and Medicare HMO plans, please review the plan of care and approve it. It will need to be FAXED BACK to us at [phone] for Medicare purposes. For Medicare only, by signing this I certify the plan of care. Please let me know if there are questions or concerns regarding this plan of care. Physician Signature: Date:
--- NOTE | 2023-09-04 15:43 | HP.OTEVAL ---
Patient's Visit Information Visit Information Visit Information: SHAHLA VARELA is a 63 year old F, referred to Occupational Therapy by Dr. Marc Rosales MD, with a diagnosis of debility. Date of Evaluation: 09/04/23 Occupational Therapist: Cathy Stokes Subjective Subjective: This 63 year old female pt arrives for OT eval stating i cant walk pt order for debility. pt states she is having more difficulty with basic everyday tasks. at baseline pt does receive assistance with donning bra as well as cooking. pt bathroom with tub bench she sits on and swing feet in to get in and out for showers. pt is on 3L 02 at baseline. pt does not go into community often. pt reports breaking R wrist at 48 years old and then elbow at 55 years old. pt uses a 4WW as means of mobility throughout the home. pt report Objective Objective/Observation: pt presents with forward rounded shoulders, decreased strength of BUEs especially at shoulders, decreased strength of biceps as well as construction safety consultant and pinch strength ROM Shoulder: wfl Elbow: wfl Forearm: wfl Wrist: wfl CMC: wfl MP: wfl IP: wfl Radial Abduction: wfl Palmar Abduction: wfl Opposition: wfl MP: wfl PIP: wfl DIP: wfl ROM Comments: BUE AROM WFL Strength Shoulder: R 8.5 pounds L 5 pounds Elbow: R 6.6 pounds L 7.8 pounds Application Packager: R 30 pounds L 20 pounds Lateral Pinch: R 12 pounds L 15 pounds Tripod Pinch: R 15 pounds L 15 pounds Strength Comments: pt is R hand dominant Edema Other: none noted on eval Sensation Sensation Comments: no numbness or tingling reported on eval Nine Hole Peg Right: 40 sec Left: 50 sec Quick DASH-Disab of Arm,Shoulder& Hand Quick DASH Score: 65.9075 Goals Goal:: pt will increase B construction safety consultant strength by 10 pounds within 4 weeks pt will increase B lateral as well as tripod pinch strength by 5 pounds within 4 weeks pt will increase B shoulder strength by 8 pounds within 4 weeks pt will increase B bicep strength by 8-10 pounds within 4 weeks Goal:: pt will improve 9 hole peg assessment time R hand 30 sec or less in order to improve FMC in hand manipulation for I in ADL tasks pt will improve 9 hole peg assessment time L hand 40 sec or less in order to improve FMC and in hand manipulation for I in ADl tasks Goal:: pt / caregiver will demonstrate 100% accuracy in UB strengthening HEP by 3rd session Goal:: pt will improve quick dash score to 55 or less in order to improve overall QOL as well as improved day to day performance Rehabilitation General Assessment: pt presents with increased weakness decreased stability increasing pt risk for falls and further debility Rehabilitation Potential: Good Anticipated Interventions Anticipated Interventions: A/AAROM/PROM, Strengthening, Joint Protection/Energy Conservation, Fine Motor Coord/Corey, ADL Training and Home Program Visit Plan Frequency: 1x/Week Duration: 4 Weeks General Plan: HEP carryover UB strengthening construction safety consultant strengthening pinch strengthening FMC and in hand manipulation TEXT: Thank you for the opportunity to evaluate your patient. For Medicare and Medicare HMO plans, please review the plan of care and approve it. It will need to be FAXED BACK to us at [phone] for Medicare purposes. Please let me know if there are questions or concerns regarding this plan of care. Physician Signature: Date:
--- NOTE | 2023-10-08 12:07 | HP.PTREVAL_ITS ---
Re-Evaluation Intro: Dr. Marc Rosales MD, It has been my pleasure to treat SHAHLA VARELA over the last 9 visits for debility. Please see the progress note below for an update on the physical therapy plan of care! Subjective Subjective: Pt wants to walk without the rollator and upset she is not. Pt is able to get out of a chair better Objective Objective/Function: Tinetti 16 Sit to stand: needs encouragement to lean FW and shift weight Fw with sit to stand and needs min a at times Walks with smaller steps with CGA approx 100 feet with not LOB but guarded steps Plan Plan Plan: Continue with sit to stand transfers to encourage weight shift FW, gait endurance with and without the rollator, general balance and strength. 2X/ week for 8 weeks for LE strength, posture, gait training, endurance, balance with HEP May time to see how long takes to walk a lap around dept Balance/Gait/Functional tests Balance/Special Test Scores Tinetti Balance Score: 11 Tinetti Gait Score: 5 Tinetti Balance & Gait Score: 16 Lower Extremity Functional Score: 60 Goals Goals Goal 1:: I HEP Goal Time Frame: 6-8 Weeks Goal Progress: Progressing Goal 2:: Be able to walk around dept 2 laps with more upright posture and longer stride length with least the restrictive device Goal Time Frame: 6-8 Weeks Goal Progress: Progressing Goal 3:: Increase balance (tinetti was 12 at eval) Goal Time Frame: 6-8 Weeks Goal 4:: Be able to correct her sitting posture on command Goal Time Frame: 6-8 Weeks Goal Progress: Progressing Anticipated Interventions Anticipated Interventions Patient/Client Instruction: Educate patient on: Condition and Plan of Care For the Purpose of:: To decrease pain, To increase ROM, To improve nutrient delivery to tissue, To improve muscle performance and motor function, To improve ability to perform ADL's, To increase tolerance to activity/condition/position, To improve performance and independence with ADL's, To improve ability of physical actions for home/community/work/leisure, To improve gait and locomotor functions, To improve health of tissue, To decrease soft tissue restriction, To increase flexibility/ROM, To improve endurance, To improve balance and To imp rove safety with gait Therapeutic Exercise to Include: Strength training, Endurance training, Balance training, Postural training, Gait and locomotor training, Neuromotor devel opment, Active ROM, Dynamic Lumbar Stabilization and Scapular Strength/Stabilization For the Purpose of:: To increase ROM, To improve nutrient delivery to tissue, To improve muscle performance and motor function, To improve ability to perform ADL's, To increase tolerance to activity/condition/position, To improve performance and independence with ADL's, To decrease level of supervision to perform tasks, To improve ability of physical actions for home/community/work/leisure, To improve gait and locomotor functions, To improve health of tissue, To decrease soft tissue restriction, To increase flexibility/ROM, To improve endurance, To improve balance and To improve safety with gait Functional Training to Include: Gait training For the Purpose of:: To improve gait and locomotor functions, To improve balance and To improve safety with gait Re-Evaluation Ending Re-evaluation ending: Please do not hesitate to contact me at [phone] by phone or if you have questions or concerns regarding this new plan of care! Sincerely, Carla Mcelroy MPT
--- NOTE | 2024-01-16 16:07 | HP.OT.NRP ---
Patient Information Patient Information: SHAHLA VARELA was seen in my office for initial evaluation on 09/04/23. The following Plan of Care was established for this patient: POC Established Initial Frequency: 1x/Week Initial Duration: 4 Weeks Plan: Continue POC: 2x week for 4 weeks Anticipated Interventions Anticipated Interventions: A/AAROM/PROM, Strengthening, Joint Protection/Energy Conservation, Fine Motor Coord/Corey, ADL Training and Home Program Last Seen Last Seen: This patient was last seen in our office 11/05/23. Pertinent comments regarding their Occupational therapy will appear below: This 63 year old female seen by OT for debility. pt attends eval plus additional 12 visits cancel and or no shows last few sessions resulting in discharge from caseload. At this point I will be discontinuing this patient from occupational therapy. I would be happy to see this patient again in the future if found appropriate by the physician. Thank you! Cathy Stokes
== END 2023-11-05 19:00 | disposition home or self-care (01) ==
LOC: OT 14:30
PROVIDERS: PCP Family Medicine; Referring Provider Family Medicine; Visit Provider Family Medicine
DX: R53.81 Other malaise (principal); Z91.81 History of falling; Z00.00 Encounter for general adult medical examination without abnormal findings
CPT/HCPCS: 97110; 97116; 97161; 97166; 97530

== ENCOUNTER → 2024-02-13 | Outpatient (CLI) | payer MEDICARE, SELFPAY ==
[2024-02-13 18:45] LABS: Anion Gap 6 (5-15); BUN 18 mg/dL (7-18); BUN/Creat Ratio 22.9 RATIO (10-20); Calcium,Total 10.8 mg/dL (8.5-10.1); Chloride 99 mmol/L (98-107); Cholesterol 138 mg/dL (200); Creatinine, Serum 0.78 mg/dL (0.55-1.02); EST Glomerular Filtration Rate 78 mL/min (>60); Est Glom Filt Rate - Afr Amer 95 mL/min (>60); Glucose 252 mg/dL (74-106); High Density Lipoprotein 51 mg/dL; Potassium 3.6 mmol/L (3.5-5.1); Sodium Level 135 mmol/L (136-145); Triglycerides 167 mg/dL; Very Low Density Lipoprotein 33 mg/dL (5-40)
== END | disposition home or self-care (01) ==
LOC: MTLAB 13:54
PROVIDERS: PCP Family Medicine; Referring Provider Family Medicine; Visit Provider Family Medicine
DX: I50.9 Heart failure, unspecified (principal)
CPT/HCPCS: 36415; 80048; 80061

== ENCOUNTER 2024-07-05 18:00 | Inpatient (IN) | payer MEDICARE, SELFPAY ==
[2024-07-05] VITALS (16 sets, daily range): BP systolic 95–152; BP diastolic 57–76; PULSE 71–89; RESP 12–23; TEMP 35.9–36.7; O2SAT 93–100; BMI 20.1; BMI 19.9
--- NOTE | 2024-07-05 18:18 | ED.RN ---
PT. BROUGHT IN BY SON THROUGH TRIAGE FOR STROKE CONCERNS,PT. IS PALE, MOSTLY UNRESPONSIVE. UPON PUTTING PT. ON VITAL MACHINE PT. SPO2 WAS IN THE 30S WITH A GOOD WAVEFORM. PT. PLACED ON 15Lnrb AND IMMEDIATELY BROUGHT BACK TO ROOM. PT. RECOVERED IN A COUPLE MINUTES AND SPO2 BACK INTO 90S. PT. COLOR BACK TO NORMAL AND ANSWERING QUESTIONS APPROPRIATELY. NIH STROKE SCALE DONE ON PT. D/T SONS CONCERNS AND HER NIH SCORE WAS ZERO.
--- NOTE | 2024-07-05 18:22 | EKG12_ITS ---
Test Reason : SOB Blood Pressure : */* mmHG Vent. Rate : 83 BPM Atrial Rate : 83 BPM P-R Int : 168 ms QRS Dur : 92 ms QT Int : 384 ms P-R-T Axes : 75 60 66 degrees QTcB Int : 451 ms Normal sinus rhythm Nonspecific ST abnormality Abnormal ECG Confirmed by MAHESH ROBIN, HENRY ([id number]), editorial project manager ELIZABETH MENDOSA ([id number]) on 07/07/2024 10:52:12 A M Referred By: GRICELDA Confirmed By: HENRY ARAGON MD
[2024-07-05 18:32] LABS: Absolute Neutrophil Count 8.9 X10^3/uL (2.0-7.7); Basophil# 0.07 X10^3/uL; Basophil% 0.5 % (0-1); Eosinophil# 0.06 X10^3/uL; Eosinophils% 0.4 % (0-5); Hematocrit 44.9 % (37-47); Hemoglobin 13.6 g/dL (12.0-15.0); Lymphocyte % 26.1 % (19-41); Mean Corp Hgb Conc 30.3 g/dL (32-36); Mean Corpuscular Hgb 29.6 pg (27.0-32.0); Mean Corpuscular Volume 97.8 fL (81-99); Mean Platelet Vol. 10.5 fl (6.2-12.0); Monocyte# 2.18 X10^3/uL; Monocyte% 14.2 % (0-10); NRBC Flagged by Analyzer 0 % (0-5); Neutrophil # 8.89 X10^3/uL (2.7-7.7); Neutrophil % 57.9 % (47-70); POSITIVE DIFFERENTIAL YES; Platelet Count 359 K/mm3 (150-450); RBC Distribution Width CV 12.8 % (11.6-14.6); Red Blood Count 4.59 M/mm3 (4.2-5.4); White Blood Count 15.3 K/mm3 (4.4-11.0)
[2024-07-05 18:37] LABS: Differential Indicated SCAN CRITERIA MET
--- NOTE | 2024-07-05 18:38 | EDS_ITS ---
HPI History of Present Illness Chief Complaint: Shortness of Breath Narrative Narrative: Chief complaint and HPI: Hypoxia with shortness of breath and confusion. 63-year-old female with past medical history of COPD, HTN, CHF presents for evaluation of hypoxia with shortness of breath and confusion. History taken by family secondary to patient's confusion. Patient wears baseline 3 L nasal cannula while sleeping. Does not often wear oxygen throughout the day. Family states for the past several days the patient has complained of cough, nasal congestion, and shortness of breath. They state yesterday she started to become confused and this has progressively worsened. On presentation here in the emergency department patient was somnolent and found to be hypoxic into the 30s. She was placed on 15 L nonrebreather with improvement of her mentation as well as her saturation. She was weaned down to 3 L nasal cannula. Family was concerned that she possibly had a stroke secondary to the progressive confusion. They deny any neurological deficit otherwise. They deny any fever, chills, chest pain, abdominal pain, nausea, vomiting that the patient reported over the last several days. Per family members patient frequently does not use her nebulizers at home. Review of systems: See HPI Medications: As listed on the chart Allergies: As listed on the chart PFSH: Per chart Vital signs: As listed on the chart. Reviewed. Physical exam: Gen: Alert, oriented but intermittently confused, NAD Head: Normocephalic, atraumatic Eyes: No sclera icterus, conjunctiva clear, PERRL, EOMI ENT: Dry mucous membranes Neck: Trachea midline, No JVD CV: RRR, no murmurs, no peripheral edema Resp: Lungs diminished bilaterally, expiratory wheezing, 3 L nasal cannula GI: Abd soft, non-distended, non-tender, no r/r/g Musc: Full ROM, no deformity Skin: Warm, dry Neuro: Alert, oriented, grossly intact, sensation intact Psych: Cooperative, appropriate mood and affect PFSH PFSH Medical History Mild dementia Wears dentures Wears glasses Post-menopausal Alcohol use Open wound Uses wheelchair High cholesterol Emphysema, unspecified Smoker On home oxygen therapy History of pain when walking History of edema History of echocardiogram Cardiology follow-up encounter History of CHF (congestive heart failure) Chest pain Polycythemia Peripheral arterial disease Congestive heart failure (CHF) CVA (cerebral vascular accident) Elbow fracture HTN (hypertension) Tobacco abuse Alcohol abuse Home Medications ?Medication ?Instructions ?Recorded ?Last Taken ?Type aspirin 81 mg tablet,delayed 81 mg PO DAILY heart 06/13/22 10/08/22 22:00 History release carvedilol 3.125 mg tablet (Coreg) 3.125 mg PO BID 07/25/22 10/09/22 History Supplies for nebulizer machine #1 ea 08/24/22 Unknown Rx ipratropium 0.5 mg-albuterol 3 mg 3 ml inhalation Q8H PRN shortness 08/24/22 10/09/22 Rx (2.5 mg base)/3 mL nebulization of breath or wheezing #180 mL soln nebulizer and compressor #1 ea 08/24/22 Unknown Rx spironolactone 50 mg tablet 50 mg PO DAILY #90 tabs 08/10/23 Unknown Rx cholecalciferol (vitamin D3) 125 125 mcg PO DAILY 09/07/23 Unknown History mcg (5,000 unit) capsule atorvastatin 40 mg tablet 40 mg PO DAILY cholesterol 07/05/24 Unknown History Allergy/AdvReac Type Severity Reaction Status Date / Time codeine AdvReac Vomiting Verified 07/05/24 19:34 hydrocodone bitartrate (From AdvReac Vomiting Verified 07/05/24 19:34 Vicodin) oxycodone HCl (From Percocet) AdvReac Vomiting Verified 07/05/24 19:34 Family History Mother Cancer Grandfather CVA (cerebral vascular accident) Surgical History History of vascular surgery History of History of open reduction and internal fixation (ORIF) procedure History of brain surgery Social History household members: spouse housing: house Smoking Status: Heavy Smoker (>10/day) alcohol intake: current alcohol intake frequency: 0-2 drinks per day substance use type: marijuana caffeine: Yes Type: coffee Number of servings: 2 EXAM Physical Exam Const Vital Signs: 07/05/24 18:00 07/05/24 18:01 07/05/24 18:03 Temperature 97.8 F 96.6 F L Temperature Source Temporal Temporal Pulse Rate 89 83 Respiratory Rate 23 H 20 H Respiratory Effort Respiratory Depth Respiratory Pattern Blood Pressure 152/76 H 132/64 H Blood Pressure Mean 101 86 Pulse Ox 94 97 96 Oxygen Delivery Method Non-Rebreather Nasal Cannula Nasal Cannula Oxygen Flow Rate (L/min) 15 3 3 Fraction of Inspired Oxygen (FIO2) 07/05/24 18:21 07/05/24 18:55 07/05/24 18:55 Temperature Temperature Source Pulse Rate Respiratory Rate Respiratory Effort Short of Breath Respiratory Depth Shallow Respiratory Pattern Blood Pressure Blood Pressure Mean Pulse Ox 98 Oxygen Delivery Method Nasal Cannula Nasal Cannula Nasal Cannula Oxygen Flow Rate (L/min) 3 3 3 Fraction of Inspired Oxygen (FIO2) 07/05/24 18:55 07/05/24 18:58 07/05/24 18:58 Temperature 96.6 F L Temperature Source Temporal Pulse Rate 78 84 84 Respiratory Rate 16 20 H 20 H Respiratory Effort Respiratory Depth Respiratory Pattern Normal Blood Pressure 111/70 111/70 Blood Pressure Mean 83 83 Pulse Ox 94 94 Oxygen Delivery Method Nasal Cannula Nasal Cannula Oxygen Flow Rate (L/min) 3 3 Fraction of Inspired Oxygen (FIO2) 07/05/24 19:30 07/05/24 20:00 07/05/24 21:00 Temperature 97 F L 97 F L Temperature Source Temporal Temporal Pulse Rate 78 71 76 Respiratory Rate 16 16 16 Respiratory Effort Respiratory Depth Respiratory Pattern Normal Blood Pressure 133/62 H 123/59 H Blood Pressure Mean 85 80 Pulse Ox 98 93 93 Oxygen Delivery Method Bi-pap Bi-pap Oxygen Flow Rate (L/min) Fraction of Inspired Oxygen (FIO2) 30 07/05/24 21:30 07/05/24 21:40 07/05/24 22:00 Temperature 97 F L 97.3 F L Temperature Source Temporal Pulse Rate 88 79 80 Respiratory Rate 19 H 14 20 H Respiratory Effort Respiratory Depth Respiratory Pattern Normal Blood Pressure 95/57 L 97/58 L Blood Pressure Mean 69 71 Pulse Ox 93 93 93 Oxygen Delivery Method Bi-pap Oxygen Flow Rate (L/min) Fraction of Inspired Oxygen (FIO2) 30 MDM MDM MDM Narrative Medical decision making narrative: 63-year-old female with past medical history of COPD, HTN, CHF presents for evaluation of hypoxia with shortness of breath and confusion. Patient was hypoxic into the 30s on presentation somnolent. Since been placed on oxygen she has become more alert, less confused, and saturations have improved. She has no neurological deficit. Differential diagnosis includes but is not limited to COPD exacerbation, hypercapnia, pneumonia, electrolyte abnormality, viral illness. Suspect less likely ACS. NS bolus ordered. DuoNebs and Solu-Medrol ordered. Respiratory workup ordered. CBC with leukocytosis of 15.3. No anemia. BMP without MATILDA or significant electrolyte abnormality. Lactic acid elevated at 2.2. Patient receiving fluids. Troponin unremarkable. VBG shows respiratory acidosis with a pH of 7.19 and pCO2 of 42. Bicarb 39. Patient will be placed on BiPAP and will obtain repeat ABG. Chest x-ray was personally reviewed by me, ED physician. No pneumonia, effusion, cardiomegaly, pneumothorax. This was compared to previous chest x-ray reviewed. Repeat VBG with a pH of 7.3, bicarb 36, CO2 39. Patient's respiratory status is improving. Patient will warrant admission for COPD exacerbation. Dr. Sal accepted admission. Recommend giving doxycycline for COPD exacerbation. This was ordered. Family and patient updated of all results and the plan. They confirmed understanding. EKG: Interpreted by me/EM physician: EKG shows normal sinus rhythm with a heart rate of 83. Patient has multiple artifacts on her EKG. Impression: 1. COPD exacerbation 2. Acute hypoxic and hypercapnic respiratory failure requiring BiPAP 3. Encephalopathy likely secondary to #1 and 2. Lab Data Labs: Laboratory Results - last 24 hr 07/05/24 07/05/24 18:05 18:30 WBC 15.3 H RBC 4.59 Hgb 13.6 Hct 44.9 MCV 97.8 MCH 29.6 MCHC 30.3 L RDW Std Deviation 46.0 H RDW Coeff of Dae 12.8 Plt Count 359 MPV 10.5 Immature Gran % (Auto) 0.900 Neut % (Auto) 57.9 Lymph % (Auto) 26.1 [place] % (Auto) 14.2 H Eos % (Auto) 0.4 Baso % (Auto) 0.5 Absolute Neuts (auto) 8.9 H Absolute Lymphs (auto) 4.00 Nucleated RBC % 0 Differential Comment SEE COMMENT Diff Path Review May foll Toxic Granulation RARE Platelet Estimate ADEQUATE RBC Morphology N CHROM Anisocytosis 1+ Macrocytosis 1+ Ovalocytes RARE Sodium 136 Potassium 4.2 Chloride 97 L Carbon Dioxide 35.0 H Anion Gap 4 L BUN 18 Creatinine 0.98 Estim Creat Clear Calc 40.84 Est GFR (MDRD) Af Amer 73 Est GFR (MDRD) Non-Af 61 BUN/Creatinine Ratio 18.4 Glucose 196 H Hemoglobin A1c 5.5 Lactic Acid 2.2 H* Calcium 11.1 H Troponin I High Sens 11 Triglycerides 107 Cholesterol 128 LDL Cholesterol 45 VLDL Cholesterol 21 HDL Cholesterol 62 Folate 11.00 TSH 0.828 ABG Data ABG results: ABG 07/05/24 07/05/24 19:13 21:10 Specimen Type ANGEL ANGEL Sample Site VENOUS Not entered O2 % 3.0 30.0 VBG pH 7.19 L* 7.30 L VBG pO2 33 34 VBG HCO3 39 H 36 H VBG Total CO2 42 H 39 H VBG O2 Sat (Calc) 46 L 55 VBG Base Excess 11 H 10 H POC Mix VBG pCO2 Pt Tmp 102.3 H* 74.5 H* O2 Delivery Device Cannula BiPAP POC PEEP 6 Peak Inspir Pressure 16 Crit Call To/Read Back Yes Yes Blood Gas Notified Whom DR KATERINA BORGES Blood Gas Notified Time 19:16:25 21:13:02 Radiography Diagnostic Testing: Clinical Impression(s) from Imaging Studies Chest X-Ray 07/05/24 19:10 IMPRESSION: No radiographic evidence of acute cardiopulmonary disease. Electronically Signed: Salvatore Shrestha MD at 21:07 EST , Discharge Plan Disposition Disposition: Acute Care Hospital [facility] Discharge Date/Time: 07/05/24 22:34
[2024-07-05] MEDS: Ipratropium/Albuterol Sulfate 3 ML AMPUL.NEB 9 ML INHALATION (18:42)
[2024-07-05] MEDS: MethylPREDNISolone 125 MG/2 ML Vial IV (18:49)
[2024-07-05] MEDS: 0.9% Normal Saline (500mL Bag) 500 ML 999 ML IV (18:49)
[2024-07-05 18:51] LABS: Anisocytosis 1+; Platelet Estimate ADEQUATE (ADEQ); Red Cell Morphology N CHROM NORMAL (NORM C&C); Toxic Granulation RARE
[2024-07-05 18:52] LABS: Macrocytosis 1+; Ovalocyte RARE
[2024-07-05 19:06] LABS: Anion Gap 4 (5-15); BUN 18 mg/dL (7-18); BUN/Creat Ratio 18.4 RATIO (10-20); Calcium,Total 11.1 mg/dL (8.5-10.1); Chloride 97 mmol/L (98-107); Creatinine, Serum 0.98 mg/dL (0.55-1.02); EST Glomerular Filtration Rate 61 mL/min (>60); Est Glom Filt Rate - Afr Amer 73 mL/min (>60); Estimated Creatinine Clearance 40.84 ml/min; Glucose 196 mg/dL (74-106); Potassium 4.2 mmol/L (3.5-5.1); Sodium Level 136 mmol/L (136-145); Troponin-I HS 11 pg/mL (3.0-54.0)
--- NOTE | 2024-07-05 19:10 | RAD_ITS ---
EXAM: XR CHEST, 2 VIEWS CLINICAL INDICATION: Cough, shortness of breath TECHNIQUE: Frontal and lateral views of the chest. COMPARISON: 06/27/2022 FINDINGS: LUNGS AND PLEURAL SPACES: Unremarkable. No consolidation or edema. No pneumothorax. No effusion. HEART: Unremarkable. Cardiac silhouette not enlarged. MEDIASTINUM: Central airways and mediastinal contour are unremarkable. BONES/JOINTS: Unremarkable. No acute fracture. SOFT TISSUES: Unremarkable. RAD/Chest PA and Lateral IMPRESSION: No radiographic evidence of acute cardiopulmonary disease. Electronically Signed: Salvatore Shrestha MD at 21:07 EST ,
[2024-07-05 19:17] LABS: Lactic Acid 2.2 mmol/L (0.4-1.9)
[2024-07-05 19:18] LABS: Blood Gas Specimen Type VEN; O2 Delivery Device Cannula; SITE VENOUS; VBG BASE EXCESS 11 mmol/L (-1.0-3.5); VBG Bicarbonate 39 mmol/L (22-26); VBG PO2 33 mmHg (25-40); VBG SO2 46 % (50-70); VBG TCO2 42 mmol/L (23-33); VBG pCO2 102.3 mmHg (41-51); VBG pH 7.19 (7.32-7.42)
[2024-07-05 21:15] LABS: Blood Gas Specimen Type VEN; O2 Delivery Device BiPAP; PEEP 6; PIP 16; SITE Not entered; VBG BASE EXCESS 10 mmol/L (-1.0-3.5); VBG Bicarbonate 36 mmol/L (22-26); VBG PO2 34 mmHg (25-40); VBG SO2 55 % (50-70); VBG TCO2 39 mmol/L (23-33); VBG pCO2 74.5 mmHg (41-51)
--- NOTE | 2024-07-05 21:29 | PCM.HP.STD ---
[facility] - General General Date of Admission: 07/05/24 Date of Service: 07/05/24 Chief Complaint: SOB and Confusion. HPI Narrative SHAHLA VARELA, is a 63 F with a past medical history of essential hypertension; on carvedilol, spironolactone and furosemide, history of hyperlipidemia; not on treatment, history of mild dementia, history of CHF, history of CVA (1999), history of brain surgery x 2, history of PAD with previous LLE wound; s/p vascular surgery, history of polycythemia, history of Right elbow fracture; s/p ORIF, history of x 2, history of EtOH abuse; with reports she is down to 1 beer daily, history of cannabis abuse and history of tobacco abuse ~1/2 ppd x ~50 years; with subsequent COPD and chronic hypoxic respiratory failure on nocturnal home oxygen 3L NC who presents to [facility] ER complaining of SOB and confusion. Ms. Varela is not a fully-reliable historian at this time so information was gathered from chart, medical staff and computer. According to the records her symptoms began approximately ~4-5 days prior to admission with JOSE that progressed to SOB at rest with wheezing and increasingly frequent nonproductive cough. Then yesterday she became more confused with progressive worsening since that time so the family decided to have her brought in for further evaluation and treatment. She apparently does not use nebulizers at home. There was no report of fever, chills, nausea, vomiting, diarrhea, constipation, chest pain, chest pressure, palpitations, headache or focal neurologic weakness. Upon arrival in the ER she was noted to have an oxygen saturation in the ~30% range with patient initially started on a 100% NRB prior to being transitioned to BiPAP with Leukocytosis of 15.3K and mild Lactic Acidosis of 2.2 mmol/L present on admission with a CXR that was negative for acute pathologic changes. She was then diagnosed with AE COPD complicated by clinical evidence of Acute Hypoxic Respiratory Failure with Respiratory Acidosis and Acute Hypoxic Encephalopathy with VBG in ER revealing pH 7.19 followed by ABG after initiation of BiPAP revealed pH 7.30 in the setting of Chronic Mild Dementia along with incidentally noted Hypercalcemia of 11.1 mg/dL present on admission and she was then admitted to the general medical floor for ongoing care for a stay that is expected to extend beyond 2 midnights. [facility] Medical History Mild dementia Wears dentures Wears glasses Post-menopausal Alcohol use Open wound Uses wheelchair High cholesterol Emphysema, unspecified Smoker On home oxygen therapy History of pain when walking History of edema History of echocardiogram Cardiology follow-up encounter History of CHF (congestive heart failure) Chest pain Polycythemia Peripheral arterial disease Congestive heart failure (CHF) CVA (cerebral vascular accident) Elbow fracture HTN (hypertension) Tobacco abuse Alcohol abuse Home Medications ?Medication ?Instructions ?Recorded ?Last Taken ?Type aspirin 81 mg tablet,delayed 81 mg PO DAILY heart 06/13/22 10/08/22 22:00 History release carvedilol 3.125 mg tablet (Coreg) 3.125 mg PO BID 07/25/22 10/09/22 History Supplies for nebulizer machine #1 ea 08/24/22 Unknown Rx ipratropium 0.5 mg-albuterol 3 mg 3 ml inhalation Q8H PRN shortness 08/24/22 10/09/22 Rx (2.5 mg base)/3 mL nebulization of breath or wheezing #180 mL soln nebulizer and compressor #1 ea 08/24/22 Unknown Rx spironolactone 50 mg tablet 50 mg PO DAILY #90 tabs 08/10/23 Unknown Rx cholecalciferol (vitamin D3) 125 125 mcg PO DAILY 09/07/23 Unknown History mcg (5,000 unit) capsule atorvastatin 40 mg tablet 40 mg PO DAILY cholesterol 07/05/24 Unknown History Allergy/AdvReac Type Severity Reaction Status Date / Time codeine AdvReac Vomiting Verified 07/05/24 19:34 hydrocodone bitartrate (From AdvReac Vomiting Verified 07/05/24 19:34 Vicodin) oxycodone HCl (From Percocet) AdvReac Vomiting Verified 07/05/24 19:34 Family History Mother Cancer Grandfather CVA (cerebral vascular accident) Surgical History History of vascular surgery History of History of open reduction and internal fixation (ORIF) procedure History of brain surgery Social History household members: spouse housing: house Smoking Status: Heavy Smoker (>10/day) alcohol intake: current alcohol intake frequency: 0-2 drinks per day substance use type: marijuana caffeine: Yes Type: coffee Number of servings: 2 ROS ROS Narrative Full ROS was not possible due to patient's acute respiratory difficulty and encephalopathy. Vital Signs Vital Signs Vital Signs: 07/05/24 18:00 07/05/24 18:01 07/05/24 18:03 Temperature 97.8 F 96.6 F L Temperature Source Temporal Temporal Pulse Rate 89 83 Respiratory Rate 23 H 20 H Respiratory Effort Respiratory Depth Respiratory Pattern Blood Pressure 152/76 H 132/64 H Blood Pressure Mean 101 86 Pulse Ox 94 97 96 Oxygen Delivery Method Non-Rebreather Nasal Cannula Nasal Cannula Oxygen Flow Rate (L/min) 15 3 3 Fraction of Inspired Oxygen (FIO2) 07/05/24 18:21 07/05/24 18:55 07/05/24 18:55 Temperature Temperature Source Pulse Rate Respiratory Rate Respiratory Effort Short of Breath Respiratory Depth Shallow Respiratory Pattern Blood Pressure Blood Pressure Mean Pulse Ox 98 Oxygen Delivery Method Nasal Cannula Nasal Cannula Nasal Cannula Oxygen Flow Rate (L/min) 3 3 3 Fraction of Inspired Oxygen (FIO2) 07/05/24 18:55 07/05/24 18:58 07/05/24 18:58 Temperature 96.6 F L Temperature Source Temporal Pulse Rate 78 84 84 Respiratory Rate 16 20 H 20 H Respiratory Effort Respiratory Depth Respiratory Pattern Normal Blood Pressure 111/70 111/70 Blood Pressure Mean 83 83 Pulse Ox 94 94 Oxygen Delivery Method Nasal Cannula Nasal Cannula Oxygen Flow Rate (L/min) 3 3 Fraction of Inspired Oxygen (FIO2) 07/05/24 19:30 07/05/24 20:00 07/05/24 21:00 Temperature 97 F L 97 F L Temperature Source Temporal Temporal Pulse Rate 78 71 76 Respiratory Rate 16 16 16 Respiratory Effort Respiratory Depth Respiratory Pattern Normal Blood Pressure 133/62 H 123/59 H Blood Pressure Mean 85 80 Pulse Ox 98 93 93 Oxygen Delivery Method Bi-pap Bi-pap Oxygen Flow Rate (L/min) Fraction of Inspired Oxygen (FIO2) 30 Weight Weight: 99 lb 10.383 oz Body Mass Index (BMI) 20.1 Physical Exam Const alert and average body habitus Constitutional Narrative: Mild labored respirations noted on BiPAP. General Appearance: cooperative Orientation / Consciousness: confused HEENT normocephalic, head/scalp atraumatic, hearing grossly normal bilaterally and moist oral mucous membranes Eyes PERRL and EOMs intact bilaterally Neck no lymphadenopathy and supple Resp Resp Narrative: Diminished breath sounds throughout with diffuse expiratory wheezing. Auscultation: wheezes Cardio regular rate and regular rhythm GI normal to inspection, nondistended, normoactive bowel sounds, soft to palpation, non-tender and non-distended Extremity normal to inspection, full ROM and no clubbing, cyanosis or edema Skin Skin Narrative: Patient has no evidence of rash, abscess or jaundice. Neuro CN's II-XII intact bilaterally, moves all extremities and no focal motor deficits Neuro Narrative: Patient is confused. Sensorium / Orientation: awake, alert, oriented to person and oriented to place Speech: speech normal Psych Mood & Affect: anxious Results Medical Records Data Attestation: I reviewed the patient's medical records Lab / Micro Data Attestation: I reviewed the patient's lab results. 07/06/24 03:29 07/06/24 03:29 Labs: Laboratory Results - last 24 hr 07/05/24 18:05: WBC 15.3 H, RBC 4.59, Hgb 13.6, Hct 44.9, MCV 97.8, MCH 29.6, MCHC 30.3 L, RDW Std Deviation 46.0 H, RDW Coeff of Dae 12.8, Plt Count 359, MPV 10.5, Immature Gran % (Auto) 0.900, Neut % (Auto) 57.9, Lymph % (Auto) 26.1, [place] % (Auto) 14.2 H, Eos % (Auto) 0.4, Baso % (Auto) 0.5, Absolute Neuts (auto) 8.9 H, Absolute Lymphs (auto) 4.00, Nucleated RBC % 0, Differential Comment SEE COMMENT, Diff Path Review May foll, Toxic Granulation RARE, Platelet Estimate ADEQUATE, RBC Morphology N CHROM, Anisocytosis 1+, Macrocytosis 1+, Ovalocytes RARE, Sodium 136, Potassium 4.2, Chloride 97 L, Carbon Dioxide 35.0 H, Anion Gap 4 L, BUN 18, Creatinine 0.98, Estim Creat Clear Calc 40.84, Est GFR (MDRD) Af Amer 73, Est GFR (MDRD) Non-Af 61, BUN/Creatinine Ratio 18.4, Glucose 196 H, Calcium 11.1 H, Troponin I High Sens 11 07/05/24 18:30: Lactic Acid 2.2 H* Micro: Microbiology 07/05/24 18:30 Mucosa - Nose SARS-CoV-2, Influenza & RSV (PCR) - Final ABG Data ABG results: ABG 07/05/24 07/05/24 19:13 21:10 Specimen Type ANGEL ANGEL Sample Site VENOUS Not entered O2 % 3.0 30.0 VBG pH 7.19 L* 7.30 L VBG pO2 33 34 VBG HCO3 39 H 36 H VBG Total CO2 42 H 39 H VBG O2 Sat (Calc) 46 L 55 VBG Base Excess 11 H 10 H POC Mix VBG pCO2 Pt Tmp 102.3 H* 74.5 H* O2 Delivery Device Cannula BiPAP POC PEEP 6 Peak Inspir Pressure 16 Crit Call To/Read Back Yes Yes Blood Gas Notified Whom DR KATERINA BORGES Blood Gas Notified Time 19:16:25 21:13:02 Imaging Radiology Impression Chest X-Ray 07/05/24 19:10 IMPRESSION: No radiographic evidence of acute cardiopulmonary disease. Electronically Signed: Salvatore Shrestha MD at 21:07 EST , Assessment & Plan Assessment/Plan (1) COPD exacerbation: (2) Respiratory acidosis: (3) Acute on chronic respiratory failure with hypoxia and hypercapnia: (4) Hypophosphatemia: (5) Tobacco abuse: (6) Leukocytosis: QUALIFIERS: Leukocytosis type: unspecified Qualified Code(s): D72.829 - Elevated white blood cell count, unspecified (7) Lactic acidosis: (8) Hypoxic encephalopathy: (9) Mild dementia: QUALIFIERS: Dementia behavioral or psychological symptom: with other behavioral disturbance Dementia type: unspecified type Qualified Code(s): F03.A18 - Unspecified dementia, mild, with other behavioral disturbance (10) Hypercalcemia: (11) History of alcohol abuse: (12) Cannabis abuse: PLAN: Plan 1. AE COPD in the setting of ongoing Chronic Tobacco Abuse with Leukocytosis of 15.3K and Lactic Acidosis of 2.2 mmol/L present on admission concerning for possible SIRS - Admit to general medical floor. Continue IV Solu-Medrol begun and doxycycline IV begun in the ER. Give scheduled and prn nebulizers. Give Tessalon Perles prn cough. Tobacco Cessation will be strongly encouraged once patient's sensorium clears with Nicotine patch started to control cravings. Serialize lactate. Give acetaminophen prn for pain or fever. Follow-up testing revealed second lactate of 1.9 mmol/L. 2. Acute Hypoxic Respiratory Failure with Respiratory Acidosis due to #1 with initial VBG showing pH 7.19 and increased to 7.3 after initiation of BiPAP - Wean BiPAP as tolerated. Recheck ABG to follow trend. 3. Acute Hypoxic Encephalopathy in the setting of Chronic Mild Dementia complicating #1 & #2 - Check TSH, B12, folate, UDS and EMMY to evaluate for other potential reversible causes of confusion. Otherwise, we will minimize ATHLETIC MONITOR-active medications and monitor for improvement. 4. Hypophosphatemia of 1.8 mmol/L present on admission compounding #1 - #3 - Give K-Phos 40 mmol IV once and recheck level in AM to confirm repletion. 5. History of EtOH abuse; with reports she is down to 1 beer daily adding to the medical complexity of #1 - #4 - Check EMMY. Start phenobarbital to prevent potential impending withdrawal and then taper per protocol. Complete EtOH cessation will be encouraged once sensorium clears. 6. Mild Hypercalcemia of 11.1 mg/dL present on admission - Check intact-PTH and vitamin D level plus give NS IVF and then recheck level in AM to ensure improvement. 7. History of Cannabis abuse - Cannabis cessation will be encouraged once sensorium clears. 8. Essential Hypertension; on carvedilol, spironolactone and furosemide - Continue home regimen plus give prn Hydralazine IV for systolic blood pressure > 160 mmHg. 9. History of hyperlipidemia; not on treatment - Check Lipid Profile. 10. History of CHF - Noted with no current signs of volume overload. 11. History of CVA (1999) - Noted. 12. History of brain surgery x 2 - Noted. 13. History of PAD with previous LLE wound; s/p vascular surgery - Stable. 14. History of polycythemia - Noted with normal hemoglobin of 13.6 g/dL present on admission. 15. History of Right elbow fracture; s/p ORIF - Noted. 16. History of x 2 - noted for the sake of completeness. 17. DVT/GI prophylaxis - Lovenox 40 mg sq daily plus SCD's. Protonix 40 mg IV daily while on high-dose steroids. Total time: Approximately (but not less than) 75 minutes. Sepsis Attestation Sepsis Attestation: Sepsis Ruled Out Date exam was performed: 07/05/24 Time exam was performed: 23:00 Possible Source of Sepsis: Pulmonary Sepsis Organ Dysfunction Criteria Present: Acute Respiratory Failure (New need for BiPAP/CPAP or MV), Lactic Acid > 2 mmol/L and New/Unexplained change in mental status Fluid Resuscitation Fluid Resuscitation ordered: Lesser volume fluid bolus ordered Amount of fluid ordered: 1 Reason for lesser fluid bolus:: BP Responded to a lesser volume Sepsis Note Date exam was performed: 07/06/24 Time exam was performed: 03:00 Sepsis Attestation: Sepsis re-evaluation was performed Response to fluids: Fluid responsive hypotension Charges/Coding Visit Charges Inpatient E&M: 30067 Init Hosp L3
[2024-07-05] MEDS: Doxycycline 100 MG in Dextrose 5%-Water (250mL Bag) 250 ML 250 MG IV (22:04)
[2024-07-05 22:42] LABS: Reflex Lactate? Y
[2024-07-05] MEDS: 0.9% Normal Saline (1000mL) 1,000 ML 70 ML IV (23:03)
[2024-07-05] MEDS: Phenobarbital 32.4 MG Tablet PO (23:06)
[2024-07-05 23:21] LABS: Lactic Acid 1.9 mmol/L (0.4-1.9)
[2024-07-05 23:28] LABS: Cholesterol 128 mg/dL (200); High Density Lipoprotein 62 mg/dL; Thyroid Stim Hormone (TSH) 0.828 uIU/mL (0.358-3.740); Triglycerides 107 mg/dL; Very Low Density Lipoprotein 21 mg/dL (5-40)
[2024-07-05 23:59] LABS: Hemoglobin A1c 5.5 % (3.8-5.6)
[2024-07-06] VITALS (12 sets, daily range): BP systolic 99–136; BP diastolic 40–71; PULSE 74–85; RESP 12–20; TEMP 36.4–36.9; O2SAT 90–100; BMI 20.4
[2024-07-06 03:34] LABS: Absolute Lymphocyte Count 1.14 X10^3/uL (0.83-4.51); Basophil# 0.05 X10^3/uL; Basophil% 0.5 % (0-1); Hematocrit 42.5 % (37-47); Hemoglobin 12.9 g/dL (12.0-15.0); Lymphocyte # 1.14 X10^3/ul (0.83-4.51); Lymphocyte % 10.8 % (19-41); Mean Corp Hgb Conc 30.4 g/dL (32-36); Mean Corpuscular Hgb 30.1 pg (27.0-32.0); Mean Corpuscular Volume 99.3 fL (81-99); Monocyte# 0.34 X10^3/uL; Monocyte% 3.2 % (0-10); NRBC Flagged by Analyzer 0 % (0-5); Neutrophil # 8.99 X10^3/uL (2.7-7.7); Neutrophil % 84.8 % (47-70); Platelet Count 217 K/mm3 (150-450); RBC Distribution Width CV 12.8 % (11.6-14.6); RBC Distribution Width SD 47.1 fl (35.1-43.9); Red Blood Count 4.28 M/mm3 (4.2-5.4); White Blood Count 10.6 K/mm3 (4.4-11.0)
[2024-07-06 03:58] LABS: ALB/GLOB Ratio 0.7 RATIO (0.9-2.4); AST(SGOT) 14 U/L (15-37); Alanine Aminotransfer ALT/SGPT 46 U/L (13-56); Albumin, Serum 3.1 g/dL (3.2-5.0); Alkaline Phosphatase 143 U/L (45-117); Anion Gap 3 (5-15); BUN 19 mg/dL (7-18); BUN/Creat Ratio 30.3 RATIO (10-20); Calcium,Total 10.7 mg/dL (8.5-10.1); Chloride 99 mmol/L (98-107); Creatinine, Serum 0.63 mg/dL (0.55-1.02); EST Glomerular Filtration Rate 101 mL/min (>60); Est Glom Filt Rate - Afr Amer 122 mL/min (>60); Estimated Creatinine Clearance 49.58 ml/min; Globulin 4.4 g/dL (2.2-4.2); Glucose 149 mg/dL (74-106); Magnesium 1.9 mg/dL (1.6-2.6); Phosphorus 1.8 mg/dL (2.5-4.9); Potassium 4.2 mmol/L (3.5-5.1); Protein, Total 7.5 g/dL (6.4-8.2); Sodium Level 133 mmol/L (136-145)
[2024-07-06 04:30] LABS: Alcohol, Blood (Medical)-Serum < 3.0 mg/dL
[2024-07-06] MEDS: Enoxaparin 40 MG/0.4 ML Syringe SC (04:50)
[2024-07-06 05:44] LABS: Allen Test Positive; Base Excess 11 mmol/L (-2 to +2); Bicarbonate 37.2 mmol/L (22-26); Blood Gas Specimen Type ART; Mode Not entered; O2 Delivery Device Cannula; PO2 42 mmHG (75-100); SITE L Radial; SO2 72 % (95-99); Total Carbon Dioxide 39 mmol/L; pH 7.34 (7.35-7.45)
--- NOTE | 2024-07-06 06:08 | CPS ---
Critical ABG values, Dr. Curtis aware. Not enough blood for re-run.
[2024-07-06] MEDS: Acetaminophen 325 MG Tablet 650 MG PO (06:28)
[2024-07-06] MEDS: Phenobarbital 32.4 MG Tablet PO (06:28)
--- NOTE | 2024-07-06 08:22 | PN.HOSP_ITS ---
Reason for Visit Reason for Visit: Diagnoses Elevated white blood cell count, unspecified (07/05/24) Other disorders of phosphorus metabolism (07/05/24) Hypercalcemia (07/05/24) Acidosis, unspecified (07/05/24) Other acidosis (07/05/24) Unspecified dementia, mild, with other behavioral disturbance (07/05/24) Alcohol abuse, in remission (07/05/24) Cannabis abuse, uncomplicated (07/05/24) Anoxic brain damage, not elsewhere classified (07/05/24) Chronic obstructive pulmonary disease with (acute) exacerbation (07/05/24) Acute and chronic respiratory failure with hypoxia (07/05/24) Acute and chronic respiratory failure with hypercapnia (07/05/24) Tobacco use (07/05/24) Subjective Subjective Breathing well. Taken off of BiPAP. Objective Data Objective Data Vital Signs: Vital Signs Temp Pulse Resp BP Pulse Ox O2 Del Method O2 Flow Rate 36.6 C 81 12 124/63 H 95 Bi-pap 4 07/06/24 04:48 07/06/24 04:48 07/06/24 04:48 07/06/24 04:48 07/06/24 04:48 07/06/24 04:48 07/05/24 23:21 FiO2 30 07/06/24 04:48 Oxygen Flow Rate (L/min) 4 Oxygen Delivery Method Bi-pap Weight: 45.9 kg Body Mass Index (BMI) 20.4 Intake & Output: Intake and Output for Last 24 Hours 07/04/24 07/05/24 07/06/24 23:59 23:59 23:59 Intake Total 760 / 760 Balance 760 / 760 Lab / Micro Data 07/06/24 03:29 07/06/24 03:29 Labs: Laboratory Results - last 24 hr 07/05/24 18:05: WBC 15.3 H, RBC 4.59, Hgb 13.6, Hct 44.9, MCV 97.8, MCH 29.6, M CHC 30.3 L, RDW Std Deviation 46.0 H, RDW Coeff of Dae 12.8, Plt Count 359, MPV 10.5, Immature Gran % (Auto) 0.900, Neut % (Auto) 57.9, Lymph % (Auto) 26.1, M kim % (Auto) 14.2 H, Eos % (Auto) 0.4, Baso % (Auto) 0.5, Absolute Neuts (auto) 8.9 H, Absolute Lymphs (auto) 4.00, Nucleated RBC % 0, Differential Comment SEE COMMENT, Diff Path Review May foll, Toxic Granulation RARE, Platelet Estimate ADEQUATE, RBC Morphology N CHROM, Anisocytosis 1+, Macrocytosis 1+, Ovalocytes RARE, Sodium 136, Potassium 4.2, Chloride 97 L, Carbon Dioxide 35.0 H, Anion Gap 4 L, BUN 18, Creatinine 0.98, Estim Creat Clear Calc 40.84, Est GFR (MDRD) Af Amer 73, Est GFR (MDRD) Non-Af 61, BUN/Creatinine Ratio 18.4, Glucose 196 H, Hemoglobin A1c 5.5, Calcium 11.1 H, Troponin I High Sens 11, Triglycerides 107, Cholesterol 128, LDL Cholesterol 45, VLDL Cholesterol 21, HDL Cholesterol 62, Folate 11.00, TSH 0.828 07/05/24 18:30: Lactic Acid 2.2 H* 07/05/24 22:45: Lactic Acid 1.9 07/06/24 03:29: WBC 10.6, RBC 4.28, Hgb 12.9, Hct 42.5, MCV 99.3 H, MCH 30.1, M CHC 30.4 L, RDW Std Deviation 47.1 H, RDW Coeff of Dae 12.8, Plt Count 217, MPV 10.0, Immature Gran % (Auto) 0.700, Neut % (Auto) 84.8 H, Lymph % (Auto) 10.8 L, [place] % (Auto) 3.2, Eos % (Auto) 0.0, Baso % (Auto) 0.5, Absolute Neuts (auto) 9.0 H, Absolute Lymphs (auto) 1.14, Nucleated RBC % 0, Sodium 133 L, Potassium 4.2, Chloride 99, Carbon Dioxide 31.0, Anion Gap 3 L, BUN 19 H, Creatinine 0.63, Estim Creat Clear Calc 49.58, Est GFR (MDRD) Af Amer 122, Est GFR (MDRD) Non-Af 101, BUN/Creatinine Ratio 30.3 H, Glucose 149 H, Calcium 10.7 H, Phosphorus 1.8 L, Magnesium 1.9, Total Bilirubin 0.30, AST 14 L, ALT 46, Alkaline Phosphatase 143 H, Total Protein 7.5, Albumin 3.1 L, Globulin 4.4 H, Albumin/Globulin Ratio 0.7 L, Ethyl Alcohol < 3.0 Micro: Microbiology 07/05/24 18:30 Mucosa - Nose SARS-CoV-2, Influenza & RSV (PCR) - Final ABG Data ABG results: ABG 07/05/24 07/05/24 07/06/24 19:13 21:10 05:40 Specimen Type ANGEL ANGEL ART Sample Site VENOUS Not entered L Radial pH 7.34 L Bicarbonate Actual 37.2 H Total CO2 39 Base Excess 11 H O2 Saturation 72 L O2 % 3.0 30.0 4.0 ABG pCO2 69.0 H* ABG pO2 42 L Eric Test Positive VBG pH 7.19 L* 7.30 L VBG pO2 33 34 VBG HCO3 39 H 36 H VBG Total CO2 42 H 39 H VBG O2 Sat (Calc) 46 L 55 VBG Base Excess 11 H 10 H POC Mix VBG pCO2 Pt Tmp 102.3 H* 74.5 H* O2 Delivery Device Cannula BiPAP Cannula Vent Mode Not entered POC PEEP 6 Peak Inspir Pressure 16 Crit Call To/Read Back Yes Yes Yes Blood Gas Notified Whom DR KATERINA BORGES Blood Gas Notified Time 19:16:25 21:13:02 Radiography Diagnostic Testing: Radiology Impression Chest X-Ray 07/05/24 19:10 IMPRESSION: No radiographic evidence of acute cardiopulmonary disease. Electronically Signed: Salvatore Shrestha MD at 21:07 EST , Physical Exam Const Constitutional Narrative: awake. knows shes in the hospital. Orientation / Consciousness: confused HEENT head/scalp atraumatic and moist oral mucous membranes Resp normal respiratory effort and no retractions Resp Narrative: diminished breath sounds bilaterally. Cardio regular rate, regular rhythm, S1 normal heart sound and S2 normal heart sound GI normal to inspection, nondistended, normoactive bowel sounds, soft to palpation, non-tender and non-distended Neuro Sensorium / Orientation: awake Psych affect normal Assessment & Plan Assessment/Plan (1) COPD exacerbation: (2) Respiratory acidosis: (3) Acute on chronic respiratory failure with hypoxia and hypercapnia: (4) Hypophosphatemia: PLAN: Plan AE COPD * Continue IV Solu-Medrol begun and doxycycline IV begun in the ER. * Tobacco Cessation will be strongly encouraged once patient's sensorium clears with Nicotine patch started to control cravings. Acute Hypoxic and hypercapnic Respiratory Failure * due to AECOPD with initial VBG showing pH 7.19 and increased to 7.3 after initiation of BiPAP - Wean BiPAP as tolerated. Acute metabolic encephalopathy * 2/2 SOPD narcosis. in the setting of Chronic Mild Dementia complicating #1 & #2 - Check TSH, B12, folate, UDS and EMMY to evaluate for other potential reversible causes of confusion. Otherwise, we will minimize FAMILY WELF[employer] SOCIAL WORK PROFESSOR-active medications and monitor for improvement. * Hold potentiating medications. Hypophosphatemia * of 1.8 mmol/L present on admission compounding * Give K-Phos 40 mmol IV once and recheck level in AM to confirm repletion. History of EtOH abuse * with reports she is down to 1 beer daily Alcohol level negative. * DC phenobarbital and observe. * Add thiamine and folate. Hypercalcemia * chronic. Monitor. * of 11.1 mg/dL present on admission * check intact-PTH and vitamin D level plus give NS IVF and then recheck level in AM to ensure improvement. Chronic conditions: * History of Cannabis abuse - Cannabis cessation will be encouraged once sensorium clears. * Essential Hypertension; on carvedilol, spironolactone and furosemide - Continue home regimen plus give prn Hydralazine IV for systolic blood pressure > 160 mmHg. * History of CHF - Noted with no current signs of volume overload. VTE prophylaxis: LMWH. Charges/Coding Visit Charges Inpatient E&M: 54739 Subs Hosp L2
[2024-07-06] MEDS: Potassium Phosphate 40 MM in 0.9% Normal Saline (500mL Bag) 500 ML 62.5 MM IV (08:41)
[2024-07-06] MEDS: Aspirin E.C. 81 MG Tablet PO (08:42)
[2024-07-06] MEDS: Carvedilol 3.125 MG TABLET PO ×2 (08:42→17:29)
[2024-07-06] MEDS: Ensure Plus High Protein 120 ML LIQUID PO (08:43)
[2024-07-06] MEDS: Ascorbic Acid 500 MG Tablet 1000 MG PO ×2 (08:43→17:29)
[2024-07-06] MEDS: Doxycycline 100 MG in 0.9% Normal Saline (250mL Bag) 250 ML 250 MG IV ×2 (10:35→23:01)
[2024-07-06] MEDS: Furosemide 40 MG Tablet PO (10:36)
[2024-07-06] MEDS: Lactobacillis Acidophilus 1 CAP PO ×4 (10:36→23:02)
[2024-07-06] MEDS: MethylPREDNISolone 125 MG/2 ML Vial 60 MG IV ×2 (10:37→22:48)
[2024-07-06] MEDS: Cholecalciferol (Vit D3) 125 MCG CAPSULE (5,000 UNITS) PO (10:38)
[2024-07-06] MEDS: Zinc Sulfate 50 mg zinc (220 mg) ORAL capsule PO (10:38)
[2024-07-06] MEDS: Pantoprazole Sodium 40 MG Tablet PO (10:40)
[2024-07-06 17:11] LABS: Amphetamine Urine NEGATIVE (<1000 ng/mL); Barbiturate Urine VISTA POSITIVE (< 200 ng/mL); Benzodiazepine Urine VISTA NEGATIVE (< 200 ng/mL); Cocaine Urine VISTA NEGATIVE (< 300 ng/mL); Ecstacy Urine VISTA NEGATIVE (< 500 ng/mL); Methadone Urine VISTA NEGATIVE (< 300 ng/mL); PCP Urine VISTA NEGATIVE (< 25 ng/mL); THC Urine VISTA POSITIVE (< 50 ng/mL); Vista UDS pH Range 5
[2024-07-07] VITALS (12 sets, daily range): BP systolic 120–150; BP diastolic 48–78; PULSE 70–79; RESP 12–19; TEMP 36.4–37; O2SAT 92–100; BMI 21.9
[2024-07-07 04:50] LABS: Absolute Lymphocyte Count 1.66 X10^3/uL (0.83-4.51); Absolute Neutrophil Count 13.1 X10^3/uL (2.0-7.7); Basophil# 0.06 X10^3/uL; Basophil% 0.4 % (0-1); Eosinophil# 0.15 X10^3/uL; Hematocrit 37.7 % (37-47); Hemoglobin 11.8 g/dL (12.0-15.0); Lymphocyte # 1.66 X10^3/ul (0.83-4.51); Lymphocyte % 10.6 % (19-41); Mean Corp Hgb Conc 31.3 g/dL (32-36); Mean Corpuscular Hgb 30.2 pg (27.0-32.0); Mean Corpuscular Volume 96.4 fL (81-99); Mean Platelet Vol. 10.7 fl (6.2-12.0); Monocyte# 0.51 X10^3/uL; Monocyte% 3.2 % (0-10); NRBC Flagged by Analyzer 0 % (0-5); Neutrophil # 13.11 X10^3/uL (2.7-7.7); Neutrophil % 83.3 % (47-70); Platelet Count 303 K/mm3 (150-450); Red Blood Count 3.91 M/mm3 (4.2-5.4); White Blood Count 15.7 K/mm3 (4.4-11.0)
[2024-07-07] MEDS: Enoxaparin 40 MG/0.4 ML Syringe SC (05:08)
[2024-07-07 05:12] LABS: Anion Gap 3 (5-15); BUN 19 mg/dL (7-18); BUN/Creat Ratio 35.4 RATIO (10-20); Chloride 100 mmol/L (98-107); Creatinine, Serum 0.54 mg/dL (0.55-1.02); EST Glomerular Filtration Rate 121 mL/min (>60); Est Glom Filt Rate - Afr Amer 146 mL/min (>60); Estimated Creatinine Clearance 50.36 ml/min; Glucose 147 mg/dL (74-106); Potassium 4.4 mmol/L (3.5-5.1); Sodium Level 135 mmol/L (136-145)
--- NOTE | 2024-07-07 07:58 | PN.HOSP_ITS ---
Reason for Visit Reason for Visit: Diagnoses Elevated white blood cell count, unspecified (07/05/24) Other disorders of phosphorus metabolism (07/05/24) Hypercalcemia (07/05/24) Acidosis, unspecified (07/05/24) Other acidosis (07/05/24) Unspecified dementia, mild, with other behavioral disturbance (07/05/24) Alcohol abuse, in remission (07/05/24) Cannabis abuse, uncomplicated (07/05/24) Anoxic brain damage, not elsewhere classified (07/05/24) Chronic obstructive pulmonary disease with (acute) exacerbation (07/05/24) Acute and chronic respiratory failure with hypoxia (07/05/24) Acute and chronic respiratory failure with hypercapnia (07/05/24) Tobacco use (07/05/24) Subjective Subjective Feels well. Wants to go home. Objective Data Objective Data Vital Signs: Vital Signs Temp Pulse Resp BP Pulse Ox O2 Del Method O2 Flow Rate 36.4 C L 70 18 150/78 H 95 Nasal Cannula 4 07/07/24 05:00 07/07/24 05:00 07/07/24 05:00 07/07/24 05:00 07/07/24 07:08 07/07/24 07:08 07/07/24 07:08 FiO2 30 07/07/24 01:25 Oxygen Flow Rate (L/min) 4 Oxygen Delivery Method Nasal Cannula Weight: 49.3 kg Body Mass Index (BMI) 21.9 Intake & Output: Intake and Output for Last 24 Hours 07/05/24 07/06/24 07/07/24 23:59 23:59 23:59 Intake Total 760 / 760 1773.3333 / 1773.3333 260 / 260 Output Total 2 / 2 Balance 760 / 760 1771.3333 / 1771.3333 260 / 260 Lab / Micro Data 07/07/24 04:23 07/07/24 04:23 Labs: Laboratory Results - last 24 hr 07/05/24 16:15: Urine Opiates Screen NEGATIVE, Urine Methadone Screen NEGATIVE, Ur Barbiturates Screen POSITIVE H, Ur Phencyclidine Scrn NEGATIVE, Ur Amphetamines Screen NEGATIVE, MDMA (Ecstasy) Screen NEGATIVE, U Benzodiazepines Scrn NEGATIVE, Urine Cocaine Screen NEGATIVE, U Cannabinoids Screen POSITIVE H, Ur Drug Screen Comment 07/07/24 04:23: WBC 15.7 H, RBC 3.91 L, Hgb 11.8 L, Hct 37.7, MCV 96.4, MCH 30.2, MCHC 31.3 L, RDW Std Deviation 46.0 H, RDW Coeff of Dae 13.0, Plt Count 303, MPV 10.7, Immature Gran % (Auto) 1.500 H, Neut % (Auto) 83.3 H, Lymph % (Auto) 10.6 L, [place] % (Auto) 3.2, Eos % (Auto) 1.0, Baso % (Auto) 0.4, Absolute Neuts (auto) 13.1 H, Absolute Lymphs (auto) 1.66, Nucleated RBC % 0, Sodium 135 L, Potassium 4.4, Chloride 100, Carbon Dioxide 33.0 H, Anion Gap 3 L, BUN 19 H, Creatinine 0.54 L, Estim Creat Clear Calc 50.36, Est GFR (MDRD) Af Amer 146, Est GFR (MDRD) Non-Af 121, BUN/Creatinine Ratio 35.4 H, Glucose 147 H, Calcium 10.0 Micro: Microbiology 07/05/24 18:30 Mucosa - Nose SARS-CoV-2, Influenza & RSV (PCR) - Final Physical Exam Const alert and no apparent distress HEENT head/scalp atraumatic and moist oral mucous membranes Resp normal respiratory effort and no retractions Auscultation: wheezes Cardio regular rate, regular rhythm, S1 normal heart sound and S2 normal heart sound GI normal to inspection, nondistended, normoactive bowel sounds, soft to palpation, non-tender and non-distended Extremity normal to inspection and full ROM Neuro Sensorium / Orientation: awake and alert Assessment & Plan Assessment/Plan (1) COPD exacerbation: (2) Respiratory acidosis: (3) Acute on chronic respiratory failure with hypoxia and hypercapnia: PLAN: Plan AE COPD * Continue IV Solu-Medrol begun and doxycycline IV begun in the ER. * Tobacco Cessation will be strongly encouraged once patient's sensorium clears with Nicotine patch started to control cravings. Acute Hypoxic and hypercapnic Respiratory Failure * due to AECOPD with initial VBG showing pH 7.19 and increased to 7.3 after initiation of BiPAP - Wean BiPAP as tolerated. Acute metabolic encephalopathy * improved. * 2/2 CO2 narcosis. in the setting of Chronic Mild Dementia * Hold potentiating medications. History of EtOH abuse * with reports she is down to 1 beer daily Alcohol level negative. * DC'd phenobarbital and no evidence of alcohol withdrawal. * Add thiamine and folate. Hypercalcemia * chronic. Monitor. * of 11.1 mg/dL present on admission * check intact-PTH and vitamin D level plus give NS IVF and then recheck level in AM to ensure improvement. Chronic conditions: * History of Cannabis abuse - Cannabis cessation will be encouraged once sensorium clears. * Essential Hypertension; on carvedilol, spironolactone and furosemide - Continue home regimen plus give prn Hydralazine IV for systolic blood pressure > 160 mmHg. * History of CHF - Noted with no current signs of volume overload. VTE prophylaxis: LMWH. Charges/Coding Visit Charges Inpatient E&M: 18264 Subs Hosp L2
[2024-07-07 09:07] LABS: PTHIN 161.8 pg/mL (18.4-80.1)
[2024-07-07 09:11] LABS: Vitamin B12 425 pg/mL (211-911)
[2024-07-07] MEDS: Carvedilol 3.125 MG TABLET PO ×2 (09:25→18:16)
[2024-07-07] MEDS: Aspirin E.C. 81 MG Tablet PO (09:25)
[2024-07-07] MEDS: Folic Acid 1 MG Tablet PO (09:26)
[2024-07-07] MEDS: Lactobacillis Acidophilus 1 CAP PO ×4 (09:26→20:38)
[2024-07-07] MEDS: Furosemide 40 MG Tablet PO (09:26)
[2024-07-07] MEDS: Thiamine Hydrochloride 100 MG Tablet PO (09:26)
[2024-07-07] MEDS: Ascorbic Acid 500 MG Tablet 1000 MG PO ×2 (09:26→18:16)
[2024-07-07] MEDS: Pantoprazole Sodium 40 MG Tablet PO (09:27)
[2024-07-07] MEDS: Zinc Sulfate 50 mg zinc (220 mg) ORAL capsule PO (09:28)
[2024-07-07] MEDS: Cholecalciferol (Vit D3) 125 MCG CAPSULE (5,000 UNITS) PO (09:28)
[2024-07-07] MEDS: 0.9% Saline Lock 10 ML Syringe IV ×2 (09:28→20:38)
[2024-07-07] MEDS: MethylPREDNISolone 125 MG/2 ML Vial 60 MG IV ×2 (09:28→20:38)
[2024-07-07] MEDS: Doxycycline 100 MG in 0.9% Normal Saline (250mL Bag) 250 ML 250 MG IV ×2 (10:27→20:38)
--- NOTE | 2024-07-07 11:14 | CASEMGMT ---
ALEXANDRIA KING Assessment: Face to Face with pt for initial transition planning/care coordination assessment. ALEXANDRIA KING introduced self and role at [facility], pt voices understanding and consents to assessment. Pt is A&O x4 and answers all questions appropriately at this time. ALEXANDRIA KING into pt room, Pt difficulty answering questions due to feeling SOB when speaking. Pt asked RN CHRISTINE to call for rest of assessment. Care providers, pharmacy, and demographics verified/updated. Strata: 3 Admitting Dx: AE COPD, Acute Hypoxic Resp Failure PCP: Margie Specialists: JENNIFER, Pulmonology not sure who Preferred Pharmacy: [facility] Insurance: [facility] Prescription Benefit: yes LNOK: Caesar, Living Arrangements: Pt lives with son and in a 1 story with 5 steps to enter. ADLs: Pt assists with ADLs and IADLs. Transportation: Pt provides transportation. DME: Shower Bench, walker, Cane, O2 - pt uses sisters concentrator and portable O2. Sister so Pt is using hers. HHC/SNF: Previously at [facility], only lasted 1 day and family brought her home due to lack of care provided. Pt previously used [facility] HHC. Pt and Pt both denied wanting assistance or to send Pt to SNF. Would like to bring Pt home and family provide care. Pt states no concerns with going home at time of dc. Pt states no further concerns/needs. CM to follow. Advised pt to ask CM if any further question/concerns/needs arise, voices understanding. Pt Goal: Home Plan: Home with family support. Pt has a portable tank to go home with. Follow for O2 needs. Currently uses 2L continuous. Kaelyn IBRAHIM CM
--- NOTE | 2024-07-07 14:58 | CASEMGMT ---
ALEXANDRIA KING called and spoke with pt , discussed how therapy went today and asked if they would like to discuss HHC or SNF options. Pt declined and states he takes care of pt at home and they are doing just fine. Pt and Pt both state they are not interested in SNF or HHC and deny any questions at this time. ALEXANDRIA KING instructed them if they change their mind they can ask for CM.
[2024-07-07 16:01] LABS: Pathologist Review Reviewed
[2024-07-07] MEDS: Acetaminophen 325 MG Tablet 650 MG PO (20:38)
[2024-07-08] VITALS (11 sets, daily range): BP systolic 137–161; BP diastolic 67–73; PULSE 71–95; RESP 16–20; TEMP 36.5–36.8; O2SAT 74–99; BMI 22.2
--- NOTE | 2024-07-08 02:24 | CPS ---
This ARBORICULTURIST spoke with patient. Patient stated she was not ready to go on BIPAP at this time
[2024-07-08] MEDS: Enoxaparin 40 MG/0.4 ML Syringe SC (06:34)
--- NOTE | 2024-07-08 07:32 | PN.HOSP_ITS ---
Reason for Visit Reason for Visit: Diagnoses Elevated white blood cell count, unspecified (07/05/24) Other disorders of phosphorus metabolism (07/05/24) Hypercalcemia (07/05/24) Acidosis, unspecified (07/05/24) Other acidosis (07/05/24) Unspecified dementia, mild, with other behavioral disturbance (07/05/24) Alcohol abuse, in remission (07/05/24) Cannabis abuse, uncomplicated (07/05/24) Anoxic brain damage, not elsewhere classified (07/05/24) Chronic obstructive pulmonary disease with (acute) exacerbation (07/05/24) Acute and chronic respiratory failure with hypoxia (07/05/24) Acute and chronic respiratory failure with hypercapnia (07/05/24) Tobacco use (07/05/24) Subjective Subjective Feeling well. Wants to go home. Objective Data Objective Data Vital Signs: Vital Signs Temp Pulse Resp BP Pulse Ox O2 Del Method O2 Flow Rate 36.8 C 95 20 H 161/71 H 94 Nasal Cannula 3 07/08/24 06:30 07/08/24 06:30 07/08/24 06:30 07/08/24 06:30 07/08/24 06:30 07/08/24 06:30 07/08/24 06:30 FiO2 30 07/07/24 01:25 Oxygen Flow Rate (L/min) 3 Oxygen Delivery Method Nasal Cannula Weight: 50 kg Body Mass Index (BMI) 22.2 Intake & Output: Intake and Output for Last 24 Hours 07/06/24 07/07/24 07/08/24 23:59 23:59 23:59 Intake Total 1773.3333 / 1773.3333 1220 / 1220 Output Total 2 / 4 / Balance 1771.3333 / 1771.3333 1216 / 1216 Lab / Micro Data 07/07/24 04:23 07/07/24 04:23 Labs: Laboratory Results - last 24 hr 07/05/24 18:05: Diff Path Review Reviewed 07/06/24 03:29: Vitamin B12 425, PTH Intact 161.8 H Micro: Microbiology 07/05/24 18:30 Mucosa - Nose SARS-CoV-2, Influenza & RSV (PCR) - Final Physical Exam Const Constitutional Narrative: oxygen was out of her nares and pulse ox was down to 88%. Replaced, and pulse ox increased to mid 90s. Shortly after she had a coughing fit and her oxygen came out of her nares and pulse ox dropped to 83%. Oxygen again replaced into nares and improved. Resp normal respiratory effort and no retractions Resp Narrative: diminished. Cardio regular rate, regular rhythm, S1 normal heart sound and S2 normal heart sound Neuro Sensorium / Orientation: awake and alert Assessment & Plan Assessment/Plan (1) COPD exacerbation: (2) Respiratory acidosis: (3) Acute on chronic respiratory failure with hypoxia and hypercapnia: PLAN: Plan AE COPD * Continue IV Solu-Medrol begun and doxycycline IV begun in the ER. * Tobacco Cessation will be strongly encouraged once patient's sensorium clears with Nicotine patch started to control cravings. Acute Hypoxic and hypercapnic Respiratory Failure * due to AECOPD with initial VBG showing pH 7.19 and increased to 7.3 after initiation of BiPAP * Home oxygen evaluation. Acute metabolic encephalopathy * improved. * 2/2 CO2 narcosis. in the setting of Chronic Mild Dementia * Hold potentiating medications. History of EtOH abuse * with reports she is down to 1 beer daily Alcohol level negative. * DC'd phenobarbital and no evidence of alcohol withdrawal. * Add thiamine and folate. Chronic conditions: * History of Cannabis abuse - Cannabis cessation will be encouraged once sensorium clears. * Essential Hypertension; on carvedilol, spironolactone and furosemide - Continue home regimen plus give prn Hydralazine IV for systolic blood pressure > 160 mmHg. * History of CHF - Noted with no current signs of volume overload. VTE prophylaxis: LMWH. DW the patient's at bedside. Charges/Coding Visit Charges Inpatient E&M: 85156 Subs Hosp L2
[2024-07-08] MEDS: Aspirin E.C. 81 MG Tablet PO (09:21)
[2024-07-08] MEDS: Pantoprazole Sodium 40 MG Tablet PO (09:21)
[2024-07-08] MEDS: Carvedilol 3.125 MG TABLET PO ×2 (09:21→15:43)
[2024-07-08] MEDS: Ascorbic Acid 500 MG Tablet 1000 MG PO ×2 (09:22→15:43)
[2024-07-08] MEDS: Lactobacillis Acidophilus 1 CAP PO ×3 (09:22→21:32)
[2024-07-08] MEDS: Thiamine Hydrochloride 100 MG Tablet PO (09:22)
[2024-07-08] MEDS: Folic Acid 1 MG Tablet PO (09:22)
[2024-07-08] MEDS: 0.9% Saline Lock 10 ML Syringe IV ×2 (09:23→21:32)
[2024-07-08] MEDS: MethylPREDNISolone 125 MG/2 ML Vial 60 MG IV ×2 (09:23→21:32)
[2024-07-08] MEDS: Furosemide 40 MG Tablet PO (09:23)
[2024-07-08] MEDS: Zinc Sulfate 50 mg zinc (220 mg) ORAL capsule PO (09:24)
[2024-07-08] MEDS: Cholecalciferol (Vit D3) 125 MCG CAPSULE (5,000 UNITS) PO (09:24)
[2024-07-08] MEDS: Doxycycline 100 MG in 0.9% Normal Saline (250mL Bag) 250 ML 250 MG IV ×2 (09:30→21:34)
[2024-07-09] VITALS (15 sets, daily range): BP systolic 96–150; BP diastolic 60–79; PULSE 63–83; RESP 18–26; TEMP 36.4–36.9; O2SAT 85–100; BMI 21.4
[2024-07-09] MEDS: Enoxaparin 40 MG/0.4 ML Syringe SC (05:38)
--- NOTE | 2024-07-09 07:39 | PN.HOSP_ITS ---
Reason for Visit Reason for Visit: Diagnoses Elevated white blood cell count, unspecified (07/05/24) Other disorders of phosphorus metabolism (07/05/24) Hypercalcemia (07/05/24) Acidosis, unspecified (07/05/24) Other acidosis (07/05/24) Unspecified dementia, mild, with other behavioral disturbance (07/05/24) Alcohol abuse, in remission (07/05/24) Cannabis abuse, uncomplicated (07/05/24) Anoxic brain damage, not elsewhere classified (07/05/24) Chronic obstructive pulmonary disease with (acute) exacerbation (07/05/24) Acute and chronic respiratory failure with hypoxia (07/05/24) Acute and chronic respiratory failure with hypercapnia (07/05/24) Tobacco use (07/05/24) Subjective Subjective Asking how to use the flutter valve. Objective Data Objective Data Vital Signs: Vital Signs Temp Pulse Resp BP Pulse Ox O2 Del Method O2 Flow Rate 36.7 C 74 18 119/60 97 Nasal Cannula 3 07/09/24 03:39 07/09/24 04:00 07/09/24 03:39 07/09/24 03:39 07/09/24 03:39 07/09/24 03:40 07/09/24 03:40 FiO2 30 07/07/24 01:25 Oxygen Flow Rate (L/min) 3 Oxygen Delivery Method Nasal Cannula Weight: 48.3 kg Body Mass Index (BMI) 21.4 Intake & Output: Intake and Output for Last 24 Hours 07/07/24 07/08/24 07/09/24 23:59 23:59 23:59 Intake Total 1220 / 1220 520 / 520 Output Total 4 / 4 Balance 1216 / 1216 520 / 520 Lab / Micro Data 07/07/24 04:23 07/07/24 04:23 Micro: Microbiology 07/05/24 18:30 Mucosa - Nose SARS-CoV-2, Influenza & RSV (PCR) - Final Physical Exam Const alert and no apparent distress HEENT head/scalp atraumatic and moist oral mucous membranes Resp normal respiratory effort, no retractions, no use of accessory muscles and clear to auscultation bilaterally Cardio regular rate, regular rhythm, S1 normal heart sound and S2 normal heart sound GI normal to inspection, nondistended, normoactive bowel sounds, soft to palpation, non-tender and non-distended Extremity normal to inspection and full ROM Neuro Sensorium / Orientation: awake and alert Assessment & Plan Assessment/Plan (1) COPD exacerbation: (2) Respiratory acidosis: (3) Acute on chronic respiratory failure with hypoxia and hypercapnia: PLAN: Plan AE COPD * Continue IV Solu-Medrol begun and doxycycline IV begun in the ER. * Tobacco Cessation will be strongly encouraged once patient's sensorium clears with Nicotine patch started to control cravings. Acute Hypoxic and hypercapnic Respiratory Failure * due to AECOPD with initial VBG showing pH 7.19 and increased to 7.3 after initiation of BiPAP * Repeat Home oxygen evaluation. Required 6liters with activity on 07/08 Acute metabolic encephalopathy * improved. * 2/2 CO2 narcosis. in the setting of Chronic Mild Dementia * Hold potentiating medications. History of EtOH abuse * with reports she is down to 1 beer daily Alcohol level negative. * DC'd phenobarbital and no evidence of alcohol withdrawal. * Add thiamine and folate. Chronic conditions: * History of Cannabis abuse - Cannabis cessation will be encouraged once sensorium clears. * Essential Hypertension; on carvedilol, spironolactone and furosemide - Continue home regimen plus give prn Hydralazine IV for systolic blood pressure > 160 mmHg. * History of CHF - Noted with no current signs of volume overload. VTE prophylaxis: LMWH. Charges/Coding Visit Charges Inpatient E&M: 34492 Subs Hosp L2
[2024-07-09] MEDS: Lactobacillis Acidophilus 1 CAP PO ×3 (08:39→18:10)
[2024-07-09] MEDS: Carvedilol 3.125 MG TABLET PO ×2 (08:40→16:18)
[2024-07-09] MEDS: Thiamine Hydrochloride 100 MG Tablet PO (08:40)
[2024-07-09] MEDS: Furosemide 40 MG Tablet PO (08:40)
[2024-07-09] MEDS: Ascorbic Acid 500 MG Tablet 1000 MG PO ×2 (08:40→16:18)
[2024-07-09] MEDS: Pantoprazole Sodium 40 MG Tablet PO (08:40)
[2024-07-09] MEDS: Cholecalciferol (Vit D3) 125 MCG CAPSULE (5,000 UNITS) PO (08:40)
[2024-07-09] MEDS: Folic Acid 1 MG Tablet PO (08:41)
[2024-07-09] MEDS: Zinc Sulfate 50 mg zinc (220 mg) ORAL capsule PO (08:41)
[2024-07-09] MEDS: Aspirin E.C. 81 MG Tablet PO (08:41)
[2024-07-09] MEDS: 0.9% Saline Lock 10 ML Syringe IV ×2 (08:41→10:54)
[2024-07-09] MEDS: MethylPREDNISolone 125 MG/2 ML Vial 60 MG IV (08:41)
[2024-07-09] MEDS: Atorvastatin Calcium 40 MG Tablet PO (08:51)
[2024-07-09] MEDS: Doxycycline 100 MG in 0.9% Normal Saline (250mL Bag) 250 ML 250 MG IV (10:53)
[2024-07-09 12:07] LABS: Vitamin D 1,25-Dihydroxy 83.5 pg/mL (24.8-81.5)
[2024-07-10] VITALS (10 sets, daily range): BP systolic 116–137; BP diastolic 53–62; PULSE 62–87; RESP 16–20; TEMP 36.6–37.3; O2SAT 88–97; BMI 21.4
[2024-07-10] MEDS: Doxycycline 100 MG in 0.9% Normal Saline (250mL Bag) 250 ML 250 MG IV ×2 (00:46→10:41)
[2024-07-10] MEDS: MethylPREDNISolone 125 MG/2 ML Vial 60 MG IV ×2 (00:48→10:34)
[2024-07-10] MEDS: Lactobacillis Acidophilus 1 CAP PO ×3 (00:49→15:08)
[2024-07-10] MEDS: 0.9% Saline Lock 10 ML Syringe IV ×3 (00:51→10:35)
[2024-07-10] MEDS: Enoxaparin 40 MG/0.4 ML Syringe SC (06:17)
--- NOTE | 2024-07-10 08:36 | PN.HOSP_ITS ---
Reason for Visit Reason for Visit: Diagnoses Elevated white blood cell count, unspecified (07/05/24) Other disorders of phosphorus metabolism (07/05/24) Hypercalcemia (07/05/24) Acidosis, unspecified (07/05/24) Other acidosis (07/05/24) Unspecified dementia, mild, with other behavioral disturbance (07/05/24) Alcohol abuse, in remission (07/05/24) Cannabis abuse, uncomplicated (07/05/24) Anoxic brain damage, not elsewhere classified (07/05/24) Chronic obstructive pulmonary disease with (acute) exacerbation (07/05/24) Acute and chronic respiratory failure with hypoxia (07/05/24) Acute and chronic respiratory failure with hypercapnia (07/05/24) Tobacco use (07/05/24) Objective Data Objective Data Vital Signs: Vital Signs Temp Pulse Resp BP Pulse Ox O2 Del Method O2 Flow Rate 37.1 C 72 16 116/61 94 Nasal Cannula 4 07/10/24 06:09 07/10/24 06:09 07/10/24 06:09 07/10/24 06:09 07/10/24 08:11 07/10/24 08:11 07/10/24 08:11 FiO2 30 07/07/24 01:25 Oxygen Flow Rate (L/min) 4 Oxygen Delivery Method Nasal Cannula Weight: 48.3 kg Body Mass Index (BMI) 21.4 Intake & Output: Intake and Output for Last 24 Hours 07/08/24 07/09/24 07/10/24 23:59 23:59 23:59 Intake Total 520 / 520 710 / 710 260 / 260 Balance 520 / 520 710 / 710 260 / 260 Lab / Micro Data 07/07/24 04:23 07/07/24 04:23 Labs: Laboratory Results - last 24 hr 07/06/24 03:29: Vit D 1,25-Dihydroxy 83.5 H Micro: Microbiology 07/05/24 18:30 Mucosa - Nose SARS-CoV-2, Influenza & RSV (PCR) - Final Assessment & Plan Assessment/Plan (1) COPD exacerbation: (2) Respiratory acidosis: (3) Acute on chronic respiratory failure with hypoxia and hypercapnia: PLAN: Plan AE COPD * Continue IV Solu-Medrol begun and doxycycline IV begun in the ER. * Tobacco Cessation will be strongly encouraged once patient's sensorium clears with Nicotine patch started to control cravings. * recheck CXR. Acute Hypoxic and hypercapnic Respiratory Failure * due to AECOPD with initial VBG showing pH 7.19 and increased to 7.3 after initiation of BiPAP * Repeat Home oxygen evaluation. Required 6liters with activity on 07/08 Acute metabolic encephalopathy * improved. * 2/2 CO2 narcosis. in the setting of Chronic Mild Dementia * Hold potentiating medications. History of EtOH abuse * with reports she is down to 1 beer daily Alcohol level negative. * DC'd phenobarbital and no evidence of alcohol withdrawal. * Add thiamine and folate. Chronic conditions: * History of Cannabis abuse - Cannabis cessation will be encouraged once sensorium clears. * Essential Hypertension; on carvedilol, spironolactone and furosemide - Continue home regimen plus give prn Hydralazine IV for systolic blood pressure > 160 mmHg. * History of CHF - Noted with no current signs of volume overload. VTE prophylaxis: LMWH.
--- NOTE | 2024-07-10 08:36 | PCM.PN.HOSP ---
Reason for Visit Reason for Visit: Diagnoses Elevated white blood cell count, unspecified (07/05/24) Other disorders of phosphorus metabolism (07/05/24) Hypercalcemia (07/05/24) Acidosis, unspecified (07/05/24) Other acidosis (07/05/24) Unspecified dementia, mild, with other behavioral disturbance (07/05/24) Alcohol abuse, in remission (07/05/24) Cannabis abuse, uncomplicated (07/05/24) Anoxic brain damage, not elsewhere classified (07/05/24) Chronic obstructive pulmonary disease with (acute) exacerbation (07/05/24) Acute and chronic respiratory failure with hypoxia (07/05/24) Acute and chronic respiratory failure with hypercapnia (07/05/24) Tobacco use (07/05/24) Subjective Subjective Breathing well. Anxious to go home. Objective Data Objective Data Vital Signs: Vital Signs Temp Pulse Resp BP Pulse Ox O2 Del Method O2 Flow Rate 37.1 C 72 16 116/61 94 Nasal Cannula 4 07/10/24 06:09 07/10/24 06:09 07/10/24 06:09 07/10/24 06:09 07/10/24 08:11 07/10/24 08:11 07/10/24 08:11 FiO2 30 07/07/24 01:25 Oxygen Flow Rate (L/min) 4 Oxygen Delivery Method Nasal Cannula Weight: 48.3 kg Body Mass Index (BMI) 21.4 Intake & Output: Intake and Output for Last 24 Hours 07/08/24 07/09/24 07/10/24 23:59 23:59 23:59 Intake Total 520 / 520 710 / 710 260 / 260 Balance 520 / 520 710 / 710 260 / 260 Lab / Micro Data 07/07/24 04:23 07/07/24 04:23 Labs: Laboratory Results - last 24 hr 07/06/24 03:29: Vit D 1,25-Dihydroxy 83.5 H Micro: Microbiology 07/05/24 18:30 Mucosa - Nose SARS-CoV-2, Influenza & RSV (PCR) - Final Physical Exam Const Constitutional Narrative: up in chair. on 2l/m NC in respiratory distress. No conversational dyspnea. Resp normal respiratory effort, no retractions, no use of accessory muscles and clear to auscultation bilaterally Cardio regular rate, regular rhythm, S1 normal heart sound and S2 normal heart sound GI normal to inspection, nondistended, normoactive bowel sounds, soft to palpation, non-tender and non-distended Assessment & Plan Assessment/Plan (1) COPD exacerbation: (2) Respiratory acidosis: (3) Acute on chronic respiratory failure with hypoxia and hypercapnia: PLAN: Plan AE COPD Continue IV Solu-Medrol begun and doxycycline IV begun in the ER. Tobacco Cessation will be strongly encouraged once patient's sensorium clears with Nicotine patch started to control cravings. recheck CXR. Home oxygen evaluation. Acute Hypoxic and hypercapnic Respiratory Failure due to AECOPD with initial VBG showing pH 7.19 and increased to 7.3 after initiation of BiPAP Repeat Home oxygen evaluation. Acute metabolic encephalopathy improved. 2/2 CO2 narcosis. in the setting of Chronic Mild Dementia Hold potentiating medications. History of EtOH abuse with reports she is down to 1 beer daily Alcohol level negative. DC'd phenobarbital and no evidence of alcohol withdrawal. Add thiamine and folate. Chronic conditions: History of Cannabis abuse - Cannabis cessation will be encouraged once sensorium clears. Essential Hypertension; on carvedilol, spironolactone and furosemide - Continue home regimen plus give prn Hydralazine IV for systolic blood pressure > 160 mmHg. History of CHF - Noted with no current signs of volume overload. VTE prophylaxis: LMWH. Charges/Coding Visit Charges Inpatient E&M: 47979 Subs Hosp L2
--- NOTE | 2024-07-10 09:11 | RAD_ITS ---
STUDY: X-RAY CHEST REASON FOR EXAM: Female, 63 years old. Hypoxia TECHNIQUE: Single AP portable view of the chest. COMPARISON: Comparison is made with prior study dated July 05, 2004. FINDINGS: EKG electrodes are seen. There is hyperinflation of the lungs consistent with chronic obstructive lung disease (COPD). Increased markings are now seen in the right middle lobe suggests a possible right middle lobe infiltrate. Blunting of the right costophrenic angle suggestive of a small right pleural effusion. Normal size heart. Normal mediastinum and gretel. There is prominence of the pulmonary hilar arteries without peripheral pulmonary vascular congestion, suggesting pulmonary hypertension. Normal visualized aortic arch and descending thoracic aorta. Normal visualized thoracic spine. Normal visualized ribs, clavicles, and shoulders. There is no demonstrated abnormality of the visualized soft tissue structures of the upper abdomen. RAD/Chest PA and Lateral IMPRESSION: Findings suggestive of right middle lobe infiltrate with small right pleural effusion. Follow-up recommended. Electronically Signed: Vince Olivia MD at 13:46 EST ,
[2024-07-10] MEDS: Carvedilol 3.125 MG TABLET PO (10:31)
[2024-07-10] MEDS: Folic Acid 1 MG Tablet PO (10:32)
[2024-07-10] MEDS: Aspirin E.C. 81 MG Tablet PO (10:32)
[2024-07-10] MEDS: Ascorbic Acid 500 MG Tablet 1000 MG PO (10:32)
[2024-07-10] MEDS: Thiamine Hydrochloride 100 MG Tablet PO (10:32)
[2024-07-10] MEDS: Atorvastatin Calcium 40 MG Tablet PO (10:33)
[2024-07-10] MEDS: Furosemide 40 MG Tablet PO (10:33)
[2024-07-10] MEDS: Pantoprazole Sodium 40 MG Tablet PO (10:34)
[2024-07-10] MEDS: Cholecalciferol (Vit D3) 125 MCG CAPSULE (5,000 UNITS) PO (10:34)
[2024-07-10] MEDS: Zinc Sulfate 50 mg zinc (220 mg) ORAL capsule PO (10:34)
--- NOTE | 2024-07-10 14:03 | DS.PCM_ITS ---
Providers Date of Admission: 07/05/24 Primary Care Physician: Dr. Marc Rosales MD Reason For Visit: AE COPD, ACUTE HYPOXIC RESP FAILURE & Diagnosis Discharge Diagnosis (1) COPD exacerbation: Status: Chronic Code(s): J44.1 - Chronic obstructive pulmonary disease with (acute) exacerbation (2) Respiratory acidosis: Status: Acute Code(s): E87.29 - Other acidosis (3) Acute on chronic respiratory failure with hypoxia and hypercapnia: Status: Chronic Code(s): J96.21 - Acute and chronic respiratory failure with hypoxia; J96.22 - Acute and chronic respiratory failure with hypercapnia Plan AE COPD * Continue IV Solu-Medrol begun and doxycycline IV begun in the ER. * Tobacco Cessation will be strongly encouraged once patient's sensorium clears with Nicotine patch started to control cravings. * recheck CXR. Home oxygen evaluation. Acute Hypoxic and hypercapnic Respiratory Failure * due to AECOPD with initial VBG showing pH 7.19 and increased to 7.3 after initiation of BiPAP * Repeat Home oxygen evaluation. Acute metabolic encephalopathy * improved. * 2/2 CO2 narcosis. in the setting of Chronic Mild Dementia * Hold potentiating medications. History of EtOH abuse * with reports she is down to 1 beer daily Alcohol level negative. * DC'd phenobarbital and no evidence of alcohol withdrawal. * Add thiamine and folate. Chronic conditions: * History of Cannabis abuse - Cannabis cessation will be encouraged once sensorium clears. * Essential Hypertension; on carvedilol, spironolactone and furosemide - Continue home regimen plus give prn Hydralazine IV for systolic blood pressure > 160 mmHg. * History of CHF - Noted with no current signs of volume overload. VTE prophylaxis: LMWH. Medications at Discharge Home Medications aspirin 81 mg tablet,delayed release 81 mg PO DAILY heart 06/13/22 carvedilol 3.125 mg tablet (Coreg) 3.125 mg PO BID 07/25/22 Supplies for nebulizer machine #1 ea 08/24/22 ipratropium 0.5 mg-albuterol 3 mg (2.5 mg base)/3 mL nebulization soln 3 ml inhalation Q8H PRN shortness of breath or wheezing #180 mL 08/24/22 nebulizer and compressor #1 ea 08/24/22 spironolactone 50 mg tablet 50 mg PO DAILY #90 tabs 08/10/23 cholecalciferol (vitamin D3) 125 mcg (5,000 unit) capsule 125 mcg PO DAILY 09/07/23 atorvastatin 40 mg tablet 40 mg PO DAILY cholesterol 07/05/24 furosemide 40 mg tablet 40 mg PO DAILY #0 tabs 07/10/24 multivitamin 1 tab PO DAILY #30 tabs 07/10/24 prednisone 20 mg tablet 40 mg (2 x 20 mg) PO DAILY #10 tabs 07/10/24 Hospital Course Operations None Procedures None Summary of Care Provided Minutes Spent on Discharge: 32 Hospital Course: Patient presents with shortness of breath. She had acute hypoxic and hypercapnic respiratory failure. Patient was started on BiPAP but since weaned down. She has a slowly been able to be tapered down on her oxygen but still required fair amount of oxygen with activity. Today she was tolerating 2 L nasal cannula at rest but with activity she required 5 L. This is due to an exacerbation of her COPD. Patient was also confused due to metabolic encephalopathy due to CO2 narcosis send patient with known dementia. Patient has since been at her baseline. Weight / BMI Weight Weight: 48.3 kg Body Mass Index (BMI) 21.4 ABG / Lab / Microbiology Data 07/07/24 04:23 07/07/24 04:23 Microbiology: Microbiology 07/05/24 18:30 Mucosa - Nose SARS-CoV-2, Influenza & RSV (PCR) - Final Radiography Diagnostic Testing: Radiology Impression Chest X-Ray 07/10/24 09:11 IMPRESSION: Findings suggestive of right middle lobe infiltrate with small right pleural effusion. Follow-up recommended. Electronically Signed: Vince Olivia MD at 13:46 EST , D/C Instructions Discharge Diet: No restrictions DC O2, CPAP, BIPAP Needs RN Home O2 Qualification: Home O2 Qualification: Is the patient on home oxygen Yes 07/10/24 07:39 Home O2 Qualification: AT REST 1-Pulse Ox at rest 97 07/10/24 07:39 1- Oxygen flow rate at rest 2 07/10/24 07:39 Home O2 Qualification: WITH AMBULATION 1- Pulse Ox with ambulation 89 07/10/24 07:39 1- Oxygen Flow Rate with 5 07/10/24 07:39 ambulation 2- Pulse Ox with ambulation 82 07/08/24 07:32 2- Oxygen Flow Rate with 6 07/08/24 07:32 ambulation 3- Pulse Ox with ambulation 82 07/08/24 07:32 3- Oxygen Flow Rate with 6 07/08/24 07:32 ambulation 3- Stopped test - Unable to Yes 07/08/24 07:32 obtain pulse ox >89% w/ max oxyg 4- Pulse Ox with ambulation 82 07/08/24 07:32 4- Oxygen Flow Rate with 6 07/08/24 07:32 ambulation 4- Stopped test - Unable to Yes 07/08/24 07:32 obtain pulse ox >89% w/ max oxyg PSN CPAP & BiPAP: BiPAP & CPAP Settings per PSN Mode BiPAP 07/08/24 08:12 Bipap Delivery Device Face Mask 07/07/24 01:25 BiPAP Inspiratory Pressure 16 07/07/24 01:25 BiPAP Expiratory Pressure 8 07/07/24 01:25 BiPAP Rate 12 07/07/24 01:25 Fraction of Inspired Oxygen ( 30 07/07/24 01:25 FIO2) Home O2 Discharge instructions: Yes Type of respiratory needs?: Oxygen Oxygen frequency: Continuous Continuous oxygen liters per minute: 2 and With Ambulation Oxygen liters per minute during Ambulation: 5 DC home with Oxygen: Yes Home O2 MD Review: I have reviewed the oxygen testing, and the patient qualifies for home oxygen equipment and portability. The patient is mobile in the home and the community. Meaningful Use Info Meaningful Use Meaningful Use Diagnoses (Choose all that apply): None applicable Ischemic Stroke Statin Dosing Therapy Reference: STATIN DOSE THERAPY REFERENCE: * Patients > 75 years receive moderate or high dose statin therapy. * Patients 75 years or YOUNGER should receive HIGH intensity statin dose unless contraindicated. You will be required to document reason for non-treatment if statin daily dose does not meet guidelines. HIGH DOSE STATIN THERAPY DAILY Atorvastatin > than or = to 40 mg Rosuvastatin > than or = to 20 mg Amlodipine + Atorvastatin > than or = to 2.5/40 mg Ezetimibe + Simvastatin 10/80 mg Simvastatin 80mg Discharge Plan Admission Admit Date/Time: 07/05/24 22:07 Primary Reason for Your Visit: COPD exacerbation Attending Provider: Angel Hanson Primary Care Provider: Marc Rosales Consulting Providers: Cristhian Flores Discharge Orders/Prescriptions Prescriptions: New furosemide 40 mg Tablet 40 mg PO DAILY Qty: 0 0RF multivitamin Tablet 1 tab PO DAILY Qty: 30 0RF prednisone 20 mg tablet 40 mg PO DAILY Qty: 10 0RF Continued aspirin 81 mg tablet,delayed release (DR/EC) 81 mg PO DAILY carvedilol [Coreg] 3.125 mg tablet 3.125 mg PO BID Rx Instructions: must administer with a meal/food (DME) nebulizer and compressor Device See Rx Instructions .Route Qty: 1 0RF Rx Instructions: As directed (DME) Supplies for nebulizer machine See Rx Instructions .ROUTE .MEDSUPPLY Qty: 1 0RF Rx Instructions: Tubing, plastic nebulizer cups, renewable every 30-90 days per insurance. Use every 4-6 hours with liquid respiratory medication as directed. ipratropium-albuterol 0.5 mg-3 mg(2.5 mg base)/3 mL solution for nebulization 3 ml inhalation Q8H MDD 3 PRN (Reason: shortness of breath or wheezing) Qty: 180 3RF Rx Instructions: Use with nebulizer machine. cholecalciferol (vitamin D3) 125 mcg (5,000 unit) capsule 125 mcg PO DAILY atorvastatin 40 mg tablet 40 mg PO DAILY spironolactone 50 mg tablet 50 mg PO DAILY Qty: 90 3RF Referrals / Follow Up: Marc Rosales MD [Primary Care Provider] - Within 2 Weeks Disposition Disposition (needs filled in before D/C Order can be placed): Home, Self Care Charges/Coding Visit Charges Inpatient E&M: 70105 Disch Hosp >30min
--- NOTE | 2024-07-10 15:05 | CASEMGMT ---
Addendum entered by Harley Celis 07/10/24 15:39: Kathy from [facility] reports that Gulsh[facility] is not in today and take a portable tank from stock. Tank taken to the pt room at this time and educated to call [employer] prior to DC so [employer] can deliver the remaining needed equipment. Pt states understanding. Pt RN updated and states that she will provide the pt with education on how to use the portability. Pt denies further needs at this time. DC summary with verbiage sent to [facility] via [employer]. Original Note: Pt has an order for DC. Per the return agent, pt qualifies for 2L continuous and 5L with exertion. RN CM to pt room at this time. Pt and son at bedside. Pt states that she has a POC and a regular concentrator at home. However, pt reports that this was her sisters equipment before she passed. Pt is needing set up with an official DME company for equipment and potential maintenance needs. A verbal list of local in-network DME companies were provided to the pt at this time. Pt prefers [employer]. Rx signed by Dr. Hanson at this time and referral sent to [facility] with Rx and O2 testing. Pt RN updated. Pt also states that she feels safe returning home today with her family and (again) denies the need for HH, OP Tx, or CCN. Pt and pt son reports that the pt did much better with therapy today. PT states that the pt has made a lot of progress during the pt hospitalization. Pt denies further questions or concerns at this time. Octavia CELIS RN, CM
== END 2024-07-10 15:57 | disposition home or self-care (01) | DRG 189 ==
LOC: ED 21:26 → MS3 22:09
PROVIDERS: Admitting Provider Internal Medicine; Emergency Provider Surgery; PCP Family Medicine
DX: J96.21 Acute and chronic respiratory failure with hypoxia (principal); G93.41 Metabolic encephalopathy; F03.A18 Unspecified dementia, mild, with other behavioral disturbance; I50.32 Chronic diastolic (congestive) heart failure; J44.1 Chronic obstructive pulmonary disease with (acute) exacerbation; E83.39 Other disorders of phosphorus metabolism; I11.0 Hypertensive heart disease with heart failure; F10.10 Alcohol abuse, uncomplicated; F12.10 Cannabis abuse, uncomplicated; I73.9 Peripheral vascular disease, unspecified; J96.22 Acute and chronic respiratory failure with hypercapnia; E78.00 Pure hypercholesterolemia, unspecified; F17.200 Nicotine dependence, unspecified, uncomplicated; E83.52 Hypercalcemia; D72.829 Elevated white blood cell count, unspecified; Z86.2 Personal history of diseases of the blood and blood-forming organs and certain disorders involving the immune mechanism; Z86.73 Personal history of transient ischemic attack (TIA), and cerebral infarction without residual deficits; Z86.79 Personal history of other diseases of the circulatory system; Z87.81 Personal history of (healed) traumatic fracture; Z79.82 Long term (current) use of aspirin; Z79.899 Other long term (current) drug therapy; Z98.890 Other specified postprocedural states
CPT/HCPCS: 36415; 36600; 71046; 80048; 80053; 80061; 80307; 82077; 82607; 82652; 82746; 82803; 83036; 83605; 83735; 83970; 84100; 84443; 84484; 85025; 87631; 93005; 94002; 94003; 94640; 94668; 94762; 97110; 97116; 97161; 97166; 97530; 97535; 97802; 99284; 99406; A4216

== ENCOUNTER → 2024-07-30 | Outpatient (CLI) | payer MEDICARE, SELFPAY ==
--- NOTE | 2024-07-30 13:59 | ECHOD_ITS ---
Reason For Study Reason For Study: DYSPNEA Procedure This was a 2D Doppler, Color Flow transthoracic echocardiogram. The patient was scanned supine. The study was technically difficult. Patient was in the sitting position during exam due to shortness of breath. Exam performed in department. Left Ventricle Normal LV size. Left ventricular systolic function is normal. The left ventricular ejection fraction is 70 %. Stage 1 diastolic dysfunction. No regional wall motion abnormalities noted. Right Ventricle Normal RV size. Normal systolic function. Atria Normal left atrium. Normal right atrium. Mitral Valve There is moderate mitral annular calcification. Tricuspid Valve Normal tricuspid valve. Aortic Valve Trisinus/trileaflet aortic valve. Moderate focal aortic valve calcification. Peak aortic valve gradient 11 mmHg. Mean aortic valve gradient 5 mmHg. Pulmonic Valve Normal pulmonic valve. Great Vessels Normal aortic root. The pulmonary artery is normal size. Inferior vena cava collapse with respiration. Pericardium/Pleural No pericardial effusion. MMode/2D Measurements & Calculations LVIDd: 3.8 cm IVSd: 1.0 cm LVOT diam: 2.0 cm LVIDs: 2.2 cm LVPWd: 0.93 cm LVOT area: 3.1 cm2 RVDd: 2.5 cm FS: 43.7 % asc Aorta Diam: 2.9 cm LAV(MOD-bp): 18.8 ml LVAd ap4: 15.1 cm2 LAV(MOD-bp) Indexed: 13.5 ml/m2 LVLd ap4: 6.3 cm LAV(MOD-sp2): 20.4 ml EDV(MOD-sp4): 31.1 ml LAV(MOD-sp4): 17.7 ml EDV(sp4-el): 30.6 ml LVAs ap4: 7.0 cm2 LVLs ap4: 5.0 cm ESV(MOD-sp4): 8.9 ml ESV(sp4-el): 8.1 ml EF(MOD-sp4): 71.3 % EF(sp4-el): 73.4 % LVAd ap2: 13.2 cm2 SV(MOD-sp4): 22.2 ml SV(MOD-sp2): 19.5 ml LVLd ap2: 5.9 cm SI(MOD-sp4): 15.9 ml/m2 SI(MOD-sp2): 14.0 ml/m2 EDV(MOD-sp2): 25.4 ml EDV(sp2-el): 25.3 ml LVAs ap2: 5.6 cm2 LVLs ap2: 4.8 cm ESV(MOD-sp2): 5.9 ml ESV(sp2-el): 5.4 ml EF(MOD-sp2): 76.7 % SV(sp4-el): 22.5 ml Ao sinus diam: 2.[address] Junction: 2.5 cm LA dimension(2D): 2.2 cm LA A4 area: 9.0 cm2 RA A4 area: 7.1 cm2 TAPSE: 1.3 cm Time Measurements MV dec time: 0.22 sec Doppler Measurements & Calculations MV E max jerod: 70.7 cm/sec Lat Peak E' Jerod: 7.6 cm/sec Med Peak E' Jerod: 6.2 cm/sec MV A max jerod: 83.9 cm/sec E/E' lat: 9.3 E/E' med: 11.4 MV E/A: 0.84 MV dec slope: 317.0 cm/sec2 Ao V2 max: 165.3 cm/sec LV V1 max: 96.2 cm/sec Ao max P.9 mmHg LV V1 max P.7 mmHg Ao V2 mean: 106.8 cm/sec LV V1 mean P.8 mmHg Ao mean P.1 mmHg LV V1 mean: 62.5 cm/sec Ao V2 VTI: 26.8 cm LV V1 VTI: 20.7 cm AV (velocity ratio): 0.77 DENNISE(I,D): 2.4 cm2 DENNISE(V,D): 1.8 cm2 SV(LVOT): 63.4 ml PA V2 max: 90.4 cm/sec ECHO/Echo Complete Interpretation Summary Normal LV size. Left ventricular systolic function is normal. The left ventricular ejection fraction is 70 %. Stage 1 diastolic dysfunction. Moderate focal aortic valve calcification. Mean aortic valve gradient 5 mmHg. Ordering Physician: Parag Toribio Referring Physician: Marc Rosales Performed By: Aneta Muhammad RDCS
== END | disposition home or self-care (01) ==
PROVIDERS: PCP Family Medicine; Referring Provider Internal Medicine Cardiovascular Disease; Visit Provider Internal Medicine Cardiovascular Disease
DX: I50.810 Right heart failure, unspecified (principal); R06.00 Dyspnea, unspecified
CPT/HCPCS: 93306

== ENCOUNTER → 2024-11-13 | Outpatient (CLI) | payer MEDICARE, SELFPAY ==
[2024-11-13 18:23] LABS: Anion Gap 10 (5-15); BUN 12 mg/dL (4-19); Calcium,Total 11.1 mg/dL (7.6-11.0); Chloride 98 mmol/L (98-108); Cholesterol 135 mg/dL (<=200); Creatinine, Serum 0.63 mg/dL (0.70-1.20); EST Glomerular Filtration Rate 98 (>60); Glucose 124 mg/dL (70-99); High Density Lipoprotein 72 mg/dL; Low Density Lipoprotein Calc. 39 mg/dL; Pro- Brain NATRIURETIC PEPTIDE 296 pg/mL (<=900); Sodium Level 141 mmol/L (133-145); Triglycerides 123 mg/dL; Very Low Density Lipoprotein 25 mg/dL (5-40); Vitamin B12 343 pg/mL (180-914); cholesterol:hdl ratio screen 1.89
== END | disposition home or self-care (01) ==
LOC: MFPLAB 14:28
PROVIDERS: PCP Family Medicine; Referring Provider Family Medicine; Visit Provider Family Medicine
DX: I50.9 Heart failure, unspecified (principal); E53.9 Vitamin B deficiency, unspecified
CPT/HCPCS: 36415; 80048; 80061; 82607; 83880